=== PATIENT | female | born 1990 | race Caucasian/White ===

== ENCOUNTER 2019-03-13 18:07 | Emergency (ER) | payer OTHER, BC, SELFPAY ==
[2019-03-13 18:08] VITALS: BP 147/75; PULSE 85; RESP 15; TEMP 36.9; O2SAT 98; BMI 43.4
--- NOTE | 2019-03-13 18:49 | ED.DCSUM_ITS ---
History of Present Illness Chief Complaint: Abd Pain Detail of Chief Complaint: Right upper quadrant pain Informant: Patient Onset: Yesterday Current Severity: Moderate Maximum Severity: Moderate Narrative: She presents with waxing and waning right upper quadrant pain that started last evening. She has had nausea but no vomiting. She has not eaten in the last 13 hours due to poor appetite. She states pain initially started on the right scapula and is now more just under the right ribs. She had some chills last evening but no fever. She denies prior surgery. Past Medical History - Allergies and Home Meds Allergies/Adverse Reactions: Allergies Sulfa (Sulfonamide Antibiotics) Allergy (Verified 03/13/19 18:07) Hives Primary Care Physician: Asa Ceja MD [Primary Care Provider] - Prior records reviewed: Yes Past Medical History: - - Reviewed Surgical History: no surgical history Smoking Status: Never smoker Review of Systems General: Reports: Chills. Denies: Fever Eyes: Denies: Visual changes - bilaterally ENT: Denies: Bilateral ear pain Cardiovascular: Denies: Chest pain Respiratory: Denies: Dyspnea, Cough Gastrointestinal: Reports: Abdominal pain, Nausea. Denies: Vomiting, Diarrhea, Constipation Genitourinary: Denies: Dysuria, Hematuria Musculoskeletal: Reports: Back pain Skin: Denies: Rash Neurological: Denies: Headache Allergy: Denies: Uticaria Physical Exam Vital Signs/Narrative: Vital Signs Temp Pulse Resp BP Pulse Ox 03/13/19 18:08 98.4 F 85 15 147/75 H 98 Inital Vital Signs reviewed: Yes General: Well nourished, No Acute Distress Head: Normocephalic ENT: Moist mucous membranes Neck: Supple Cardiovascular: Regular rate, Regular rhythm Respiratory: No distress, CTA bilaterally Abdomen: Soft, Tender - Right upper quadrant tenderness to palpation., Hypoactive bowel sounds, Rankin's sign - Mildly positive Rankin sign. Negative for: Guarding, Rebound tenderness Extremities: Nontender Skin: Normal color, No rash Neurological: Alert, Oriented x3 Psychological: Normal affect Diagnostic/Tx/Re-eval Laboratory Results 03/13/19 03/13/19 03/13/19 19:00 19:00 19:00 WBC 6.3 RBC 4.64 Hgb 13.3 Hct 40.5 MCV 87.3 MCH 28.7 MCHC 32.8 RDW Std Deviation 36.3 RDW Coeff of Silas 11.4 L Plt Count 262 MPV 11.2 Immature Gran % (Auto) 0.500 Neut % (Auto) 62.8 Lymph % (Auto) 29.0 [place] % (Auto) 5.6 Eos % (Auto) 1.8 Baso % (Auto) 0.3 Absolute Neuts (auto) 4.0 Absolute Lymphs (auto) 1.82 Nucleated RBC % 0 Sodium 140 Potassium 4.1 Chloride 106 Carbon Dioxide 27.0 Anion Gap 7 BUN 9 Creatinine 0.81 Estim Creat Clear Calc 102.45 Est GFR (MDRD) Af Amer 106 Est GFR (MDRD) Non-Af 88 BUN/Creatinine Ratio 11.1 Glucose 104 Calcium 8.8 Total Bilirubin 0.50 Direct Bilirubin 0.10 AST 16 ALT 16 Alkaline Phosphatase 65 Total Protein 7.7 Albumin 3.7 Globulin 4.0 Lipase 282 Serum , Qual NEGATIVE - Medical Decision Making She was given morphine and Zofran on arrival. On repeat evaluation she does feel improved. Labs are unremarkable at this time. I did perform a bedside ultrasound. She may have a small amount of sludge in the gallbladder. I do not see any wall thickening or pericholecystic fluid. Patient will call her primary care physician on Friday for follow-up and probable ultrasound of the gallbladder. She is to return for worsening symptoms or concerns. She is comfortable with this plan. ED Disposition - Plan for ED Patient: Disposition: Home or Assisted Living Diagnosis: Right upper quadrant abdominal pain Instructions: ABDOMINAL PAIN, Unknown Cause, (Female) Prescriptions: Omeprazole [Prilosec] 20 mg PO DAILY #30 capsule Ondansetron [Zofran Odt] 4 mg PO Q8H PRN PRN #10 tablet PRN Reason: Nausea Referrals: Asa Ceja MD [Primary Care Provider] - As soon as possible
[2019-03-13] MEDS: 0.9% Normal Saline 1,000 ML 150 ML IV (19:09)
[2019-03-13] MEDS: Ondansetron 4 MG/2 ML Vial IV (19:10)
[2019-03-13 19:20] LABS: Absolute Lymphocyte Count 1.82 X10^3/uL (0.83-4.51); Basophil# 0.02 X10^3/uL; Basophil% 0.3 % (0-1); Eosinophil# 0.11 X10^3/uL; Eosinophils% 1.8 % (0-5); Hematocrit 40.5 % (37-47); Hemoglobin 13.3 g/dL (12.0-15.0); Lymphocyte # 1.82 X10^3/ul (4.0); Mean Corp Hgb Conc 32.8 g/dL (32-36); Mean Corpuscular Hgb 28.7 pg (27.0-32.0); Mean Corpuscular Volume 87.3 fL (81-99); Mean Platelet Vol. 11.2 fl (6.2-12.0); Monocyte# 0.35 X10^3/uL; Monocyte% 5.6 % (0-10); NRBC Flagged by Analyzer 0 % (0-5); Neutrophil # 3.95 X10^3/uL (2.7-7.7); Neutrophil % 62.8 % (47-70); Platelet Count 262 K/mm3 (150-450); RBC Distribution Width CV 11.4 % (11.6-14.6); RBC Distribution Width SD 36.3 fl (35.1-43.9); Red Blood Count 4.64 M/mm3 (4.2-5.4); White Blood Count 6.3 K/mm3 (4.4-11.0)
[2019-03-13 19:28] LABS: Internal QC Validated? YES +Cl - CLEAR BKGD; Pregnancy, Serum, hCG Quali. NEGATIVE Negative
[2019-03-13 19:36] LABS: AST(SGOT) 16 U/L (15-37); Alanine Aminotransfer ALT/SGPT 16 U/L (13-56); Albumin, Serum 3.7 g/dL (3.2-5.0); Alkaline Phosphatase 65 U/L (45-117); Anion Gap 7 (5-15); BUN 9 mg/dL (7-18); BUN/Creat Ratio 11.1 RATIO (10-20); Calcium,Total 8.8 mg/dL (8.5-10.1); Chloride 106 mmol/L (98-107); Creatinine, Serum 0.81 mg/dL (0.55-1.02); EST Glomerular Filtration Rate 88 mL/min (>60); Est Glom Filt Rate - Afr Amer 106 mL/min (>60); Estimated Creatinine Clearance 102.45 ml/min; Glucose 104 mg/dL (74-106); Lipase 282 U/L (73-393); Potassium 4.1 mmol/L (3.5-5.1); Protein, Total 7.7 g/dL (6.4-8.2); Sodium Level 140 mmol/L (136-145)
[2019-03-13 20:07] VITALS: PULSE 78; RESP 18; O2SAT 98
[2019-03-13 20:35] VITALS: BP 138/74; PULSE 82; RESP 18; O2SAT 97
== END 2019-03-13 20:36 | disposition home or self-care (01) ==
PROVIDERS: Emergency Provider Emergency Medicine; Family Provider Family Medicine; PCP Family Medicine
DX: R10.11 Right upper quadrant pain (principal); R11.0 Nausea; Z88.2 Allergy status to sulfonamides
CPT/HCPCS: 80048; 80076; 83690; 84703; 85025; 96361; 96374; 99283; J7030; A4216; J2405

== ENCOUNTER → 2020-02-01 11:02 | Outpatient (CLI) | payer OTHER, BC, SELFPAY ==
[2020-02-01 09:45] VITALS: BMI 43.4
[2020-02-01 12:00] LABS: Follicle Stimulating Hormone 7.3 mIU/mL; Luteinizing Hormone 3.4 mIU/mL; Thyroid Stim Hormone (TSH) 1.85 uIU/mL (0.358-3.74)
[2020-02-01 12:28] LABS: HIV - WCH Non-Reactive (Nonreactive); Hepatitis B Surface Antigen Non-Reactive (Nonreactive); Hepatitis C Antibody Non-Reactive (Nonreactive)
[2020-02-03 05:23] LABS: Rapid Plasmin Reagin (RPR) NONREACTIVE (NONREACTIVE)
[2020-02-04 22:03] LABS: Testosterone Free 1.1 pg/mL (0.0-4.2); V-Zoster IgG (Immunity) 3556 index (Immune >165)
== END ==
PROVIDERS: PCP Family Medicine; Referring Provider Obstetrics & Gynecology; Visit Provider Obstetrics & Gynecology
DX: Z31.9 Encounter for procreative management, unspecified (principal)
CPT/HCPCS: 36415; 82627; 83001; 83002; 84146; 84402; 84443; 86592; 86703; 86762; 86787; 86803; 87340; 82626

== ENCOUNTER → 2020-02-04 10:59 | Outpatient (CLI) | payer OTHER, BC, SELFPAY ==
[2020-02-01 09:45] VITALS: BMI 43.4
--- NOTE | 2020-02-04 11:00 | US_ITS ---
STUDY: ULTRASOUND OF THE FEMALE PELVIS - COMPLETE REASON FOR EXAM: Female, 29 years old. INFERTILITY LMP: 01/28/2020. TECHNIQUE: Transabdominal and Transvaginal TECHNICAL QUALITY: Adequate. COMPARISON: None. FINDINGS: The uterus is anteverted and is in a midline position. The uterus measures 7.8 cm x 4.8 cm x 4.2 cm. There is a Nabothian cyst of the cervix. The endometrium measures 6.5 mm in thickness, and is heterogeneous (striated). There is no demonstrated endometrial mass. There is no demonstrated myometrial mass. I.U.D. - The patient does not have an I.U.D. The right ovary is visualized. The right ovary measures 2.4 cm x 1.5 cm x 1.6 cm. There is no right ovarian cyst or ovarian mass. There is no visualized right adnexal mass or complex lesion. There is normal arterial and normal venous vascularity. The left ovary is visualized. The left ovary measures 3.1 cm x 2 cm x 1.9 cm. There is no left ovarian cyst or ovarian mass. There is no visualized left adnexal mass or complex lesion. There is normal arterial and normal venous vascularity. There is no fluid in the cul-de-sac. The pre void volume of the bladder was 578 ml. The post void volume of the bladder was ml. Polycystic ovary disease: No. US/Pelvic (Non ) IMPRESSION: Normal female pelvis. Electronically Signed: Chris Cunningham, at 13:06 EDT , Service support ,
--- NOTE | 2020-02-04 11:00 | US_ITS ---
STUDY: ULTRASOUND OF THE FEMALE PELVIS - COMPLETE REASON FOR EXAM: Female, 29 years old. INFERTILITY LMP: 01/28/2020. TECHNIQUE: Transabdominal and Transvaginal TECHNICAL QUALITY: Adequate. COMPARISON: None. FINDINGS: The uterus is anteverted and is in a midline position. The uterus measures 7.8 cm x 4.8 cm x 4.2 cm. There is a Nabothian cyst of the cervix. The endometrium measures 6.5 mm in thickness, and is heterogeneous (striated). There is no demonstrated endometrial mass. There is no demonstrated myometrial mass. I.U.D. - The patient does not have an I.U.D. The right ovary is visualized. The right ovary measures 2.4 cm x 1.5 cm x 1.6 cm. There is no right ovarian cyst or ovarian mass. There is no visualized right adnexal mass or complex lesion. There is normal arterial and normal venous vascularity. The left ovary is visualized. The left ovary measures 3.1 cm x 2 cm x 1.9 cm. There is no left ovarian cyst or ovarian mass. There is no visualized left adnexal mass or complex lesion. There is normal arterial and normal venous vascularity. There is no fluid in the cul-de-sac. The pre void volume of the bladder was 578 ml. The post void volume of the bladder was ml. Polycystic ovary disease: No. US/Transvaginal Non- IMPRESSION: Normal female pelvis. Electronically Signed: Chris Cunningham, at 13:06 EDT , Service support ,
== END ==
PROVIDERS: PCP Family Medicine; Referring Provider Obstetrics & Gynecology; Visit Provider Obstetrics & Gynecology
DX: Z31.9 Encounter for procreative management, unspecified (principal)
CPT/HCPCS: 76830; 76856

== ENCOUNTER → 2020-11-27 15:11 | Outpatient (CLI) | payer OTHER, BC, SELFPAY ==
[2020-11-27 10:23] VITALS: BMI 43.4
[2020-11-27 12:07] LABS: Amphetamine Urine VISTA NEGATIVE (<1000 ng/mL); Barbiturate Urine VISTA NEGATIVE (< 200 ng/mL); Benzodiazepine Urine VISTA NEGATIVE (< 200 ng/mL); Cocaine Urine VISTA NEGATIVE (< 300 ng/mL); Ecstacy Urine VISTA NEGATIVE (< 500 ng/mL); Methadone Urine VISTA NEGATIVE (< 300 ng/mL); PCP Urine VISTA NEGATIVE (< 25 ng/mL); THC Urine VISTA NEGATIVE (< 50 ng/mL); Vista UDS pH Range 5
--- NOTE | 2020-11-27 15:12 | US_ITS ---
INDICATION: check dating EXAMINATION: US OB Transvaginal TECHNIQUE: Transabdominal pelvic ultrasound was performed. Grayscale, spectral waveform, and color flow Doppler evaluation of the adnexa. COMPARISON: None. FINDINGS: UTERUS: Measures 9.4 x 6.1 x 5.2 cm. RIGHT OVARY: Not visualized LEFT OVARY: Measures 2.2 x 2.7 x 1.9 cm. Normal. FREE FLUID: None. INTRAUTERINE GESTATIONAL SAC(s) (size/shape): Two. Sac A measures 2.1 cm. Sac B measures 0.8 cm. YOLK SAC: Identified in Sac A, not in Sac B POLE: Not identified in either. ESTIMATED GESTATION AGE: Sac A - 7 weeks 0 days. Sac B - 5 weeks 3 days. US/Transvaginal w/Preg US IMPRESSION: Possible twin intrauterine of uncertain viability. Two intrauterine gestational sacs, one with a yolk sac and no embryo, while the other contains neither. Recommend follow-up OB ultrasound in 10-14 days. Electronically Signed: Dino Londono MD at 17:04 EDT Tel , Service support ,
== END ==
PROVIDERS: PCP Family Medicine; Referring Provider Obstetrics & Gynecology; Visit Provider Obstetrics & Gynecology
DX: Z34.90 Encounter for supervision of normal pregnancy, unspecified, unspecified trimester (principal)
CPT/HCPCS: 76817; 80307; 87086; 87088

== ENCOUNTER → 2020-12-04 14:55 | Outpatient (CLI) | payer OTHER, BC, SELFPAY ==
[2020-11-27 10:23] VITALS: BMI 43.4
--- NOTE | 2020-12-04 14:58 | US_ITS ---
STUDY: FIRST TRIMESTER OBSTETRICAL ULTRASOUND REASON FOR EXAM: Female, 30 years old well being . Vaginal bleeding for 2 days. LMP: 09/26/2020. TECHNIQUE: Transvaginal TECHNICAL QUALITY: Adequate. PRIOR ULTRASOUND: Comparison is made with prior study dated 11/27/2020. FINDINGS: There is visualization of a single gestational sac in a normal intrauterine position. The mean sac diameter (MSD) measures 1.94 cm, indicating an estimated gestational age (EGA) of 6 weeks, 6 days. The gestational sac shape is within normal limits. There is a visualized yolk sac. The yolk sac measures 7 mm. The placenta is non-visualized. There is no demonstrated embryo ( pole). The estimated gestation age (EGA) by LMP is 9 weeks, 6 days. The estimated date of delivery (AMANDA) by LMP is 07/03/2021. The estimated gestation age (EGA) by US is 60 weeks, 6 days. The estimated date of delivery (AMANDA) by US is 07/24/2020. The previously seen NECK SKEWER the gestational sac is not seen at this time. US/Transvaginal w/Preg US IMPRESSION: Single intrauterine gestational sac with a mean gestational age of 6 weeks and 6 days. Yolk sac is seen. No pole is seen. The second gestational sac is not seen at this time. Electronically Signed: Chris Cunningham MD at 15:43 EDT , Service support ,
[2020-12-04 17:59] LABS: Absolute Lymphocyte Count 2.05 X10^3/uL (0.83-4.51); Absolute Neutrophil Count 4.9 X10^3/uL (2.0-7.7); Basophil# 0.03 X10^3/uL; Basophil% 0.4 % (0-1); Eosinophil# 0.17 X10^3/uL; Eosinophils% 2.2 % (0-5); Hematocrit 40.4 % (37-47); Hemoglobin 13.1 g/dL (12.0-15.0); Lymphocyte # 2.05 X10^3/ul (0.83-4.51); Lymphocyte % 27.1 % (19-41); Mean Corp Hgb Conc 32.4 g/dL (32-36); Mean Corpuscular Hgb 28.9 pg (27.0-32.0); Mean Corpuscular Volume 89.2 fL (81-99); Mean Platelet Vol. 11.8 fl (6.2-12.0); Monocyte# 0.37 X10^3/uL; Monocyte% 4.9 % (0-10); NRBC Flagged by Analyzer 0 % (0-5); Neutrophil # 4.92 X10^3/uL (2.7-7.7); Neutrophil % 65.1 % (47-70); Platelet Count 292 K/mm3 (150-450); RBC Distribution Width SD 38.9 fl (35.1-43.9); Red Blood Count 4.53 M/mm3 (4.2-5.4); White Blood Count 7.6 K/mm3 (4.4-11.0)
[2020-12-05 09:32] LABS: HIV - WCH Non-Reactive (Nonreactive); Hepatitis B Surface Antigen Non-Reactive (Nonreactive); Hepatitis C Antibody Non-Reactive (Nonreactive); Rubella IgG Reactive (Nonreactive); Syphilis Antibodies Non-reactive
== END ==
PROVIDERS: Referring Provider Obstetrics & Gynecology; Visit Provider Obstetrics & Gynecology
DX: O36.80X0 Pregnancy with inconclusive fetal viability, not applicable or unspecified (principal); Z3A.01 Less than 8 weeks gestation of pregnancy
CPT/HCPCS: 36415; 76817; 85025; 86703; 86762; 86780; 86803; 86850; 86900; 86901; 87340

== ENCOUNTER 2020-12-05 17:39 | Emergency (ER) | payer OTHER, BC, SELFPAY ==
[2020-12-04 15:57] VITALS: BMI 42.9
[2020-12-05 17:40] VITALS: BP 130/99; PULSE 110; RESP 16; TEMP 36.5; O2SAT 99; BMI 42.5
[2020-12-05 18:06] VITALS: BP 150/92
[2020-12-05 18:53] LABS: Hematocrit 41.8 % (37-47); Hemoglobin 13.5 g/dL (12.0-15.0)
[2020-12-05] MEDS: Morphine 4 MG/ML Syringe IV ×2 (18:56→19:42)
[2020-12-05] MEDS: Ondansetron 4 MG/2 ML Vial IV (18:56)
--- NOTE | 2020-12-05 19:30 | US_ITS ---
STUDY: FIRST TRIMESTER OBSTETRICAL ULTRASOUND REASON FOR EXAM: Female, 30 years old vaginal bleeding, + LMP: 09/26/2020. TECHNIQUE: Transvaginal TECHNICAL QUALITY: Adequate. PRIOR ULTRASOUND: Comparison is made with prior examination of 12/04/2020. FINDINGS: There is no demonstrated intrauterine gestational sac. There is no demonstrated yolk sac. The placenta is non-visualized. There is no demonstrated embryo ( pole). The estimated gestation age (EGA) by LMP is 10 weeks, 0 days. The estimated date of delivery (AMANDA) by LMP is 07/03/2021. The uterus measures 8.5 cm x 5.3 cm by 4.5 cm. The endometrium measures 1.3 cm. It is echogenic. There is no demonstrated uterine fibroid. The cervix is closed. The right ovary measures 2.4 cm x 1.7 cm x 1.5 cm. There is no right ovarian cyst. There is no visualized right adnexal mass or complex lesion. The left ovary measures 3.3 cm x 2.9 cm x 1.8 cm. There is a dominant follicle measuring 1.8 cm x 1.9 cm x 1.5 cm. There is no visualized left adnexal mass or complex lesion. There is minimal fluid in the cul de sac. US/Transvaginal w/Preg US IMPRESSION: No intrauterine gestation is seen at this time. The endometrium measures 1.3 cm and is hyperechoic. Small follicle in the left ovary. Electronically Signed: Chris Cunningham MD at 20:17 EDT , Service support ,
--- NOTE | 2020-12-05 19:37 | EDS_ITS ---
HPI HPI - Female History of Present Illness Chief Complaint: Vag Bleeding Informant: patient Pain Pain: Positive for Pelvic Pain Narrative Narrative: Patient is a G1, P0 presenting vaginal bleeding and cramping. Patient is approximately 10 weeks from her last menstrual period however she has had ultrasound putting her at 6-7 weeks gestation. She initially had a twin gestational sacs however she had ultrasound yesterday by her [employer] which showed demise of 1 twin and gestational sac but no pole of the other. Since going home patient had increased pelvic cramping and vaginal bleeding. She states she had gushing of blood and passage of clots. No press of conceptions visualized. Patient denies any lightheadedness or dizziness. Her [employer]ATE [employer] is Dr. Triana. Patient has any abnormal vaginal discharge. She denies any urinary symptoms. [facility] Medical History (Updated 12/05/20 @ 20:[address] Rena Wright DO) BALJIT (generalized anxiety disorder) Migraine with aura Mixed dyslipidemia Obesity Rosacea Seasonal allergies Home Medications hydroxyzine pamoate 25 mg capsule 25 mg PO QHS PRN 02/01/20 [History Last Taken Unknown] cetirizine 10 mg capsule 10 mg PO DAILY PRN 11/08/20 [History Last Taken Unknown] hydrocodone-acetaminophen 1 tab PO Q6H PRN 3 Days #12 tab 12/05/20 [Rx Last Taken Unknown] ibuprofen 600 mg PO Q6H PRN PRN #20 tab 12/05/20 [Rx Last Taken Unknown] Allergy/AdvReac Type Severity Reaction Status Date / Time Sulfa (Sulfonamide Allergy Hives Verified 12/05/20 17:40 Antibiotics) Family History Mother Thyroid cancer Hypertension Father Hypertension Hyperlipidemia Grandfather Leukemia Lung cancer Grandmother Diabetes Social History adopted: No household members: spouse current occupational status: employed 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 pets and animals: Yes (avoid litter box) pets and animals: cat(s) and dog(s) sexually active: Yes Smoking Status: Never smoker alcohol intake: current details: not while substance use type: does not use caffeine: Yes what type of physical activity do you participate in: none seatbelt use: always do you feel safe at home: Yes additional social history: - Ric 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 ED Constitutional Constitutional ED: Denies chills or fever(s) Eyes Eyes: Denies blurry vision ENT ENT ED: Denies rhinorrhea or sore throat Cardiovascular Cardiovascular: Denies chest pain or palpitations Respiratory/Chest Respiratory/Chest: Denies cough or dyspnea Gastrointestinal Gastrointestinal: Reports abdominal pain; Denies nausea or vomiting Genitourinary Genitourinary ED: Reports vaginal bleeding and other Details: Vaginal bleeding Musculoskeletal Musculoskeletal: Denies arthralgias or myalgias Integumentary Denies abscess or rash Neurologic Neurologic: Denies headache(s) or weakness Psychiatric Psychiatric: Denies anxiety or depression EXAM Physical Exam Const Vital Signs: 12/05/20 17:40 12/05/20 18:06 12/05/20 21:00 Temperature 97.7 F L Temperature Source Temporal Pulse Rate 110 H 72 Respiratory Rate 16 16 Blood Pressure 130/99 H 150/92 H 144/85 H Blood Pressure Mean 109 111 Pulse Ox 99 99 Oxygen Delivery Method Room Air Positive well nourished and well developed General Appearance ED: well developed HEENT Reports moist mucous membranes Eyes PERRL and EOMs intact bilaterally Neck supple and no JVD Chest Wall inspection of chest normal Resp normal respiratory effort and clear to auscultation bilaterally Cardio regular rate, regular rhythm and no murmurs GI soft to palpation and non-distended GI Narrative: Suprapubic tenderness to palpation Auscultation: normoactive bowel sounds no CVA tenderness Narrative: Normal external genitalia. Speculum Exam - Vagina: vaginal bleeding medium/moderate; Negative for tissue present in vagina Speculum Exam - Cervix: nulliparous and cervical os closed; Negative for cervical tenderness Bimanual Exam - Vag & Uterus: normal bimanual exam, normal vaginal palpation and other Cervix os is soft ; Negative for cervical motion tenderness Bimanual Exam - Adnexa, Other: normal adnexae Back/Spine no CVA tenderness Extremity normal to inspection Neuro oriented x3 and no sensory deficits noted Sensorium / Orientation: alert Psych mental status grossly normal Mood & Affect: tearful Skin no rashes or lesions noted MDM MDM MDM Narrative Medical decision making narrative: Patient is evaluated for increased vaginal bleeding and cramping. She was diagnosed with a threatened AB yesterday. On pelvic exam patient's os is soft but appears closed. She does not have any significant bleeding. She is hemodynamically stable in the emergency room however she is tachycardic when she first came in. Her hemoglobin is stable and is 13.5. Her quant is 9774. Did discuss the case with OB on-call who recommends repeating ultrasound. Ultrasound shows no intrauterine gestational sac and likely patient has had a completed . Patient is informed of these findings. She is given morphine as well as Toradol in the ER for her symptoms. She is discharged home with a prescription for [place] and Motrin for pain control. She is given a work note per her request. She is given follow-up instructions with her [employer]. Lab Data Labs: Laboratory Results - last 24 hr 12/05/20 12/05/20 18:35 18:35 Hgb 13.5 Hct 41.8 HCG, Quant 9774 H Radiography Diagnostic Testing: Radiology Impression Obstetrics Ultrasound 12/05/20 19:30 IMPRESSION: No intrauterine gestation is seen at this time. The endometrium measures 1.3 cm and is hyperechoic. Small follicle in the left ovary. Electronically Signed: Chris Cunningham MD at 20:17 EDT , Service support , Discharge Plan Triage Chief Complaint: Vag Bleeding ED Provider: Rena Wright Dx/Rx/DC Orders Clinical Impression: Complete Instructions: ED MISCARRIAGE Completed Prescriptions: New hydrocodone-acetaminophen 5-325 mg tablet 1 tab PO Q6H PRN (Reason: pain) 3 Days Qty: 12 RF: 0 ibuprofen 600 mg tablet 600 mg PO Q6H PRN PRN (Reason: fever or pain) Qty: 20 RF: 0 No Action hydroxyzine pamoate [Vistaril] 25 mg capsule 25 mg PO QHS PRN (Reason: Anxiety) RF: 0 Zyrtec 10 mg capsule 10 mg PO DAILY PRN (Reason: allergies) RF: 0 Stand Alone Forms: ED Work / School Excuse Referrals: Ivy Montes [Other] Mikayla Higgins MD [STAFF PHYSICIAN] - Disposition Disposition: Home, Self Care Discharge Date/Time: 12/05/20 21:05
[2020-12-05 19:38] LABS: hCG Titer Quant., Serum 9774 mIU/mL (1-3)
--- NOTE | 2020-12-05 20:24 | OB.TRI.HP_ITS ---
HPI - General HPI Narrative STEVE BARKSDALE, is a 30 F who presents at 10 weeks with threatened . us yesterday showed GS with hematoma measuring 6w6d small CRL and yolk sac enlarged. Patient came having very heavy bleeding today passing large clot and tissue, ultrasound today shows MD uterine cavity with 1.3 cm clot seen. Confirm ed complete . Maternal Data Information AMANDA Calculator Estimated Delivery Date Method Current WG Current Estimate 07/03/21 LMP (Certain) 10w 0d PFSH [facility] Medical History (Updated 12/05/20 @ 20:[address] Toyin Kimbrough MD) BALJIT (generalized anxiety disorder) Migraine with aura Mixed dyslipidemia Obesity Rosacea Seasonal allergies Home Medications hydroxyzine pamoate 25 mg capsule 25 mg PO QHS PRN 02/01/20 [History Last Taken Unknown] cetirizine 10 mg capsule 10 mg PO DAILY PRN 11/08/20 [History Last Taken Unknown] Allergy/AdvReac Type Severity Reaction Status Date / Time Sulfa (Sulfonamide Allergy Hives Verified 12/05/20 17:40 Antibiotics) Family History Mother Thyroid cancer Hypertension Father Hypertension Hyperlipidemia Grandfather Leukemia Lung cancer Grandmother Diabetes Social History adopted: No household members: spouse current occupational status: employed 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 pets and animals: Yes (avoid litter box) pets and animals: cat(s) and dog(s) sexually active: Yes Smoking Status: Never smoker alcohol intake: current details: not while substance use type: does not use caffeine: Yes what type of physical activity do you participate in: none seatbelt use: always do you feel safe at home: Yes additional social history: - Ric 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 1 Elective abortions Hx Para Spontaneous abortions Hx # Term Pregnancies Ectopic pregnancies Hx # Pregnancies Multiple births # of living children Visit Details Expected Delivery Route/Plan Labor Preferences- CB/BF classes: [] labor support person: [] labor intervention preferences: [] pain management options preferred: [] cut cord/dad catch: [] : [] PP control planned: [] discussed possible routes of delivery and associated risks: [] special requests: [] Plans flu vaccine: [] tdap vaccine: [] rhogam: [] LARC form signed: [] Problem list reviewed and updated with the most current plan of care details and appropriate orders placed. Relevant counseling for the gestational age provided. Continue routine care and follow up unless otherwise noted in visit notes/problem list details OB Flowsheet Initial Weight: Not Recorded Date -?-?-?-?-?-?-?-?-?-?-?-?- EGA Weight BP Urine Prot -?-?-?-?-?-?-?-?-?-?-?-?- Glucose FHR FuHt Pres Dilation -?-?-?-?-?-?-?-?-?-?-?-?- Effaced St Visit Note 11/27/20 -?-?-?-?-?-?-?-?-?-?-?-?- 8w 6d 284 lb 6 oz 124/80 -?-?-?-?-?-?-?-?-?-?-?-?- 60 -?-?-?-?-?-?-?-?-?-?-?-?- GP - us with fet al pole measuring ~6mm with weak cardiac activity. Scheduled for formal US today. 12/05/20 -?-?-?-?-?-?-?-?-?-?-?-?- 10w 0d 280 lb 130/99 150/92 -?-?-?-?-?-?-?-?-?-?-?-?- -?-?-?-?-?-?-?-?-?-?-?-?- ROS Constitutional Constitutional: Reports as per HPI Gastrointestinal Gastrointestinal: Reports as per HPI, abdominal pain, cramping and nausea Genitourinary Genitourinary: Reports as per HPI Physical Exam Const alert, oriented x3 and no apparent distress HEENT Head and Scalp: normocephalic and atraumatic Lymph Lymphatic: no lymphadenopathy noted Resp normal respiratory effort Assessment & Plan (1) Complete : COMMENT: 1.3 cm lining, exp management, fu 1 week in office for US and repeat HCG PLAN: see PL comments Charges/Coding Visit Charges Office Visits / Consults: [id number] OV L3 Est
[2020-12-05] MEDS: HYDROcodone Bitartrate/Apap 5/325 Tablet PO (20:57)
[2020-12-05] MEDS: Ketorolac 15 MG/ML Vial IV (20:57)
[2020-12-05 21:00] VITALS: BP 144/85; PULSE 72; RESP 16; O2SAT 99
== END 2020-12-05 21:05 | disposition home or self-care (01) ==
PROVIDERS: Emergency Provider Emergency Medicine
DX: O03.9 Complete or unspecified spontaneous abortion without complication (principal); O99.211 Obesity complicating pregnancy, first trimester; E66.9 Obesity, unspecified; O99.341 Other mental disorders complicating pregnancy, first trimester; F41.1 Generalized anxiety disorder; E78.2 Mixed hyperlipidemia; Z3A.01 Less than 8 weeks gestation of pregnancy
CPT/HCPCS: 76817; 84702; 85014; 85018; 96374; 96375; 96376; 99285; J7030; A4216; J2405

== ENCOUNTER → 2020-12-11 14:21 | Outpatient (CLI) | payer OTHER, BC, SELFPAY ==
[2020-12-05 17:40] VITALS: BMI 42.5
[2020-12-11 16:01] LABS: hCG Titer Quant., Serum 303 mIU/mL (1-3)
== END ==
PROVIDERS: Referring Provider Obstetrics & Gynecology; Visit Provider Obstetrics & Gynecology
DX: O03.9 Complete or unspecified spontaneous abortion without complication (principal)
CPT/HCPCS: 36415; 84702

== ENCOUNTER → 2021-01-29 06:43 | Outpatient (CLI) | payer OTHER, BC, SELFPAY ==
[2021-01-29 10:01] LABS: Vitamin B12 292 pg/mL (211-911); Vitamin D,25 Hydroxy 22.8 ng/mL
[2021-01-29 10:28] LABS: ALB/GLOB Ratio 0.7 RATIO (0.9-2.4); AST(SGOT) 15 U/L (15-37); Alanine Aminotransfer ALT/SGPT 19 U/L (13-56); Albumin, Serum 3.5 g/dL (3.2-5.0); Alkaline Phosphatase 61 U/L (45-117); Anion Gap 7 (5-15); BUN 13 mg/dL (7-18); BUN/Creat Ratio 19.9 RATIO (10-20); Calcium,Total 9.1 mg/dL (8.5-10.1); Chloride 105 mmol/L (98-107); Cholesterol 225 mg/dL (200); Creatinine, Serum 0.65 mg/dL (0.55-1.02); EST Glomerular Filtration Rate 112 mL/min (>60); Est Glom Filt Rate - Afr Amer 135 mL/min (>60); Free T3 2.8 pg/mL (2.18-3.98); Globulin 4.7 g/dL (2.2-4.2); Glucose 88 mg/dL (74-106); High Density Lipoprotein 36 mg/dL; Potassium 3.9 mmol/L (3.5-5.1); Protein, Total 8.2 g/dL (6.4-8.2); Sodium Level 137 mmol/L (136-145); T4 Free Direct 0.88 ng/dL (0.76-1.46); Thyroid Stim Hormone (TSH) 3.36 uIU/mL (0.358-3.74); Triglycerides 298 mg/dL; Very Low Density Lipoprotein 60 mg/dL (5-40)
== END ==
DX: Z00.00 Encounter for general adult medical examination without abnormal findings (principal); Z83.49 Family history of other endocrine, nutritional and metabolic diseases
CPT/HCPCS: 36415; 80053; 80061; 82306; 82607; 82746; 84439; 84443; 84481

== ENCOUNTER → 2021-03-08 11:04 | Outpatient (CLI) | payer OTHER, BC, SELFPAY ==
[2021-03-08 12:07] LABS: hCG Titer Quant., Serum < 1 mIU/mL (1-3)
== END ==
PROVIDERS: Visit Provider Obstetrics & Gynecology
DX: O20.0 Threatened abortion (principal); Z3A.00 Weeks of gestation of pregnancy not specified
CPT/HCPCS: 36415; 84702

== ENCOUNTER 2021-04-18 08:15 | Outpatient (RCR) | payer OTHER, SELFPAY ==
[2020-03-01 08:30] VITALS: BMI 44.1
--- NOTE | 2020-07-12 15:14 | MASS.EVAL ---
Massage Therapy Evaluation: Initial Evaluation Date: 07/05/2020 SUBJECTIVE: Willow is a 29 year old female who was referred to the [facility] for a massotherapy evaluation by Dr. Montes with the diagnosis of shoulder pain. She presents today with the symptoms of pain, stiffness and tension in the neck, head, mid back, low back, hips, and pelvis. Willow reports having a past medical history of chronic headaches. She reports having minimal improvement with exercise and stretching over the last few months. OBJECTIVE: Upon observation Willow has some posture issues with her head and shoulders forward from the neutral position in sitting and standing. After examination and palpation, I found Willow to have high muscle tension with tenderness and myofascial restrictions in her sub occipitals, levator scapulae, trapezius, rhomboids, scalenes, and thoracic paraspinals. Her QL?s, lumbar paraspinals, piriformis, ITB?s, glute medius and minimus all were very tight with fascial restrictions, tender points and trigger points. The first treatment consisted of a one hour massage to her upper body with myofascial release, muscle stripping, trigger point compression techniques, and cervical manual traction. ASSESSMENT: I feel that Willow is a good candidate for massotherapy at this time. She had a favorable response to the first treatment with reduction in her muscle aches, pain and tension. She also had improvement in her cervical flexibility and low back flexibility. PLAN: The plan of care was reviewed with the patient. The patient is to be seen on an as needed basis for a total of ten sessions with the recommendation of once every month for a one hour treatment.
--- NOTE | 2021-04-30 13:05 | DS.PCM_ITS ---
Massage Therapy Discharge Summary: discharge date 04/30/21 Willow was seen on July 05, 2020, with the diagnosis of shoulder pain. She was treated with eight sessions of massage. The patient reported that massages helped her pain. At this time I am discharging her from our care at [facility].
== END 2021-04-18 19:00 | disposition home or self-care (01) ==
LOC: MASS 08:15
PROVIDERS: PCP Family Medicine
DX: M25.519 Pain in unspecified shoulder (principal)
CPT/HCPCS: 97124

== ENCOUNTER 2021-06-21 16:02 | Emergency (ER) | payer OTHER, BC, SELFPAY ==
[2021-06-21 16:03] VITALS: BP 155/107; PULSE 95; RESP 18; TEMP 36; O2SAT 100; BMI 43.1
[2021-06-21 16:39] VITALS: O2SAT 98
--- NOTE | 2021-06-21 16:39 | EKG12_ITS ---
Test Reason : Blood Pressure : / mmHG Vent. Rate : 093 BPM Atrial Rate : 093 BPM P-R Int : 154 ms QRS Dur : 084 ms QT Int : 350 ms P-R-T Axes : 045 -03 043 degrees QTc Int : 435 ms Normal sinus rhythm Normal ECG Confirmed by RYLEY HAMILTON, ELISABETH ([id number]), online editor PURA KENDALL ([id number]) on 06/22/2021 11:06:59 AM Referred By: SAMMIE Confirmed By:ELISABETH HEDRICK MD
--- NOTE | 2021-06-21 16:47 | RAD_ITS ---
STUDY: X-RAY CHEST REASON FOR EXAM: Female, 30 years old. Chest pain TECHNIQUE: Single frontal view of the chest. COMPARISON: None. FINDINGS: The lungs are clear and expanded. There is no demonstrated pleural abnormality. Normal size heart. Normal mediastinum and george. Normal visualized pulmonary arteries. Normal visualized aortic arch and descending thoracic aorta. Normal visualized thoracic spine. Normal visualized ribs, clavicles, and shoulders. There is no demonstrated abnormality of the visualized soft tissue structures of the upper abdomen. RAD/Chest 1 View (Portable) IMPRESSION: Normal x-ray examination of the chest. Electronically Signed: Anuel Carreno MD at 17:15 EST ,
--- NOTE | 2021-06-21 16:51 | EDS_ITS ---
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 States today she was dizzy with palpitations. Her blood pressures been elevated 153/103. They put her on the monitor upstairs that her heart rate was between 100 123 with intermittent PVCs. She denies any chest pain. No hemoptysis. No history of DVT or PE. No recent travel or surgery. No mobilization. No leg pain or swelling. She is never had episodes like this before. Said she was recently worked up for thyroid and it was unremarkable. Denies any drastic weight change or hair loss. Prior Similar Symptoms: No Recent Illness/Hospitalization: No CVD Risk Factors: Positive for Hypercholesterolemia; Negative for Hypertension and Diabetes PE Risk Factors: Negative for Recent Travel/Surgery, Recent Immobilization, Prior DVT or PE, Cancer and OCP + Smoking + >/=35 TAD Risk Factors: Negative for Marfan's Syndrome and Hypertension [facility] Medical History BALJIT (generalized anxiety disorder) Migraine with aura Mixed dyslipidemia Obesity Rosacea Seasonal allergies Home Medications hydroxyzine pamoate 25 mg capsule 25 mg PO QHS PRN 02/01/20 [History Last Taken Unknown] cetirizine 10 mg capsule 10 mg PO DAILY PRN 11/08/20 [History Last Taken Unknown] Allergy/AdvReac Type Severity Reaction Status Date / Time Sulfa (Sulfonamide Allergy Hives Verified 12/05/20 17:40 Antibiotics) Family History Mother Thyroid cancer Hypertension Father Hypertension Hyperlipidemia Grandfather Leukemia Lung cancer Grandmother Diabetes Social History adopted: No household members: spouse current occupational status: employed 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 ROS ROS ED ROS Narrative Denies recent illness. Review of Systems ROS Unobtainable: Denies due to encephalopathy Constitutional Constitutional ED: Denies chills, fever(s) or subjective Eyes Eyes: Denies none or change in vision ENT ENT ED: Denies ear pain Cardiovascular Cardiovascular: Reports as per HPI, palpitations and racing heartbeat; Denies chest pain Respiratory/Chest Respiratory/Chest: Denies cough or dyspnea Gastrointestinal Gastrointestinal: Denies abdominal pain, constipation, diarrhea, melena, nausea or vomiting Genitourinary Genitourinary ED: Denies dysuria Musculoskeletal Musculoskeletal: Denies myalgias Integumentary Denies rash Neurologic Neurologic: Denies headache(s) Psychiatric Psychiatric: Denies depression Endocrine Endocrinology: Denies polyuria Hematologic/Lymphatic Hematologic/Lymphatic: Denies easy bruising Allergic/Immunologic Allergic/Immunologic ED: Denies urticaria EXAM Physical Exam Narrative Exam Narrative: 30-year-old female no acute distress. Vital signs stable afebrile. Heart rate around 100. H EENT exam unremarkable. Moist weeks membranes. Neck nontender. No thyromegaly. No JVD. Lungs clear to auscultation bilaterally. Heart regular rhythm rate about 102 no murmur. Abdomen soft nontender normal bowel sounds no peritoneal signs. Patient moving all 4 extremities. Equal symmetrical radial pulses. Calves are nontender without edema or cords. Neurologically she is awake alert with no focal motor deficits. Const Vital Signs: 06/21/21 16:03 06/21/21 16:09 06/21/21 16:39 Temperature 96.8 F L Temperature Source Temporal Pulse Rate 95 Respiratory Rate 18 Respiratory Effort Normal Respiratory Pattern Normal Blood Pressure 155/107 H Blood Pressure Mean 123 Pulse Ox 100 98 Oxygen Delivery Method Room Air Room Air 06/21/21 17:09 06/21/21 18:27 Temperature Temperature Source Pulse Rate 104 H 86 Respiratory Rate 15 10 L Respiratory Effort Respiratory Pattern Blood Pressure 140/103 H 138/81 H Blood Pressure Mean 115 100 Pulse Ox 98 99 Oxygen Delivery Method Room Air Room Air Positive well nourished, well developed and obese; Negative for cachectic, contractures or unkempt General Appearance ED: well developed and NAD; Negative for unkempt, cachectic, contractures or pallor Nutritional Appearance: obese; Negative for cachectic HEENT Reports moist mucous membranes normocephalic and atraumatic; Negative for trauma or tenderness Eyes PERRL and EOMs intact bilaterally General Eye ED: Negative for pale conjunctiva or scleral icterus Neck no lymphadenopathy, supple and no JVD General: Negative for tenderness Chest Wall inspection of chest normal and palpation of chest normal Chest: Negative for tenderness Resp normal respiratory effort and clear to auscultation bilaterally Effort and Inspection: respiratory distress Auscultation: Negative for rales, rhonchi or wheezes Cardio regular rhythm, S1 normal heart sound and S2 normal heart sound Rate: tachycardic Peripheral Pulses: radial pulses present GI normal to inspection, nondistended, normoactive bowel sounds, soft to palpation, non-tender, non-distended and no masses; Negative for hepatosplenomegaly Auscultation: Negative for hyperactive bowel sounds Palpation: Negative for splenomegaly or mass Back/Spine no CVA tenderness and no thoracic nor lumbar tenderness General Back: Negative for CVA tenderness Cervical Spine: Negative for cervical spine tenderness Extremity normal to inspection General Extremety ED: Negative for edema, pulses abnormal or tenderness General Extremity: Negative for edema or pulses abnormal Neuro oriented x3 and CN's II-XII intact bilaterally Sensorium / Orientation: awake, alert, oriented to person, oriented to place and oriented to time; Negative for confused, lethargic or stuporous Motor Exam: strength 5/5 throughout; Negative for general weakness or strength abnormal Psych mental status grossly normal Appearance: Negative for unkempt Attitude: No agitated Mood & Affect: Negative for depressed or tearful Skin no rashes or lesions noted and no wounds General Skin Exam: Negative for jaundice or pallor Rashes: No rashes noted Trauma: Negative for abrasion MDM MDM MDM Narrative Medical decision making narrative: 30-year-old female with palpitations. Exam benign. She undergo a cardiac work-up with TSH. Repeat exam patient is doing well at 7:08 PM to be discharged home. Lab Data Attestation: I reviewed the patient's lab results. Lab results narrative: CBC normal white count of 10. H&H of 13 and 40. Platelets 314. Electrolytes unremarkable gap of 4 normal BUN and creatinine. Glucose 107. Troponin III and TSH normal at 2.13. Chest x-ray normal. Labs: Laboratory Results - last 24 hr 06/21/21 06/21/21 16:18 16:18 WBC 10.1 RBC 4.52 Hgb 13.4 Hct 40.1 MCV 88.7 MCH 29.6 MCHC 33.4 RDW Std Deviation 38.1 RDW Coeff of Silas 11.9 Plt Count 314 MPV 11.5 Immature Gran % (Auto) 0.500 Neut % (Auto) 72.7 H Lymph % (Auto) 20.9 [place] % (Auto) 4.6 Eos % (Auto) 1.0 Baso % (Auto) 0.3 Absolute Neuts (auto) 7.4 Absolute Lymphs (auto) 2.12 Nucleated RBC % 0 Sodium 138 Potassium 3.5 Chloride 106 Carbon Dioxide 28.0 Anion Gap 4 L BUN 10 Creatinine 0.93 Estim Creat Clear Calc 87.60 Est GFR (MDRD) Af Amer 89 Est GFR (MDRD) Non-Af 74 BUN/Creatinine Ratio 10.7 Glucose 107 H Calcium 9.2 Troponin I High Sens 3 TSH 2.13 Radiography Chest X-Ray - ED: 1 View, Read by ED Physician, Read by Radiologist, Heart, Lungs, Mediastinum, Bony Structures, No Acute Disease and Chronic Changes Diagnostic Testing: Clinical Impression(s) from Imaging Studies Chest X-Ray 06/21/21 16:47 IMPRESSION: Normal x-ray examination of the chest. Electronically Signed: Anuel Carreno MD at 17:15 EST Reading Location ID and State: [facility] / [place] Tel , Service support , Chest x-ray, portable, single view shows no acute abnormality. Interpreted both by myself and the radiologist. Rhythm Strip Rhythm Strip: Sinus Rhythm Rate: 93 Ectopy: None EKG Initial EKG: Interpretation: Sinus Rhythm and No Acute Injury Pattern Comments: Normal sinus rhythm. Rate of 93. No acute signs of NH nor ischemia. No arrhythmia. Prior EKG tracings: not available for review Discharge Plan Triage Chief Complaint: Palpitations ED Provider: Tommy Gibson Dx/Rx/DC Orders Clinical Impression: Heart palpitations Instructions: ED Palpitations Prescriptions: No Action hydroxyzine pamoate [Vistaril] 25 mg capsule 25 mg PO QHS PRN (Reason: Anxiety) RF: 0 Zyrtec 10 mg capsule 10 mg PO DAILY PRN (Reason: allergies) RF: 0 Referrals: KANDY CANNON [Other] Activity Restrictions/Additional Instructions: All your lab tests, EKG, chest x-ray and thyroid test were all normal. Follow-up with your primary care provider. No specific cause for your accelerated heart rate today. Disposition Disposition: Home, Self Care
[2021-06-21 16:57] LABS: Absolute Lymphocyte Count 2.12 X10^3/uL (0.83-4.51); Absolute Neutrophil Count 7.4 X10^3/uL (2.0-7.7); Basophil# 0.03 X10^3/uL; Basophil% 0.3 % (0-1); Hematocrit 40.1 % (37-47); Hemoglobin 13.4 g/dL (12.0-15.0); Lymphocyte # 2.12 X10^3/ul (0.83-4.51); Lymphocyte % 20.9 % (19-41); Mean Corp Hgb Conc 33.4 g/dL (32-36); Mean Corpuscular Hgb 29.6 pg (27.0-32.0); Mean Corpuscular Volume 88.7 fL (81-99); Mean Platelet Vol. 11.5 fl (6.2-12.0); Monocyte# 0.47 X10^3/uL; Monocyte% 4.6 % (0-10); NRBC Flagged by Analyzer 0 % (0-5); Neutrophil # 7.37 X10^3/uL (2.7-7.7); Neutrophil % 72.7 % (47-70); Platelet Count 314 K/mm3 (150-450); RBC Distribution Width CV 11.9 % (11.6-14.6); RBC Distribution Width SD 38.1 fl (35.1-43.9); Red Blood Count 4.52 M/mm3 (4.2-5.4); White Blood Count 10.1 K/mm3 (4.4-11.0)
[2021-06-21 17:09] VITALS: BP 140/103; PULSE 104; RESP 15; O2SAT 98
[2021-06-21 17:39] LABS: Anion Gap 4 (5-15); BUN 10 mg/dL (7-18); BUN/Creat Ratio 10.7 RATIO (10-20); Calcium,Total 9.2 mg/dL (8.5-10.1); Chloride 106 mmol/L (98-107); Creatinine, Serum 0.93 mg/dL (0.55-1.02); EST Glomerular Filtration Rate 74 mL/min (>60); Est Glom Filt Rate - Afr Amer 89 mL/min (>60); Glucose 107 mg/dL (74-106); Potassium 3.5 mmol/L (3.5-5.1); Sodium Level 138 mmol/L (136-145); Thyroid Stim Hormone (TSH) 2.13 uIU/mL (0.358-3.74); Troponin-I HS 3 pg/mL (3.0-54.0)
[2021-06-21 18:27] VITALS: BP 138/81; PULSE 86; RESP 10; O2SAT 99
[2021-06-21 19:00] VITALS: BP 124/79; PULSE 107; RESP 28
[2021-06-21 19:12] VITALS: BP 124/79; PULSE 95; RESP 18
== END 2021-06-21 19:15 | disposition home or self-care (01) ==
PROVIDERS: Emergency Provider Emergency Medicine; Visit Provider Emergency Medicine
DX: R00.2 Palpitations (principal); E78.5 Hyperlipidemia, unspecified; E78.00 Pure hypercholesterolemia, unspecified; E66.9 Obesity, unspecified; Z79.899 Other long term (current) drug therapy
CPT/HCPCS: 71045; 80048; 84443; 84484; 85025; 93005; 99284; A4216

== ENCOUNTER 2021-08-14 09:00 | Outpatient (CLI) | payer OTHER, BC, SELFPAY ==
[2021-08-14 10:12] LABS: hCG Titer Quant., Serum 257 mIU/mL (1-3)
== END 2021-08-14 23:59 | disposition home or self-care (01) ==
LOC: LAB 09:02
PROVIDERS: Referring Provider Obstetrics & Gynecology; Visit Provider Obstetrics & Gynecology
DX: O03.9 Complete or unspecified spontaneous abortion without complication (principal)
CPT/HCPCS: 36415; 84702

== ENCOUNTER 2021-08-16 09:15 | Outpatient (CLI) | payer OTHER, BC, SELFPAY ==
[2021-08-16 10:12] LABS: hCG Titer Quant., Serum 624 mIU/mL (1-3)
== END 2021-08-16 23:59 | disposition home or self-care (01) ==
LOC: LAB 09:18
PROVIDERS: Referring Provider Obstetrics & Gynecology; Visit Provider Obstetrics & Gynecology
DX: N91.2 Amenorrhea, unspecified (principal)
CPT/HCPCS: 36415; 84702

== ENCOUNTER → 2021-09-13 | Outpatient (CLI) | payer OTHER, BC, SELFPAY ==
[2021-09-13 20:54] LABS: Amphetamine Urine VISTA NEGATIVE (<1000 ng/mL); Barbiturate Urine VISTA NEGATIVE (< 200 ng/mL); Benzodiazepine Urine VISTA NEGATIVE (< 200 ng/mL); Cocaine Urine VISTA NEGATIVE (< 300 ng/mL); Ecstacy Urine VISTA NEGATIVE (< 500 ng/mL); Methadone Urine VISTA NEGATIVE (< 300 ng/mL); PCP Urine VISTA NEGATIVE (< 25 ng/mL); THC Urine VISTA NEGATIVE (< 50 ng/mL); Vista UDS pH Range 6
[2021-09-17 01:07] LABS: Chlamydia By Nucleic Acid AMP Negative (Negative)
[2021-09-17 13:28] LABS: Gonococcus By Nucleic Acid AMP Negative (Negative)
[2021-09-19 20:23] LABS: HPV APTIMA, High Risk Negative (Negative)
== END | disposition home or self-care (01) ==
PROVIDERS: Visit Provider Obstetrics & Gynecology
DX: O09.90 Supervision of high risk pregnancy, unspecified, unspecified trimester (principal)
CPT/HCPCS: 80307; 87086; 87088; 87491; 87591; 87624; 88175; G0145

== ENCOUNTER → 2021-09-21 | Outpatient (CLI) | payer OTHER, BC, SELFPAY ==
[2021-09-21 11:18] LABS: Glucose Challenge Gest 1H 50g 137 mg/dL (70-140)
[2021-09-21 11:21] LABS: Absolute Lymphocyte Count 1.48 X10^3/uL (0.83-4.51); Absolute Neutrophil Count 5.1 X10^3/uL (2.0-7.7); Basophil# 0.01 X10^3/uL; Basophil% 0.1 % (0-1); Eosinophil# 0.05 X10^3/uL; Eosinophils% 0.7 % (0-5); Hematocrit 39.8 % (37-47); Hemoglobin 12.9 g/dL (12.0-15.0); Lymphocyte # 1.48 X10^3/ul (0.83-4.51); Lymphocyte % 21.4 % (19-41); Mean Corp Hgb Conc 32.4 g/dL (32-36); Mean Corpuscular Hgb 28.9 pg (27.0-32.0); Mean Corpuscular Volume 89.2 fL (81-99); Mean Platelet Vol. 11.6 fl (6.2-12.0); Monocyte# 0.22 X10^3/uL; Monocyte% 3.2 % (0-10); NRBC Flagged by Analyzer 0 % (0-5); Neutrophil # 5.12 X10^3/uL (2.7-7.7); Neutrophil % 74.3 % (47-70); Platelet Count 238 K/mm3 (150-450); RBC Distribution Width CV 11.7 % (11.6-14.6); RBC Distribution Width SD 37.7 fl (35.1-43.9); Red Blood Count 4.46 M/mm3 (4.2-5.4); White Blood Count 6.9 K/mm3 (4.4-11.0)
[2021-09-21 12:04] LABS: HIV - WCH Non-Reactive (Nonreactive); Hepatitis B Surface Antigen Non-Reactive (Nonreactive); Hepatitis C Antibody Non-Reactive (Nonreactive); Rubella IgG Reactive (Nonreactive); Syphilis Antibodies Non-reactive
== END | disposition home or self-care (01) ==
LOC: PAVLAB 10:27
PROVIDERS: Referring Provider Obstetrics & Gynecology; Visit Provider Obstetrics & Gynecology
DX: O99.210 Obesity complicating pregnancy, unspecified trimester (principal)
CPT/HCPCS: 36415; 82950; 85025; 86703; 86762; 86780; 86803; 86850; 86900; 86901; 87340

== ENCOUNTER → 2021-09-24 | Outpatient (CLI) | payer OTHER, BC, SELFPAY ==
[2021-09-24 07:49] LABS: Glucose GTT-Gestation. Fasting 103 mg/dL (<105)
[2021-09-24 08:59] LABS: Glucose GTT-Gestational 1 Hr 159 mg/dL (<190)
[2021-09-24 09:54] LABS: Glucose GTT-Gestational 2 Hr 114 mg/dL (<165)
[2021-09-24 11:14] LABS: Glucose GTT-Gestational 3 Hr 92 L (<145)
== END | disposition home or self-care (01) ==
LOC: LAB 07:03
PROVIDERS: Visit Provider Obstetrics & Gynecology
DX: Z13.1 Encounter for screening for diabetes mellitus (principal)
CPT/HCPCS: 36415; 82951; 82952

== ENCOUNTER → 2022-01-16 | Outpatient (CLI) | payer OTHER, BC, SELFPAY ==
[2022-01-16 07:56] LABS: Glucose GTT-Gestation. Fasting 104 mg/dL (<105)
[2022-01-16 08:53] LABS: Glucose GTT-Gestational 1 Hr 198 mg/dL (<190)
[2022-01-16 10:08] LABS: Glucose GTT-Gestational 2 Hr 150 mg/dL (<165)
[2022-01-16 11:17] LABS: Glucose GTT-Gestational 3 Hr 95 L (<145)
== END | disposition home or self-care (01) ==
PROVIDERS: Referring Provider Obstetrics & Gynecology; Visit Provider Obstetrics & Gynecology
DX: O99.210 Obesity complicating pregnancy, unspecified trimester (principal)
CPT/HCPCS: 82951; 82952

== ENCOUNTER → 2022-01-30 | Outpatient (CLI) | payer OTHER, BC, SELFPAY ==
[2022-01-30 18:05] LABS: Absolute Lymphocyte Count 1.69 X10^3/uL (0.83-4.51); Absolute Neutrophil Count 6.7 X10^3/uL (2.0-7.7); Basophil# 0.01 X10^3/uL; Basophil% 0.1 % (0-1); Eosinophil# 0.06 X10^3/uL; Eosinophils% 0.7 % (0-5); Hematocrit 34.3 % (37-47); Hemoglobin 11.3 g/dL (12.0-15.0); Lymphocyte # 1.69 X10^3/ul (0.83-4.51); Lymphocyte % 19.1 % (19-41); Mean Corp Hgb Conc 32.9 g/dL (32-36); Mean Platelet Vol. 11.9 fl (6.2-12.0); Monocyte# 0.34 X10^3/uL; Monocyte% 3.8 % (0-10); NRBC Flagged by Analyzer 0 % (0-5); Neutrophil # 6.71 X10^3/uL (2.7-7.7); Neutrophil % 75.7 % (47-70); Platelet Count 219 K/mm3 (150-450); RBC Distribution Width CV 12.4 % (11.6-14.6); RBC Distribution Width SD 41.1 fl (35.1-43.9); Red Blood Count 3.77 M/mm3 (4.2-5.4); White Blood Count 8.9 K/mm3 (4.4-11.0)
== END | disposition home or self-care (01) ==
LOC: LAB 17:52
PROVIDERS: Referring Provider Nurse Practitioner Women's Health; Visit Provider Nurse Practitioner Women's Health
DX: O09.90 Supervision of high risk pregnancy, unspecified, unspecified trimester (principal)
CPT/HCPCS: 36415; 85025

== ENCOUNTER 2022-01-31 10:00 | Outpatient (RCR) | payer OTHER, BC, SELFPAY | END 2022-02-08 23:59 | LOC: DC 10:00 | PROVIDERS: Referring Provider Nurse Practitioner Women's Health; Visit Provider Nurse Practitioner Women's Health | DX: O24.419 Gestational diabetes mellitus in pregnancy, unspecified control (principal) | CPT/HCPCS: 97802; 97803 ==

== ENCOUNTER 2022-02-13 09:14 | Outpatient (RCR) | payer OTHER, BC, SELFPAY | END 2022-03-11 23:59 | LOC: DC 09:14 | PROVIDERS: Referring Provider Nurse Practitioner Women's Health; Visit Provider Nurse Practitioner Women's Health | DX: O24.419 Gestational diabetes mellitus in pregnancy, unspecified control (principal) | CPT/HCPCS: 97803 ==

== ENCOUNTER 2022-02-19 03:55 | Outpatient (CLI) | payer OTHER, BC, SELFPAY ==
[2022-02-19 04:10] VITALS: BP 130/65; PULSE 82
[2022-02-19 04:12] VITALS: BP 130/65; PULSE 82; TEMP 36.3
[2022-02-19 04:25] VITALS: BMI 41.2
[2022-02-19 04:46] LABS: Color, Urine Yellow (Yellow); Glucose, Dipstick Normal (Normal); Ketone-Dipstick Negative (Negative); Leukocyte Esterase-Dipstick Negative /ul (Negative); Nitrite-Dipstick Negative (Negative); Occult Blood-Urine Negative /ul (Negative); Protein-Dipstick Negative (Negative); Specific Gravity, Urine 1.005 (1.002-1.030); Urine Bilirubin Dipstick Negative (Negative); Urine Clarity Clear (Clear); Urine Urobilinogen Normal (Normal); Urine pH 6.5 (5.0 - 8.0)
[2022-02-19 05:40] LABS: Absolute Lymphocyte Count 1.41 X10^3/uL (0.83-4.51); Absolute Neutrophil Count 6.4 X10^3/uL (2.0-7.7); Basophil# 0.01 X10^3/uL; Basophil% 0.1 % (0-1); Eosinophil# 0.05 X10^3/uL; Eosinophils% 0.6 % (0-5); Hematocrit 34.6 % (37-47); Hemoglobin 11.7 g/dL (12.0-15.0); Lymphocyte # 1.41 X10^3/ul (0.83-4.51); Mean Corp Hgb Conc 33.8 g/dL (32-36); Mean Corpuscular Volume 91.5 fL (81-99); Mean Platelet Vol. 11.8 fl (6.2-12.0); Monocyte# 0.37 X10^3/uL; Monocyte% 4.5 % (0-10); NRBC Flagged by Analyzer 0 % (0-5); Neutrophil # 6.41 X10^3/uL (2.7-7.7); Neutrophil % 77.1 % (47-70); Platelet Count 168 K/mm3 (150-450); RBC Distribution Width CV 12.6 % (11.6-14.6); RBC Distribution Width SD 41.8 fl (35.1-43.9); Red Blood Count 3.78 M/mm3 (4.2-5.4); White Blood Count 8.3 K/mm3 (4.4-11.0)
[2022-02-19 06:03] LABS: ALB/GLOB Ratio 0.6 RATIO (0.9-2.4); AST(SGOT) 12 U/L (15-37); Alanine Aminotransfer ALT/SGPT 13 U/L (13-56); Albumin, Serum 2.6 g/dL (3.2-5.0); Alkaline Phosphatase 71 U/L (45-117); Anion Gap 7 (5-15); BUN 11 mg/dL (7-18); Calcium,Total 8.9 mg/dL (8.5-10.1); Chloride 112 mmol/L (98-107); EST Glomerular Filtration Rate 150 mL/min (>60); Est Glom Filt Rate - Afr Amer 182 mL/min (>60); Estimated Creatinine Clearance 161.44 ml/min; Globulin 4.2 g/dL (2.2-4.2); Glucose 94 mg/dL (74-106); Lipase 1808 U/L (73-393); Protein, Total 6.8 g/dL (6.4-8.2); Sodium Level 141 mmol/L (136-145)
[2022-02-19] MEDS: oxyCODONE 5 MG Tablet PO (06:23)
[2022-02-19 06:53] VITALS: PULSE 76; O2SAT 98
--- NOTE | 2022-02-19 07:37 | OB.TRI.HP_ITS ---
HPI - General HPI Narrative STEVE BARKSDALE, is a 31 y/o @31 weeks who presents to L&D with severe back and right upper quadrant pain. Labs were ordered and LFT's were found to be normal, however her lipase was noted to be 1800 range. She denies nausea or vomiting, no diarrhea. She denies dec fm, loss of fluid, or vaginal bleeding. Maternal Data Information AMANDA Calculator Estimated Delivery Date Method Current WG Current Estimate 04/22/22 LMP (Certain) 31w 1d Other Estimates 04/18/22 Ultrasound #1 31w 5d PFSH PFSH Medical History Complete BALJIT (generalized anxiety disorder) Migraine with aura Mixed dyslipidemia Obesity Rosacea Seasonal allergies Home Medications cetirizine 10 mg capsule (Zyrtec) 10 mg PO DAILY PRN allergies 11/08/20 [History Last Taken 02/15/22 21:00] prenat.vits,rosalva,xty-ngex-xmdmx 1 tab PO DAILY 08/29/21 [History Last Taken 02/17/22 09:00] citalopram 20 mg tablet (Celexa) 20 mg PO DAILY 90 days #90 tabs 11/07/21 [Rx Last Taken 02/18/22 20:00] ferrous sulfate 325 mg (65 mg iron) tablet 325 mg PO DAILY 12/31/21 [History Last Taken 02/18/22 12:00] blood sugar diagnostic (True Metrix Glucose Test Strip) #100 ea 01/16/22 [Rx Last Taken Unknown] blood-glucose meter (True Metrix Air Glucose Meter) #1 ea 01/16/22 [Rx Last Taken Unknown] pen needle, diabetic 32 gauge x 5/32 (BD Ultra-Fine Katelyn Pen Needle) #100 ea 02/08/22 [Rx Last Taken Unknown] insulin degludec 200 unit/mL (3 mL) subcutaneous pen (Tresiba FlexTouch U-200 insulin) 16 unit subcut DAILY 02/13/22 [History Last Taken 02/18/22 18:00] doxylamine succinate 25 mg tablet (Unisom (doxylamine)) 12.5 mg PO QHS PRN Sleep 02/19/22 [History Last Taken 02/18/22 20:00] Allergy/AdvReac Type Severity Reaction Status Date / Time Sulfa (Sulfonamide Allergy Hives Verified 02/13/22 10:58 Antibiotics) Family History Mother Thyroid cancer Hypertension Father Hypertension Hyperlipidemia Grandfather Leukemia Lung cancer Grandmother Diabetes Surgical History [place] teeth extracted Social History adopted: No household members: spouse current occupational status: employed 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 Date Name GA/Weeks Outcome Route Bth Weight Gen Labor Lgth Anesthesia Del [facility] Provider FOB 12/05/20 6 spontaneous Visit Details Expected Delivery Route/Plan Labor Preferences- CB/BF classes: currently enrolled labor support person: Ric labor intervention preferences: minimal intervention, but agrees for medical necessity pain management options preferred: desires nitrous cut cord/dad catch: discussed, undecided : does PP control planned: condoms discussed possible routes of delivery and associated risks: [] special requests: [] Plans Covid status: unvaccinated Flu vaccine: will obtain with [facility] Tdap vaccine:discussedm will obtain at 30 week appt Rhogam: n/a LARC form signed:completed. Problem list reviewed and updated with the most current plan of care details and appropriate orders placed. Relevant counseling for the gestational age provided. Continue routine care and follow up unless otherwise noted in visit notes/problem list details OB Flowsheet Initial Weight: Not Recorded Date -?-?-?-?-?-?-?-?-?-?-?-?- EGA Weight BP Urine Prot -?-?-?-?-?-?-?-?-?-?-?-?- Glucose FHR FuHt Pres Dilation -?-?-?-?-?-?-?-?-?-?-?-?- Effaced St Visit Note 09/13/21 -?-?-?-?-?-?-?-?-?-?-?-?- 8w 3d 280 lb 148/88 -?-?-?-?-?-?-?-?-?-?-?-?- 160 -?-?-?-?-?-?-?-?-?-?-?-?- JV- CRL consiste nt with LMP 10/12/21 -?-?-?-?-?-?-?-?-?-?-?-?- 12w 4d 273 lb 120/68 Negative -?-?-?-?-?-?-?-?-?-?-?-?- Negative 160 -?-?-?-?-?-?-?-?-?-?-?-?- SM- no vb crmapi ng 11/07/21 -?-?-?-?-?-?-?-?-?-?-?-?- 16w 2d 273 lb 4 oz 120/86 Nega tive -?-?-?-?-?-?-?-?-?-?-?-?- Negative 151 -?-?-?-?-?-?-?-?-?-?-?-?- JV- pt starting to have return of migraines. She states that tylenol and cold compresses/biofreeze to back of neck are helping a little. has anatomy scan next week with MFM scheduled. 12/05/21 -?-?-?-?-?-?-?-?-?-?-?-?- 20w 2d 273 lb 122/66 Negative -?-?-?-?-?-?-?-?-?-?-?-?- Negative 150 -?-?-?-?-?-?-?-?-?-?-?-?- JV- no lof, vagi nal bleeding, or cramping. anatomy ultrasoun reviewed on patient's mychart and was normal. pt to try magnesium and iron for restless legs and headaches (not worsening) 12/31/21 -?-?-?-?-?-?-?-?-?-?-?-?- 24w 0d 276 lb 134/88 -?-?-?-?-?-?-?-?-?-?-?-?- 160 -?-?-?-?-?-?-?-?-?-?-?-?- SM- no vb lof go od fm nor egular ctx 01/30/22 -?-?-?-?-?-?-?-?-?-?-?-?- 28w 2d 271 lb 6 oz 128/75 1+ -?-?-?-?-?-?-?-?-?-?-?-?- Negative 145 29 Cephalic -?-?-?-?-?-?-?-?-?-?-?-?- LC- no vb, lof, or ctx. active FM. pt with poor po hydration today. denies h/a, blurred vision, RUQ pain. larc signed today. CBC ordered today. discussed tdap- will get next visit. LC- no vb, lof, or ctx. acti ve FM. pt with poor po hydration today. denies h/a, blurred vision, RUQ pain. larc signed today. CBC ordered today. discussed tdap- will get next visit. 02/13/22 -?-?-?-?-?-?-?-?-?-?-?-?- 30w 2d 271 lb 2 oz 119/75 Nega tive -?-?-?-?-?-?-?-?-?-?-?-?- Negative 150 32 -?-?-?-?-?-?-?-?-?-?-?-?- JV- no lof, vagi nal bleeding, or dec fm. on insulin now. needs twice weekly testing . tdap today ROS Constitutional Constitutional: Reports systems reviewed and no addt'l complaints, except as documented Gastrointestinal Gastrointestinal: Denies bloating, constipation, cramping, diarrhea, nausea or vomiting Genitourinary Genitourinary: Reports other Details: Denies vaginal odor, vaginal bleeding, or vaginal discharge ; Denies difficulty urinating or flank pain Physical Exam HEENT normocephalic Resp normal respiratory effort and normal air movement no CVA tenderness Extremity normal to inspection General Extremity: edema bilateral (trace ) NST FHR Rate Baby A Baseline: 140 Variability:: Moderate Accelerations:: 15 x 15 Decelerations:: None NST Reactive:: Yes FHR Category:: Category I Assessment & Plan (1) Idiopathic acute pancreatitis: COMMENT: unsure of cause at this time. pt will be transferred to [facility] for further management. Discussed with DR. Rodney. (2) Gestational diabetes: QUALIFIERS: Gestational diabetes mellitus control: diet-controlled Trimester: third trimester Qualified Code(s): O24.410 - Gestational diabetes mellitus in , diet controlled COMMENT: on insulin. start twice weekly testing at 32 weeks. (3) Obesity affecting : QUALIFIERS: Trimester: third trimester Qualified Code(s): O99.213 - Obesity complicating , third trimester COMMENT: nl 3 hr GTT (4) Supervision of high risk , antepartum: COMMENT: PRR AMANDA:04/[birth year] girl Spouse:Ric (5) : QUALIFIERS: Weeks of gestation: 30 weeks Qualified Code(s): Z3A.30 - 30 weeks gestation of COMMENT: anatomy nl, declines carrier, ntd, and genetic screen (6) BALJIT (generalized anxiety disorder): COMMENT: celexa. patient is seeing a counselor Charges/Coding Multi Select Codes Visit Charges Office Visit/Consults: 27379 OV L3 Est Urinary/Genital Urinary/Genital CPT Codes: 75783-09 non-stress test Interp
== END 2022-02-19 07:05 | disposition short-term general hospital (02) ==
LOC: WPOUT 03:59 → WP 04:00
PROVIDERS: Visit Provider Obstetrics & Gynecology
DX: O26.613 Liver and biliary tract disorders in pregnancy, third trimester (principal); Z79.4 Long term (current) use of insulin; O24.410 Gestational diabetes mellitus in pregnancy, diet controlled; O99.213 Obesity complicating pregnancy, third trimester; K85.00 Idiopathic acute pancreatitis without necrosis or infection; F41.1 Generalized anxiety disorder; O99.343 Other mental disorders complicating pregnancy, third trimester; Z3A.30 30 weeks gestation of pregnancy; Z79.2 Long term (current) use of antibiotics
CPT/HCPCS: 36415; 59025; 59050; 80053; 81002; 83690; 85025; 99218; G0378

== ENCOUNTER → 2022-03-28 | Outpatient (CLI) | payer OTHER, BC, SELFPAY ==
--- NOTE | 2022-03-28 08:51 | US_ITS ---
STUDY: SECOND AND THIRD TRIMESTER OBSTETRICAL ULTRASOUND - LIMITED REASON FOR EXAM: Female, 31 years old Growth -- 36 Weeks LMP: 07/16/2021. PRIOR ULTRASOUND: None. TECHNIQUE: Transabdominal TECHNICAL QUALITY: Adequate. FINDINGS: There is a single intrauterine fetus. The fetus is in a cephalic presentation. There is demonstrated cardiac activity with a heart rate of 144 bpm. There is a normal amniotic fluid volume. The largest amniotic fluid pocket measures 5.14 cm. The amniotic fluid index (CELESTE) is 12.9 cm. The placenta is fundal and posterior in location. There are Grade 3 placental changes. The cervix measures 4.3 cm in length. BIOMETRY: BPD: 9.16 cm: 37 weeks, 1 days HC: 33.4 cm: 38 weeks, 1 days AC: 32.08 cm: 36 weeks, 0 days FL: 7.04 cm: 37 weeks, 1 days Age by LMP: 36 weeks, 3 days. AMANDA by LMP: 04/22/2022. age by current US: 37 weeks, 0 days. AMANDA by current US: 04/18/2022. Estimated weight: 2917 grams, +/- 438 grams, 51 percentile. There appears to be a nuchal cord. US/OB Limited With Biometrics IMPRESSION: Single live uterine gestation with a mean gestational age of 37 weeks. Findings suggestive of a nuchal cord. Electronically Signed: Chris Cunningham MD at 12:10 EST ,
== END | disposition home or self-care (01) ==
LOC: OPUS 08:50
PROVIDERS: Visit Provider Nurse Practitioner Women's Health
DX: O09.90 Supervision of high risk pregnancy, unspecified, unspecified trimester (principal); O99.210 Obesity complicating pregnancy, unspecified trimester; Z3A.37 37 weeks gestation of pregnancy
CPT/HCPCS: 76816; 87081

== ENCOUNTER 2022-04-15 18:45 | Inpatient (IN) | payer OTHER, BC, SELFPAY ==
[2022-04-15 19:21] VITALS: BMI 42.2
[2022-04-15 19:24] VITALS: BP 137/79; PULSE 78; TEMP 36.3
[2022-04-15 19:43] LABS: Absolute Lymphocyte Count 1.57 X10^3/uL (0.83-4.51); Absolute Neutrophil Count 7.5 X10^3/uL (2.0-7.7); Basophil# 0.01 X10^3/uL; Basophil% 0.1 % (0-1); Eosinophil# 0.04 X10^3/uL; Eosinophils% 0.4 % (0-5); Hematocrit 36.4 % (37-47); Hemoglobin 12.3 g/dL (12.0-15.0); Lymphocyte # 1.57 X10^3/ul (0.83-4.51); Lymphocyte % 16.5 % (19-41); Mean Corp Hgb Conc 33.8 g/dL (32-36); Mean Corpuscular Hgb 30.4 pg (27.0-32.0); Mean Corpuscular Volume 90.1 fL (81-99); Mean Platelet Vol. 12.9 fl (6.2-12.0); Monocyte# 0.35 X10^3/uL; Monocyte% 3.7 % (0-10); NRBC Flagged by Analyzer 0 % (0-5); Neutrophil # 7.49 X10^3/uL (2.7-7.7); Neutrophil % 78.7 % (47-70); Platelet Count 162 K/mm3 (150-450); RBC Distribution Width CV 12.5 % (11.6-14.6); RBC Distribution Width SD 41.5 fl (35.1-43.9); Red Blood Count 4.04 M/mm3 (4.2-5.4); White Blood Count 9.5 K/mm3 (4.4-11.0)
[2022-04-15 19:51] LABS: Bedside Glucose 121 mg/dL (74-106)
[2022-04-15] MEDS: miSOPROStol 25 MCG TABLET VAGINAL (20:20)
[2022-04-15 20:29] VITALS: BP 125/73; PULSE 76; TEMP 36.1
[2022-04-15 20:51] LABS: Bedside Glucose 109 mg/dL (74-106)
[2022-04-16] VITALS (38 sets, daily range): BP systolic 104–200; BP diastolic 60–92; PULSE 60–134; TEMP 35.9–36.7; O2SAT 95–100
[2022-04-16] MEDS: Acetaminophen 500 MG Tablet PO (00:26)
[2022-04-16] MEDS: 0.9% Saline Lock 10 ML Syringe IV ×3 (00:51→05:10)
[2022-04-16] MEDS: miSOPROStol 50 MCG TABLET VAGINAL (00:51)
[2022-04-16 01:21] LABS: Bedside Glucose 81 mg/dL (74-106)
[2022-04-16] MEDS: Ondansetron 4 MG/2 ML Vial IV ×3 (02:50→23:06)
[2022-04-16] MEDS: fentaNYL 100 MCG/2 ML Ampul IV ×2 (02:51→05:09)
[2022-04-16] MEDS: LACTATED RINGERS 500 ML 999 ML IV ×2 (03:21→12:48)
[2022-04-16] MEDS: Lactated Ringers 1,000 ML 50 ML IV ×2 (03:21→12:56)
[2022-04-16 04:51] LABS: Bedside Glucose 70 mg/dL (74-106)
[2022-04-16] MEDS: oxyCODONE 5 MG Tablet 10 MG PO (08:17)
[2022-04-16 08:50] LABS: Bedside Glucose 74 mg/dL (74-106)
[2022-04-16] MEDS: miSOPROStol 25 MCG TABLET PO (09:53)
[2022-04-16 12:40] LABS: Bedside Glucose 92 mg/dL (74-106)
[2022-04-16] MEDS: 0.9% Normal Saline Single 100 ML IV.SOLN. INTRA-UTER (12:56)
[2022-04-16] MEDS: Oxytocin 15 Units/NS 250ml 15 UNITS/250 ML IV.SOLN 2 UNITS IV (14:20)
[2022-04-16] MEDS: fentaNYL-bupivacaine (epidural) 100 ML BAG EPIDURAL ×3 (14:21→23:06)
[2022-04-16 14:55] LABS: Bedside Glucose 84 mg/dL (74-106)
[2022-04-16 15:51] LABS: Bedside Glucose 82 mg/dL (74-106)
[2022-04-16 17:01] LABS: Bedside Glucose 73 mg/dL (74-106)
[2022-04-16 17:51] LABS: Bedside Glucose 96 mg/dL (74-106)
[2022-04-16 18:50] LABS: Bedside Glucose 78 mg/dL (74-106)
[2022-04-16] MEDS: Lactated Ringers 1,000 ML 200 ML IV (19:21)
--- NOTE | 2022-04-16 19:39 | NURSING ---
Per report from dayshift RN, Pitocin running at 8 mu/hr. This RN verified that pump was running at 8 mu/hr during bedside shift report, but upon review of MAR, Pitocin not increased to 8 on IV flowsheet. At 1926, this RN increased Pitocn rate to 10 mu/hr and adjusted MAR accordingly.
[2022-04-16 19:55] LABS: Bedside Glucose 70 mg/dL (74-106)
[2022-04-16 20:56] LABS: Bedside Glucose 80 mg/dL (74-106)
[2022-04-16 22:06] LABS: Bedside Glucose 71 mg/dL (74-106)
[2022-04-17] VITALS (26 sets, daily range): BP systolic 102–168; BP diastolic 57–99; PULSE 65–110; RESP 16–18; TEMP 36.1–36.8; O2SAT 87–100
[2022-04-17] MEDS: Lactated Ringers 1,000 ML 200 ML IV (00:19)
[2022-04-17 00:21] LABS: Bedside Glucose 69 mg/dL (74-106)
[2022-04-17 00:21] LABS: Bedside Glucose 75 mg/dL (74-106)
[2022-04-17 00:21] LABS: Bedside Glucose 60 mg/dL (74-106)
[2022-04-17] MEDS: proCHLORPERazine 10 MG/2 ML Vial IV (00:40)
[2022-04-17 01:11] LABS: Bedside Glucose 86 mg/dL (74-106)
--- NOTE | 2022-04-17 01:38 | HP.PCM.OB_ITS ---
HPI - General General Date of Admission: 04/15/22 HPI Narrative STEVE BARKSDALE, is a 31 F who presents for IOL secondary to diabetes Maternal Data Information AMANDA Calculator Estimated Delivery Date Method Current WG Current Estimate 04/22/22 LMP (Certain) 39w 2d Other Estimates 04/18/22 Ultrasound #1 39w 6d PFSH PFS Medical History Complete BALJIT (generalized anxiety disorder) Migraine with aura Mixed dyslipidemia Obesity Rosacea Seasonal allergies Home Medications prenat.vits,rosalva,irz-ozfr-iveuv 1 tab PO DAILY 08/29/21 [History Last Taken 02/17/22 09:00] ferrous sulfate 325 mg (65 mg iron) tablet 325 mg PO DAILY ANEMIA 12/31/21 [History Last Taken 02/18/22 12:00] blood sugar diagnostic (True Metrix Glucose Test Strip) #100 ea 01/16/22 [Rx Last Taken Unknown] blood-glucose meter (True Metrix Air Glucose Meter) #1 ea 01/16/22 [Rx Last Taken Unknown] pen needle, diabetic 32 gauge x 5/32 (BD Ultra-Fine Katelyn Pen Needle) #100 ea 02/08/22 [Rx Last Taken Unknown] insulin degludec 200 unit/mL (3 mL) subcutaneous pen (Tresiba FlexTouch U-200 insulin) 28 unit subcut DAILY gestational diabetes 03/18/22 [History Last Taken 04/15/22 17:00] Vitamin D3 1 tab PO.IVFORM DAILY SEE PHYSICIAN 04/15/22 [History Last Taken Unknown] citalopram 20 mg tablet (Celexa) 20 mg PO DAILY ANXIETY 04/15/22 [History Last Taken Unknown] vitamin A79-tjrex acid 1 tab PO.IVFORM DAILY SEE PHYSICIAN 04/15/22 [History Last Taken Unknown] Allergy/AdvReac Type Severity Reaction Status Date / Time Sulfa (Sulfonamide Allergy Hives Verified 04/15/22 19:42 Antibiotics) Family History Mother Thyroid cancer Hypertension Father Hypertension Hyperlipidemia Grandfather Leukemia Lung cancer Grandmother Diabetes Surgical History [place] teeth extracted Social History adopted: No household members: spouse current occupational status: employed 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 Date Name GA/Weeks Outcome Route Bth Weight Infant Gen Labor Lgth Anesthesia Del Locatn Provider FOB 12/05/20 6 spontaneous Visit Details Expected Delivery Route/Plan Labor Preferences- CB/BF classes: currently enrolled labor support person: Ric labor intervention preferences: minimal intervention, but agrees for medical necessity pain management options preferred: desires nitrous cut cord/dad catch: discussed, undecided : does PP control planned: condoms discussed possible routes of delivery and associated risks: [] special requests: [] Plans Covid status: unvaccinated Flu vaccine: will obtain with employee health Tdap vaccine:discussedm will obtain at 30 week appt Rhogam: n/a LARC form signed:completed. Problem list reviewed and updated with the most current plan of care details and appropriate orders placed. Relevant counseling for the gestational age provided. Continue routine care and follow up unless otherwise noted in visit notes/problem list details OB Flowsheet Initial Weight: Not Recorded Date -?-?-?-?-?-?-?-?-?-?-?-?- EGA Weight BP Urine Prot -?-?-?-?-?-?-?-?-?-?-?-?- Glucose FHR FuHt Pres Dilation -?-?-?-?-?-?-?-?-?-?-?-?- Effaced St Visit Note 09/13/21 -?-?-?-?-?-?-?-?-?-?-?-?- 8w 3d 280 lb 148/88 -?-?-?-?-?-?-?-?-?-?-?-?- 160 -?-?-?-?-?-?-?-?-?-?-?-?- JV- CRL consiste nt with LMP 10/12/21 -?-?-?-?-?-?-?-?-?-?-?-?- 12w 4d 273 lb 120/68 Negative -?-?-?-?-?-?-?-?-?-?-?-?- Negative 160 -?-?-?-?-?-?-?-?-?-?-?-?- SM- no vb crmapi ng 11/07/21 -?-?-?-?-?-?-?-?-?-?-?-?- 16w 2d 273 lb 4 oz 120/86 Nega tive -?-?-?-?-?-?-?-?-?-?-?-?- Negative 151 -?-?-?-?-?-?-?-?-?-?-?-?- JV- pt starting to have return of migraines. She states that tylenol and cold compresses/biofreeze to back of neck are helping a little. has anatomy scan next week with MFM scheduled. 12/05/21 -?-?-?-?-?-?-?-?-?-?-?-?- 20w 2d 273 lb 122/66 Negative -?-?-?-?-?-?-?-?-?-?-?-?- Negative 150 -?-?-?-?-?-?-?-?-?-?-?-?- JV- no lof, vagi nal bleeding, or cramping. anatomy ultrasoun reviewed on patient's mychart and was normal. pt to try magnesium and iron for restless legs and headaches (not worsening) 12/31/21 -?-?-?-?-?-?-?-?-?-?-?-?- 24w 0d 276 lb 134/88 -?-?-?-?-?-?-?-?-?-?-?-?- 160 -?-?-?-?-?-?-?-?-?-?-?-?- SM- no vb lof go od fm nor egular ctx 01/30/22 -?-?-?-?-?-?-?-?-?-?-?-?- 28w 2d 271 lb 6 oz 128/75 1+ -?-?-?-?-?-?-?-?-?-?-?-?- Negative 145 29 Cephalic -?-?-?-?-?-?-?-?-?-?-?-?- LC- no vb, lof, or ctx. active FM. pt with poor po hydration today. denies h/a, blurred vision, RUQ pain. larc signed today. CBC ordered today. discussed tdap- will get next visit. LC- no vb, lof, or ctx. acti ve FM. pt with poor po hydration today. denies h/a, blurred vision, RUQ pain. larc signed today. CBC ordered today. discussed tdap- will get next visit. 02/13/22 -?-?-?-?-?-?-?-?-?-?-?-?- 30w 2d 271 lb 2 oz 119/75 Nega tive -?-?-?-?-?-?-?-?-?-?-?-?- Negative 150 32 -?-?-?-?-?-?-?-?-?-?-?-?- JV- no lof, vagi nal bleeding, or dec fm. on insulin now. needs twice weekly testing . tdap today 02/28/22 -?-?-?-?-?-?-?-?-?-?-?-?- 32w 3d 272 lb 2 oz 127/86 -?-?--?-?-?-?-?-?-?-?-?-?- 140 -?-?-?-?-?-?-?-?-?-?-?-?- SM- pancreatitis resolved, BS doing better, no vb lof good fm no regular ctx 03/04/22 -?-?-?-?-?-?-?--?-?-?-?-?- 33w 0d 274 lb 130/82 Negative -?-?-?-?-?-?-?-?-?-?-?-?- Negative 146 -?-?-?-?-?-?-?-?-?-?-?-?- MH-No VB, LOF. G ood FM. Reactive NST. BS stable 03/07/22 -?-?-?-?-?-?-?-?-?-?-?-?- 33w 3d 272 lb 8 oz 120/83 Nega tive -?-?-?-?-?-?-?-?-?-?-?-?- Negative 140 -?-?-?-?-?--?-?-?-?-?-?-?- NST only reac tive. 36 wk growth US ordered 03/11/22 -?-?-?-?-?-?-?-?-?-?-?-?- 34w 0d 273 lb 2 oz 126/82 Nega tive -?-?-?-?-?-?-?-?-?-?-?-?- Negative 140 -?-?-?-?-?-?-?-?-?-?-?-?- -NST only reat doc 03/14/22 -?-?-?-?-?-?-?-?-?-?-?-?- 34w 3d 275 lb 110/82 Negative -?-?-?-?-?-?-?-?-?-?-?-?- Negative 135 -?-?-?-?-?-?-?-?-?-?-?-?- JV- nst reative. pt is now on 26 trisiba daily due to increasing blood sugars. no complaints other than some tightening sensation. no signs of labor. 03/18/22 -?-?-?-?-?-?-?-?-?-?-?-?- 35w 0d 278 lb 112/70 Negative -?-?-?-?-?-?-?-?-?-?-?-?- Negative 130 -?-?-?-?-?-?-?-?-?-?-?-?- MH-NST only reac tive 03/21/22 -?-?-?-?-?-?-?-?-?-?-?-?- 35w 3d 276 lb 2 oz 128/77 Nega tive -?-?-?--?-?-?-?-?-?-?-?-?- Negative 120 -?-?-?-?-?-?-?-?-?-?-?-?- JV- nst reactive . glucose levels well controlled. no complaints. 03/25/22 -?-?-?-?-?-?-?-?-?-?--?-?- 36w 0d 272 lb 8 oz 138/70 Trac e -?-?-?-?-?-?-?-?-?-?-?-?- Negative 140 -?-?-?-?-?-?-?-?-?-?-?-?- MH-NST only reac tive 03/28/22 -?-?-?-?-?-?-?-?-?-?-?-?- 36w 3d 275 lb 6 oz 137/70 Nega tive -?-?-?-?-?-?-?-?-?-?-?-?- Negative 135 37 Cephalic 0 -?-?-?-?-?-?-?-?-?-?-?-?- JV- nst reactive and growth toda 50th%. gbs collected. glucose well controlled. aiming for 39 week delivery 04/01/22 -?-?-?-?-?-?-?-?-?-?-?-?- 37w 0d 275 lb 8 oz 133/79 Nega tive -?-?-?-?-?-?-?-?-?-?-?-?- Negative 130 37 -?-?-?-?-?-?-?-?-?-?-?-?- LC- glucose well controlled. reviewed methods of IOL. reactive NST today. declines exam today. 04/08/22 -?-?-?-?-?-?-?-?-?-?-?-?- 38w 0d 279 lb 2 oz 121/80 Nega tive -?-?-?-?-?-?-?-?-?-?-?-?- Negative 135 Cephalic -?-?-?-?-?-?-?-?-?-?-?-?- SM_ isolated 10 sec mild variable seen overall reactive, jeanna ordered for today. fu nst end of week, IOL set up for 39 weeks SM_ isolated 10 sec mild concepcion iable seen overall reactive, jeanna done at bedside 12 cm. fu nst end of week, IOL set up for 39 weeks. 04/15/22 -?-?-?-?-?-?-?-?-?-?-?-?- 39w 0d 277 lb 12.519 oz 137 /79 125/73 132/90 122/65 136/67 147/92 120/64 144/88 200/86 164/73 151/89 164/88 130/79 146/79 150/81 139/77 125/63 136/75 129/74 104/60 108/60 121/71 126/74 121/68 127/75 136/73 151/85 145/89 168/99 108/68 -?-?-?-?-?-?-?-?-?-?-?-?- -?-?-?-?-?-?-?-?-?-?-?-?- NST FHR Rate Baby A Baseline: 130 Variability:: Moderate Accelerations:: 15 x 15 Decelerations:: None NST Reactive:: Yes FHR Category:: Category I Uterine Activity:: irregular ROS Constitutional Constitutional: Reports systems reviewed and no addt'l complaints, except as documented Eyes Eyes: Denies change in vision ENT HEENT: Reports systems reviewed and no addt'l complaints, except as documented; Denies headache(s) Cardiovascular Cardiovascular: Reports systems reviewed and no addt'l complaints, except as documented; Denies chest pain or dyspnea Respiratory/Chest Respiratory/Chest: Reports systems reviewed and no addt'l complaints, except as documented Gastrointestinal Gastrointestinal: Reports systems reviewed and no addt'l complaints, except as documented; Denies abdominal pain Genitourinary Genitourinary: Reports systems reviewed and no addt'l complaints, except as documented, contractions Details: present (irregular) and movement Details: present; Denies dysuria or genital lesions Musculoskeletal Musculoskeletal: Reports systems reviewed and no addt'l complaints, except as documented Neurologic Neurologic: Reports systems reviewed and no addt'l complaints, except as documented Endocrine Endocrinology: Reports systems reviewed and no addt'l complaints, except as documented Vital Signs Vital Signs Vital Signs: 04/16/22 03:39 04/16/22 03:39 04/16/22 04:19 Temperature Temperature Source Pulse Rate 60 Blood Pressure 122/65 H BP Systolic 122 BP Diastolic 65 Pulse Ox 95 04/16/22 04:19 04/16/22 04:19 04/16/22 04:19 Temperature 97.1 F L Temperature Source Temporal Pulse Rate 62 Blood Pressure BP Systolic BP Diastolic Pulse Ox 04/16/22 07:09 04/16/22 07:09 04/16/22 08:25 Temperature Temperature Source Pulse Rate 68 Blood Pressure 136/67 H 147/92 H BP Systolic 136 147 BP Diastolic 67 92 Pulse Ox 04/16/22 08:25 04/16/22 08:25 04/16/22 08:25 Temperature 96.8 F L Temperature Source Temporal Pulse Rate 74 Blood Pressure BP Systolic BP Diastolic Pulse Ox 04/16/22 09:52 04/16/22 09:52 04/16/22 12:19 Temperature Temperature Source Pulse Rate 75 Blood Pressure 120/64 144/88 H BP Systolic 120 144 BP Diastolic 64 88 Pulse Ox 04/16/22 12:19 04/16/22 12:20 04/16/22 12:22 Temperature Temperature Source Temporal Pulse Rate 64 72 Blood Pressure BP Systolic BP Diastolic Pulse Ox 04/16/22 12:22 04/16/22 12:20 04/16/22 12:57 Temperature 97.0 F L Temperature Source Pulse Rate Blood Pressure 200/86 H BP Systolic 200 BP Diastolic 86 Pulse Ox 99 04/16/22 12:57 04/16/22 12:59 04/16/22 12:59 Temperature Temperature Source Pulse Rate 62 62 Blood Pressure 164/73 H BP Systolic 164 BP Diastolic 73 Pulse Ox 04/16/22 13:56 04/16/22 13:56 04/16/22 14:00 Temperature Temperature Source Pulse Rate 61 Blood Pressure 151/89 H 164/88 H BP Systolic 151 164 BP Diastolic 89 88 Pulse Ox 04/16/22 14:00 04/16/22 14:04 04/16/22 14:04 Temperature Temperature Source Pulse Rate 78 74 Blood Pressure 130/79 H BP Systolic 130 BP Diastolic 79 Pulse Ox 04/16/22 14:09 04/16/22 14:09 04/16/22 14:14 Temperature Temperature Source Pulse Rate 134 H Blood Pressure 146/79 H 150/81 H BP Systolic 146 150 BP Diastolic 79 81 Pulse Ox 04/16/22 14:14 04/16/22 14:19 04/16/22 14:19 Temperature Temperature Source Pulse Rate 110 H 66 Blood Pressure 139/77 H BP Systolic 139 BP Diastolic 77 Pulse Ox 04/16/22 14:24 04/16/22 14:24 04/16/22 14:29 Temperature Temperature Source Pulse Rate 71 Blood Pressure 125/63 H 136/75 H BP Systolic 125 136 BP Diastolic 63 75 Pulse Ox 04/16/22 14:29 04/16/22 14:34 04/16/22 14:34 Temperature Temperature Source Pulse Rate 69 76 Blood Pressure 129/74 H BP Systolic 129 BP Diastolic 74 Pulse Ox 04/16/22 13:55 04/16/22 13:55 04/16/22 15:27 Temperature 98.0 F Temperature Source Temporal Pulse Rate Blood Pressure 104/60 BP Systolic 104 BP Diastolic 60 Pulse Ox 04/16/22 15:27 04/16/22 16:24 04/16/22 16:24 Temperature Temperature Source Pulse Rate 64 64 Blood Pressure 108/60 BP Systolic 108 BP Diastolic 60 Pulse Ox 04/16/22 16:25 04/16/22 16:25 04/16/22 17:26 Temperature 98.0 F Temperature Source Temporal Pulse Rate Blood Pressure 121/71 H BP Systolic 121 BP Diastolic 71 Pulse Ox 04/16/22 17:26 04/16/22 17:26 04/16/22 17:30 Temperature 97.0 F L Temperature Source Pulse Rate 67 88 Blood Pressure BP Systolic BP Diastolic Pulse Ox 04/16/22 17:30 04/16/22 18:25 04/16/22 18:25 Temperature Temperature Source Pulse Rate 65 Blood Pressure 126/74 H BP Systolic 126 BP Diastolic 74 Pulse Ox 98 04/16/22 18:27 04/16/22 18:27 04/16/22 18:27 Temperature Temperature Source Temporal Pulse Rate 66 Blood Pressure BP Systolic BP Diastolic Pulse Ox 100 04/16/22 18:27 04/16/22 19:16 04/16/22 19:16 Temperature 98.0 F Temperature Source Pulse Rate 67 Blood Pressure 121/68 H BP Systolic 121 BP Diastolic 68 Pulse Ox 04/16/22 19:16 04/16/22 19:16 04/16/22 20:19 Temperature 96.6 F L Temperature Source Temporal Pulse Rate Blood Pressure 127/75 H BP Systolic 127 BP Diastolic 75 Pulse Ox 04/16/22 20:19 04/16/22 20:18 04/16/22 20:18 Temperature Temperature Source Temporal Pulse Rate 75 69 Blood Pressure BP Systolic BP Diastolic Pulse Ox 04/16/22 20:18 04/16/22 20:18 04/16/22 21:41 Temperature 96.7 F L Temperature Source Pulse Rate Blood Pressure 136/73 H BP Systolic 136 BP Diastolic 73 Pulse Ox 99 04/16/22 21:41 04/16/22 21:38 04/16/22 21:38 Temperature Temperature Source Temporal Pulse Rate 60 61 Blood Pressure BP Systolic BP Diastolic Pulse Ox 04/16/22 21:38 04/16/22 21:38 04/16/22 22:37 Temperature 97.8 F Temperature Source Temporal Pulse Rate Blood Pressure BP Systolic BP Diastolic Pulse Ox 99 04/16/22 22:38 04/16/22 22:38 04/16/22 22:37 Temperature 96.7 F L Temperature Source Pulse Rate 65 Blood Pressure BP Systolic BP Diastolic Pulse Ox 97 04/16/22 22:40 04/16/22 22:40 04/16/22 23:40 Temperature Temperature Source Pulse Rate 60 Blood Pressure 151/85 H 145/89 H BP Systolic 151 145 BP Diastolic 85 89 Pulse Ox 04/16/22 23:40 04/16/22 23:39 04/16/22 23:40 Temperature Temperature Source Temporal Pulse Rate 60 69 Blood Pressure BP Systolic BP Diastolic Pulse Ox 04/16/22 23:40 04/16/22 23:39 04/17/22 00:42 Temperature 97.3 F L Temperature Source Pulse Rate 65 Blood Pressure BP Systolic BP Diastolic Pulse Ox 100 04/17/22 00:42 04/17/22 00:43 04/17/22 00:43 Temperature Temperature Source Pulse Rate 66 Blood Pressure 168/99 H BP Systolic 168 BP Diastolic 99 Pulse Ox 100 04/17/22 00:43 04/17/22 00:43 04/17/22 01:34 Temperature 98.3 F Temperature Source Temporal Pulse Rate Blood Pressure 108/68 BP Systolic 108 BP Diastolic 68 Pulse Ox 04/17/22 01:34 04/17/22 01:35 04/17/22 01:35 Temperature Temperature Source Pulse Rate 69 65 Blood Pressure BP Systolic BP Diastolic Pulse Ox 96 Weight Weight: 277 lb 12.519 oz Body Mass Index (BMI) 42.2 Physical Exam Const alert, oriented x3, no apparent distress and healthy appearing HEENT normocephalic and moist oral mucous membranes Head and Scalp: atraumatic Neck full ROM, no lymphadenopathy, supple and thyroid normal General: trachea midline Lymph Lymphatic: no lymphadenopathy noted Chest inspection of chest normal Resp normal respiratory effort Cardio regular rate GI normal to inspection, nondistended, normoactive bowel sounds, soft to palpation and non-tender Inspection: gravid external exam normal Manual OB Exam: estimated gestational size appropriate, presentation cephalic, dilated, effaced and station Extremity normal to inspection General Extremity: Negative for edema Skin no rashes or lesions noted Neuro no focal motor deficits and deep tendon reflexes 2+ bilaterally Motor Exam: strength 5/5 throughout and clonus absent Psych mental status grossly normal Labs Labs Labs: Blood Type A POSITIVE Antibody Screen NEGATIVE Hct 36.4 % (37-47) L Hgb 12.3 g/dL (12.0-15.0) Pap Smear Negative Obstetrics US Syphilis Total Ab Non-reactive VZV IgG Antibody 3556 index (Immune >165) Rubella IgG Antibody Reactive (Nonreactive) Hep Bs Antigen Non-Reactive (Nonreactive) Chlamydia DNA (ALBA) Negative (Negative) Neisseria gonorrhoeae DNA (ALBA) Negative (Negative) HIV 1&2 Antibody Non-Reactive (Nonreactive) Glucose 1 Hr 50 gm 137 mg/dL (70-140) Assessment & Plan (1) BALJIT (generalized anxiety disorder): COMMENT: celexa. patient is seeing a counselor (2) : QUALIFIERS: Weeks of gestation: 38 weeks Qualified Code(s): Z3A.38 - 38 weeks gestation of COMMENT: GBS Negative, anatomy nl, declines carrier, ntd, and genetic screen, 02/19 growth 56% 1834gm, (3) Supervision of high risk , antepartum: COMMENT: PRR AMANDA:[birth year] girl Spouse:Ric (4) Obesity affecting : QUALIFIERS: Trimester: third trimester Qualified Code(s): O99.213 - Obesity complicating , third trimester COMMENT: nl 3 hr GTT (5) Gestational diabetes: QUALIFIERS: Gestational diabetes mellitus control: diet-controlled Trimester: third trimester Qualified Code(s): O24.410 - Gestational diabetes mellitus in , diet controlled COMMENT: on insulin. follows with . twice weekly testing at 32 weeks. deliver at 39 (6) Encounter for induction of labor: PLAN: Plan Patient presents IAL, plan expectant management for , pitocin/AROM PRN if needed. Pain management: plans epidural. GBS neg. Management of any complications: BS protocol I have reviewed the [facility] and made any clinically relevant updates.
--- NOTE | 2022-04-17 01:40 | EX.PCM.OBRPT ---
Assessment & Plan (1) BALJIT (generalized anxiety disorder): COMMENT: celexa. patient is seeing a counselor (2) : QUALIFIERS: Weeks of gestation: 38 weeks Qualified Code(s): Z3A.38 - 38 weeks gestation of COMMENT: GBS Negative, anatomy nl, declines carrier, ntd, and genetic screen, 02/19 growth 56% 1834gm, (3) Supervision of high risk , antepartum: COMMENT: PRR AMANDA:04/22/22 girl Spouse:Ric (4) Obesity affecting : QUALIFIERS: Trimester: third trimester Qualified Code(s): O99.213 - Obesity complicating , third trimester COMMENT: nl 3 hr GTT (5) Gestational diabetes: QUALIFIERS: Gestational diabetes mellitus control: diet-controlled Trimester: third trimester Qualified Code(s): O24.410 - Gestational diabetes mellitus in , diet controlled COMMENT: on insulin. follows with . twice weekly testing at 32 weeks. deliver at 39 (6) Encounter for induction of labor: (7) Vaginal delivery: Maternal Data Information AMANDA Calculator Estimated Delivery Date Method Current WG Current Estimate 04/22/22 LMP (Certain) 39w 2d Other Estimates 04/18/22 Ultrasound #1 39w 6d Vaginal Delivery Operative Information Date of Procedure: 04/17/22 Pre-Operative Diagnosis: iol gdm Post-Operative Diagnosis: same Surgery / Procedure Performed: Spontaneous Vaginal Delivery Type of Anesthesia: Epidural Special Medications: none Estimated Blood Loss: 200 Fluids Replaced: crystalloid Findings Description of Procedure: Patient began pushing and delivered the head in the ELIZA presentation. The head was delivered atraumatically and a loose nuchal cord ?1 was identified and the delivered through without complication. The anterior and posterior shoulders delivered without complication followed by the rest of the and the was placed on the maternal abdomen. Delayed cord clamping was employed for approximately 60 seconds. Cord was clamped and cut and gentle traction was applied to the cord and the placenta delivered spontaneously immediately following it was noted to be intact with three-vessel cord. The perineum and vagina were inspected and noted to have a second degree laceration repaierd i nthe usual fashion with 3-0 rapide. EBL was 200. Patient and tolerated delivery well. Presentation: ELIZA Amniotic Membrane Rupture Type: Artificial Amniotic Fluid Description: Clear Placental Delivery Description: Spontaneous Placenta Disposition: [facility] Cord Vessel Description: 3 Vessels Cord Entanglement: Around neck x 1, loose A Gender: Female Delayed Cord Clamping: Yes Post Vaginal Delivery Medications Given After Delivery: IV Pitocin Episiotomy Description: None Laceration: Perineal Extension/lac and 2nd degree Complication Complications: None Procedures Urinary/Genital [id number]: [id number] Vaginal Delivery [facility]
--- NOTE | 2022-04-17 01:44 | DCINST_ITS ---
Discharge Instructions Diet Discharge Diet: No restrictions Activity Discharge Activity: Return to Normal Activity, May Drive, May Shower and May Take a Tub Bath (in 4 weeks) May resume sexual activity in: 6-8 weeks (after seen by OB provider) Weight Bearing Status: Full weight bearing Lifting Restrictions: none Dressing / Incision Call your doctor if you observe: Fever of 101 or Higher, Inability to urinate, Using more than 1 pad per hour (for more than 2 hours in a row or more), Shortness of breath, Dizziness, Chest pain and - (headache not controlled with tylenol, change in vision) Follow Up Care When: in 6 weeks for visit, call the office to make the appointment. If you had elevated blood pressures call the office to be seen within 1 week. Test Results: Test results from this visit will be discussed in further detail at your follow- up appointment, if applicable. Discharge Plan Admission Admit Date/Time: 04/15/22 18:45 Attending Provider: Toyin Kimbrough Primary Care Provider: MALISSA REDMAN Discharge Orders/Prescriptions Prescriptions: No Action prenat.vits,rosalva,[id number] Tablet 1 tab PO DAILY ferrous sulfate 325 mg (65 mg iron) tablet 325 mg PO DAILY insulin degludec [Tresiba FlexTouch U-200] 200 unit/mL (3 mL) insulin pen 28 unit subcut DAILY Vitamin D3 1 tab PO.IVFORM DAILY vitamin W17-sqmju acid 1 tab PO.IVFORM DAILY citalopram [Celexa] 20 mg tablet 20 mg PO DAILY (DME) blood-glucose meter [True Metrix Air Glucose Meter] Misc See Rx Instructions .ROUTE .MEDSUPPLY Qty: 1 0RF Rx Instructions: As directed (DME) True Metrix Glucose Test Strip Strip See Rx Instructions .ROUTE .MEDSUPPLY Qty: 100 4RF Rx Instructions: As directed (DME) pen needle, diabetic [BD Ultra-Fine Katelyn Pen Needle] 32 gauge x 5/32 needle See Rx Instructions .ROUTE .MEDSUPPLY Qty: 100 0RF Rx Instructions: daily Referrals / Follow Up: MALISSA REDMAN [Other] Disposition Disposition (needs filled in before D/C Order can be placed): Home, Self Care
[2022-04-17] MEDS: Oxytocin 15 Units/NS 250ml 15 UNITS/250 ML IV.SOLN 83 UNITS IV (01:50)
[2022-04-17 07:35] LABS: Bedside Glucose 127 mg/dL (74-106)
[2022-04-17 07:35] LABS: Bedside Glucose 125 mg/dL (74-106)
--- NOTE | 2022-04-17 08:16 | NURSING ---
Pt states that she feels jittery and shakey. She is wondering if her sugar is low and eating snacks. Checked Blood sugar to rule out hypoglycemia. BS result-134. Encouraged Pt to report any new symptoms to nurse such as dizziness, lightheadedness or change in vision.
[2022-04-17 08:35] LABS: Bedside Glucose 134 mg/dL (74-106)
[2022-04-17] MEDS: Naproxen 500 MG Tablet PO ×2 (09:55→17:50)
[2022-04-17] MEDS: Citalopram 20 MG Tablet PO (09:55)
[2022-04-17] MEDS: Senna/Docusate Sodium 1 Tablet PO (09:55)
[2022-04-17] MEDS: Acetaminophen 500 MG Tablet 1000 MG PO ×2 (11:16→17:49)
[2022-04-18 01:50] VITALS: BP 122/68; PULSE 71; RESP 16; TEMP 36
[2022-04-18] MEDS: Acetaminophen 500 MG Tablet 1000 MG PO (01:52)
[2022-04-18] MEDS: Naproxen 500 MG Tablet PO (05:53)
[2022-04-18 05:55] VITALS: BP 127/65; PULSE 72; RESP 16; TEMP 36.1; O2SAT 100
[2022-04-18 06:21] LABS: Bedside Glucose 90 mg/dL (74-106)
[2022-04-18 07:50] VITALS: BP 135/57; PULSE 77; RESP 18; TEMP 36.3; O2SAT 99
--- NOTE | 2022-04-18 08:06 | PCM.PN.OB ---
Subjective Subjective Patient doing well without complaints. Tolerating PO. Ambulating and voiding without difficulty. Feeding well. Denies chest pain, shortness of breath, calf pain/swelling, fevers, chills, lightheadedness. Objective Data Objective Data Vital Signs: Vital Signs Temp Pulse Resp BP Pulse Ox O2 Del Method 97.4 F L 77 18 135/57 H 99 Room Air 04/18/22 07:50 04/18/22 07:50 04/18/22 07:50 04/18/22 07:50 04/18/22 07:50 04/18/22 07:50 Oxygen Delivery Method Room Air Weight: 277 lb 12.519 oz Body Mass Index (BMI) 42.2 Intake & Output: Intake and Output for Last 24 Hours 04/16/22 04/17/22 04/18/22 23:59 23:59 23:59 Intake Total 3040.75 / 3040.75 1643.83 / 1643.83 Output Total 900 / 900 1850 / 1850 Balance 2140.75 / 2140.75 -206.17 / -206.17 Lab / Micro Data Result Diagrams: 04/15/22 19:25 Labs: Laboratory Results - last 24 hr 04/17/22 08:05: POC Glucose 134 H 04/18/22 05:59: POC Glucose 90 Physical Exam Const alert and oriented x3 HEENT normocephalic Eyes PERRL Neck full ROM Resp normal respiratory effort GI soft to palpation GI Narrative: FF below U Assessment & Plan (1) Vaginal delivery: (2) Gestational diabetes: QUALIFIERS: Gestational diabetes mellitus control: diet-controlled Trimester: third trimester Qualified Code(s): O24.410 - Gestational diabetes mellitus in , diet controlled PLAN: Plan s/p PPD # 1 1. routine post delivery care 2. breast feeding- support given 3. rh positive 4. rubella immune 5. glucose stable 6. home today
--- NOTE | 2022-04-18 12:03 | NURSING ---
Celexa taken out of accudose to administer to pt, pt refused and wanted to take Celexa when she gets home today. Pharmacy called because RN unable to return to accudose under pt, pharmacy instructed to discard d/t package being ripped on edge. RN discarded at this time.
== END 2022-04-18 11:40 | disposition home or self-care (01) | DRG 807 ==
PROVIDERS: Admitting Provider Registered Nurse; Visit Provider Obstetrics & Gynecology
DX: O24.420 Gestational diabetes mellitus in childbirth, diet controlled (principal); Z37.0 Single live birth; E66.8 Other obesity; E78.5 Hyperlipidemia, unspecified; O26.23 Pregnancy care for patient with recurrent pregnancy loss, third trimester; O99.344 Other mental disorders complicating childbirth; O70.1 Second degree perineal laceration during delivery; F41.1 Generalized anxiety disorder; Z3A.38 38 weeks gestation of pregnancy; O69.81X0 Labor and delivery complicated by cord around neck, without compression, not applicable or unspecified; O99.285 Endocrine, nutritional and metabolic diseases complicating the puerperium; O99.214 Obesity complicating childbirth
CPT/HCPCS: 59025; 59050; 82962; 85025; 86850; 86900; 86901; 99218; 99406; J7120; A4216; G0378; J2405

== ENCOUNTER 2022-05-08 17:51 | Emergency (ER) | payer OTHER, BC, SELFPAY ==
[2022-05-08 17:53] VITALS: BP 128/89; PULSE 82; RESP 16; TEMP 36.6; O2SAT 100; BMI 38.0
--- NOTE | 2022-05-08 19:58 | RAD_ITS ---
INDICATION: Stroke EXAMINATION/TECHNIQUE: X-RAY - XR Chest 1 View COMPARISON: 06/21/2021 FINDINGS: LINES/DEVICES: None. LUNGS: No consolidation, edema or effusion. No pneumothorax. MEDIASTINUM AND CARDIOVASCULAR STRUCTURES: Cardiac silhouette not enlarged. Central airways and mediastinal contour are unremarkable. RAD/Chest 1 View (Portable) IMPRESSION: No radiographic evidence of acute cardiopulmonary disease. Electronically Signed: Bigg Hernandez MD at 20:31 EST ,
--- NOTE | 2022-05-08 20:42 | EX.ED.DYSGE1 ---
HPI History of Present Illness Chief Complaint: Dizziness Informant: patient Onset/Context/Timing Onset: Today and Hours (6) Context: Sudden Onset Timing: Continuous Quality: Tingling, flushed, shaky Location: Generalized Worsened by: Nothing Relieved by: Ice to the back of her neck, cold floor Narrative Narrative: Patient presents with episode of lightheadedness that began approximately 6 hours prior to arrival. Patient states she was breast-feeding her child when she started feeling tingling and flushed. Patient states she was feeling shaky as well. Patient states it started in her chest and spread to her extremities. Patient states that it was somewhat better with an ice pack to the back of her neck and laying on a cold floor. Patient states nothing made her symptoms worse. Patient states she was nauseated. Patient also states she had some itching in her palms and soles. Patient denies any rashes. Patient denies any abdominal pain. Patient denies any fevers or chills. [facility] Medical History Complete Encounter for induction of labor BALJIT (generalized anxiety disorder) Migraine with aura Mixed dyslipidemia Obesity Rosacea Seasonal allergies Vaginal delivery Home Medications prenat.vits,rosalva,[id number] 1 tab PO DAILY 08/29/21 [History Last Taken 02/17/22 09:00] ferrous sulfate 325 mg (65 mg iron) tablet 325 mg PO DAILY ANEMIA 12/31/21 [History Last Taken 02/18/22 12:00] blood sugar diagnostic (True Metrix Glucose Test Strip) #100 ea 01/16/22 [Rx Last Taken Unknown] blood-glucose meter (True Metrix Air Glucose Meter) #1 ea 01/16/22 [Rx Last Taken Unknown] pen needle, diabetic 32 gauge x 5/32 (BD Ultra-Fine Katelyn Pen Needle) #100 ea 02/08/22 [Rx Last Taken Unknown] insulin degludec 200 unit/mL (3 mL) subcutaneous pen (Tresiba FlexTouch U-200 insulin) 28 unit subcut DAILY gestational diabetes 03/18/22 [History Last Taken 04/15/22 17:00] Vitamin D3 1 tab PO.IVFORM DAILY SEE PHYSICIAN 04/15/22 [History Last Taken Unknown] citalopram 20 mg tablet (Celexa) 20 mg PO DAILY ANXIETY 04/15/22 [History Last Taken Unknown] vitamin O04-nptpz acid 1 tab PO.IVFORM DAILY SEE PHYSICIAN 04/15/22 [History Last Taken Unknown] Allergy/AdvReac Type Severity Reaction Status Date / Time Sulfa (Sulfonamide Allergy Hives Verified 05/08/22 17:58 Antibiotics) Family History Mother Thyroid cancer Hypertension Father Hypertension Hyperlipidemia Grandfather Leukemia Lung cancer Grandmother Diabetes Surgical History [place] teeth extracted Social History adopted: No household members: spouse current occupational status: employed 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 pets and animals: Yes (avoid litter box) pets and animals: cat(s) and dog(s) sexually active: Yes Smoking Status: Never smoker alcohol intake: current details: not while substance use type: does not use caffeine: Yes what type of physical activity do you participate in: none seatbelt use: always do you feel safe at home: Yes additional social history: - Ric 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 ROS ED Constitutional Constitutional ED: Denies chills or fever(s) Eyes Eyes: Denies blurry vision or change in vision ENT ENT ED: Denies rhinorrhea or sore throat Cardiovascular Cardiovascular: Denies chest pain or palpitations Respiratory/Chest Respiratory/Chest: Denies cough or dyspnea Gastrointestinal Gastrointestinal: Reports nausea; Denies vomiting Genitourinary Genitourinary ED: Denies dysuria or hematuria Musculoskeletal Musculoskeletal: Denies back pain or neck pain Integumentary Denies abscess or rash Neurologic Neurologic: Denies headache(s) or weakness Allergic/Immunologic Allergic/Immunologic ED: Denies mouth swelling or urticaria EXAM Physical Exam Const Vital Signs: 05/08/22 17:53 05/08/22 19:36 05/08/22 21:26 Temperature 98 F Temperature Source Temporal Pulse Rate 82 Pulse Rate [Lying] 72 Pulse Rate [Sitting (for 1 minute prior to obtaining)] 75 Pulse Rate [Standing (for 1 minute prior to obtaining)] 116 H Respiratory Rate 16 Respiratory Effort Normal Non-Labored Respiratory Pattern Normal Blood Pressure 128/89 H Blood Pressure [Lying] 156/88 H Blood Pressure [Sitting (for 1 minute prior to obtaining)] 131/78 H Blood Pressure [Standing (for 1 minute prior to obtaining)] 112/68 Blood Pressure Mean 102 Blood Pressure Mean [Lying] 110 Blood Pressure Mean [Sitting (for 1 minute prior to obtaining)] 95 Blood Pressure Mean [Standing (for 1 minute prior to obtaining)] 82 Pulse Ox 100 Oxygen Delivery Method Room Air Positive well nourished and well developed General Appearance ED: well developed and NAD HEENT Reports moist mucous membranes Neck supple and no JVD Resp normal respiratory effort and clear to auscultation bilaterally Cardio regular rate, regular rhythm and no murmurs GI normal to inspection, nondistended, normoactive bowel sounds and non-tender Palpation: soft Extremity normal to inspection General Extremety ED: Negative for edema or tenderness General Extremity: Negative for edema Neuro oriented x3, CN's II-XII intact bilaterally and no sensory deficits noted Sensorium / Orientation: alert Motor Exam: strength 5/5 throughout Psych mental status grossly normal Skin no rashes or lesions noted MDM MDM MDM Narrative Medical decision making narrative: EKG was obtained. On my interpretation, it showed a normal sinus rhythm with a rate of 72. MI interval, QRS interval, and QTc intervals were all normal. [place] was normal. There are no acute ST or T wave changes. Portable 1 view chest x-ray was obtained. On my interpretation, lung brandon are clear. There is normal cardiac silhouette. Bony thorax is normal. There is no acute process noted. Radiologist also interpreted the x-ray and agrees. CBC was within normal limits. PT with INR and PTT were within normal limits. Basic metabolic profile was within normal limits. High-sensitivity troponin was normal. Orthostatic vital signs were obtained and were positive. Patient was given 2 L of normal saline. Patient is feeling better on reevaluation. Patient was instructed to drink plenty of fluids. Patient was instructed to follow-up with her primary care physician and [facility] in 5 to 7 days. Patient understood and was agreeable with the plan. All questions were answered. Lab Data Attestation: I reviewed the patient's lab results. Labs: Laboratory Results - last 24 hr 05/08/22 05/08/22 05/08/22 20:35 20:35 20:35 WBC 7.2 RBC 4.64 Hgb 14.0 Hct 42.2 MCV 90.9 MCH 30.2 MCHC 33.2 RDW Std Deviation 37.9 RDW Coeff of Silas 11.4 L Plt Count 274 MPV 11.1 Immature Gran % (Auto) 0.300 Neut % (Auto) 79.0 H Lymph % (Auto) 17.6 L [place] % (Auto) 2.4 Eos % (Auto) 0.3 Baso % (Auto) 0.4 Absolute Neuts (auto) 5.7 Absolute Lymphs (auto) 1.26 Nucleated RBC % 0 PT 12.9 INR 1.0 APTT 27.4 Sodium 141 Potassium 3.8 Chloride 108 H Carbon Dioxide 27.0 Anion Gap 6 BUN 13 Creatinine 0.82 Estim Creat Clear Calc 98.44 Est GFR (MDRD) Af Amer 104 Est GFR (MDRD) Non-Af 86 BUN/Creatinine Ratio 16.0 Glucose 106 Calcium 9.0 Troponin I High Sens 05/08/22 20:35 WBC RBC Hgb Hct MCV MCH MCHC RDW Std Deviation RDW Coeff of [place] Plt Count MPV Immature Gran % (Auto) Neut % (Auto) Lymph % (Auto) [place] % (Auto) Eos % (Auto) Baso % (Auto) Absolute Neuts (auto) Absolute Lymphs (auto) Nucleated RBC % PT INR APTT Sodium Potassium Chloride Carbon Dioxide Anion Gap BUN Creatinine Estim Creat Clear Calc Est GFR (MDRD) Af Amer Est GFR (MDRD) Non-Af BUN/Creatinine Ratio Glucose Calcium Troponin I High Sens 9 Radiography Chest X-Ray - ED: 1 View, Read by ED Physician, Read by Radiologist and No Acute Disease Diagnostic Testing: Clinical Impression(s) from Imaging Studies Chest X-Ray 05/08/22 19:58 IMPRESSION: No radiographic evidence of acute cardiopulmonary disease. Electronically Signed: Bigg Hernandez MD at 20:31 EST , EKG Initial EKG: Attestation: I personally reviewed and interpreted this EKG as follows: Interpretation: Sinus Rhythm (72) and No Acute Injury Pattern Prior EKG tracings: available for review Prior: Unchanged (06/21/2021) Discharge Plan Triage Chief Complaint: Dizziness ED Provider: Martin Orozco Dx/Rx/DC Orders Clinical Impression: Orthostatic hypotension Instructions: ED Dehydration (Adult) Prescriptions: No Action prenat.vits,rosalva,[id number] Tablet 1 tab PO DAILY ferrous sulfate 325 mg (65 mg iron) tablet 325 mg PO DAILY insulin degludec [Tresiba FlexTouch U-200] 200 unit/mL (3 mL) insulin pen 28 unit subcut DAILY Vitamin D3 1 tab PO.IVFORM DAILY vitamin W93-fpdxz acid 1 tab PO.IVFORM DAILY citalopram [Celexa] 20 mg tablet 20 mg PO DAILY (DME) blood-glucose meter [True Metrix Air Glucose Meter] Misc See Rx Instructions .ROUTE .MEDSUPPLY Qty: 1 0RF Rx Instructions: As directed (DME) True Metrix Glucose Test Strip Strip See Rx Instructions .ROUTE .MEDSUPPLY Qty: 100 4RF Rx Instructions: As directed (DME) pen needle, diabetic [BD Ultra-Fine Katelyn Pen Needle] 32 gauge x 5/32 needle See Rx Instructions .ROUTE .MEDSUPPLY Qty: 100 0RF Rx Instructions: daily Primary Care Provider: Care Physician,No Primary Referrals: Toyin Kimbrough MD [Med Staff - Active Staff] - 5-7 Days Care Physician,No Primary [Primary Care Provider] - Disposition Disposition: Home, Self Care
[2022-05-08 20:46] LABS: Absolute Lymphocyte Count 1.26 X10^3/uL (0.83-4.51); Absolute Neutrophil Count 5.7 X10^3/uL (2.0-7.7); Basophil# 0.03 X10^3/uL; Basophil% 0.4 % (0-1); Eosinophil# 0.02 X10^3/uL; Eosinophils% 0.3 % (0-5); Hematocrit 42.2 % (37-47); Lymphocyte # 1.26 X10^3/ul (0.83-4.51); Lymphocyte % 17.6 % (19-41); Mean Corp Hgb Conc 33.2 g/dL (32-36); Mean Corpuscular Hgb 30.2 pg (27.0-32.0); Mean Corpuscular Volume 90.9 fL (81-99); Mean Platelet Vol. 11.1 fl (6.2-12.0); Monocyte# 0.17 X10^3/uL; Monocyte% 2.4 % (0-10); NRBC Flagged by Analyzer 0 % (0-5); Neutrophil # 5.66 X10^3/uL (2.7-7.7); Platelet Count 274 K/mm3 (150-450); RBC Distribution Width CV 11.4 % (11.6-14.6); RBC Distribution Width SD 37.9 fl (35.1-43.9); Red Blood Count 4.64 M/mm3 (4.2-5.4); White Blood Count 7.2 K/mm3 (4.4-11.0)
[2022-05-08 20:54] LABS: Prothrombin Time (Protime)PT. 12.9 SECONDS (11.7-14.9)
[2022-05-08 20:55] LABS: Partial Thromboplast Time 27.4 Seconds (24.1-36.2)
[2022-05-08 21:00] LABS: Anion Gap 6 (5-15); BUN 13 mg/dL (7-18); Chloride 108 mmol/L (98-107); Creatinine, Serum 0.82 mg/dL (0.55-1.02); EST Glomerular Filtration Rate 86 mL/min (>60); Est Glom Filt Rate - Afr Amer 104 mL/min (>60); Estimated Creatinine Clearance 98.44 ml/min; Glucose 106 mg/dL (74-106); Potassium 3.8 mmol/L (3.5-5.1); Sodium Level 141 mmol/L (136-145)
[2022-05-08 21:20] LABS: Troponin-I HS 9 pg/mL (3.0-54.0)
[2022-05-08 21:26] VITALS: BP 112/68; BP 131/78; BP 156/88; PULSE 116; PULSE 72; PULSE 75
[2022-05-08] MEDS: 0.9% Normal Saline 1,000 ML 999 ML IV (21:26)
[2022-05-08] MEDS: 0.9% Normal Saline 1,000 ML 1000 ML IV (22:21)
[2022-05-08 22:50] VITALS: BP 134/81; PULSE 68; RESP 16; O2SAT 100
== END 2022-05-08 23:00 | disposition home or self-care (01) ==
PROVIDERS: Emergency Provider Emergency Medicine; Visit Provider Emergency Medicine
DX: I95.1 Orthostatic hypotension (principal); I63.9 Cerebral infarction, unspecified; E78.2 Mixed hyperlipidemia
CPT/HCPCS: 71045; 80048; 84484; 85025; 85610; 85730; 93005; 96360; 99285; J7030; A4216

== ENCOUNTER → 2022-06-04 | Outpatient (CLI) | payer OTHER, SELFPAY ==
[2022-06-04 10:49] LABS: Glucose 2 Hour Postprandial 80 mg/dL (<140)
== END | disposition home or self-care (01) ==
PROVIDERS: Referring Provider Nurse Practitioner Women's Health; Visit Provider Nurse Practitioner Women's Health
DX: O24.419 Gestational diabetes mellitus in pregnancy, unspecified control (principal)
CPT/HCPCS: 36415; 82950

== ENCOUNTER → 2022-07-19 | Outpatient (CLI) | payer OTHER, SELFPAY ==
[2022-07-19 10:49] LABS: Vitamin D,25 Hydroxy 26.2 ng/mL
[2022-07-19 11:00] LABS: Thyroid Stim Hormone (TSH) 1.51 uIU/mL (0.358-3.74)
== END | disposition home or self-care (01) ==
DX: F41.9 Anxiety disorder, unspecified (principal); E55.9 Vitamin D deficiency, unspecified; Z86.32 Personal history of gestational diabetes
CPT/HCPCS: 36415; 82306; 83036; 84443

== ENCOUNTER → 2023-02-28 | Outpatient (CLI) | payer OTHER, SELFPAY ==
[2023-02-28 08:41] LABS: Hematocrit 39.5 % (37-47); Hemoglobin 12.3 g/dL (12.0-15.0); Mean Corp Hgb Conc 31.1 g/dL (32-36); Mean Corpuscular Hgb 28.4 pg (27.0-32.0); Mean Corpuscular Volume 91.2 fL (81-99); Mean Platelet Vol. 10.9 fl (6.2-12.0); Platelet Count 230 K/mm3 (150-450); RBC Distribution Width CV 12.1 % (11.6-14.6); RBC Distribution Width SD 40.2 fl (35.1-43.9); Red Blood Count 4.33 M/mm3 (4.2-5.4); White Blood Count 6.5 K/mm3 (4.4-11.0)
[2023-02-28 09:24] LABS: ALB/GLOB Ratio 0.8 RATIO (0.9-2.4); AST(SGOT) 11 U/L (15-37); Alanine Aminotransfer ALT/SGPT 20 U/L (13-56); Albumin, Serum 3.3 g/dL (3.2-5.0); Alkaline Phosphatase 66 U/L (45-117); Anion Gap 5 (5-15); BUN 15 mg/dL (7-18); BUN/Creat Ratio 20.8 RATIO (10-20); Calcium,Total 8.5 mg/dL (8.5-10.1); Chloride 106 mmol/L (98-107); Creatinine, Serum 0.72 mg/dL (0.55-1.02); EST Glomerular Filtration Rate 98 mL/min (>60); Est Glom Filt Rate - Afr Amer 119 mL/min (>60); Glucose 98 mg/dL (74-106); Potassium 3.8 mmol/L (3.5-5.1); Protein, Total 7.3 g/dL (6.4-8.2); Sodium Level 139 mmol/L (136-145); Thyroid Stim Hormone (TSH) 2.06 uIU/mL (0.358-3.74)
== END | disposition home or self-care (01) ==
LOC: LAB 08:05
DX: R00.2 Palpitations (principal); R42 Dizziness and giddiness
CPT/HCPCS: 36415; 80053; 84443; 85027

== ENCOUNTER → 2023-03-17 | Outpatient (CLI) | payer OTHER, SELFPAY | END | disposition home or self-care (01) | LOC: PSN 07:01 | DX: R00.2 Palpitations (principal); R42 Dizziness and giddiness | CPT/HCPCS: 93225; 93226 ==

== ENCOUNTER 2023-06-28 19:39 | Emergency (ER) | payer OTHER, SELFPAY ==
[2023-06-28 19:40] VITALS: BP 148/96; PULSE 91; RESP 16; TEMP 36.3; O2SAT 100; BMI 42.5
--- NOTE | 2023-06-28 19:55 | EX.ED.VIS.HA ---
HPI <HUMBLE Gracia - Last Filed: 06/28/23 21:15> History of Present Illness Chief Complaint: Headache Narrative Narrative: Patient presenting today due to headache and transient blurred vision in the right eye. She reports that she has a remote history of migraines, however, she does not currently take any prescription medications for migraines. She does normally feel an aura precipitating her migraines and did experience that today. She has also had intermittent nausea and photophobia. She has had pain to the right forehead and behind the right eye, she took Tylenol for this with minimal relief. She tried to take a nap but shortly after waking up her headache was worse and she noticed blurred vision on the right side. She reports that this lasted for 45 minutes and then went away. She denies any history of ocular migraines. She reports a PMH of gestational diabetes and hyperlipidemia. PFSH <HUMBLE Gracia - Last Filed: 06/28/23 21:15> PFSH Medical History Complete Encounter for induction of labor BALJIT (generalized anxiety disorder) Migraine with aura Mixed dyslipidemia Obesity Rosacea Seasonal allergies Vaginal delivery Home Medications blood sugar diagnostic (True Metrix Glucose Test Strip) #100 ea 01/16/22 [Rx Last Taken Unknown] blood-glucose meter (True Metrix Air Glucose Meter) #1 ea 01/16/22 [Rx Last Taken Unknown] pen needle, diabetic 32 gauge x 5/32 (BD Ultra-Fine Katelyn Pen Needle) #100 ea 02/08/22 [Rx Last Taken Unknown] citalopram 40 mg tablet (Celexa) 40 mg PO DAILY #90 tabs 05/27/22 [Rx Last Taken Unknown] cholecalciferol (vitamin D3) 50 mcg (2,000 unit) capsule (Vitamin D3) 2,000 unit PO DAILY 06/28/23 [History Last Taken Unknown] Allergy/AdvReac Type Severity Reaction Status Date / Time Sulfa (Sulfonamide Allergy Hives Verified 06/28/23 19:53 Antibiotics) Family History Mother Thyroid cancer Hypertension Father Hypertension Hyperlipidemia Grandfather Leukemia Lung cancer Grandmother Diabetes Surgical History Eighty Four teeth extracted Social History adopted: No household members: spouse current occupational status: employed 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 pets and animals: Yes (avoid litter box) pets and animals: cat(s) and dog(s) sexually active: Yes Smoking Status: Never smoker alcohol intake: current details: not while substance use type: does not use caffeine: Yes what type of physical activity do you participate in: none seatbelt use: always do you feel safe at home: Yes additional social history: - Ric 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 <HUMBLE Gracia - Last Filed: 06/28/23 21:15> ROS ED Constitutional Constitutional ED: Denies chills or fever(s) Eyes Eyes: Reports blurry vision Cardiovascular Cardiovascular: Denies chest pain Respiratory/Chest Respiratory/Chest: Denies cough or dyspnea Gastrointestinal Gastrointestinal: Denies abdominal pain, nausea or vomiting Musculoskeletal Musculoskeletal: Denies arthralgias or myalgias Integumentary Denies rash Neurologic Neurologic: Reports headache(s) EXAM <HUMBLE Gracia - Last Filed: 06/28/23 21:15> Physical Exam Const Vital Signs: 06/28/23 19:40 Temperature 97.4 F L Temperature Source Temporal Pulse Rate 91 Respiratory Rate 16 Blood Pressure 148/96 H Blood Pressure Mean 113 Pulse Ox 100 Oxygen Delivery Method Room Air Positive well nourished, well developed and no apparent distress General Appearance ED: well developed HEENT Reports normocephalic and head/scalp atraumatic Mouth ED: Yes moist mucous membranes normal Eyes PERRL and EOMs intact bilaterally Neck full ROM and supple Chest Wall inspection of chest normal Resp normal respiratory effort and clear to auscultation bilaterally Cardio regular rate and regular rhythm GI soft to palpation, non-tender, non-distended and no masses Back/Spine normal ROM and normal to inspection Extremity normal to inspection and full ROM Neuro oriented x3, CN's II-XII intact bilaterally, moves all extremities, no focal motor deficits and no sensory deficits noted Neuro Narrative: Normal visual brandon by confrontation EOMs intact Sensorium / Orientation: awake and alert Speech: speech normal Gait (Neuro): normal gait Motor Exam: strength 5/5 throughout and no pronator drift Coordination: [id number] test normal Psych mental status grossly normal and thought process normal Skin no rashes or lesions noted and no wounds <Dr. Dom Correa DO - Last Filed: 06/28/23 21:23> Physical Exam Const Vital Signs: 06/28/23 19:40 Temperature 97.4 F L Temperature Source Temporal Pulse Rate 91 Respiratory Rate 16 Blood Pressure 148/96 H Blood Pressure Mean 113 Pulse Ox 100 Oxygen Delivery Method Room Air MDM <HUMBLE Gracia - Last Filed: 06/28/23 21:15> [facility] Narrative Medical decision making narrative: Patient presenting due to a migraine that started today. She has a history of migraines. She had blurred vision in the right eye that lasted approximately 45 minutes. No painless vision loss. Neurological exam is unremarkable, she has an NIH of 0. Visual acuity is 20/20 bilaterally corrected. Symptoms do not sound consistent with SAH. Exam does seem consistent with ocular migraine. She was given IV fluids, Benadryl, Toradol, and Reglan. On reexamination she reports improvement of her symptoms. Repeat neuro exam is normal. I have given her strict return instructions and she is to follow-up with her PCP. She will be discharged home in stable condition and is comfortable with plan. <Dr. Dom Correa DO - Last Filed: 06/28/23 21:23> [facility] Treatment and Re-Evaluation Narrative: ED attending note: I evaluated the patient in conjunction with the KRISTY. I agree with his/her statements and above findings. I have personally performed a face to face assessment of the patient and have reviewed the KRISTY Note. I performed a substantive portion of the visit including all aspects of the following. I personally saw the patient performed chart review, physical exam, reviewed labs, imaging (if obtained), and formulated a treatment and management plan. Brief history: 32-year-old female presents with 1 day of headache. She notes for approximate 45 minutes she had blurry vision in the right eye. This is since resolved. Denies chest pain, palpitations, focal deficits, slurred speech, facial drooping. No history of CVA. No family or personal history of brain aneurysms. Exam: Nursing triage notes reviewed, Vital signs reviewed Constitutional: please see [facility] HENT: MMM Eyes: Pupils equal round and reactive to light, Extraocular muscles intact, visual brandon intact, visual acuity 20/20 bilaterally, within the limits of ED for endoscopy no obvious evidence of witt red macular or central retinal artery occlusion Neck: No stridor, no obvious JVD, intact neck ROM Extremities: No edema Neuro: Alert and oriented x3, neuro exam at baseline, cranial nerves II through XII are intact. No pain with extraocular muscle movement. There is negative test of skew. 5 of 5 strength in upper and lower extremities in flexion extension. Intact sensation to light touch in upper and lower extremity dermatomes. No truncal or extremity ataxia. Stable, non-ataxic gait. 2+ reflexes in upper and lower extremities. No meningeal signs. NIH of 0. Skin: No rash or lesions noted MDM/plan: Chief Complaint: Headache, blurry vision External records reviewed: No advanced imaging of the brain noted in the chart Factors affecting care: Migraines Social determinants of health: Denies drug use History obtained from others: The patient's Consults: None MDM narrative: Patient was hemodynamically stable, afebrile, nontoxic-appearing. There are no focal neurologic deficits noted. I considered the following differential diagnosis: Subarachnoid hemorrhage, epidural hematoma, ICH, meningitis, carotid artery dissection, primary headache (cluster, tension, migraine) Patient's history, physical exam, are not consistent with acute intracranial process specifically low suspicion for subarachnoid hemorrhage, epidural hematoma, meningitis or carotid artery dissection based on the patient's history and physical exam. History and physical most consistent with likely ocular migraine. On re-evaluation the following was noted: The patient looks great and is in no significant objective discomfort currently. The patient's headache is non-specific. Exam is unremarkable. The patient is in no distress and the patient?s neurological exam is non-focal, neck is supple and without meningismus. The headache is not consistent with meningitis or infection, nor is it consistent with intracranial bleed (SAH etc.), carotid dissection, nor mass by history and examination. Medication and outpatient follow-up was instructed. The patient was instructed to return as needed or if symptoms changed or worsened, fever developed or inability to tolerate fluids. The patient agreed with plan. Shared decision making: I will have a discussion with the patient and or visitors regarding risk/benefits of further testing or admission. They will be made aware of of the risk/benefits inherent in this decision they will be given the opportunity to voice understanding. This note was generated with [employer] dictation software. It may contain incorrect words, spelling, and punctuation that were not noted in review of the chart prior to signing. Discharge Plan Triage Chief Complaint: Headache ED Midlevel Provider: [facility] ED Provider: Dom Correa Dx/Rx/DC Orders Clinical Impression: Ocular migraine Instructions: Migraines and Cluster Headaches Prescriptions: No Action citalopram [Celexa] 40 mg tablet 40 mg PO DAILY Qty: 90 3RF cholecalciferol (vitamin D3) [Vitamin D3] 50 mcg (2,000 unit) capsule 2,000 unit PO DAILY (DME) blood-glucose meter [True Metrix Air Glucose Meter] Misc See Rx Instructions .ROUTE .MEDSUPPLY Qty: 1 0RF Rx Instructions: As directed (DME) True Metrix Glucose Test Strip Strip See Rx Instructions .ROUTE .MEDSUPPLY Qty: 100 4RF Rx Instructions: As directed (DME) pen needle, diabetic [BD Ultra-Fine Katelyn Pen Needle] 32 gauge x 5/32 needle See Rx Instructions .ROUTE .MEDSUPPLY Qty: 100 0RF Rx Instructions: daily Primary Care Provider: Art Torres Referrals: Art Torres MD [Primary Care Provider] - 3-5 Days Activity Restrictions/Additional Instructions: Follow-up with PCP and return for any worsening of symptoms. Disposition Disposition: Home, Self Care
[2023-06-28] MEDS: Metoclopramide 10 MG/2 ML Vial 2.5 MG IV (20:23)
[2023-06-28] MEDS: DiphenhydrAMINE 50 MG/ML Syringe 25 MG IV (20:24)
[2023-06-28] MEDS: Ketorolac 15 MG/ML Vial IV (20:25)
[2023-06-28] MEDS: 0.9% Normal Saline (1000mL) 1,000 ML 999 ML IV (20:26)
--- OUTSIDE RECORDS SUMMARY | 2023-06-28 20:27 | XMS RPT_ITS | CCD ---
Author Name Unknown Address [id number] [place] [address] Organization [facility] Care Team Providers Care Shield Operator Name Role Phone Tourmicki Clark Unavailable Unavailabl e Marcial Clark Unavailable Unavailabl e Carmen Mullins Unavailable Unavailable Tourmicki Clark Unavailable Unavailable Unavailable Sharif Cejastantinos Unavailable Ivy Montes Unavailable Unavailable Raghavendra Ibanez Unavailable Unavailable Ivy Montes Unavailable Unavailable Unavailable NANDINI GUTIERREZ Attending Unavailable PROVIDER, UNKNOWN Referring Unavailable No, PCP Primary Care Unavailable Hamilton Redman Unavailable Deepak, Mrs. Phanissa Mark Primary Care Unavailabl e Deepak, Hamilton Mark Attending Unavailabl e Deepak, Doug Mark Referring Unavailabl e Deepak, Mrs. Phanissa Mark Attending Unavailabl e Deepak, Mrs. Hamilton Cruzn Referring Unavailabl e Simon, MsDoug Brenner Primary Care Unav ailable Simon, MsDoug Brenner Primary Care Unav ailable Simon, MsDoug Brenner Attending Unav ailable Simon, MsDoug Brenner Referring Unav ailable Tifton, Mrs. Phanissa Mark Attending Unavailabl e Tifton, Mrs. Phanissa Mark Referring Unavailabl e Deepak, Mrs. Villasenor Deedee Primary Care Unavailabl e Tifton FRAMEWORK DEVELOPER-Hamilton JONES Primary Care Provider HAMILTON REDMAN Attending Unavailable HAMILTON REDMAN Primary Care Unavailable Allergies Allergy Classification Reported Allergen(s) Allergy Type Date of Onset Reaction(s) Facility (8 sources) Sulfonamides (Antibiotic); Translations: [Sulfa Drugs] drug allergy Hives/Urticaria [facility] Work Phone: (2 sources) Sulfonamides (Antibiotic); Translations: [SULFA (SULFONAMIDE ANTIBIOTICS)] Drug Allergy 3 Unknown [facility] Medications Current Medications Medication Drug Class(es) Dates Sig (Normalized) Sig (Original) alpha-tocopherol acetate 30 unt / ascorbic acid 100 mg / beta carotene 1000 unt / calcium carbonate 200 mg / calcium pantothenate 7 mg / cholecalciferol 400 unt / docusate sodium 25 mg / ferrous fumarate 29 mg / folic acid 1 mg / niacinamide 15 mg / pyridoxine hydrochloride 20 mg / riboflavin 3 mg / thiamine 3 mg / vitamin b12 0.012 mg / zinc oxide 20 mg oral tablet (1 source) Vitamin B12, Vitamin D, Vitamin C take 1 tablet by mouth once daily Prenatabs Rx oral tablet ; 1 tab(s) orally once a day Quantity: 0 Refills: 0 Ordered: 27-Mar-2021 Cari Scott Generic Substitution Allowed azithromycin 250 mg oral tablet (1 source) Macrolide Antimicrobial Start: 03-27-2021 take 2 tablets by mouth once, then take 1 tablet by mouth once daily azithromycin 250 mg oral tablet ; 2 tab(s) orally once today then 1 tab oral daily x 4 days Quantity: 6 Refills: 0 Ordered: 27-Mar-2021 Brynn Wade Start: 27-Mar-2021 Generic Substitution Allowed Comments: Do not take dairy products, antacids, or iron preparations within one hour of this medication.Finish all this medication unless otherwise directed by prescriber. Completed/Discontinued Medications Medication Drug Class(es) Dates Sig (Normalized) Sig (Original) Cetirizine (4 sources) Histamine-1 Receptor Antagonist Zyrtec TABS Quantity: 0 Refills: 0 Ordered: 12-Jun-2020 DO Active levocetirizine dihydrochloride 5 mg oral tablet (1 source) Histamine-1 Receptor Antagonist take 1 tablet by mouth at bedtime Levocetirizine Dihydrochloride 5 MG Oral Tablet TAKE 1 TABLET Bedtime Quantity: 90 Refills: 3 Tourlas , Clark Active Mag-Oxide TABS (5 sources) Mag-Oxide TABS Quantity: 0 Refills: 0 Ordered: 22-Jun-2021 DO Active metroNIDAZOLE 0.01 mg/mg topical gel (1 source) Nitroimidazole Antimicrobial Metrogel 1 % External Gel APPLY GM PRN rosacea Refills: 0 Active 55 GM Pump Btl niacin 500 mg extended release oral tablet (4 sources) Nicotinic Acid Start: 06-22-2021 End: 05-31-2022 take 1 tablet by mouth once daily Niacin ER 500 MG Oral Tablet Extended Release Take 1 tablet daily Quantity: 30 Refills: 0 Ordered: 22-Jun-2021 Hernandez ENNIS, Ivy Start : 22-Jun-2021 End : 31-May-2022 Complete omeprazole 20 mg delayed release oral capsule (1 source) Proton Pump Inhibitor take 1 capsule by mouth once daily Omeprazole 20 MG Oral Capsule Delayed Release TAKE 1 CAPSULE Daily Refills: 0 Active phentermine hydrochloride 37.5 mg oral tablet (1 source) Sympathomimetic Amine Anorectic Start: 03-24-2019 take 1 tablet by mouth once daily Phentermine HCl - 37.5 MG Oral Tablet TAKE 1 TABLET DAILY. Quantity: 30 Refills: 0 Shelton Cejas Start : 24-Mar-2019 Active TABS (5 sources) End: 05-31-2022 TABS Quantity: 0 Refills: 0 Ordered: 31-May-2022 DO End : 31-May-2022 Complete Problems Active Problems Problem Classification Problem Date Documented Da te Episodic/Chronic Abdominal pain (8 sources) Acute abdominal pain; Translations: [Abdominal pain, right upper quadrant] Onset: 01-15-2023 01-15-2023 Episodic Anxiety disorders (12 sources) Generalized anxiety disorder; Translations: [Generalized anxiety disorder] Onset: 02-19-2022 Chronic Cardiac dysrhythmias (6 sources) Palpitations; Translations: [Palpitations] Onset: 01-15-2023 01-15-2023 Episodic Diabetes or abnormal glucose tolerance complicating ; childbirth; or the puerperium (3 sources) Gestational diabetes mellitus in , unspecified control; Translations: [History of gestational diabetes mellitus] Onset: 02-19-2022 Episodic Disorders of lipid metabolism (10 sources) Hypertriglyceridemi a; Translations: [Pure hyperglyceridemia] Onset: 01-15-2023 01-15-2023 Chronic Mood disorders (2 sources) Mood disorders; Translations: [Depression, unspecified] Onset: 02-19-2022 Nutritional deficiencies (6 sources) Vitamin D deficiency; Translations: [Unspecified vitamin D deficiency] Onset: 01-15-2023 01-15-2023 Chronic Other complications of (2 sources) Obesity complicating , third trimester; Translations: [Obesity complicating , third trimester] Onset: 02-19-2022 Chronic Other complications of (2 sources) Other specified related conditions, third trimester; Translations: [Oth related conditions, third trimester] Onset: 02-19-2022 Episodic Other complications of (2 sources) Other mental disorders complicating , third trimester; Translations: [Oth mental disorders complicating , third trimester] Onset: 02-19-2022 Episodic Other complications of (2 sources) Diseases of the respiratory system complicating , third trimester; Translations: [Diseases of the resp sys comp , third trimester] Onset: 02-19-2022 Episodic Other liver diseases (8 sources) Steatosis of liver; Translations: [Other chronic nonalcoholic liver disease] Onset: 01-15-2023 01-15-2023 Chronic Other non-traumatic joint disorders (7 sources) Shoulder pain; Translations: [Pain in joint, shoulder region] Onset: 01-15-2023 01-15-2023 Episodic Other nutritional; endocrine; and metabolic disorders (7 sources) Body mass index 40+ - severely obese; Translations: [Body Mass Index 40.0-44.9, adult] Chronic Other nutritional; endocrine; and metabolic disorders (8 sources) Morbid obesity; Translations: [Morbid obesity] Onset: 01-15-2023 01-15-2023 Chronic Other nutritional; endocrine; and metabolic disorders (2 sources) Obesity, unspecified; Translations: [Obesity, unspecified] Onset: 02-19-2022 Chronic Other upper respiratory disease (8 sources) Allergic rhinitis; Translations: [Allergic rhinitis, cause unspecified] Onset: 01-15-2023 01-15-2023 Chronic Other upper respiratory infections (2 sources) Upper respiratory infection 03-27-2021 Episodic Past or Other Problems Problem Classification Problem Date Documented Da te Episodic/Chronic Residual codes; unclassified (2 sources) H/O: ; Translations: [Personal history of other genital system and obstetric disorders] Resolved: 05-31-2022 Episodic NEGATED: Highlighted row has not occurred!Residual codes; unclassified (3 sources) Disease Episodic Results Test Name Value Interpretation Reference Range Facil ity Vital Signs Date Time Vital Sign Value Performing Clinician Faci lity 01-15-2023 10:33-0400 Body height 172.7 cm Hamilton Sarahd FRAMEWORK DEVELOPER-TRANSLITERATOR Work Phone: [facility] 01-15-2023 10:33-0400 Body mass index (BMI) [Ratio] 42.51 kg/m2 Hamilton Redman FRAMEWORK DEVELOPER-TRANSLITERATOR Work Phone: [facility] 01-15-2023 10:33-0400 Body weight 126.83 kg Hamilton Redman FRAMEWORK DEVELOPER-TRANSLITERATOR Work Phone: [facility] 01-15-2023 10:33-0400 Diastolic blood pressure 78 mm[Hg] Hamilton Redman FRAMEWORK DEVELOPER-TRANSLITERATOR Work Phone: [facility] 01-15-2023 10:33-0400 Heart rate 80 /min Hamilton Redman FRAMEWORK DEVELOPER-TRANSLITERATOR Work Phone: [facility] 01-15-2023 10:33-0400 Systolic blood pressure 122 mm[Hg] Hamilton Redman FRAMEWORK DEVELOPER-TRANSLITERATOR Work Phone: [facility] 07-12-2022 10:14-0500 Body height 172.72 cm Hamilton Sarahd Work Phone: [facility] Work Phone: 07-12-2022 10:14-0500 Body mass index (BMI) [Ratio] 39.45 kg/m2 Hamiltonissa Redman Work Phone: [facility] Work Phone: 07-12-2022 10:14-0500 Body surface area Derived from formula 2.28 m2 Hamilton Noe Sarahd Work Phone: [facility] Work Phone: 07-12-2022 10:14-0500 Body weight 117.68 kg Hamilton Sarahd Work Phone: [facility] Work Phone: 07-12-2022 10:14-0500 Diastolic blood pressure 74 mm[Hg] Hamilton Liu Tifton Work Phone: [facility] Work Phone: 07-12-2022 10:14-0500 Heart rate 76 /min Hamilton Liu Tifton Work Phone: [facility] Work Phone: 07-12-2022 10:14-0500 Systolic blood pressure 126 mm[Hg] Hamilton Liu Deepak Work Phone: [facility] Work Phone: 05-31-2022 10:22-0500 Body height 172.72 cm Hamilton Liu Tifton Work Phone: [facility] Work Phone: 05-31-2022 10:22-0500 Body mass index (BMI) [Ratio] 38.96 kg/m2 aHmilton Sarahd Work Phone: [facility] Work Phone: 05-31-2022 10:22-0500 Body surface area Derived from formula 2.27 m2 Hamilton Sarahd Work Phone: [facility] Work Phone: 05-31-2022 10:22-0500 Body weight 116.23 kg Hamilton Liu Deepak Work Phone: [facility] Work Phone: 05-31-2022 10:22-0500 Diastolic blood pressure 74 mm[Hg] Hamilton Liu Tifton Work Phone: [facility] Work Phone: 05-31-2022 10:22-0500 Heart rate 73 /min Hamilton Redman Work Phone: [facility] Work Phone: 05-31-2022 10:22-0500 Systolic blood pressure 118 mm[Hg] Hamilton Redman Work Phone: [facility] Work Phone: 07-20-2021 08:28-0500 Body height 172.72 cm Ivy Montes Work Phone: [facility] Work Phone: 07-20-2021 08:28-0500 Body mass index (BMI) [Ratio] 42.66 kg/m2 Ivy Montes Work Phone: [facility] Work Phone: 07-20-2021 08:28-0500 Body surface area Derived from formula 2.36 m2 Ivy Montes Work Phone: [facility] Work Phone: 07-20-2021 08:28-0500 Body weight 127.26 kg Ivy Montes Work Phone: [facility] Work Phone: 07-20-2021 08:28-0500 Diastolic blood pressure 82 mm[Hg] Ivy Montes Work Phone: [facility] Work Phone: 07-20-2021 08:28-0500 Heart rate 72 /min Ivy Montes Work Phone: [facility] Work Phone: 07-20-2021 08:28-0500 Systolic blood pressure 124 mm[Hg] Ivy Montes Work Phone: [facility] Work Phone: 06-22-2021 12:36-0500 Body height 172.72 cm Ivy M Simon Work Phone[facility] Work Phone: 06-22-2021 12:36-0500 Body mass index (BMI) [Ratio] 42.42 kg/m2 Ivy Montes Work Phone: [facility] Work Phone: 06-22-2021 12:36-0500 Body surface area Derived from formula 2.35 m2 Ivy Montes Work Phone: [facility] Work Phone: 06-22-2021 12:36-0500 Body weight 126.55 kg Ivy Montes Work Phone: [facility] Work Phone: 06-22-2021 12:36-0500 Diastolic blood pressure 80 mm[Hg] Ivy Montes [facility] Work Phone: 06-22-2021 12:36-0500 Heart rate 88 /min Ivy Montes Work Phone: [facility] Work Phone: 06-22-2021 12:36-0500 Systolic blood pressure 122 mm[Hg] Ivy Montes Work Phone: [facility] Work Phone: 03-27-2021 12:11-0500 Body height 171 cm Clark Tourlas Other Phone: [facility] 03-27-2021 12:11-0500 Body temperature 98.06 [degF] Clark Tourlas Other Phone: [facility] 03-27-2021 12:11-0500 Diastolic blood pressure 77 mm[Hg] Clark Tourlas Other Phone: [facility] 03-27-2021 12:11-0500 Heart rate 93 /min Clark Tourlas Other Phone: [facility] 03-27-2021 12:11-0500 SaO2% (BldA) [Mass fraction] 98 % Clark Tourlas Other Phone: [facility] 03-27-2021 12:11-0500 Systolic blood pressure 113 mm[Hg] Clark Tourlas Other Phone: [facility] 01-23-2021 09:58-0400 Body height 172.72 cm Clark Tourlas Work Phone: -[facility] Work Phone: 01-23-2021 09:58-0400 Body mass index (BMI) [Ratio] 43.03 kg/m2 Clark Tourlas Work Phone: -[facility] Work Phone: 01-23-2021 09:58-0400 Body surface area Derived from formula 2.37 m2 Clark Tourlas Work Phone: -[facility] Work Phone: 01-23-2021 09:58-0400 Body weight 128.36 kg Clark Tourlas Work Phone: -[facility] Work Phone: 01-23-2021 09:58-0400 Diastolic blood pressure 78 mm[Hg] Clark Tourlas Work Phone: -[facility] Work Phone: 01-23-2021 09:58-0400 Heart rate 72 /min Clark Tourlas Work Phone: -[facility] Work Phone: 01-23-2021 09:58-0400 Systolic blood pressure 118 mm[Hg] Clark Tourlas Work Phone: -[facility] Work Phone: 05-17-2019 10:24-0500 BMI (Body Mass Index) 42.41 kg/m2 Clark Ceja [facility] Work Phone: 05-17-2019 10:24-0500 Body weight 126.51 kg Clark Ceja [facility] Work Phone: 05-17-2019 10:24-0500 BP Diastolic 80 mm[Hg] Clark Ceja [facility] Work Phone: 05-17-2019 10:24-0500 BP Systolic 122 mm[Hg] Clark Ceja [facility] Work Phone: 05-17-2019 10:24-0500 BSA (Body Surface Area) 2.35 m2 Clarkmatthew Ceja [facility] Work Phone: 05-17-2019 10:24-0500 Height 172.72 cm Clark Ceja [facility] Work Phone: 05-17-2019 10:24-0500 Pulse (Heart Rate) 62 /min Clark Ceja [facility] Work Phone: Encounters Encounter Date Encounter Type Care Provider Facility Start: 01-15-2023 End: 01-15-[address] [facility] Start: 01-15-2023 End: 01-15-2023 Office outpatient visit 15 minutes Hamilton Redman FRAMEWORK DEVELOPER-TRANSLITERATOR Work Phone: [facility] Procedures Date Procedure Procedure Detail Performing Clinician Start: 03-24-2019 OPIATE/OPIOID/BENZO[ LIMI CLARA] Clark Ceja History of No histor y of surgery Clark Ceja No history of surgery Sarika Ceja Work Phone: Plan of Treatment Date Care Activity Detail Author Start: 2038 Zoster Vaccines (1 of 2) Zoster Vaccines (1 of 2) [facility] Start: 02-14-2032 DTaP/Tdap/Td Vaccines (3 - Td or Tdap) DTaP/Tdap/Td Vaccines (3 - Td or Tdap) [facility] Start: 07-16-2023 End: 07-16-2023 Patient encounter procedure 07/16/2023 9:30 AM EST Office Visit [facility] [address] [place] [id number] Hamilton Redman FRAMEWORK DEVELOPER-TRANSLITERATOR [address] [facility] [place] [address] [facility] Start: 01-15-2023 End: 01-16-2024 Lipid 1996 panel - Serum or Plasma Lipid Panel Lab Routine Hypertriglyceridemia Expected: 01/15/2023 (Approximate), Expires: 01/16/2024 [facility] Service Area Work Phone: Immunizations Immunization Date Immunization Notes Care Provider Fa cili 04-01-2022 influenza, seasonal, injectable Hamilton Redman Work Phone: [facility] Work Phone: 04-01-2022 influenza virus vaccine, unspecified formulation Hamilton Redman FRAMEWORK DEVELOPER-TRANSLITERATOR Work Phone: [facility] Work Phone: 02-13-2022 tetanus toxoid, reduced diphtheria toxoid, and acellular pertussis vaccine, adsorbed Hamilton Redman Work Phone: [facility] Work Phone: 02-22-2021 influenza, seasonal, injectable, preservative free Ivy Montse Work Phone: [facility] Work Phone: 04-03-2020 influenza, seasonal, injectable, preservative free Clark Tourlas Work Phone: [facility] Work Phone: 10-29-2018 tetanus toxoid, reduced diphtheria toxoid, and acellular pertussis vaccine, adsorbed Clark Tourlas Work Phone: [facility] Work Phone: 03-14-2017 influenza virus vaccine, unspecified formulation Clark Ceja Work Phone: [facility] Work Phone: Payers Date Payer Category Payer Private Health Insurance [id number] 2022 Unknown 2021 Unknown [id number] 2021 Unknown [id number] 1988 Unknown [id number] 2.16. [id number] 1988 Unknown [id number] 2.16. [id number] 1988 Unknown [id number] 2.16. [id number] 1988 Unknown [id number] 2.16. [id number] 1988 Unknown [id number] 2.16. [id number] 1988 Unknown [id number] Unknown [id number] Social History Date Type Detail Facility Start: 01-15-2023 Never a smoker Never a smoker [facility] Work Phone: Tobacco smoking consumption unknown [facility] Start: 01-15-2023 Tobacco smoking status NHIS Never smoked tobacco [facility] Work Phone: Start: 01-15-2023 Tobacco use and exposure Smokeless tobacco non-user [facility] Work Phone: Start: 01-15-2023 Alcohol intake Lifetime non-d alondra (finding) [facility] Work Phone: Start: 01-15-2023 [facility] Work Phone: Start: 1990 Sex Assigned At Not on file [facility] Work Phone: NEGATED: Highlighted row - - [facility] Work Phone: Functional Status Date Assessment Result Facility NEGATED: Highlighted row Functional performance Functional status health issues are not documented Disease [facility] Work Phone: Mental Status Date Assessment Result Facility NEGATED: Highlighted row Cognitive function [Interpretation] Cognitive status health issues are not documented Disease [facility] Work Phone: History of Present illness Narrative 01-15-2023 Hamilton Redman, SILVANA-TRANSLITERATOR - 01/15/2023 10:30 AM EDT Note Date & Type Note Facility 01-15-2023 History of Present illness Narrative Subjective Patient ID: Steve Barksdale is a 32 y.o. female who presents for Anxiety (6 month) and Hyperlipidemia. Anxiety Patient is here for evaluation of anxiety. She has the following anxiety symptoms: none. Symptoms have been controlled since that time. She denies current suicidal and homicidal ideation. Possible organic causes contributing are: endocrine/metabolic. Risk factors: none Previous treatment includes medication Celexa. She complains of the following medication side effects: none. Have not had to use hydroxyzine, symptoms well controlled Denies any acute health concerns, continues to breastfeed Is planning to have another child soon. Is not currently taking any cholesterol supplements Review of Systems Constitutional: Negative for activity change, appetite change, fatigue and fever. Respiratory: Negative for shortness of breath. Cardiovascular: Negative for chest pain and leg swelling. Gastrointestinal: Negative for diarrhea, nausea and vomiting. Genitourinary: Negative for decreased urine volume and difficulty urinating. Musculoskeletal: Negative for arthralgias and myalgias. Skin: Negative. Neurological: Negative for dizziness, light-headedness and headaches. Objective BP 122/78 (Patient Position: Sitting) Pulse 80 Ht 1.727 m (5' 8 ) Wt 127 kg (279 lb 9.6 oz) BMI 42.51 kg/m Physical Exam Vitals reviewed. Constitutional: General: She is not in acute distress. Appearance: Normal appearance. She is obese. Cardiovascular: Rate and Rhythm: Normal rate and regular rhythm. Pulses: Normal pulses. Pulmonary: Effort: Pulmonary effort is normal. Breath sounds: Normal breath sounds. Skin: General: Skin is warm and dry. Neurological: Mental Status: She is alert and oriented to person, place, and time. Assessment/Plan Diagnoses and all orders for this visit: Hypertriglyceridemia - Lipid Panel; Future - Advised to repeat lipid panel once she stops , will review options at that time Anxiety -Chronic, well controlled on current treatment Other orders - Follow Up In Primary Care - Health Maintenance; Future documented in this encounter [facility] Work Phone: History of Present illness Narrative 05-31-2022 Note Date & Type Note Facility 05-31-2022 History of Present illness Narrative Steve is a 31 yo female, here today for follow up on anxiety. Celexa dose was increased about 6 weeks ago.She has returned to work this week, baby sleeping through the night.She continue to breastfeed/pumpAnxiety has improved with increase in Celexahas used the hydroxyzine 2 times this week with the return to work otherwise has not needed the med.reviewed labs done in 05/2022 collected at [facility], cholesterol, LDL, and triglycerides are elevated.she would like TSH, vitamin D and A1C ordered.she was gestational diabetic and has history of vitamin d deficiency. -[facility] Work Phone: History of Present illness Narrative 04-17-2022 Note Date & Type Note Facility 04-17-2022 History of Present illness Narrative Steve is a 31 yo female, here today to follow up on anxiety. She is about 6 weeks .had child on 04/17/2022full termduring she had pancreatitis and gestational diabetesshe was hospitalized for pancreat[facility] for 3 dayscurrently breastfeedingGYN increased Celexa on Friday due to increased anxiety, she is also taking hydroxyzine for breakthrough anxietydenies SI/HIhas bonded well with daughter.follows up with [facility] in 4 weeksshe is having anxiety more in last few weeks, sleeping pattern is disrupted, she reports palpitations, she states they happen with increased anxiety.hydroxyzine has been helpful last three days. -[facility] Work Phone: Discharge summary note 02-19-2022 Note Date & Type Note Facility 02-19-2022 Note Attestation signed by Nandini Gutierrez MD at 02/21/2022 1:31 PM [facility] Zaki note from today Disposition is good Follow up arranged with Dr. Schmid in [place] Return if increased pain, LOF, vaginal bleeding or any concerns related to her Meds, see MAR Ongoing care and testing with Dr. Schmid planned with next appointment on 02/25/22 Nandini Gutierrez MD Department of Obstetrics and Gynecology [facility] Discharge Summary Admission on 02/19/2022 8:16 AM Steve Barksdale is a 31 y.o. at 31w1d who was transported from [place] L& due to acute pancreatitis. Lipase was 1333 on admission, she was made NPO and IVF started. Her BGTs were wnl on admission, endocrinology was consulted for further management. BGTs have been wnl throughout admission. She was transitioned to a regular diet after consult GI who agreed with current management. Pain was well controlled throughout admission. She was deemed stable and discharged with close follow-up with Dr. Schmid. Meds: Medication List START taking these medications docusate 100 MG Caps Commonly known as: COLACE, DULCOLAX Take 100 mg by mouth 2 times daily as needed for Constipation oxyCODONE 5 MG immediate release tablet Commonly known as: ROXICODONE Take 1 tablet by mouth every 4 hours as needed for Pain for up to 5 doses. CONTINUE taking these medications acetaminophen 500 MG tablet Commonly known as: TYLENOL citalopram 20 MG tablet Commonly known as: CELEXA ferrous sulfate 325 (65 Fe) MG tablet Commonly known as: IRON 325 magnesium 30 MG tablet Tresiba FlexTouch 200 UNIT/ML Sopn Generic drug: Insulin Degludec UNISOM PO Where to Get Your Medications These medications were sent to [facility] - [place], [place] - [address] - P [phone] - F [phone] [address] [id number] docusate 100 MG Caps oxyCODONE 5 MG immediate release tablet Discharge to: Home Discharge date: 02/21/22 Discharge Dx: Acute pancreatitis, GDMA2 Follow up appointment with your doctor/staffing operations manager - Keep next scheduled appointment Activity - Normal Activity Call your doctor/staffing operations manager if you have: - leaking fluid - vaginal bleeding - regular contractions: More than 6 contractions in one hour - decreased movement - worsening abdominal (belly) pain - headache, blurry vision, increased swelling, upper abdominal pain NELLY RAMIREZ, DO on 02/21/2022 at 11:38 AM [facility] History of Present illness Narrative 06-21-2021 Note Date & Type Note Facility 06-21-2021 History of Present illness Narrative here for follow up from ER. she was working at [employer] [employer] yesterday when she started experiencing elevated heart rate and dizziness. She was taken to the ER where is was found that her bp was 157/107 and her HR was 104. Denies chest pain, shortness of breath or syncope. labs and work up were unremarkable. EKG wnl. chest xray wnl. 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 She also had a miscarriage this past fall. Her due date would have been in eleven days.She also reports that she is stressed and obsessed with getting reports I feel this is anxiety related history of anxiety disorder- takes hydroxyzine daily.significant history of heart disease in the family.Reports that grandhiren had a hole in her heart and needed multiple ablations Was on celexa, but stopped 1 year ago, due to trying to conceive. Reports that celexa worked well for her. [facility] Work Phone: Evaluation note Note Date & Type Note Facility documented in this encounter [facility] Work Phone: History of Present illness Narrative Note Date & Type Note Facility History of Present illness Narrative The last health maintenance visit was 2 year(s) ago. there are no concerns today. The patient's health since the last visit is described as good. She has regular dental visits. She denies vision problems. She denies hearing loss. Immunizations status: not up to date.Lifestyle: She does not have a healthy diet. She has weight concerns. She does not exercise regularly. She does not use tobacco. She denies alcohol use.Reproductive health: she reports normal menses. she uses no contraception. she is sexually active. History: 1 miscarriage(s).Cervical cancer screening: cancer screening reviewed and current.Metabolic screening: lipid profile performed 01/23/2021. [facility] Work [facility]: History of Present illness Narrative Note Date & Type Note Facility History of Present illness Narrative The patient is being seen for follow-up of anxiety. The patient reports doing well. She has no comorbid illnesses.She was evaluated in this clinic. The evaluation was 1 month(s) ago. She presented with anxiety, difficulty concentrating, panic attacks and sleep disturbance. The evaluation included thyroid function testing. Treatment included selective serotonin reuptake inhibitors and relaxation exercises.Interval symptoms: improved difficulty concentrating, improved restlessness, improved panic attacks, improved sleep disruption and improved depressionimproved anxiety.Associated symptoms: no grandiosity, no racing thoughts, no periods of euphoria, no hallucinations and no suicidal ideation.Medication(s): selective serotonin reuptake inhibitors.Medications: the patient is adherent to her medication regimen and the patient complains of medication side effects Medication side effects: vivid dreams. She describes the side effects as mild.Here for a 1 month follow up for anxiety. She was seen in June for anxiety attacks, and had even visited the ER once for elevated heart rate and blood pressure. Reports that she has not experienced any more elevated heart rate and elevated blood pressure. Overall, experiencing less anxious days. Sleeping well at night. Continues to use Vistaril occasionally throughout the week when she experiences anxiety triggers. [facility] Work Phone: Reason for referral (narrative) Consultation (Routine) - Authorized Note Date & Type Note Facility Referral ID Status Reason Start Date Expiration Date V isits Requested Visits Authorized [id number] Authorized 01/15/2023 07/14/2023 1 1 [facility] Work Phone: Summary Purpose Family History No Family History Records FoundUnknown Family Member Name Dates Details Family history of asthma(V17 .5, Z82.5) Comments:Other Status:Active Family history of diabetes m ellitus(V18.0, Z83.3) Comments:Other Status:Active Family history of cardiac di sorder(V17.49, Z82.49) Comments:Other Status:Active Grandparent Name Dates Details Family history of Alzheimer' s disease(V17.2, Z82.0) Status:Active Family history of congenital heart disease(V19.5, Z82.79) Status:Active Family history of heart murm ur(V17.49, Z82.49) Status:Active Family history of leukemia(V 16.6, Z80.6) Status:Active Mother Name Dates Details Family history of thyroid di sease(V18.19, Z83.49) Status:Active Family history of malignant neoplasm(V16.9, Z80.9) Status:Active Father Name Dates Details Family history of hypertensi on(V17.49, Z82.49) Status:Active Unknown Family Member Name Dates Details Family history of Alzheimer' s disease: Grandparent(V17.2, Z82.0) Status:Active Family history of congenital heart disease: Grandparent(V19.5, Z82.79) Status:Active Family history of heart murm ur: Grandparent(V17.49, Z82.49) Status:Active Family history of leukemia: Grandparent(V16.6, Z80.6) Status:Active Family history of asthma: Ot her(V17.5, Z82.5) Status:Active Family history of diabetes m ellitus: Other(V18.0, Z83.3) Status:Active Family history of cardiac di sorder: Other(V17.49, Z82.49) Status:Active Family history of malignant neoplasm: Mother(V16.9, Z80.9) Status:Active Family history of hypertensi on: Mother, Father(V17.49, Z82.49) Status:Active Family history of thyroid di sease: Mother(V18.19, Z83.49) Status:Active Unknown Family Member Name Dates Details Family history of Alzheimer' s disease: Grandparent(V17.2, Z82.0) Status:Active Family history of congenital heart disease: Grandparent(V19.5, Z82.79) Status:Active Family history of heart murm ur: Grandparent(V17.49, Z82.49) Status:Active Family history of leukemia: Grandparent(V16.6, Z80.6) Status:Active Family history of asthma: Ot her(V17.5, Z82.5) Status:Active Family history of diabetes m ellitus: Other(V18.0, Z83.3) Status:Active Family history of cardiac di sorder: Other(V17.49, Z82.49) Status:Active Family history of malignant neoplasm: Mother(V16.9, Z80.9) Status:Active Family history of hypertensi on: Mother, Father(V17.49, Z82.49) Status:Active Family history of thyroid di sease: Mother(V18.19, Z83.49) Status:Active Unknown Family Member Name Dates Details Family history of Alzheimer' s disease: Grandparent(V17.2, Z82.0) Status:Active Family history of congenital heart disease: Grandparent(V19.5, Z82.79) Status:Active Family history of heart murm ur: Grandparent(V17.49, Z82.49) Status:Active Family history of leukemia: Grandparent(V16.6, Z80.6) Status:Active Family history of asthma: Ot her(V17.5, Z82.5) Status:Active Family history of diabetes m ellitus: Other(V18.0, Z83.3) Status:Active Family history of cardiac di sorder: Other(V17.49, Z82.49) Status:Active Family history of malignant neoplasm: Mother(V16.9, Z80.9) Status:Active Family history of hypertensi on: Mother, Father(V17.49, Z82.49) Status:Active Family history of thyroid di sease: Mother(V18.19, Z83.49) Status:Active Unknown Family Member Name Dates Details Family history of Alzheimer' s disease: Grandparent(V17.2, Z82.0) Status:Active Family history of congenital heart disease: Grandparent(V19.5, Z82.79) Status:Active Family history of heart murm ur: Grandparent(V17.49, Z82.49) Status:Active Family history of leukemia: Grandparent(V16.6, Z80.6) Status:Active Family history of asthma: Ot her(V17.5, Z82.5) Status:Active Family history of diabetes m ellitus: Other(V18.0, Z83.3) Status:Active Family history of cardiac di sorder: Other(V17.49, Z82.49) Status:Active Family history of malignant neoplasm: Mother(V16.9, Z80.9) Status:Active Family history of hypertensi on: Mother, Father(V17.49, Z82.49) Status:Active Family history of thyroid di sease: Mother(V18.19, Z83.49) Status:Active Unknown Family Member Name Dates Details Family history of Alzheimer' s disease: Grandparent(V17.2, Z82.0) Status:Active Family history of congenital heart disease: Grandparent(V19.5, Z82.79) Status:Active Family history of heart murm ur: Grandparent(V17.49, Z82.49) Status:Active Family history of leukemia: Grandparent(V16.6, Z80.6) Status:Active Family history of asthma: Ot her(V17.5, Z82.5) Status:Active Family history of diabetes m ellitus: Other(V18.0, Z83.3) Status:Active Family history of cardiac di sorder: Other(V17.49, Z82.49) Status:Active Family history of malignant neoplasm: Mother(V16.9, Z80.9) Status:Active Family history of hypertensi on: Mother, Father(V17.49, Z82.49) Status:Active Family history of thyroid di sease: Mother(V18.19, Z83.49) Status:Active Unknown Family Member Name Dates Details Family history of Alzheimer' s disease: Grandparent(V17.2, Z82.0) Status:Active Family history of congenital heart disease: Grandparent(V19.5, Z82.79) Status:Active Family history of heart murm ur: Grandparent(V17.49, Z82.49) Status:Active Family history of leukemia: Grandparent(V16.6, Z80.6) Status:Active Family history of asthma: Ot her(V17.5, Z82.5) Status:Active Family history of diabetes m ellitus: Other(V18.0, Z83.3) Status:Active Family history of cardiac di sorder: Other(V17.49, Z82.49) Status:Active Family history of malignant neoplasm: Mother(V16.9, Z80.9) Status:Active Family history of hypertensi on: Mother, Father(V17.49, Z82.49) Status:Active Family history of thyroid di sease: Mother(V18.19, Z83.49) Status:Active Advance Directives No Advanced Directives Records FoundNo Advanced Directives Records FoundNo Advanced Directives Records FoundNo Advanced Directives Records FoundNo Advanced Directives Records FoundNo Advanced Directives Records FoundNo Advanced Directives Records Found Chief Complaint CPX with formER f/u, pt c/o heart palpations and dizziness.4 week follow-up.9 month.6 week. Additional Source Comments INFORMATION SOURCE (unrecogn ized section and content) DATE CREATED AUTHOR AUTHOR'S ORGANIZ ATION 01/15/2019 [facility] DATE CREATED AUTHOR AUTHOR'S ORGANIZ ATION 04/01/2021 [facility] DATE CREATED AUTHOR AUTHOR'S ORGANIZ ATION 03/05/2022 [facility] DATE CREATED AUTHOR AUTHOR'S ORGANIZ ATION 07/13/2022 [facility] DATE CREATED AUTHOR AUTHOR'S ORGANIZ ATION 07/13/2022 [employer] DATE CREATED AUTHOR AUTHOR'S ORGANIZ ATION 01/16/2023 [facility] <item> Privacy Markings (unrecogniz ed section and content) Section Author: Otilia Hodge PROHIBITION ON REDISCLOSURE OF CONFIDENTIAL INFORMATION This notice accompanies a disclosure of information concerning a client made to you with the consent of such client. Reason for Visit (unrecogniz ed section and content) Care Teams (unrecognized sec tion and content) FOR RECORDS PERTAINING TO PATIENTS WHO ARE OR HAVE BEEN ENROLLED IN A CHEMICAL DEPENDENCY/SUBSTANCEABUSE PROGRAM, SOME INFORMATION MAY BE OMITTED. This clinical summary was aggregated from multiple sources. Caution should be exercised in using it in the provision of clinical care. This summary normalizes information from multiple sources, and as a consequence, information in this document may materially change the coding, format and clinical context of patient data. In addition, data may be omitted in some cases. CLINICAL DECISIONS SHOULD BE BASED ON THE PRIMARY CLINICAL RECORDS. [employer] provides no warranty or guarantee of the accuracy or completeness of information in this document.
[2023-06-28 21:41] VITALS: BP 136/74; PULSE 74; RESP 16; TEMP 36.8; O2SAT 97
== END 2023-06-28 21:44 | disposition home or self-care (01) ==
PROVIDERS: Emergency Provider Emergency Medicine; PCP Family Medicine; Visit Provider Emergency Medicine
DX: G43.809 Other migraine, not intractable, without status migrainosus (principal); H53.8 Other visual disturbances; Z79.899 Other long term (current) drug therapy
CPT/HCPCS: 96361; 96374; 96375; 99283; J7030; A4216

== ENCOUNTER → 2023-07-07 | Outpatient (CLI) | payer OTHER, SELFPAY ==
[2023-07-07 14:57] LABS: hCG Titer Quant., Serum 38 mIU/mL (1-3)
--- OUTSIDE RECORDS SUMMARY | 2023-07-07 22:10 | XMS RPT_ITS | CCD ---
Author Name Unknown Address [address] [place] [address] Organization [facility] Care Team Providers Care Humid System Operator Name Role Phone Tourmicki Clark Unavailable Unavailabl e Marcial Clark Unavailable Unavailabl e Carmen Mullins Unavailable Unavailable Tourmicki Clark Unavailable Unavailable Unavailable Sharif Cejastantinos Unavailable [phone] Ivy Montes Unavailable Unavailable Raghavendra Ibanez Unavailable [...] ailable Simon, MsDoug Brenner Referring Unav ailable Aurora, Mrs. Phanissa Mark Attending Unavailabl e Aurora, Mrs. Phanissa Mark Referring Unavailabl e Deepak, Mrs. Villasenor Deedee Primary Care Unavailabl e Aurora WIRE ANNEALER-Hamilton JONES Primary Care Provider HAMILTON REDMAN Attending Unavailable HAMILTON REDMAN Primary Care Unavailable Allergies Allergy Classification Reported Allergen(s) Allergy Type Date of Onset Reaction(s) Facility (8 sources) Sulfonamides (Antibiotic); Translations: [Sulfa Drugs] drug allergy Hives/Urticaria [facility] Work Phone: (2 sources) Sulfonamides (Antibiotic); Translations: [SULFA (SULFONAMIDE ANTIBIOTICS)] Drug Allergy 3 Unknown [facility] Medications Current Medications Medication Drug Class(es) Dates [...] 10:33-0400 Body height 172.7 cm Hamilton Sarahd WIRE ANNEALER-REDEVELOPMENT MANAGER Work Phone: [facility] 01-15-2023 10:33-0400 Body mass index (BMI) [Ratio] 42.51 kg/m2 Hamilton Redman WIRE ANNEALER-REDEVELOPMENT MANAGER Work Phone: [facility] 01-15-2023 10:33-0400 Body weight 126.83 kg Hamilton Redman WIRE ANNEALER-REDEVELOPMENT MANAGER Work Phone: [facility] 01-15-2023 10:33-0400 Diastolic blood pressure 78 mm[Hg] Hamilton Redman WIRE ANNEALER-REDEVELOPMENT MANAGER Work Phone: [facility] 01-15-2023 10:33-0400 Heart rate 80 /min Hamilton Redman WIRE ANNEALER-REDEVELOPMENT MANAGER Work Phone: [facility] 01-15-2023 10:33-0400 Systolic blood pressure 122 mm[Hg] Hamilton Redman WIRE ANNEALER-REDEVELOPMENT MANAGER Work Phone: [facility] 07-12-2022 10:14-0500 Body height 172.72 cm Hamilton Sarahd Work Phone: [facility] Work Phone: 07-12-2022 10:14-0500 Body mass index (BMI) [Ratio] 39.45 kg/m2 Hamiltonissa Redman Work Phone: [facility] Work Phone: 07-12-2022 10:14-0500 Body surface area Derived from formula 2.28 m2 Hamilton Noe Sarahd Work Phone: [facility] Work Phone: 07-12-2022 10:14-0500 Body weight 117.68 kg Hamilton Sarahd Work Phone: [facility] Work Phone: 07-12-2022 10:14-0500 Diastolic blood pressure 74 mm[Hg] Hamilton Liu Aurora Work Phone: [facility] Work Phone: 07-12-2022 10:14-0500 Heart rate 76 /min Hamilton Liu Aurora Work Phone: [facility] Work Phone: 07-12-2022 10:14-0500 Systolic blood pressure 126 mm[Hg] Hamilton Liu Deepak Work Phone: [facility] Work Phone: 05-31-2022 10:22-0500 Body height 172.72 cm Hamilton Liu Aurora Work Phone: [facility] Work Phone: 05-31-2022 10:22-0500 Body mass index (BMI) [Ratio] 38.96 kg/m2 Hamilton Sarahd Work Phone: [facility] Work Phone: 05-31-2022 10:22-0500 Body surface area Derived from formula 2.27 m2 Hamilton Sarahd Work Phone: [facility] Work Phone: 05-31-2022 10:22-0500 Body weight 116.23 kg Hamilton Liu Deepak Work Phone: [facility] Work Phone: 05-31-2022 10:22-0500 Diastolic blood pressure 74 mm[Hg] Hamilton Liu Aurora Work Phone: [facility] Work Phone: 05-31-2022 10:22-0500 Heart rate 73 /min Hamilton Redman Work Phone: [facility] Work Phone: 05-31-2022 10:22-0500 Systolic blood pressure 118 mm[Hg] Hamilton Redman Work Phone: [facility] Work Phone: 07-20-2021 08:28-0500 Body height 172.72 cm Ivy Montes Work Phone: [facility] Work Phone: 07-20-2021 08:28-0500 Body mass index (BMI) [Ratio] 42.66 kg/m2 Ivy Montes Work Phone: [facility] Work Phone: 07-20-2021 08:28-0500 Body surface area Derived from formula 2.36 m2 Ivy Montes Work Phone: [facility] Work Phone: 07-20-2021 08:28-0500 Body weight 127.26 kg Ivy Montes Work Phone: [facility] Work Phone: 07-20-2021 08:28-0500 Diastolic blood pressure 82 mm[Hg] Ivy Montes Work Phone: [facility] Work Phone: 07-20-2021 08:28-0500 Heart rate 72 /min Ivy Montes Work Phone: [facility] Work Phone: 07-20-2021 08:28-0500 Systolic blood pressure 124 mm[Hg] Ivy Montes Work Phone: [facility] Work Phone: 06-22-2021 12:36-0500 Body height 172.72 cm Ivy M Simon Work Phone: [facility] Work Phone: 06-22-2021 12:36-0500 Body mass index (BMI) [Ratio] 42.42 kg/m2 Ivy Mnotes Work Phone: [facility] Work Phone: 06-22-2021 12:36-0500 Body surface area Derived from formula 2.35 m2 Ivy Montes Work Phone: [facility] [facility] Work Phone: 06-22-2021 12:36-0500 Body weight 126.55 kg Ivy Montes Work Phone: [facility] Work Phone: 06-22-2021 12:36-0500 Diastolic blood pressure 80 mm[Hg] Ivy Montes Work Phone: [facility] Work Phone: 06-22-2021 12:36-0500 Heart rate 88 /min Ivy Montes Work Phone: [facility] Work Phone: 06-22-2021 12:36-0500 Systolic blood pressure 122 mm[Hg] Ivy Montes Work Phone: [facility] Work Phone: 03-27-2021 12:11-0500 Body height 171 cm Clark Tourlas Other Phone: [facility] 03-27-2021 12:11-0500 Body temperature 98.06 [degF] Clark Tourlas Other Phone: [facility] 03-27-2021 12:11-0500 Diastolic blood pressure 77 mm[Hg] Clark Tourlas Other Phone: [facility] 03-27-2021 12:11-0500 Heart rate 93 /min Clark Tourlas Other Phone: [facility] 03-27-2021 12:11-0500 SaO2% (BldA) [Mass fraction] 98 % Clark Tourlas Other Phone: [facility] 03-27-2021 12:11-0500 Systolic blood pressure 113 mm[Hg] Clark Tourlas Other Phone: [facility] 01-23-2021 09:58-0400 Body height 172.72 cm Clark Tourlas Work Phone: -[facility] Work Phone: 01-23-2021 09:58-0400 Body mass index (BMI) [Ratio] 43.03 kg/m2 Clark Tourlas Work Phone: -[facility] Work Phone: 01-23-2021 09:58-0400 Body surface area Derived from formula 2.37 m2 Clark Tourlas Work Phone: -[facility] Work Phone: 01-23-2021 09:58-0400 Body weight 128.36 kg Clark Tourlas Work Phone: -[facility] Work Phone: 01-23-2021 09:58-0400 Diastolic blood pressure 78 mm[Hg] Clark Tourlas Work Phone: -[facility] Work Phone: 01-23-2021 09:58-0400 Heart rate 72 /min Clark Tourlas Work Phone: -[facility] Work Phone: 01-23-2021 09:58-0400 Systolic blood pressure 118 mm[Hg] Clark Tourlas Work Phone: -[facility] Work Phone: 05-17-2019 10:24-0500 BMI (Body Mass Index) 42.41 kg/m2 Clark Ceja [facility] Work Phone: 05-17-2019 10:24-0500 Body weight 126.51 kg Clark Ceja [facility] Work Phone: 05-17-2019 10:24-0500 BP Diastolic 80 mm[Hg] Clark Ceja [facility] Work Phone: 05-17-2019 10:24-0500 BP Systolic 122 mm[Hg] Clark Ceja [facility] Work Phone: 05-17-2019 10:24-0500 BSA (Body Surface Area) 2.35 m2 Clarkmatthew Ceja [facility] Work Phone: 05-17-2019 10:24-0500 Height 172.72 cm Clark Ceja [facility] Work Phone: 05-17-2019 10:24-0500 Pulse (Heart Rate) 62 /min Clark Ceja [facility] Work Phone: Encounters Encounter Date Encounter Type Care Provider Facility Start: 01-15-2023 End: 01-15-2023 ambulatory HAMILTON REDMAN [facility] Start: 01-15-2023 End: 01-15-2023 Office outpatient visit 15 minutes Hamilton Redman WIRE ANNEALER-REDEVELOPMENT MANAGER Work Phone: [facility] Procedures Date Procedure Procedure Detail Performing Clinician Start: 03-24-2019 OPIATE/OPIOID/BENZO[ LIMI CLARA] Clark Ceja History of No histor y of surgery Clark Ceja No history of surgery Sarika Ceja Work Phone: Plan of Treatment Date Care Activity Detail Author Start: 2038 Zoster Vaccines (1 of 2) Zoster Vaccines (1 of 2) [facility] Start: 02-14-2032 DTaP/Tdap/Td Vaccines (3 - Td or Tdap) DTaP/Tdap/Td Vaccines (3 - Td or Tdap) [facility] Start: 07-16-2023 End: 07-16-2023 Patient encounter procedure 07/16/2023 9:30 AM EST Office Visit [facility] [address] [place] [id number] Hamilton Redman WIRE ANNEALER-REDEVELOPMENT MANAGER [address] [facility] [place] [address] [facility] Start: 01-15-2023 End: 01-16-2024 Lipid 1996 panel - Serum or Plasma Lipid Panel Lab Routine Hypertriglyceridemia Expected: 01/15/2023 (Approximate), Expires: 01/16/2024 [facility] Service Area Work Phone: Immunizations Immunization Date Immunization Notes Care Provider Fa cili 04-01-2022 influenza, seasonal, injectable Hamilton Redman Work Phone: [facility] Work Phone: 04-01-2022 influenza virus vaccine, unspecified formulation Hamilton Redman WIRE ANNEALER-REDEVELOPMENT MANAGER Work Phone: [facility] Work Phone: 02-13-2022 tetanus toxoid, reduced diphtheria toxoid, and acellular pertussis vaccine, adsorbed Hamilton Redman Work Phone: [facility] Work Phone: 02-22-2021 influenza, seasonal, injectable, preservative free Ivy Montes Work Phone: [facility] Work Phone: 04-03-2020 influenza, seasonal, injectable, preservative free Clark Tourlas Work Phone: [facility] Work Phone: 10-29-2018 tetanus toxoid, reduced diphtheria toxoid, and acellular pertussis vaccine, adsorbed Clark Tourlas Work Phone: [facility] Work Phone: 03-14-2017 influenza virus vaccine, unspecified formulation Clark Ceja Work Phone: [facility] Work Phone: Payers Date Payer Category Payer Private Health Insurance [id number] 2022 Unknown 2021 Unknown [id number] 2021 Unknown [id number] 1988 Unknown [id number] [id number]. [id number] 1988 Unknown [id number] 2.16. [id number] 1988 Unknown [id number] 2.16. [id number] 1988 Unknown [id number] 2.16. [id number] 1988 Unknown [id number] 2.16. [id number] 1988 Unknown [id number] [id number] Unknown [id number] Social History Date Type Detail Facility Start: 01-15-2023 Never a smoker Never a smoker [facility] Work Phone: Tobacco smoking consumption unknown [facility] Start: 01-15-2023 Tobacco smoking status NHIS Never smoked tobacco [facility] Work Phone: Start: 01-15-2023 Tobacco use and exposure Smokeless tobacco non-user [facility] Work Phone: Start: 01-15-2023 Alcohol intake Lifetime non-d alondra (finding) [facility] Work Phone: Start: 01-15-2023 Tobacco use panel [facility] Work Phone: Start: 1990 Sex Assigned At Not on file [facility] Work Phone: NEGATED: Highlighted row - - [facility] Work Phone: Functional Status Date Assessment Result Facility NEGATED: Highlighted row Functional performance Functional status health issues are not documented Disease [facility] Work Phone: Mental Status Date Assessment Result Facility NEGATED: Highlighted row Cognitive function [Interpretation] Cognitive status health issues are not documented Disease [facility] Work Phone: History of Present illness Narrative 01-15-2023 Hamilton Redman, SILVANA-REDEVELOPMENT MANAGER - 01/15/2023 10:30 AM EDT Note Date [...] Health Maintenance; Future documented in this encounter [facility] Work Phone: History of Present illness Narrative [...] med.reviewed labs done in 05/2022 collected at [facility], cholesterol, LDL, and triglycerides are elevated.she would like TSH, vitamin D and A1C ordered.she was gestational diabetic and has history of vitamin d deficiency. [facility] Work Phone: History of Present illness Narrative 04-17-2022 Note Date & Type Note Facility 04-17-2022 History of Present illness Narrative Steve is a 31 yo female, here today to follow up on anxiety. She is about 6 weeks .had child on 04/17/2022full termduring she had pancreatitis and gestational diabetesshe was hospitalized for pancreatitis at [facility] for 3 dayscurrently breastfeedingGYN increased Celexa on Friday due to increased anxiety, she is also taking hydroxyzine for breakthrough anxietydenies SI/HIhas bonded well with daughter.follows up with SUBSTATION OPERATOR CHIEF in 4 weeksshe is having anxiety more in last few weeks, sleeping pattern is disrupted, she reports palpitations, she states they happen with increased anxiety.hydroxyzine has been helpful last three days. -[facility] Work Phone: Discharge summary note 02-19-2022 Note Date & Type Note Facility 02-19-2022 Note Attestation signed by Nandini Gutierrez MD at 02/21/2022 1:31 PM [facility] note from today Disposition is good Follow up arranged with Dr. Schmid in [place] Return if increased pain, LOF, vaginal bleeding or any concerns related to her Meds, see MAR Ongoing care and testing with Dr. Schmid planned with next appointment on 02/25/22 Nandini Gutierrez MD Department of Obstetrics and Gynecology [facility] Discharge Summary Admission on 02/19/2022 8:16 AM Steve Barksdale is a 31 y.o. at 31w1d who was transported from [place] [facility]& due to acute pancreatitis. Lipase was [...] Your Medications These medications were sent to [facility] - [place], [place] - [address] - P [phone] - F [phone] [address] [id number] docusate 100 MG Caps oxyCODONE 5 MG immediate release tablet Discharge to: Home Discharge date: 02/21/22 Discharge Dx: Acute pancreatitis, GDMA2 Follow up appointment with your doctor/computer systems design analyst - Keep next scheduled appointment Activity - Normal Activity Call your doctor/computer systems design analyst if you have: - leaking fluid - vaginal bleeding - regular contractions: More than 6 contractions in one hour - decreased movement - worsening abdominal (belly) pain - headache, blurry vision, increased swelling, upper abdominal pain NELLY RAMIREZ, DO on 02/21/2022 at 11:38 AM [facility] History of Present illness Narrative 06-21-2021 Note Date & Type Note Facility 06-21-2021 History of Present illness Narrative here for follow up from ER. she was working at [employer] [facility] [employer] [facility] [employer] yesterday when she started experiencing elevated [...] Reports that celexa worked well for her. [facility] Work Phone: Evaluation note Note Date & Type Note Facility documented in this encounter [facility] Work Phone: History of Present illness Narrative [...] and current.Metabolic screening: lipid profile performed 01/23/2021. [facility] Work Phone: History of Present illness Narrative [...] the week when she experiences anxiety triggers. [facility] Work Phone: Reason for referral (narrative) Consultation (Routine) - Authorized Note Date & Type Note Facility Referral ID Status Reason Start Date Expiration Date V isits Requested Visits Authorized [id number] Authorized 01/15/2023 07/14/2023 1 1 [facility] Work Phone: Summary Purpose Family History No [...] DATE CREATED AUTHOR AUTHOR'S ORGANIZ ATION 01/15/2019 [facility] DATE CREATED AUTHOR AUTHOR'S ORGANIZ ATION 04/01/2021 [facility] DATE CREATED AUTHOR AUTHOR'S ORGANIZ ATION 03/05/2022 [facility] DATE CREATED AUTHOR AUTHOR'S ORGANIZ ATION 07/13/2022 [facility] DATE CREATED AUTHOR AUTHOR'S ORGANIZ ATION 07/13/2022 [facility] DATE CREATED AUTHOR AUTHOR'S ORGANIZ ATION 01/16/2023 [facility] <item> Privacy Markings (unrecogniz ed section [...] BE BASED ON THE PRIMARY CLINICAL RECORDS. [employer] provides no warranty or guarantee of the accuracy or completeness of information in this document.
== END | disposition home or self-care (01) ==
LOC: LAB 13:41
PROVIDERS: PCP Family Medicine; Visit Provider Nurse Practitioner Women's Health
DX: O09.299 Supervision of pregnancy with other poor reproductive or obstetric history, unspecified trimester (principal); Z3A.00 Weeks of gestation of pregnancy not specified
CPT/HCPCS: 36415; 84702

== ENCOUNTER → 2023-07-09 | Outpatient (CLI) | payer OTHER, SELFPAY ==
[2023-07-09 15:05] LABS: hCG Titer Quant., Serum 117 mIU/mL (1-3)
== END | disposition home or self-care (01) ==
LOC: LAB 13:55
PROVIDERS: PCP Family Medicine; Referring Provider Nurse Practitioner Women's Health; Visit Provider Nurse Practitioner Women's Health
DX: Z87.59 Personal history of other complications of pregnancy, childbirth and the puerperium (principal)
CPT/HCPCS: 36415; 84702

== ENCOUNTER → 2023-07-31 | Outpatient (CLI) | payer OTHER, SELFPAY ==
[2023-07-31 11:11] LABS: Hemoglobin A1c 5.4 % (3.8-5.6)
== END | disposition home or self-care (01) ==
PROVIDERS: PCP Family Medicine; Visit Provider Obstetrics & Gynecology
DX: O99.891 Other specified diseases and conditions complicating pregnancy (principal); R30.0 Dysuria; Z3A.00 Weeks of gestation of pregnancy not specified
CPT/HCPCS: 36415; 83036; 87086

== ENCOUNTER → 2023-08-04 | Outpatient (CLI) | payer OTHER, SELFPAY ==
[2023-08-06 09:09] LABS: Chlamydia By Nucleic Acid AMP Negative (Negative); Gonococcus By Nucleic Acid AMP Negative (Negative)
== END | disposition home or self-care (01) ==
LOC: LABSPEC 11:40
PROVIDERS: Referring Provider Obstetrics & Gynecology; Visit Provider Obstetrics & Gynecology
DX: O09.90 Supervision of high risk pregnancy, unspecified, unspecified trimester (principal); Z3A.00 Weeks of gestation of pregnancy not specified
CPT/HCPCS: 87086; 87088; 87491; 87591

== ENCOUNTER → 2023-08-27 | Outpatient (CLI) | payer OTHER, SELFPAY ==
--- NOTE | 2023-08-27 10:05 | ECHOD_ITS ---
Reason For Study: Palpitations Procedure This was a 2D Doppler, Color Flow transthoracic echocardiogram. Exam performed in department. Left Ventricle Normal LV size. Left ventricular systolic function is normal. The estimated ejection fraction is 60 %. No regional wall motion abnormalities noted. Right Ventricle Normal RV size. Normal systolic function. Atria Normal left atrium. Normal right atrium. Mitral Valve Normal mitral valve. Tricuspid Valve Normal tricuspid valve. Mild tricuspid valve insufficiency. Pulmonary artery systolic pressure is 26 mmHg. Aortic Valve Trisinus/trileaflet aortic valve. Pulmonic Valve Normal pulmonic valve. Great Vessels Normal aortic root. The pulmonary artery is normal size. Normal inferior vena cava. Pericardium/Pleural No pericardial effusion. MMode/2D Measurements & Calculations LVIDd: 4.5 cm IVSd: 0.97 cm Ao root diam: 2.6 cm LVIDs: 3.2 cm LVPWd: 1.1 cm FS: 28.5 % LAV(MOD-bp): 49.0 ml LVAd ap4: 31.1 cm2 SV(MOD-sp4): 62.0 ml LAV(MOD-bp) Indexed: 20.8 ml/m2 LVLd ap4: 7.4 cm LAV(MOD-sp2): 50.0 ml EDV(MOD-sp4): 105.1 ml LAV(MOD-sp4): 47.7 ml EDV(sp4-el): 110.9 ml LVAs ap4: 17.6 cm2 LVLs ap4: 6.0 cm ESV(MOD-sp4): 43.2 ml ESV(sp4-el): 43.6 ml EF(MOD-sp4): 58.9 % EF(sp4-el): 60.7 % SV(sp4-el): 67.4 ml LA A4 area: 17.7 cm2 LA dimension(2D): 4.0 cm RA A4 area: 17.2 cm2 Time Measurements MV dec time: 0.22 sec Doppler Measurements & Calculations MV E max vincent: 86.5 cm/sec Lat Peak E' Vincent: 13.6 cm/sec Med Peak E' Vincent: 9.9 cm/sec MV A max vincent: 65.7 cm/sec E/E' lat: 6.3 E/E' med: 8.8 MV E/A: 1.3 Ao V2 max: 175.1 cm/sec LV V1 max: 136.3 cm/sec MV dec slope: 388.4 cm/sec2 Ao max P.3 mmHg LV V1 max P.4 mmHg Ao V2 mean: 133.4 cm/sec Ao mean P.5 mmHg Ao V2 VTI: 35.6 cm PA V2 max: 144.5 cm/sec PI end-d vincent: 83.1 cm/sec TR max vincent: 239.8 cm/sec PA V2 mean: 107.8 cm/sec TR max P.0 mmHg ECHO/Echo Complete Interpretation Summary Normal LV size. Left ventricular systolic function is normal. The estimated ejection fraction is 60 %. Pulmonary artery systolic pressure is 26 mmHg. Ordering Physician: Yrn Padilla Referring Physician: Art Torres Performed By: Ivy Negron, MARCELLE, RVT
[2023-08-27 11:36] LABS: Absolute Lymphocyte Count 1.47 X10^3/uL (0.83-4.51); Absolute Neutrophil Count 5.4 X10^3/uL (2.0-7.7); Basophil# 0.01 X10^3/uL; Basophil% 0.1 % (0-1); Eosinophil# 0.08 X10^3/uL; Eosinophils% 1.1 % (0-5); Hematocrit 37.9 % (37-47); Hemoglobin 12.4 g/dL (12.0-15.0); Lymphocyte # 1.47 X10^3/ul (0.83-4.51); Lymphocyte % 20.2 % (19-41); Mean Corp Hgb Conc 32.7 g/dL (32-36); Mean Corpuscular Hgb 28.6 pg (27.0-32.0); Mean Corpuscular Volume 87.5 fL (81-99); Mean Platelet Vol. 11.7 fl (6.2-12.0); Monocyte# 0.28 X10^3/uL; Monocyte% 3.9 % (0-10); NRBC Flagged by Analyzer 0 % (0-5); Neutrophil # 5.39 X10^3/uL (2.7-7.7); Neutrophil % 74.3 % (47-70); Platelet Count 228 K/mm3 (150-450); RBC Distribution Width CV 12.3 % (11.6-14.6); RBC Distribution Width SD 39.7 fl (35.1-43.9); Red Blood Count 4.33 M/mm3 (4.2-5.4); White Blood Count 7.3 K/mm3 (4.4-11.0)
[2023-08-27 12:22] LABS: Lipase 39 U/L (13-75); Thyroid Stim Hormone (TSH) 0.79 uIU/mL (0.358-3.74)
[2023-08-27 12:48] LABS: Hemoglobin A1c 5.5 % (3.8-5.6)
[2023-08-27 12:51] LABS: HIV - WCH Non-Reactive (Nonreactive); Hepatitis B Surface Antigen Non-Reactive (Nonreactive); Hepatitis C Antibody Non-Reactive (Nonreactive); Rubella IgG Reactive (Nonreactive); Syphilis Antibodies Non-reactive
== END | disposition home or self-care (01) ==
PROVIDERS: Obstetrics & Gynecology; PCP Family Medicine; Referring Provider Internal Medicine Cardiovascular Disease; Visit Provider Internal Medicine Cardiovascular Disease
DX: O09.521 Supervision of elderly multigravida, first trimester (principal); Z31.430 Encounter of female for testing for genetic disease carrier status for procreative management; R00.2 Palpitations; R42 Dizziness and giddiness; O09.291 Supervision of pregnancy with other poor reproductive or obstetric history, first trimester; Z86.32 Personal history of gestational diabetes; Z87.19 Personal history of other diseases of the digestive system; Z3A.00 Weeks of gestation of pregnancy not specified
CPT/HCPCS: 36415; 83036; 83690; 84443; 85025; 86703; 86762; 86780; 86803; 86850; 86900; 86901; 87340; 93306

== ENCOUNTER → 2023-11-27 | Outpatient (CLI) | payer OTHER, SELFPAY ==
--- NOTE | 2023-11-27 09:59 | US_ITS ---
STUDY: SECOND AND THIRD TRIMESTER OBSTETRICAL ULTRASOUND - LIMITED REASON FOR EXAM: Female, 33 years old growth -- growth scans every4 weeks PRIOR ULTRASOUND: None. TECHNIQUE: Transabdominal TECHNICAL QUALITY: Adequate. FINDINGS: There is a single intrauterine fetus. The fetus is in a breech presentation. There is demonstrated cardiac activity with a heart rate of 144 bpm. There is a normal amniotic fluid volume. The largest amniotic fluid pocket measures 4.4 cm. The amniotic fluid index (CELESTE) is 14.7 cm. The placenta is anterior in location and is not low lying. There are Grade 1 placental changes. The cervix measures 3.2 cm in length. BIOMETRY: BPD: 5.9 cm: 24 weeks, 1 days HC: 22.2 cm: 24 weeks, 1 days AC: 21.9 cm: 26 weeks, 2 days FL: 4.6 cm: 25 weeks, 2 days Age by LMP: 24 weeks, 0 days. AMANDA by LMP: March 18, 2024 age by current US: 24 weeks, 5 days. AMANDA by current US: March 13, 2024. Estimated weight: 846 grams, +/- 127 grams, 97.6 percentile. US/OB Limited With Biometrics IMPRESSION: Single live intrauterine gestation with mean gestational age of 24 weeks and 5 days. Electronically Signed: Chris Cunningham MD at 15:31 EDT ,
== END | disposition home or self-care (01) ==
LOC: OPUS 09:58
PROVIDERS: PCP Family Medicine; Referring Provider Advanced Practice Midwife; Visit Provider Advanced Practice Midwife
DX: O09.522 Supervision of elderly multigravida, second trimester (principal); O99.213 Obesity complicating pregnancy, third trimester; Z3A.00 Weeks of gestation of pregnancy not specified
CPT/HCPCS: 76816

== ENCOUNTER → 2023-12-16 | Outpatient (CLI) | payer OTHER, SELFPAY ==
[2023-12-16 07:14] LABS: Absolute Lymphocyte Count 1.56 X10^3/uL (0.83-4.51); Absolute Neutrophil Count 6.6 X10^3/uL (2.0-7.7); Basophil# 0.02 X10^3/uL; Basophil% 0.2 % (0-1); Eosinophil# 0.14 X10^3/uL; Eosinophils% 1.6 % (0-5); Hematocrit 34.4 % (37-47); Hemoglobin 11.3 g/dL (12.0-15.0); Lymphocyte # 1.56 X10^3/ul (0.83-4.51); Lymphocyte % 17.8 % (19-41); Mean Corp Hgb Conc 32.8 g/dL (32-36); Mean Corpuscular Hgb 29.9 pg (27.0-32.0); Mean Platelet Vol. 11.6 fl (6.2-12.0); Monocyte# 0.35 X10^3/uL; NRBC Flagged by Analyzer 0 % (0-5); Neutrophil % 75.4 % (47-70); Platelet Count 177 K/mm3 (150-450); RBC Distribution Width CV 12.9 % (11.6-14.6); RBC Distribution Width SD 42.2 fl (35.1-43.9); Red Blood Count 3.78 M/mm3 (4.2-5.4); White Blood Count 8.8 K/mm3 (4.4-11.0)
[2023-12-16 07:36] LABS: Glucose GTT-Gestation. Fasting 98 mg/dL (<105)
[2023-12-16 09:11] LABS: HIV - WCH Non-Reactive (Nonreactive); Syphilis Antibodies Non-reactive
[2023-12-16 09:46] LABS: Glucose GTT-Gestational 1 Hr 175 mg/dL (<190)
[2023-12-16 09:49] LABS: Glucose GTT-Gestational 2 Hr 133 mg/dL (<165)
[2023-12-16 11:23] LABS: Glucose GTT-Gestational 3 Hr 107 L (<145)
== END | disposition home or self-care (01) ==
LOC: LAB 06:43
PROVIDERS: PCP Family Medicine; Referring Provider Obstetrics & Gynecology; Visit Provider Obstetrics & Gynecology
DX: O09.92 Supervision of high risk pregnancy, unspecified, second trimester (principal); O09.299 Supervision of pregnancy with other poor reproductive or obstetric history, unspecified trimester; Z86.32 Personal history of gestational diabetes; O99.213 Obesity complicating pregnancy, third trimester; Z13.1 Encounter for screening for diabetes mellitus
CPT/HCPCS: 36415; 82951; 82952; 85025; 86703; 86780

== ENCOUNTER → 2023-12-25 | Outpatient (CLI) | payer OTHER, SELFPAY ==
--- NOTE | 2023-12-25 11:42 | US_ITS ---
EXAM: US , LIMITED CLINICAL INDICATION: growth TECHNIQUE: Real-time limited ultrasound of the maternal uterus with image documentation. COMPARISON: 11/27/2023 FINDINGS: GESTATIONAL AGE: Gestational age is 20 weeks 0 days. AMANDA: AMANDA is 03/18/2024. EFW: Estimated weight is 1410 g, 89th percentile. BPD: Biparietal diameter 7.6 cm age of 3 days, 96 percentile. HC: Head circumference 27.8 cm age 30 weeks 3 days, 87th percentile. AC: Abdominal circumference 25.5 cm age 29 weeks 5 days, 87th percentile. FL: Femur length 5.4 cm age 28 weeks 5 days, 55th percentile. POSITION: There is an intrauterine gestation. Fetus is in breech position. HEART RATE: heart rate is 150 bpm. PLACENTA: The placenta is anterior. AMNIOTIC FLUID: CELESTE is 15.6 cm. US/OB Limited With Biometrics IMPRESSION: Intrauterine gestation with an average ultrasound age of 29 weeks 6 days and ultrasound estimated due date of 03/05/2024. heart rate is 150 bpm. Electronically Signed: Galen Le MD at 0:11 EDT ,
[2023-12-25 13:43] LABS: Protein, Urine (Random) 83.5 mg/dL (<11.9); Protein:Creat Ratio 369 mg/g CRE (0-200)
== END | disposition home or self-care (01) ==
PROVIDERS: Advanced Practice Midwife; PCP Family Medicine; Referring Provider Obstetrics & Gynecology; Visit Provider Obstetrics & Gynecology
DX: O09.299 Supervision of pregnancy with other poor reproductive or obstetric history, unspecified trimester (principal); Z86.32 Personal history of gestational diabetes; O99.213 Obesity complicating pregnancy, third trimester; O09.92 Supervision of high risk pregnancy, unspecified, second trimester
CPT/HCPCS: 76816; 82570; 84156

== ENCOUNTER → 2023-12-29 | Outpatient (CLI) | payer OTHER, SELFPAY ==
[2023-12-29 09:30] LABS: Absolute Lymphocyte Count 1.19 X10^3/uL (0.83-4.51); Absolute Neutrophil Count 7.1 X10^3/uL (2.0-7.7); Basophil# 0.02 X10^3/uL; Basophil% 0.2 % (0-1); Eosinophil# 0.09 X10^3/uL; Hematocrit 35.5 % (37-47); Hemoglobin 11.6 g/dL (12.0-15.0); Lymphocyte # 1.19 X10^3/ul (0.83-4.51); Lymphocyte % 13.3 % (19-41); Mean Corp Hgb Conc 32.7 g/dL (32-36); Mean Corpuscular Volume 91.7 fL (81-99); Mean Platelet Vol. 11.7 fl (6.2-12.0); Monocyte# 0.42 X10^3/uL; Monocyte% 4.7 % (0-10); NRBC Flagged by Analyzer 0 % (0-5); Neutrophil # 7.13 X10^3/uL (2.7-7.7); Neutrophil % 79.8 % (47-70); Platelet Count 196 K/mm3 (150-450); RBC Distribution Width CV 12.7 % (11.6-14.6); Red Blood Count 3.87 M/mm3 (4.2-5.4); White Blood Count 8.9 K/mm3 (4.4-11.0)
[2023-12-29 09:53] LABS: ALB/GLOB Ratio 0.6 RATIO (0.9-2.4); AST(SGOT) 10 U/L (15-37); Alanine Aminotransfer ALT/SGPT 11 U/L (13-56); Albumin, Serum 2.7 g/dL (3.2-5.0); Alkaline Phosphatase 76 U/L (45-117); Anion Gap 5 (5-15); BUN 8 mg/dL (7-18); BUN/Creat Ratio 14.4 RATIO (10-20); Chloride 106 mmol/L (98-107); Creatinine, Serum 0.56 mg/dL (0.55-1.02); EST Glomerular Filtration Rate 132 mL/min (>60); Est Glom Filt Rate - Afr Amer 159 mL/min (>60); Globulin 4.3 g/dL (2.2-4.2); Glucose 77 mg/dL (74-106); Potassium 3.8 mmol/L (3.5-5.1); Sodium Level 137 mmol/L (136-145)
== END | disposition home or self-care (01) ==
LOC: LAB 08:28
PROVIDERS: PCP Family Medicine; Referring Provider Advanced Practice Midwife; Visit Provider Advanced Practice Midwife
DX: O12.10 Gestational proteinuria, unspecified trimester (principal)
CPT/HCPCS: 36415; 80053; 85025

== ENCOUNTER → 2024-01-21 | Outpatient (CLI) | payer OTHER, SELFPAY ==
--- NOTE | 2024-01-21 12:28 | US_ITS ---
STUDY: SECOND AND THIRD TRIMESTER OBSTETRICAL ULTRASOUND - LIMITED REASON FOR EXAM: Female, 33 years old growth -- AMA -- OBESITY LMP: 06/12/2023 PRIOR ULTRASOUND: Prior study dated: 12/25/2023 TECHNIQUE: Transabdominal TECHNICAL QUALITY: Adequate. FINDINGS: There is a single intrauterine fetus. The fetus is in a cephalic presentation. There is demonstrated cardiac activity with a heart rate of 166 bpm. There is a normal amniotic fluid volume. The largest amniotic fluid pocket measures 6.9 cm. The amniotic fluid index (CELESTE) is 15.6 cm. The placenta is anterior in location and is not low lying. The cervix measures 5.2 cm cm in length. BIOMETRY: BPD: 8.4 cm: 34 weeks, 0 days HC: 31.8 cm: 35 weeks, 5 days AC: 30 cm: 34 weeks, 0 days FL: 6.3 cm: 32 weeks, 5 days Age by LMP: 31 weeks, 6 days. AMANDA by LMP: 03/18/2024. age by current US: 34 weeks, 1 days. AMANDA by current US: 03/02/2024. Estimated weight: 2285 grams, +/- 339 grams, 90 percentile. US/OB Limited With Biometrics IMPRESSION: Single live intrauterine fetus in cephalic presentation with an estimated gestational age of 34 weeks and 1 day. The AMANDA is 03/02/2024. Electronically Signed: Adam Zuniga MD at 16:04 EDT ,
== END | disposition home or self-care (01) ==
LOC: US 12:27
PROVIDERS: PCP Family Medicine; Referring Provider Obstetrics & Gynecology; Visit Provider Obstetrics & Gynecology
DX: O99.213 Obesity complicating pregnancy, third trimester (principal); O09.522 Supervision of elderly multigravida, second trimester; O09.92 Supervision of high risk pregnancy, unspecified, second trimester
CPT/HCPCS: 76816

== ENCOUNTER → 2024-01-31 | Outpatient (CLI) | payer OTHER, SELFPAY ==
[2024-01-31 09:47] LABS: Glucose Challenge Gest 1H 50g 142 mg/dL (70-140)
== END | disposition home or self-care (01) ==
LOC: LAB 08:39
PROVIDERS: PCP Family Medicine; Referring Provider Obstetrics & Gynecology; Visit Provider Obstetrics & Gynecology
DX: O99.213 Obesity complicating pregnancy, third trimester (principal); O09.92 Supervision of high risk pregnancy, unspecified, second trimester; Z3A.00 Weeks of gestation of pregnancy not specified
CPT/HCPCS: 36415; 82950

== ENCOUNTER → 2024-02-04 | Outpatient (CLI) | payer OTHER, SELFPAY ==
[2024-02-04 15:42] LABS: Protein, Urine (Random) 10.9 mg/dL (<11.9); Protein:Creat Ratio 373 mg/g CRE (0-200)
[2024-02-04 15:55] LABS: Absolute Lymphocyte Count 1.19 X10^3/uL (0.83-4.51); Basophil# 0.01 X10^3/uL; Basophil% 0.1 % (0-1); Eosinophil# 0.06 X10^3/uL; Eosinophils% 0.8 % (0-5); Hemoglobin 11.5 g/dL (12.0-15.0); Lymphocyte # 1.19 X10^3/ul (0.83-4.51); Lymphocyte % 15.5 % (19-41); Mean Corp Hgb Conc 32.9 g/dL (32-36); Mean Corpuscular Hgb 29.3 pg (27.0-32.0); Mean Corpuscular Volume 89.3 fL (81-99); Monocyte# 0.41 X10^3/uL; Monocyte% 5.3 % (0-10); NRBC Flagged by Analyzer 0 % (0-5); Neutrophil # 5.98 X10^3/uL (2.7-7.7); Neutrophil % 77.7 % (47-70); Platelet Count 165 K/mm3 (150-450); RBC Distribution Width CV 12.7 % (11.6-14.6); RBC Distribution Width SD 41.5 fl (35.1-43.9); Red Blood Count 3.92 M/mm3 (4.2-5.4); White Blood Count 7.7 K/mm3 (4.4-11.0)
[2024-02-04 16:13] LABS: ALB/GLOB Ratio 0.6 RATIO (0.9-2.4); AST(SGOT) 11 U/L (15-37); Alanine Aminotransfer ALT/SGPT 9 U/L (13-56); Albumin, Serum 2.6 g/dL (3.2-5.0); Alkaline Phosphatase 100 U/L (45-117); Anion Gap 7 (5-15); BUN 6 mg/dL (7-18); BUN/Creat Ratio 11.9 RATIO (10-20); Calcium,Total 8.9 mg/dL (8.5-10.1); Chloride 109 mmol/L (98-107); EST Glomerular Filtration Rate 147 mL/min (>60); Est Glom Filt Rate - Afr Amer 178 mL/min (>60); Globulin 4.2 g/dL (2.2-4.2); Glucose 92 mg/dL (74-106); Protein, Total 6.8 g/dL (6.4-8.2); Sodium Level 136 mmol/L (136-145)
== END | disposition home or self-care (01) ==
LOC: LAB 15:09
PROVIDERS: PCP Family Medicine; Referring Provider Nurse Practitioner Women's Health; Visit Provider Nurse Practitioner Women's Health
DX: O12.13 Gestational proteinuria, third trimester (principal); Z3A.00 Weeks of gestation of pregnancy not specified
CPT/HCPCS: 36415; 80053; 82570; 84156; 85025

== ENCOUNTER → 2024-02-11 | Outpatient (CLI) | payer OTHER, SELFPAY ==
[2024-02-11 11:31] LABS: Protein, Urine (Random) 55.3 mg/dL (<11.9); Protein:Creat Ratio 366 mg/g CRE (0-200)
== END | disposition home or self-care (01) ==
LOC: LABSPEC 10:32
PROVIDERS: PCP Family Medicine; Referring Provider Obstetrics & Gynecology; Visit Provider Obstetrics & Gynecology
DX: O12.10 Gestational proteinuria, unspecified trimester (principal); Z3A.00 Weeks of gestation of pregnancy not specified
CPT/HCPCS: 82570; 84156

== ENCOUNTER → 2024-02-13 | Outpatient (CLI) | payer OTHER, SELFPAY ==
[2024-02-13 08:59] LABS: Absolute Lymphocyte Count 1.17 X10^3/uL (0.83-4.51); Basophil# 0.02 X10^3/uL; Basophil% 0.3 % (0-1); Eosinophil# 0.05 X10^3/uL; Eosinophils% 0.6 % (0-5); Hematocrit 35.1 % (37-47); Hemoglobin 11.7 g/dL (12.0-15.0); Lymphocyte # 1.17 X10^3/ul (0.83-4.51); Lymphocyte % 15.1 % (19-41); Mean Corp Hgb Conc 33.3 g/dL (32-36); Mean Corpuscular Hgb 29.8 pg (27.0-32.0); Mean Corpuscular Volume 89.3 fL (81-99); Mean Platelet Vol. 11.9 fl (6.2-12.0); Monocyte# 0.38 X10^3/uL; Monocyte% 4.9 % (0-10); NRBC Flagged by Analyzer 0 % (0-5); Neutrophil # 6.04 X10^3/uL (2.7-7.7); Neutrophil % 78.1 % (47-70); Platelet Count 158 K/mm3 (150-450); RBC Distribution Width CV 12.9 % (11.6-14.6); Red Blood Count 3.93 M/mm3 (4.2-5.4); White Blood Count 7.7 K/mm3 (4.4-11.0)
[2024-02-13 09:26] LABS: ALB/GLOB Ratio 0.6 RATIO (0.9-2.4); AST(SGOT) 14 U/L (15-37); Alanine Aminotransfer ALT/SGPT 10 U/L (13-56); Albumin, Serum 2.5 g/dL (3.2-5.0); Alkaline Phosphatase 102 U/L (45-117); Anion Gap 5 (5-15); BUN 7 mg/dL (7-18); BUN/Creat Ratio 12.3 RATIO (10-20); Calcium,Total 8.8 mg/dL (8.5-10.1); Chloride 108 mmol/L (98-107); Creatinine, Serum 0.57 mg/dL (0.55-1.02); EST Glomerular Filtration Rate 128 mL/min (>60); Est Glom Filt Rate - Afr Amer 155 mL/min (>60); Globulin 4.1 g/dL (2.2-4.2); Glucose 122 mg/dL (74-106); Potassium 3.7 mmol/L (3.5-5.1); Protein, Total 6.6 g/dL (6.4-8.2); Sodium Level 136 mmol/L (136-145)
== END | disposition home or self-care (01) ==
LOC: LAB 08:21
PROVIDERS: PCP Family Medicine; Referring Provider Obstetrics & Gynecology; Visit Provider Obstetrics & Gynecology
DX: O12.10 Gestational proteinuria, unspecified trimester (principal); Z3A.00 Weeks of gestation of pregnancy not specified
CPT/HCPCS: 36415; 80053; 85025

== ENCOUNTER → 2024-02-18 | Outpatient (CLI) | payer OTHER, SELFPAY ==
[2024-02-18 12:43] LABS: Absolute Lymphocyte Count 1.01 X10^3/uL (0.83-4.51); Absolute Neutrophil Count 6.4 X10^3/uL (2.0-7.7); Basophil# 0.01 X10^3/uL; Basophil% 0.1 % (0-1); Eosinophil# 0.04 X10^3/uL; Eosinophils% 0.5 % (0-5); Hematocrit 36.8 % (37-47); Hemoglobin 11.9 g/dL (12.0-15.0); Lymphocyte # 1.01 X10^3/ul (0.83-4.51); Lymphocyte % 12.9 % (19-41); Mean Corp Hgb Conc 32.3 g/dL (32-36); Mean Corpuscular Hgb 29.6 pg (27.0-32.0); Mean Corpuscular Volume 91.5 fL (81-99); Monocyte% 3.8 % (0-10); NRBC Flagged by Analyzer 0 % (0-5); Neutrophil # 6.38 X10^3/uL (2.7-7.7); Neutrophil % 81.9 % (47-70); Platelet Count 147 K/mm3 (150-450); RBC Distribution Width SD 42.8 fl (35.1-43.9); Red Blood Count 4.02 M/mm3 (4.2-5.4); White Blood Count 7.8 K/mm3 (4.4-11.0)
[2024-02-18 13:22] LABS: ALB/GLOB Ratio 0.6 RATIO (0.9-2.4); AST(SGOT) 14 U/L (15-37); Alanine Aminotransfer ALT/SGPT 9 U/L (13-56); Albumin, Serum 2.6 g/dL (3.2-5.0); Alkaline Phosphatase 105 U/L (45-117); Anion Gap 9 (5-15); BUN 8 mg/dL (7-18); BUN/Creat Ratio 14.7 RATIO (10-20); Calcium,Total 9.2 mg/dL (8.5-10.1); Chloride 106 mmol/L (98-107); Creatinine, Serum 0.55 mg/dL (0.55-1.02); EST Glomerular Filtration Rate 135 mL/min (>60); Est Glom Filt Rate - Afr Amer 163 mL/min (>60); Glucose 121 mg/dL (74-106); Potassium 3.9 mmol/L (3.5-5.1); Protein, Total 6.6 g/dL (6.4-8.2); Sodium Level 137 mmol/L (136-145)
[2024-02-18 13:55] LABS: Protein, Urine (Random) 62.2 mg/dL (<11.9); Protein:Creat Ratio 326 mg/g CRE (0-200)
== END | disposition home or self-care (01) ==
LOC: WOBLAB 12:13
PROVIDERS: PCP Family Medicine; Referring Provider Obstetrics & Gynecology; Visit Provider Obstetrics & Gynecology
DX: O09.92 Supervision of high risk pregnancy, unspecified, second trimester (principal); O12.13 Gestational proteinuria, third trimester
CPT/HCPCS: 36415; 80053; 82570; 84156; 85025; 87081

== ENCOUNTER → 2024-02-20 | Outpatient (CLI) | payer OTHER, SELFPAY ==
--- NOTE | 2024-02-20 12:11 | US_ITS ---
STUDY: SECOND AND THIRD TRIMESTER OBSTETRICAL ULTRASOUND - LIMITED REASON FOR EXAM: Female, 33 years old Obesity affecting -- 36wk growth scan -- GDM LMP: June 12, 2023. PRIOR ULTRASOUND: Comparison is made with prior study dated January 21, 2024. TECHNIQUE: Transabdominal TECHNICAL QUALITY: Adequate. FINDINGS: There is a single intrauterine fetus. The fetus is in a cephalic presentation. There is demonstrated cardiac activity with a heart rate of 130 bpm. There is a normal amniotic fluid volume. The largest amniotic fluid pocket measures 6.9 cm x 3.8 cm. The amniotic fluid index (CELESTE) is 17.2 cm. The placenta is anterior in location and is not low lying. There are Grade 3 placental changes. BIOMETRY: BPD: 9.57 cm: 39 weeks, 1 days: 100% HC: 33.95 cm: 39 weeks, 0 days: 86% AC: 35.2 cm: 39 weeks, 0 days: 100% FL: 7.24 cm: 37 weeks, 0 days: 70% Age by LMP: 36 weeks, 1 days. AMANDA by LMP: March 18, 2024. age by prior US: 38 weeks, 3 days. AMANDA by prior US: March 02, 2024. age by current US: 38 weeks, 3 days. AMANDA by current US: March 02, 2024. Estimated weight: 3579 grams, +/- 537 grams, 97.4 percentile. US/OB Limited With Biometrics IMPRESSION: Single live intrauterine gestation with a mean gestational age of 38 weeks and 3 days. Electronically Signed: Chris Cunningham MD at 15:58 EDT ,
== END | disposition home or self-care (01) ==
LOC: US 12:11
PROVIDERS: PCP Family Medicine; Referring Provider Obstetrics & Gynecology; Visit Provider Obstetrics & Gynecology
DX: O99.213 Obesity complicating pregnancy, third trimester (principal); E66.9 Obesity, unspecified; Z3A.36 36 weeks gestation of pregnancy
CPT/HCPCS: 76816

== ENCOUNTER 2024-02-23 06:41 | Inpatient (IN) | payer OTHER, SELFPAY ==
[2024-02-23] VITALS (78 sets, daily range): BP systolic 104–169; BP diastolic 50–100; PULSE 77–171; RESP 16–18; TEMP 36.1–36.7; O2SAT 81–100; BMI 44.9
[2024-02-23 05:53] LABS: Hematocrit 34.7 % (37-47); Hemoglobin 11.5 g/dL (12.0-15.0); Mean Corp Hgb Conc 33.1 g/dL (32-36); Mean Corpuscular Hgb 29.9 pg (27.0-32.0); Mean Corpuscular Volume 90.4 fL (81-99); Mean Platelet Vol. 12.3 fl (6.2-12.0); Platelet Count 157 K/mm3 (150-450); RBC Distribution Width CV 13.1 % (11.6-14.6); RBC Distribution Width SD 42.5 fl (35.1-43.9); Red Blood Count 3.84 M/mm3 (4.2-5.4); White Blood Count 8.3 K/mm3 (4.4-11.0)
[2024-02-23 06:15] LABS: Protein, Urine (Random) 24.8 mg/dL (<11.9); Protein:Creat Ratio 469 mg/g CRE (0-200)
[2024-02-23 06:23] LABS: AST(SGOT) 14 U/L (15-37); Alanine Aminotransfer ALT/SGPT 10 U/L (13-56); Creatinine, Serum 0.47 mg/dL (0.55-1.02); EST Glomerular Filtration Rate 160 mL/min (>60); Est Glom Filt Rate - Afr Amer 193 mL/min (>60); LDH 163 U/L (84-246); Uric Acid 4.8 mg/dL (2.6-6.0)
[2024-02-23] MEDS: Magnesium Sulfate 4gm/100mL 4 GM/100 ML IV.SOLN. IV (07:01)
[2024-02-23] MEDS: Magnesium Sulfate 20 GM/500 ML BAG IV ×2 (07:30→18:15)
[2024-02-23] MEDS: Oxytocin 15 Units/NS 250ml 15 UNITS/250 ML IV.SOLN 2 UNITS IV (08:20)
--- NOTE | 2024-02-23 08:25 | HP.PCM.OB_ITS ---
HPI - General General Date of Admission: 02/23/24 Date of Service: 02/23/24 HPI Narrative STEVE BARKSDALE, is a 33 F 36.4 weeks who presents to unit with persistent headache and proteinuria per Dr. Kimbrough this am. Decision made by Dr Kimbrough for induction due to worsening labs and headache. Plan to start magnesium and plan cocare of patient. Maternal Data Information AMANDA Calculator Estimated Delivery Date Method Current WG Current Estimate 03/18/24 LMP (Certain) 36w 4d Final AMANDA: 03/18/24 Final AMANDA Source: US >20 weeks Gestational age: 36.4 weeks [facility] Medical History (Updated 02/23/24 @ 08:30 by Shante Davidson CNM) Encounter for induction of labor Asthma PVC (premature ventricular contraction) Hyperlipidemia Pancreatitis Vaginal delivery Heart palpitations Complete Infertility Seasonal allergies Rosacea Obesity Mixed dyslipidemia Migraine with aura BALJIT (generalized anxiety disorder) Home Medications ?Medication ?Instructions ?Recorded ?Last Taken ?Type citalopram 40 mg tablet (Celexa) 40 mg PO DAILY #90 tabs 05/27/22 Unknown Rx cholecalciferol (vitamin D3) 50 2,000 unit PO DAILY 06/28/23 Unknown History mcg (2,000 unit) capsule (Vitamin D3) doxylamine succinate 25 mg tablet 12.5 mg PO QHS PRN 07/29/23 Unknown History (Unisom (doxylamine)) ferrous sulfate 325 mg (65 mg 325 mg PO DAILY 07/29/23 Unknown History iron) tablet pyridoxine (vitamin B6) 25 mg 12.5 mg PO DAILY 07/29/23 Unknown History tablet PNV 178-FA 180 mcg-om3 35 mg-dha 1 tab PO DAILY 08/20/23 Unknown History 25 mg-epa 5 mg-fish oil chew tablet ondansetron 4 mg disintegrating 4 mg PO Q6H PRN nausea and 08/20/23 Unknown Rx tablet vomiting #20 tabs metformin 500 mg tablet 500 mg PO HS 90 days #90 tabs 02/18/24 Unknown Rx Allergy/AdvReac Type Severity Reaction Status Date / Time Sulfa (Sulfonamide Allergy Hives Verified 02/18/24 11:29 Antibiotics) Family History Mother Thyroid cancer Hypertension Father Hypertension Hyperlipidemia Grandfather Leukemia Lung cancer Grandmother Diabetes PFO (patent foramen ovale) Paternal- Repaired Atrial fibrillation History of transcatheter aortic valve replacement (TAVR) Brother Diabetes Type 1 Surgical History [place] teeth extracted Social History adopted: No household members: spouse and children number of children: 1 current occupational status: employed 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 pets and animals: Yes (avoid litter box) pets and animals: cat(s) and dog(s) history of recent travel: No sexually active: Yes Smoking Status: Never smoker alcohol intake: current details: not while substance use type: does not use well-balanced diet: daily or most days caffeine: Yes Type: coffee Number of servings: 1 eating out: 1-3 times/week during the past year weight has: remained stable what type of physical activity do you participate in: none liban/denominational: None seatbelt use: always do you feel safe at home: Yes additional social history: - Ric 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 Date Name GA/Weeks Outcome Route Bth Weight Infant Gen Labor Lgth Anesthesia Del Locatn Provider FOB 12/05/20 6 spontaneous 04/17/22 Patricia 39 live - full term 6#13.5oz Female ep idural [employer] Toyin Kimbrough Ric Delivery Date: 04/17/22 Last Updated by: Gracy Rodriges see problem list for complications, and IOL gdm 39 sm. Visit Details Expected Delivery Route/Plan Labor Preferences- CB/BF classes: no labor support person: Ric labor intervention preferences: [] pain management options preferred: [] cut cord/dad catch: cord : yes PP control planned: discussed possible routes of delivery and associated risks: [] special requests: [] Plans Covid status: [] Flu vaccine: employer Tdap vaccine: given Rhogam: na LARC form signed: declined movement and labor precautions reviewed. Problem list reviewed and updated with the most current plan of care details and appropriate orders placed. Relevant counseling for the gestational age provided. Continue routine care and follow up unless otherwise noted in visit notes/problem list details OB Flowsheet Initial Weight: Not Recorded Date -?-?-?-?-?-?-?-?-?-?-?-?- EGA Weight BP Urine Prot -?-?-?-?-?-?-?-?-?-?-?-?- Glucose FHR FuHt Pres Dilation -?-?-?-?-?-?-?-?-?-?-?-?- Effaced St Visit Note 08/04/23 -?-?-?-?-?-?-?-?-?-?-?-?- 7w 4d 290 lb 121/72 -?-?-?-?-?-?-?-?-?-?-?-?- 160 -?-?-?-?-?-?-?-?-?-?-?-?- Sm- Crl cons wit h LMP 08/20/23 -?-?-?-?-?-?-?-?-?-?-?-?- 9w 6d 289 lb 8 oz 134/61 Nega tive -?-?-?-?-?-?-?-?-?-?-?-?- Negative 171 -?-?-?-?-?-?-?-?-?-?-?-?- LC- AR 3.1mm, r eassured. no vb. 09/09/23 -?-?-?-?-?-?-?-?-?-?-?-?- 12w 5d 285 lb 126/86 1+ -?-?-?-?-?-?-?-?-?-?-?-?- Negative 170 -?-?-?-?-?-?-?-?-?-?-?-?- KW- no vb/crampi ng. MFM US ordered. NIPT LR-Boy. saw Cardiology for Hx PVCs. EKG and Echo normal. declines AFP. 10/08/23 -?-?-?-?-?-?-?-?-?-?-?-?- 16w 6d 288 lb 6 oz 136/79 Nega tive -?-?-?-?-?-?-?-?-?-?-?-?- Negative 160 -?-?-?-?-?-?-?-?-?-?-?-?- MH-No VB. Feelin g flutters. Nausea improving. 11/07/23 -?-?-?-?-?-?-?-?-?-?-?-?- 21w 1d 287 lb 119/70 Negative -?-?-?-?-?-?-?-?-?-?-?-?- Negative 150 -?-?-?-?-?-?-?-?-?-?-?-?- Sm- no vb crmapi ng 12/05/23 -?-?-?-?-?-?-?-?-?-?-?-?- 25w 1d 289 lb 6 oz 116/80 Nega tive -?-?-?-?-?-?-?-?-?-?-?-?- Negative 145 -?-?-?-?-?-?-?-?-?-?-?-?- JV-pt started ch ecking fasting levels and they are all over 110. wants to do 3 hr instead of the 1 hr. this was ordered. c/o restless legs and numbness in fingers. recommend mag supplement, ice, tylenol, hydration. 12/25/23 -?-?-?-?-?-?-?-?-?-?-?-?- 28w 0d 288 lb 6 oz 128/83 1+ -?-?-?-?-?-?-?-?-?-?-?-?- Negative 140 30 -?-?-?-?-?-?-?-?-?-?-?-?- KW- no vb/crampi ng. good fm. had 3 hour gct and passed but had elevated fasting. has growth US today. LARC and Tdap declined today. 01/08/24 -?-?-?-?-?-?-?-?-?-?-?-?- 30w 0d 291 lb 122/79 Negative -?-?-?-?-?-?-?-?-?-?-?-?- Negative 140 31 -?-?-?-?-?-?-?-?-?-?-?-?- SM- no vb lof go od fm no regular ctx 01/21/24 -?-?-?-?-?-?-?-?-?-?-?-?- 31w 6d 287 lb 128/70 Trace -?-?-?-?-?-?-?-?-?-?-?-?- Negative 155 33 -?-?-?-?-?-?-?-?-?-?-?-?- SM- no vb lof go od fm no regular ctx 02/04/24 -?-?-?-?-?-?-?-?-?-?-?-?- 33w 6d 289 lb 8 oz 124/80 1+ -?-?-?-?-?-?-?-?--?-?-?-?- Negative 140 -?-?-?-?-?-?-?-?-?-?-?-?- MH-No VB, LOF. R eactive NST. Glucose reading X 3 days:1 fasting elevated and 2 readings 1hr pp. She will continue to check qid and watch diet and discuss with SM next week MH-No VB, LOF. Reactive NST. Glucose reading X 3 days:1 fasting elevated and 2 readings 1hr pp. She will continue to check qid and watch diet and discuss with SM next week. Pre E labs. 02/11/24 -?-?-?-?-?-?-?-?-?-?-?-?- 34w 6d 294 lb 137/89 1+ -?-?-?-?-?-?-?-?-?-?-?-?- Negative 130 -?-?-?-?-?-?-?-?-?-?-?-?- SM- reactive NST 02/18/24 -?-?-?-?-?-?-?-?-?-?-?-?- 35w 6d 296 lb 132/86 1+ -?-?-?-?-?-?-?-?-?-?-?-?- Negative 130 37 -?-?-?-?-?-?-?-?-?-?-?-?- JV- nst is react doc. blood sugars are starting to creep up to 100 fasting levels. starting metformin. gbs collected but patient declines pelvic exam. plan 39 week IOL. weekly pih labs. NST FHR Rate Baby A Baseline: 145 Variability:: Moderate Accelerations:: 15 x 15 Decelerations:: None NST Reactive:: Yes FHR Category:: Category I Uterine Activity:: irregular ROS Constitutional Constitutional: Reports headache(s); Denies change in weight, fatigue, fever(s), poor appetite or weakness Eyes Eyes: Denies blurry vision, change in vision, floaters, seeing flashes or spots in vision ENT HEENT: Denies dizziness, headache(s), loss taste/smell or sore throat Cardiovascular Cardiovascular: Denies chest pain, dizziness, dyspnea, irregular heart rhythm, lightheadedness, palpitations or rapid heart rate Respiratory/Chest Respiratory/Chest: Denies change in mental status, chest tightness, cough, dyspnea or breast pain Gastrointestinal Gastrointestinal: Denies anorexia, chewing difficulty, constipation, diarrhea or weight changes Genitourinary Genitourinary: Denies difficulty urinating, dysuria, flank pain, genital pain, urinary frequency or urinary urgency Musculoskeletal Musculoskeletal: Denies back pain, difficulty walking, extremity pain, joint pain, muscle cramps or muscle weakness Integumentary Integumentary: Denies lesions or unusual bruising Neurologic Neurologic: Denies abnormal movements, abnormal speech, dizziness, numbness, seizure-like activity, syncope or weakness Psychiatric Psychiatric: Denies behavioral changes, change in appetite, confusion, depression, homicidal ideation, suicidal ideation or suicidal thoughts Endocrine Endocrinology: Denies excessive sweating, polydipsia or polyuria Hematologic/Lymphatic Hematologic/Lymphatic: Denies anemia Allergic/Immunologic Allergic/Immunologic: Denies itchy eyes, lip swelling, throat swelling, tongue swelling or wheezing Vital Signs Vital Signs Vital Signs: 02/23/24 05:11 02/23/24 05:11 02/23/24 05:35 Temperature Temperature Source Temporal Pulse Rate 85 Respiratory Rate Respiratory Effort Respiratory Depth Respiratory Pattern Blood Pressure 133/68 H Blood Pressure Mean BP Systolic 133 BP Diastolic 68 Blood Pressure Source Blood Pressure Position Blood Pressure Location Pulse Ox Oxygen Delivery Method 02/23/24 05:35 02/23/24 05:35 02/23/24 05:40 Temperature 97.9 F Temperature Source Pulse Rate Respiratory Rate 16 Respiratory Effort Respiratory Depth Respiratory Pattern Blood Pressure 127/64 H Blood Pressure Mean BP Systolic 127 BP Diastolic 64 Blood Pressure Source Blood Pressure Position Blood Pressure Location Pulse Ox Oxygen Delivery Method 02/23/24 05:40 02/23/24 05:49 02/23/24 05:49 Temperature Temperature Source Pulse Rate 84 93 Respiratory Rate Respiratory Effort Respiratory Depth Respiratory Pattern Blood Pressure 124/67 H Blood Pressure Mean BP Systolic 124 BP Diastolic 67 Blood Pressure Source Blood Pressure Position Blood Pressure Location Pulse Ox Oxygen Delivery Method 02/23/24 05:59 02/23/24 05:59 02/23/24 06:17 Temperature Temperature Source Pulse Rate 81 Respiratory Rate Respiratory Effort Respiratory Depth Respiratory Pattern Blood Pressure 142/80 H 135/69 H Blood Pressure Mean BP Systolic 142 135 BP Diastolic 80 69 Blood Pressure Source Blood Pressure Position Blood Pressure Location Pulse Ox Oxygen Delivery Method 02/23/24 06:17 02/23/24 06:39 02/23/24 06:39 Temperature Temperature Source Pulse Rate 84 83 Respiratory Rate Respiratory Effort Respiratory Depth Respiratory Pattern Blood Pressure 127/62 H Blood Pressure Mean BP Systolic 127 BP Diastolic 62 Blood Pressure Source Blood Pressure Position Blood Pressure Location Pulse Ox Oxygen Delivery Method 02/23/24 07:07 02/23/24 07:07 02/23/24 07:08 Temperature 97.9 F Temperature Source Temporal Temporal Pulse Rate 93 96 Respiratory Rate 16 Respiratory Effort Normal Respiratory Depth Normal Respiratory Pattern Normal Blood Pressure 131/67 H Blood Pressure Mean 88 BP Systolic BP Diastolic Blood Pressure Source Monitor Blood Pressure Position Semi-Fowlers Blood Pressure Location Left Arm Pulse Ox 98 Oxygen Delivery Method Room Air 02/23/24 07:08 02/23/24 07:09 02/23/24 07:09 Temperature Temperature Source Pulse Rate 98 Respiratory Rate Respiratory Effort Respiratory Depth Respiratory Pattern Blood Pressure 131/67 H Blood Pressure Mean BP Systolic 131 BP Diastolic 67 Blood Pressure Source Blood Pressure Position Blood Pressure Location Pulse Ox 99 Oxygen Delivery Method 02/23/24 07:13 02/23/24 07:13 02/23/24 07:16 Temperature Temperature Source Pulse Rate 97 90 Respiratory Rate 16 Respiratory Effort Normal Non-Labored Respiratory Depth Normal Respiratory Pattern Normal Blood Pressure Blood Pressure Mean BP Systolic BP Diastolic Blood Pressure Source Blood Pressure Position Blood Pressure Location Pulse Ox 97 98 Oxygen Delivery Method Room Air 02/23/24 07:22 02/23/24 07:22 02/23/24 07:27 Temperature Temperature Source Pulse Rate 101 H 93 Respiratory Rate Respiratory Effort Respiratory Depth Respiratory Pattern Blood Pressure Blood Pressure Mean BP Systolic BP Diastolic Blood Pressure Source Blood Pressure Position Blood Pressure Location Pulse Ox 97 Oxygen Delivery Method 02/23/24 07:27 02/23/24 07:31 02/23/24 07:32 Temperature Temperature Source Pulse Rate 85 90 Respiratory Rate 16 Respiratory Effort Respiratory Depth Respiratory Pattern Blood Pressure Blood Pressure Mean BP Systolic BP Diastolic Blood Pressure Source Blood Pressure Position Blood Pressure Location Pulse Ox 100 98 Oxygen Delivery Method Room Air 02/23/24 07:32 02/23/24 07:37 02/23/24 07:37 Temperature Temperature Source Pulse Rate 105 H Respiratory Rate Respiratory Effort Respiratory Depth Respiratory Pattern Blood Pressure Blood Pressure Mean BP Systolic BP Diastolic Blood Pressure Source Blood Pressure Position Blood Pressure Location Pulse Ox 99 99 Oxygen Delivery Method 02/23/24 07:39 02/23/24 07:39 02/23/24 07:42 Temperature Temperature Source Pulse Rate 100 88 Respiratory Rate Respiratory Effort Respiratory Depth Respiratory Pattern Blood Pressure 156/76 H Blood Pressure Mean BP Systolic 156 BP Diastolic 76 Blood Pressure Source Blood Pressure Position Blood Pressure Location Pulse Ox Oxygen Delivery Method 02/23/24 07:42 02/23/24 07:47 02/23/24 07:47 Temperature Temperature Source Pulse Rate 90 Respiratory Rate Respiratory Effort Respiratory Depth Respiratory Pattern Blood Pressure Blood Pressure Mean BP Systolic BP Diastolic Blood Pressure Source Blood Pressure Position Blood Pressure Location Pulse Ox 99 97 Oxygen Delivery Method 02/23/24 07:52 02/23/24 07:52 02/23/24 07:57 Temperature Temperature Source Pulse Rate 89 92 Respiratory Rate Respiratory Effort Respiratory Depth Respiratory Pattern Blood Pressure Blood Pressure Mean BP Systolic BP Diastolic Blood Pressure Source Blood Pressure Position Blood Pressure Location Pulse Ox 99 Oxygen Delivery Method 02/23/24 07:57 02/23/24 08:02 02/23/24 08:02 Temperature Temperature Source Pulse Rate 91 Respiratory Rate Respiratory Effort Respiratory Depth Respiratory Pattern Blood Pressure Blood Pressure Mean BP Systolic BP Diastolic Blood Pressure Source Blood Pressure Position Blood Pressure Location Pulse Ox 97 99 Oxygen Delivery Method 02/23/24 08:07 02/23/24 08:07 02/23/24 08:09 Temperature Temperature Source Pulse Rate 92 Respiratory Rate Respiratory Effort Respiratory Depth Respiratory Pattern Blood Pressure 130/79 H Blood Pressure Mean BP Systolic 130 BP Diastolic 79 Blood Pressure Source Blood Pressure Position Blood Pressure Location Pulse Ox 98 Oxygen Delivery Method 02/23/24 08:09 02/23/24 08:12 02/23/24 08:12 Temperature Temperature Source Pulse Rate 92 95 Respiratory Rate Respiratory Effort Respiratory Depth Respiratory Pattern Blood Pressure Blood Pressure Mean BP Systolic BP Diastolic Blood Pressure Source Blood Pressure Position Blood Pressure Location Pulse Ox 97 Oxygen Delivery Method 02/23/24 08:17 02/23/24 08:17 02/23/24 08:17 Temperature Temperature Source Pulse Rate 93 97 Respiratory Rate 16 Respiratory Effort Normal Non-Labored Respiratory Depth Normal Respiratory Pattern Normal Blood Pressure Blood Pressure Mean BP Systolic BP Diastolic Blood Pressure Source Blood Pressure Position Blood Pressure Location Pulse Ox 98 97 Oxygen Delivery Method Room Air Weight Weight: 295 lb 4 oz Body Mass Index (BMI) 44.9 Physical Exam Const alert, oriented x3 and no apparent distress General Appearance: cooperative Orientation / Consciousness: awake HEENT normocephalic Neck full ROM Lymph Lymphatic: no lymphadenopathy noted Chest inspection of chest normal Resp normal respiratory effort and normal air movement Effort and Inspection: able to speak in complete sentences and symmetric chest movement GI soft to palpation and non-tender Inspection: gravid Palpation: soft; Negative for tender external exam normal Back/Spine normal to inspection Extremity normal to inspection and full ROM Skin no rashes or lesions noted Psych mental status grossly normal Appearance: grossly normal Speech: normal speech Labs Labs Labs: Blood Type A POSITIVE Antibody Screen NEGATIVE Hct 34.7 % (37-47) L Hgb 11.5 g/dL (12.0-15.0) L Pap Smear Negative Obstetrics Ultrasound Syphilis Total Ab Non-reactive VZV IgG Antibody 3556 index (Immune >165) Rubella IgG Antibody Reactive (Nonreactive) Hep Bs Antigen Non-Reactive (Nonreactive) Hepatitis C Antibody Non-Reactive (Nonreactive) Chlamydia DNA (ALBA) Negative (Negative) N.gonorrhoeae DNA (ALBA) Negative (Negative) HIV 1&2 Antibody Non-Reactive (Nonreactive) Glucose 1 Hr 50 gm 142 mg/dL (70-140) H Gest Glucose Tolerance MG/DL Assessment & Plan (1) Severe pre-eclampsia: COMMENT: IOL 36.4 weeks (2) Large for gestational age fetus: COMMENT: EFW 4250g at 39 weeks, recommend checking BS at home (3) Abnormal glucose affecting : COMMENT: failed 1 hr GCT, declines 3 HR GTT and will test BS fasting & 2 hr PP for 1 wk (4) Proteinuria affecting : QUALIFIERS: Trimester: third trimester Qualified Code(s): O12.13 - Gestational proteinuria, third trimester COMMENT: weekly NST, home bps daily, weekly labs (5) AMA (advanced maternal age) multigravida 35+: QUALIFIERS: Trimester: second trimester Qualified Code(s): O09.522 - Supervision of elderly multigravida, second trimester COMMENT: carrier neg. ,genetic counseling discussed and plan NIPT (6) Obesity affecting : QUALIFIERS: Trimester: third trimester Qualified Code(s): O99.213 - Obesity complicating , third trimester COMMENT: HgA1c in 1 TM, plan weekly nsts after 34, growth q4 weeks, BMI 44 initial (7) Hx of gestational diabetes in prior , currently : COMMENT: passed 3 hour gct, but fasting elevated-consider repeat later in (8) Supervision of high-risk : QUALIFIERS: Trimester: second trimester Qualified Code(s): O09.92 - Supervision of high risk , unspecified, second trimester COMMENT: [id number], AMANDA 03/18/24, Boy, MARIANO Gomez Ric (9) : QUALIFIERS: Weeks of gestation: 35 weeks Qualified Code(s): Z3A.35 - 35 weeks gestation of COMMENT: normal anatomy, The patient is currently 10 weeks . Given the fact her symptoms are declining I would recommend we avoid any medical therapy at this point in time. Should her symptoms increase and become quality of life limiting in addition of beta-cuong such as metoprolol 25 to 50 mg twice daily could be trialed. (10) PVC (premature ventricular contraction): COMMENT: sees cardio (11) Hyperlipidemia: QUALIFIERS: Hyperlipidemia type: unspecified Qualified Code(s): E78.5 - Hyperlipidemia, unspecified (12) Heart palpitations: COMMENT: The patient's palpitations have been present over the last couple of years. She denies any near-syncope or syncope from these palpitations but they are quality of life impactful. She is currently 10 weeks with her second child. Over the last month palpitations have markedly decreased. She reports they still occur maybe once every 2 to 3 weeks. They are much less than when she first found out she was . ECG in the today showed normal sinus rhythm at 74 bpm and was otherwise unremarkable. (13) Anxiety: COMMENT: increase celexa to 40mg/improved (14) Encounter for induction of labor: PLAN: Patient presents IOL, plan management for with blank bulb/pitocin/AROM. Pain management: plans epidural. GBS negative. Management of any complications: see above I have reviewed the [facility] and made any clinically relevant updates. Dr Kimbrough aware of assessment, admission and plan. Agrees with above. Cocare planned due to pre eclampsia and magnesium useage. Charges/Coding Multi Select Codes Urinary/Genital Urinary/Genital CPT Codes: No Charge
[2024-02-23] MEDS: 0.9% Saline Lock 10 ML Syringe IV ×2 (08:37→19:37)
[2024-02-23 09:02] LABS: Bedside Glucose 93 mg/dL (74-106)
[2024-02-23] MEDS: Acetaminophen 500 MG Tablet PO ×2 (09:26→15:33)
[2024-02-23 09:37] LABS: Bedside Glucose 97 mg/dL (74-106)
--- NOTE | 2024-02-23 12:48 | PN_ITS ---
Progress Note Coping well with contractions current tracing: FHT: 130 Moderate variability reactive no decelerations category I tracing [place]: 2-3 minutes Contractions Pitocin at 6mu Membranes: AROM for clear fluid. Internal monitors placed SVE:4/60/-2 A/P: Continue with position changes Titrate pitocin per protocol Epidural per anesthesia when desired GBS neg Anticipate Dr Kimbrough aware of above assessment and agrees with plan of care Assessment & Plan Assessment/Plan (1) Encounter for induction of labor: (2) Severe pre-eclampsia: (3) Large for gestational age fetus: (4) Abnormal glucose affecting : (5) Proteinuria affecting : QUALIFIERS: Trimester: third trimester Qualified Code(s): O12.13 - Gestational proteinuria, third trimester (6) AMA (advanced maternal age) multigravida 35+: QUALIFIERS: Trimester: second trimester Qualified Code(s): O09.522 - Supervision of elderly multigravida, second trimester (7) Obesity affecting : QUALIFIERS: Trimester: third trimester Qualified Code(s): O99.213 - Obesity complicating , third trimester (8) Hx of gestational diabetes in prior , currently : (9) Supervision of high-risk : QUALIFIERS: Trimester: second trimester Qualified Code(s): O09.92 - Supervision of high risk , unspecified, second trimester (10) : QUALIFIERS: Weeks of gestation: 35 weeks Qualified Code(s): Z3A.35 - 35 weeks gestation of (11) PVC (premature ventricular contraction): (12) Hyperlipidemia: QUALIFIERS: Hyperlipidemia type: unspecified Qualified Code(s): E78.5 - Hyperlipidemia, unspecified (13) Heart palpitations: (14) Anxiety: Multi Select Codes Urinary/Genital Urinary/Genital CPT Codes: No Charge
[2024-02-23 13:23] LABS: Bedside Glucose 84 mg/dL (74-106)
[2024-02-23 14:15] LABS: Absolute Lymphocyte Count 1.33 X10^3/uL (0.83-4.51); Basophil# 0.04 X10^3/uL; Basophil% 0.5 % (0-1); Eosinophils% 1.3 % (0-5); Lymphocyte # 1.33 X10^3/ul (0.83-4.51); Lymphocyte % 16.7 % (19-41); NRBC Flagged by Analyzer 0 % (0-5); Neutrophil # 6.03 X10^3/uL (2.7-7.7); Neutrophil % 75.7 % (47-70)
--- NOTE | 2024-02-23 16:13 | PN_ITS ---
Progress Note Coping well with contractions current tracing: FHT: 135 Moderate variability reactive no decelerations category I tracing [place]: 3-4 minute Contractions Membranes:remains clear SVE:5/70/-2 A/P: Continue with position changes Titrate pitocin per protocol Epidural per anesthesia GBS neg Anticipate Dr Kimbrough aware of above assessment and agrees with plan of care Assessment & Plan Assessment/Plan (1) Severe pre-eclampsia: (2) Large for gestational age fetus: (3) Abnormal glucose affecting : (4) Proteinuria affecting : QUALIFIERS: Trimester: third trimester Qualified Code(s): O12.13 - Gestational proteinuria, third trimester (5) AMA (advanced maternal age) multigravida 35+: QUALIFIERS: Trimester: second trimester Qualified Code(s): O09.522 - Supervision of elderly multigravida, second trimester (6) Hx of gestational diabetes in prior , currently : (7) Supervision of high-risk : QUALIFIERS: Trimester: second trimester Qualified Code(s): O09.92 - Supervision of high risk , unspecified, second trimester (8) : QUALIFIERS: Weeks of gestation: 35 weeks Qualified Code(s): Z3A.35 - 35 weeks gestation of (9) Anxiety: (10) Obesity affecting : QUALIFIERS: Trimester: third trimester Qualified Code(s): O99.213 - Obesity complicating , third trimester (11) Encounter for induction of labor: (12) PVC (premature ventricular contraction): (13) Hyperlipidemia: QUALIFIERS: Hyperlipidemia type: unspecified Qualified Code(s): E78.5 - Hyperlipidemia, unspecified (14) Heart palpitations: Multi Select Codes Urinary/Genital Urinary/Genital CPT Codes: No Charge
[2024-02-23 17:25] LABS: Bedside Glucose 89 mg/dL (74-106)
[2024-02-23] MEDS: Lactated Ringers 1,000 ML 999 ML IV (18:44)
[2024-02-23] MEDS: Ondansetron 4 MG/2 ML Vial IV ×2 (19:34→23:54)
[2024-02-23] MEDS: fentaNYL-bupivacaine (epidural) 100 ML BAG EPIDURAL (19:44)
[2024-02-23 21:26] LABS: Bedside Glucose 94 mg/dL (74-106)
[2024-02-23 22:40] LABS: Bedside Glucose 93 mg/dL (74-106)
[2024-02-23 23:38] LABS: Bedside Glucose 86 mg/dL (74-106)
--- NOTE | 2024-02-23 23:50 | PN_ITS ---
Progress Note comfortable with epidural-doing well on Mag Sulfate current tracing: FHT: 130 Moderate variability reactive no decelerations category I tracing [place]: 3-4 Contractions Membranes: ruptured. remains clear Pitocin: 22mu SVE:/-2 A/P: Continue with position changes Titrate pitocin per protocol-order given to increase to 24 mu if needed Epidural per anesthesia GBS neg continue magnesium sulfate Anticipate Dr Kimbrough aware of above assessment and agrees with plan of care Assessment & Plan Assessment/Plan (1) Severe pre-eclampsia: (2) Large for gestational age fetus: (3) Abnormal glucose affecting : (4) Proteinuria affecting : QUALIFIERS: Trimester: third trimester Qualified Code(s): O12.13 - Gestational proteinuria, third trimester (5) AMA (advanced maternal age) multigravida 35+: QUALIFIERS: Trimester: second trimester Qualified Code(s): O09.522 - Supervision of elderly multigravida, second trimester (6) Hx of gestational diabetes in prior , currently : (7) Supervision of high-risk : QUALIFIERS: Trimester: second trimester Qualified Code(s): O09.92 - Supervision of high risk , unspecified, second trimester (8) : QUALIFIERS: Weeks of gestation: 35 weeks Qualified Code(s): Z3A.35 - 35 weeks gestation of (9) Anxiety: (10) Obesity affecting : QUALIFIERS: Trimester: third trimester Qualified Code(s): O99.213 - Obesity complicating , third trimester (11) Encounter for induction of labor: (12) PVC (premature ventricular contraction): (13) Hyperlipidemia: QUALIFIERS: Hyperlipidemia type: unspecified Qualified Code(s): E78.5 - Hyperlipidemia, unspecified (14) Heart palpitations: Multi Select Codes Urinary/Genital Urinary/Genital CPT Codes: No Charge
[2024-02-24] VITALS (30 sets, daily range): BP systolic 85–138; BP diastolic 52–85; PULSE 16–123; RESP 16–81; TEMP 36.1–37.2; O2SAT 79–100
[2024-02-24] MEDS: fentaNYL-bupivacaine (epidural) 100 ML BAG EPIDURAL ×2 (00:44→06:47)
--- NOTE | 2024-02-24 00:52 | PCM.PN.BLA ---
Progress Note comfortable with epidural current tracing: FHT: 130 Moderate variability reactive no decelerations category I tracing [place]: 2-4 Contractions Membranes: intact, remains clear SVE: unchanged by Dr Kimbrough reviewed tracing abnormalities since last note: in person collaboration with Dr Kimbrough at this time for unchanged cervical exam. Plan to turn mag off and recheck SVE in 2 hours. Restart magnesium if neuro symptoms return. If still unchanged plan for Pitocin wash. A/P: Continue with position changes Titrate pitocin per protocol Epidural per anesthesia GBS neg Anticipate Dr Kimbrough aware of above assessment and agrees with plan of care Assessment & Plan Assessment/Plan (1) Severe pre-eclampsia: (2) Large for gestational age fetus: (3) Abnormal glucose affecting : (4) Proteinuria affecting : QUALIFIERS: Trimester: third trimester Qualified Code(s): O12.13 - Gestational proteinuria, third trimester (5) AMA (advanced maternal age) multigravida 35+: QUALIFIERS: Trimester: second trimester Qualified Code(s): O09.522 - Supervision of elderly multigravida, second trimester (6) Hx of gestational diabetes in prior , currently : (7) Supervision of high-risk : QUALIFIERS: Trimester: second trimester Qualified Code(s): O09.92 - Supervision of high risk , unspecified, second trimester (8) : QUALIFIERS: Weeks of gestation: 35 weeks Qualified Code(s): Z3A.35 - 35 weeks gestation of (9) Anxiety: (10) Obesity affecting : QUALIFIERS: Trimester: third trimester Qualified Code(s): O99.213 - Obesity complicating , third trimester (11) Encounter for induction of labor: (12) PVC (premature ventricular contraction): (13) Hyperlipidemia: QUALIFIERS: Hyperlipidemia type: unspecified Qualified Code(s): E78.5 - Hyperlipidemia, unspecified (14) Heart palpitations: Multi Select Codes Urinary/Genital Urinary/Genital CPT Codes: No Charge
[2024-02-24 01:08] LABS: Bedside Glucose 86 mg/dL (74-106)
[2024-02-24 03:09] LABS: Bedside Glucose 95 mg/dL (74-106)
[2024-02-24 03:41] LABS: Bedside Glucose 105 mg/dL (74-106)
[2024-02-24] MEDS: Oxytocin 15 Units/NS 250ml 15 UNITS/250 ML IV.SOLN 14 UNITS IV (04:14)
[2024-02-24 04:36] LABS: Bedside Glucose 96 mg/dL (74-106)
[2024-02-24] MEDS: Lactated Ringers 1,000 ML 50 ML IV (05:13)
[2024-02-24 05:48] LABS: Bedside Glucose 101 mg/dL (74-106)
[2024-02-24 06:41] LABS: Bedside Glucose 98 mg/dL (74-106)
--- NOTE | 2024-02-24 08:13 | PCM.PN.BLA ---
Progress Note made cervical change to 7 cm, thinner and -1, head position different. reassring cat I tracing. not quite at 24 hour sof pitocin yet, s/p pit washout and haven't increased back to 24/26 mU of pit yet. discussed increasing to that and to make adequate mVU contractions before diagnosing AOD. patient asking for ocntinued expectant management. discussed risks of SD at delivery, EFW 3750g, reasonable to continue at this time. preiovus delivery 6 lb 13 ounces without difficulty, continue pit per protocol up to 26 mU. reevaluate in 2 hours.
[2024-02-24 08:19] LABS: Bedside Glucose 90 mg/dL (74-106)
[2024-02-24 08:55] LABS: Bedside Glucose 93 mg/dL (74-106)
[2024-02-24] MEDS: Ondansetron 4 MG/2 ML Vial IV (09:32)
[2024-02-24 09:48] LABS: Bedside Glucose 89 mg/dL (74-106)
[2024-02-24] MEDS: Acetaminophen 500 MG Tablet PO (10:31)
[2024-02-24] MEDS: Sodium Citrate/Citric Acid 30 ML UDC PO (10:36)
[2024-02-24] MEDS: Cefazolin 3 GM in 0.9% Normal Saline (100mL Bag) 100 ML IV (10:45)
[2024-02-24] MEDS: Azithromycin 500 MG in Dextrose 5%-Water (250mL Bag) 250 ML 250 MG IV (11:10)
[2024-02-24] MEDS: Oxytocin 15 Units/NS 250ml 15 UNITS/250 ML IV.SOLN 83 UNITS IV (12:25)
[2024-02-24 13:03] LABS: Bedside Glucose 108 mg/dL (74-106)
--- NOTE | 2024-02-24 13:25 | EX.PCM.OBRPT ---
Assessment & Plan (1) Severe pre-eclampsia: COMMENT: IOL 36.4 weeks (2) Large for gestational age fetus: COMMENT: EFW 4250g at 39 weeks, recommend checking BS at home (3) Abnormal glucose affecting : COMMENT: failed 1 hr GCT, declines 3 HR GTT and will test BS fasting & 2 hr PP for 1 wk (4) Proteinuria affecting : QUALIFIERS: Trimester: third trimester Qualified Code(s): O12.13 - Gestational proteinuria, third trimester COMMENT: weekly NST, home bps daily, weekly labs (5) AMA (advanced maternal age) multigravida 35+: QUALIFIERS: Trimester: second trimester Qualified Code(s): O09.522 - Supervision of elderly multigravida, second trimester COMMENT: carrier neg. ,genetic counseling discussed and plan NIPT (6) Hx of gestational diabetes in prior , currently : COMMENT: passed 3 hour gct, but fasting elevated-consider repeat later in (7) Supervision of high-risk : QUALIFIERS: Trimester: second trimester Qualified Code(s): O09.92 - Supervision of high risk , unspecified, second trimester COMMENT: [id number], AMANDA 03/18/24, Boy, MARIANO Gomez Ric (8) : QUALIFIERS: Weeks of gestation: 35 weeks Qualified Code(s): Z3A.35 - 35 weeks gestation of COMMENT: normal anatomy, The patient is currently 10 weeks . Given the fact her symptoms are declining I would recommend we avoid any medical therapy at this point in time. Should her symptoms increase and become quality of life limiting in addition of beta-cuong such as metoprolol 25 to 50 mg twice daily could be trialed. (9) Anxiety: COMMENT: increase celexa to 40mg/improved (10) Obesity affecting : QUALIFIERS: Trimester: third trimester Qualified Code(s): O99.213 - Obesity complicating , third trimester COMMENT: HgA1c in 1 TM, plan weekly nsts after 34, growth q4 weeks, BMI 44 initial Maternal Data Information AMANDA Calculator Estimated Delivery Date Method Current WG Current Estimate 03/18/24 LMP (Certain) 36w 5d Details Operative Information Date of Procedure: 02/24/24 Pre-Operative Diagnosis: see a/p diagnoses Post-Operative Diagnosis: same Indications for : Sec. 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 Patient was prepped and draped in the normal sterile fashion. Pfannenstiel skin incision was made with the scalpel and carried through to the underlying layer of fascia with the scalpel. Fascia was nicked in the midline and the incision extended laterally. The rectus bellies were dissected off superiorly and inferiorly with out complication both sharply and bluntly. The peritoneum was entered digitally. The incision was stretched and a low transverse uterine incision was made with the scalpel. The 's head was delivered atraumatically followed by the anterior and posterior shoulders without complication the rest of the infant delivered. The cord was clamped and cut and the was handed off to awaiting nurse. The placenta was delivered spontaneously immediately following and was noted to be intact and have a three-vessel cord. The uterus was exteriorized cleared of all clots and debris, and the incision was closed in a single layer closure using #1 Monocryl, figure of eight suture placed in the right side of the incision for hemostasis. The ovaries and fallopian tubes were noted to be within normal limits. The uterus was returned to the maternal abdomen and gutters were cleared of all clots and debris. The peritoneum was closed with 3-0 Monocryl in a running fashion. hemoblast and additional sutures used for hemostasis over the muscle. Gloves were changed prior to fascial closure. Fascia was closed with 0 PDS in a running fashion. Subcutaneous tissue was copiously irrigated and the skin was closed with 3-0 Monocryl in a subcuticular fashion. Mepilex dressing was applied without complication. Patient was taken to recovery in stable condition. It was discussed with the patient that based on the clinical information obtained during this encounter, combined with her history, at this time I would recommend for future deliveries if further pregnancies are desired. Placental Delivery Description: Spontaneous Placenta Disposition: [facility] Cord Vessel Description: 3 Vessels Delayed Cord Clamping: Yes Complications Risks of Surgery Discussed w/Patient: Bleeding, Infection, Need for Future C-Sections and Injury to surrounding structure(s) including bowel and bladder Complications: none Vaginal Delivery Operative Information Date of Procedure: 02/24/24 Admit VTE Documentation VTE Present on Admission: No VTE Mechan Device Prophylaxis: SCD's Procedures Urinary/Genital [id number]: [id number] Delivery [facility]
--- NOTE | 2024-02-24 13:30 | PCM.DC ---
Discharge Instructions Diet Discharge Diet: No restrictions Activity Discharge Activity: May Not Drive (for 2 weeks or while taking narcotic pain medications.), May Shower and May Take a Tub Bath (in 7 days) May shower in (days): 0 May resume sexual activity in: 4-6 weeks Weight Bearing Status: Full weight bearing Lifting Restrictions: 20 pounds Dressing / Incision Call your doctor if your incision/area has: Continuous Slow Oozing, Sudden Increased Bleeding, Increased Pain/ Swelling, Increased Redness and Foul Smelling Discharge Call your doctor if you observe: Fever of 101 or Higher and Using more than 1 pad per hour (for 2 hours) Suture Line Care: Avoid Pulling/Pushing and Avoid Pinching/Bending Cleanse incision/area with: Soap & Water and Keep Dressing Clean & Dry Follow Up Care Please Follow Up With: Toyin Kimbrough MD When: Call [phone] to make an appointment for an incision check in 1-2 weeks. Test Results: Test results from this visit will be discussed in further detail at your follow-up appointment, if applicable. Discharge Plan Admission Admit Date/Time: 02/23/24 06:41 Attending Provider: Toyin Kimbrough Primary Care Provider: Art Torres Discharge Orders/Prescriptions Prescriptions: New oxycodone-acetaminophen [Percocet] 5-325 mg tablet 1 tab PO Q6H PRN (Reason: pain) 7 Days Qty: 20 0RF naproxen 500 mg tablet 500 mg PO BID PRN PRN (Reason: Pain) Qty: 30 1RF No Action citalopram [Celexa] 40 mg tablet 40 mg PO DAILY Qty: 90 3RF ferrous sulfate 325 mg (65 mg iron) tablet 325 mg PO DAILY pyridoxine (vitamin B6) 25 mg tablet 12.5 mg PO DAILY Unisom (doxylamine) 25 mg tablet 12.5 mg PO QHS PRN PNV [id number] 180 mcg-35 mg- 25 mg-5 mg tablet,chewable 1 tab PO DAILY ondansetron 4 mg tablet,disintegrating 4 mg PO Q6H PRN (Reason: nausea and vomiting) Qty: 20 0RF metformin 500 mg tablet 500 mg PO HS 90 Days Qty: 90 0RF cholecalciferol (vitamin D3) [Vitamin D3] 50 mcg (2,000 unit) capsule 2,000 unit PO DAILY Referrals / Follow Up: Art Torres MD [Primary Care Provider] - Disposition Disposition (needs filled in before D/C Order can be placed): Home, Self Care
[2024-02-24] MEDS: 0.9% Saline Lock 10 ML Syringe IV ×3 (14:18→19:58)
[2024-02-24] MEDS: Ketorolac 30 MG/ML Syringe IV ×2 (14:18→19:58)
[2024-02-24] MEDS: Acetaminophen 500 MG Tablet 1000 MG PO ×2 (16:17→22:29)
[2024-02-24] MEDS: Enoxaparin 40 MG/0.4 ML Syringe SC (22:29)
[2024-02-24] MEDS: oxyCODONE 5 MG Tablet PO (22:29)
[2024-02-24] MEDS: SimETHICONE 80 MG Chewable Tablet PO (22:30)
[2024-02-25] MEDS: SimETHICONE 80 MG Chewable Tablet PO (00:01)
[2024-02-25] MEDS: Ketorolac 30 MG/ML Syringe IV ×2 (02:36→07:59)
[2024-02-25] MEDS: 0.9% Saline Lock 10 ML Syringe IV (02:37)
[2024-02-25] MEDS: oxyCODONE 5 MG Tablet PO ×4 (03:06→20:07)
[2024-02-25 04:41] VITALS: BP 132/75; PULSE 91; RESP 16; TEMP 36.2; O2SAT 97
[2024-02-25] MEDS: Acetaminophen 500 MG Tablet 1000 MG PO ×4 (04:43→22:30)
[2024-02-25 05:12] LABS: Hematocrit 28.5 % (37-47); Hemoglobin 9.5 g/dL (12.0-15.0); Mean Corp Hgb Conc 33.3 g/dL (32-36); Mean Corpuscular Hgb 30.7 pg (27.0-32.0); Mean Corpuscular Volume 92.2 fL (81-99); Mean Platelet Vol. 12.3 fl (6.2-12.0); Platelet Count 137 K/mm3 (150-450); RBC Distribution Width CV 13.5 % (11.6-14.6); RBC Distribution Width SD 45.1 fl (35.1-43.9); Red Blood Count 3.09 M/mm3 (4.2-5.4); White Blood Count 13.5 K/mm3 (4.4-11.0)
[2024-02-25 05:33] LABS: ALB/GLOB Ratio 0.6 RATIO (0.9-2.4); AST(SGOT) 11 U/L (15-37); Alanine Aminotransfer ALT/SGPT < 6 U/L (13-56); Albumin, Serum 2.1 g/dL (3.2-5.0); Alkaline Phosphatase 92 U/L (45-117); Anion Gap 3 (5-15); BUN 10 mg/dL (7-18); BUN/Creat Ratio 16.7 RATIO (10-20); Calcium,Total 8.5 mg/dL (8.5-10.1); Chloride 104 mmol/L (98-107); EST Glomerular Filtration Rate 121 mL/min (>60); Est Glom Filt Rate - Afr Amer 146 mL/min (>60); Estimated Creatinine Clearance 189.88 ml/min; Globulin 3.3 g/dL (2.2-4.2); Glucose 121 mg/dL (74-106); Potassium 3.8 mmol/L (3.5-5.1); Protein, Total 5.4 g/dL (6.4-8.2); Sodium Level 132 mmol/L (136-145)
[2024-02-25 06:20] LABS: Bedside Glucose 124 mg/dL (74-106)
--- NOTE | 2024-02-25 08:01 | PN.OBGYN_ITS ---
Subjective Subjective Patient doing well without complaints. Tolerating PO. Ambulating and voiding without difficulty. Feeding well. Denies chest pain, shortness of breath, calf pain/swelling, fevers, chills, lightheadedness. Objective Data Objective Data Vital Signs: Vital Signs Temp Pulse Resp BP Pulse Ox O2 Del Method 97.2 F L 91 16 132/75 H 97 Room Air 02/25/24 04:41 02/25/24 04:41 02/25/24 04:41 02/25/24 04:41 02/25/24 04:41 02/25/24 04:41 Oxygen Delivery Method Room Air Weight: 295 lb 4 oz Body Mass Index (BMI) 44.9 Intake & Output: Intake and Output for Last 24 Hours 02/23/24 02/24/24 02/25/24 23:59 23:59 23:59 Intake Total 2296.77 / 2296.77 2598.73 / 2598.73 Output Total 1750 / 1750 1900 / 1900 500 / 500 Balance 546.77 / 546.77 698.73 / 698.73 -500 / -500 Lab / Micro Data 02/25/24 04:50 02/25/24 04:50 Labs: Laboratory Results - last 24 hr 02/24/24 07:42: POC Glucose 90 02/24/24 08:20: POC Glucose 93 02/24/24 09:22: POC Glucose 89 02/24/24 12:16: POC Glucose 108 H 02/25/24 04:49: POC Glucose 124 H 02/25/24 04:50: WBC 13.5 H, RBC 3.09 L, Hgb 9.5 L, Hct 28.5 L, MCV 92.2, MCH 30.7, MCHC 33.3, RDW Std Deviation 45.1 H, RDW Coeff of Silas 13.5, Plt Count 137 L, MPV 12.3 H, Sodium 132 L, Potassium 3.8, Chloride 104, Carbon Dioxide 25.0, A nion Gap 3 L, BUN 10, Creatinine 0.60, Estim Creat Clear Calc 189.88, Est GFR (MDRD) Af Amer 146, Est GFR (MDRD) Non-Af 121, BUN/Creatinine Ratio 16.7, G lucose 121 H, Calcium 8.5, Total Bilirubin 0.40, AST 11 L, ALT < 6 L, Alkaline Phosphatase 92, Total Protein 5.4 L, Albumin 2.1 L, Globulin 3.3, A lbumin/Globulin Ratio 0.6 L Physical Exam Const alert and oriented x3 HEENT normocephalic Eyes PERRL Neck full ROM Resp normal respiratory effort GI soft to palpation GI Narrative: FF below U. Dressing dry and intact Palpation: tender other (appropriately) Assessment & Plan (1) delivery delivered: COMMENT: LT aod 6-7 cm preeclampsia 36 boy [place] (2) Severe pre-eclampsia: QUALIFIERS: Trimester: unspecified trimester Qualified Code(s): O 14.10 - Severe pre-eclampsia, unspecified trimester COMMENT: IOL 36.4 weeks (3) Anemia: QUALIFIERS: Anemia type: iron deficiency Iron deficiency anemia type: unspecified iron deficiency Qualified Code(s): D50.9 - Iron deficiency anemia, unspecified (4) Thrombocytopenia: PLAN: Plan s/p LTCS PPD # 1 1. routine post care 2. breast feeding- support given 3. rh positive 4. rubella immune 5. rpt CBC noon today
[2024-02-25 09:30] VITALS: BP 109/63; PULSE 84; RESP 16; TEMP 36.1
[2024-02-25] MEDS: Senna/Docusate Sodium 1 Tablet PO (10:19)
[2024-02-25] MEDS: Enoxaparin 40 MG/0.4 ML Syringe SC ×2 (10:19→22:30)
[2024-02-25] MEDS: Citalopram 40 MG TABLET PO (10:19)
[2024-02-25 12:23] LABS: Absolute Lymphocyte Count 1.09 X10^3/uL (0.83-4.51); Absolute Neutrophil Count 9.2 X10^3/uL (2.0-7.7); Basophil# 0.02 X10^3/uL; Basophil% 0.2 % (0-1); Eosinophil# 0.05 X10^3/uL; Eosinophils% 0.5 % (0-5); Hematocrit 28.3 % (37-47); Hemoglobin 9.3 g/dL (12.0-15.0); Lymphocyte # 1.09 X10^3/ul (0.83-4.51); Lymphocyte % 9.9 % (19-41); Mean Corp Hgb Conc 32.9 g/dL (32-36); Mean Corpuscular Hgb 30.4 pg (27.0-32.0); Mean Corpuscular Volume 92.5 fL (81-99); Monocyte# 0.59 X10^3/uL; Monocyte% 5.4 % (0-10); NRBC Flagged by Analyzer 0 % (0-5); Neutrophil # 9.16 X10^3/uL (2.7-7.7); Neutrophil % 83.4 % (47-70); Platelet Count 131 K/mm3 (150-450); RBC Distribution Width CV 13.6 % (11.6-14.6); RBC Distribution Width SD 45.7 fl (35.1-43.9); Red Blood Count 3.06 M/mm3 (4.2-5.4)
[2024-02-25] MEDS: Naproxen 500 MG Tablet PO ×2 (14:49→22:30)
--- NOTE | 2024-02-25 14:49 | CASEMGMT ---
Social Work Assessment Labor and Delivery Unit Patient Address: [address] [place] [address] [place] [address] Phone number: [phone] Date of Referral:02/23/24 Time of Referral:? 1451 Referred By: Shante Davidson Date of Intervention:02/25/24 ?? Time of Intervention:? 1400 Reason for Referral:?history of anxiety, post anxiety, on celexa, working well. 22mos old child at home Sw completed chart review and acknowledges social work consult due to maternal mental health history. Sw presented to bedside and introduced self to mother of baby (VINCENT Daugherty). Sw explained reason for sw involvement and completed psychosocial assessment. History obtained from: medical records and mother of baby (MARIEL)??? Household composition: Currently residing in the family home is MOB, father of baby (NIKA- Ric), their almost two year old daughter- Patricia and baby to also be included in residence when ready for discharge. MARIEL denies any concerns with housing, states that it is safe and secure. Patient's parent/guardian status:? ?MARIEL states that she and NIKA have known each other since they were little kids, and have been together for 16 years. baby is second baby for both parents. No concerns regarding domestic violence or intimate partner violence. Medical History: ?MARIEL is 33 year old female who is 3, para 1- now 2 following labor and delivery of . MARIEL presented to hospital for scheduled induction of labor due to worsening symptoms of pre-eclampsia. MARIEL labored for two days and then consented to due to failure to progress when recommended by provider. MARIEL delivered baby via on 02/24/24 at 36 weeks gestation. Baby boy, named Mikel Smith, was born weighing 6lb 15oz. MARIEL states that she is breast feeding and it is going well. Baby will be followed by Dr. Cabral for pediatrics. Educational Status:? MARIEL reports to obtaining her Bachelor's degree in nursing and NIKA is a qualified craft worker electrician. No concerns with reading, learning or comprehension for either parent. Financial Status: Both parents are gainfully employed outside of the home. 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 Infant Supplies: Parents have obtained all necessary baby supplies, including: car seat, safe sleep space, clothes, diapers and wipes. Childcare/Caregiver(s):? MARIEL states that she works only 2 days out of the week, and on the days that she works her mom will provide childcare. Transportation:?? Both parents have their drivers license and reliable means of transportation. No barriers. Programs/Agencies Involved: ???Parents are not connected to any community resources that assist them financially. MARIEL was previously connected to mental health services and supports through [facility]. Children Services/Legal Issues:??No history of children services involvement, no issues or concerns warranting referral to be made at this time. ? Behavioral Health Issues: ??Mental Health History: MARIEL states that NIKA does not have any mental health diagnoses. MARIEL states that she has always had anxiety at baseline, and her counselor told her that she tends to catastrophize everything. ?MARIEL reports that she did experience anxiety, that started soon after delivery. MOB states that she was sleep deprived, she couldn't sleep and was anxious all the time. MOB states that she talked to her OBGYN about her symptoms and they prescribed celexa. MOB states that she can tell a big difference with the medication. ?? Substance Use History:? MARIEL denies substance use prior to and during . ? Family History:?MOB denies family history of substance use or significant mental health diagnoses. ? Drug Screens: No drug screens observed in chart review. Family/Social Stressors:? MARIEL denies any issues concerns or stressors at this time. MARIEL acknowledges her mental health history, and states that she is going into this period mindful of her experiences following her last delivery and feels more prepared than the last time. Support Systems: MOB identifies that NIKA and her parents are her biggest supports. Depression/Shaken Baby/Safe Sleeping: Sw educated MOB on signs and symptoms of baby blues and depression and anxiety. MOB states that she is aware of what symptoms to be on the lookout for, and also knows what her triggers are and how her mind will go from 0-100 really quick and think worst case scenario. MOB states that NIKA will be able to recognize when she is struggling and will know how to help and support her. Sw educated MOB on shaken baby prevention and ABCs of safe sleep. MOB expressed understanding. ASSESSMENT:? MOB currently admitted following labor and delivery of . MOB talkative and receptive to sw involvement and support. MOB appropriately tearful during conversation and completion of psychosocial assessment. MOB states that she was scared to have a and ultimately that is the labor that she required. MOB states that she struggled with anxiety, but feels really good at this time and is mindful of warning signs to lookout for. MOB has obtained all necessary baby supplies for baby and has natural supports in place. PLAN:?? No other services requested or indicated. MOB and baby to be discharged when medically ready. Parents were provided literature regarding: signs and symptoms of baby blues and mood and anxiety disorders, Help Me Grow, shaken baby prevention, ABCs of safe sleep and a [facility] that are available for them should any needs present themselves. Rubio Khan, COLLECTIVE BARGAINING SPECIALIST, AGRICULTURE EXTENSION SPECIALIST
[2024-02-25 14:50] VITALS: BP 137/81; PULSE 93; RESP 16; TEMP 36.2
[2024-02-25 20:08] VITALS: BP 137/110; PULSE 90; RESP 16; TEMP 36.2; O2SAT 100
[2024-02-26 02:26] VITALS: BP 112/56; PULSE 83; RESP 16; TEMP 36.1; O2SAT 97
[2024-02-26] MEDS: Acetaminophen 500 MG Tablet 1000 MG PO ×2 (04:31→09:55)
[2024-02-26] MEDS: oxyCODONE 5 MG Tablet PO (04:38)
[2024-02-26] MEDS: Naproxen 500 MG Tablet PO (05:30)
--- NOTE | 2024-02-26 06:44 | PCM.DC.SUM ---
Providers Date of Admission: 02/23/24 Primary Care Physician: Dr. Art Torres MD Reason For Visit: PRIMARY C SECTION Diagnosis Discharge Diagnosis (1) delivery delivered: Status: Acute Code(s): O82 - Encounter for delivery without indication (2) Severe pre-eclampsia: Status: Acute Code(s): O14.10 - Severe pre-eclampsia, unspecified trimester Qualifiers: Trimester: unspecified trimester Qualified Code(s): O14.10 - Severe pre-eclampsia, unspecified trimester (3) Anemia: Status: Acute Code(s): D64.9 - Anemia, unspecified Qualifiers: Anemia type: iron deficiency Iron deficiency anemia type: unspecified iron deficiency Qualified Code(s): D50.9 - Iron deficiency anemia, unspecified (4) Thrombocytopenia: Status: Acute Code(s): D69.6 - Thrombocytopenia, unspecified Medications at Discharge Home Medications citalopram 40 mg tablet (Celexa) 40 mg PO DAILY #90 tabs 05/27/22 cholecalciferol (vitamin D3) 50 mcg (2,000 unit) capsule (Vitamin D3) 2,000 unit PO DAILY 06/28/23 doxylamine succinate 25 mg tablet (Unisom (doxylamine)) 12.5 mg PO QHS PRN 07/29/23 ferrous sulfate 325 mg (65 mg iron) tablet 325 mg PO DAILY 07/29/23 pyridoxine (vitamin B6) 25 mg tablet 12.5 mg PO DAILY 07/29/23 PNV [id number] 180 mcg-om3 35 mg-dha 25 mg-epa 5 mg-fish oil chew tablet 1 tab PO DAILY 08/20/23 ondansetron 4 mg disintegrating tablet 4 mg PO Q6H PRN nausea and vomiting #20 tabs 08/20/23 metformin 500 mg tablet 500 mg PO HS 90 days #90 tabs 02/18/24 naproxen 500 mg tablet 500 mg PO BID PRN PRN Pain #30 tabs 02/24/24 oxycodone-acetaminophen 5 mg-325 mg tablet (Percocet) 1 tab PO Q6H PRN pain 7 days #20 tabs 02/24/24 Hospital Course Operations section Summary of Care Provided Minutes Spent on Discharge: 30 Hospital Course: The patient was admitted for IOL on 02/23/24. She failed to make cervical change and on 02/24/24 a section was performed by Dr. kimbrough. There were no complications. On day #1 she was tolerating pain well and ambulating, on day #2 she was ready for discharge. Physical Exam HEENT normocephalic Resp normal respiratory effort and normal air movement GI soft to palpation, non-tender and non-distended Rectal Exam: other Other Details: Incision is clean, dry, and intact no CVA tenderness Extremity normal to inspection General Extremity: edema bilateral (trace ) Weight / BMI Weight Weight: 295 lb 4 oz Body Mass Index (BMI) 44.9 ABG / Lab / Microbiology Data 02/25/24 12:08 02/25/24 04:50 Laboratory: Laboratory Results - last 24 hr 02/25/24 12:08: WBC 11.0, RBC 3.06 L, Hgb 9.3 L, Hct 28.3 L, MCV 92.5, MCH 30.4, MCHC 32.9, RDW Std Deviation 45.7 H, RDW Coeff of Silas 13.6, Plt Count 131 L, MPV 12.0, Immature Gran % (Auto) 0.600, Neut % (Auto) 83.4 H, Lymph % (Auto) 9.9 L, [place] % (Auto) 5.4, Eos % (Auto) 0.5, Baso % (Auto) 0.2, Absolute Neuts (auto) 9.2 H, Absolute Lymphs (auto) 1.09, Nucleated RBC % 0 D/C Instructions Discharge Diet: No restrictions May shower in (days): 0 May resume sexual activity in: 4-6 weeks Weight Bearing Status: Full weight bearing Call your doctor if your incision/area has: Continuous Slow Oozing, Sudden Increased Bleeding, Increased Pain/ Swelling, Increased Redness and Foul Smelling Discharge Call your doctor if you observe: Fever of 101 or Higher and Using more than 1 pad per hour (for 2 hours) Suture Line Care: Avoid Pulling/Pushing and Avoid Pinching/Bending Cleanse incision/area with: Soap & Water and Keep Dressing Clean & Dry Please Follow Up With: Toyin Kimbrough MD When: Call [phone] to make an appointment for an incision check in 1-2 weeks. Meaningful Use Info Meaningful Use Meaningful Use Diagnoses (Choose all that apply): None applicable Ischemic Stroke Statin Dosing Therapy Reference: STATIN DOSE THERAPY REFERENCE: * Patients > 75 years receive moderate or high dose statin therapy. * Patients 75 years or YOUNGER should receive HIGH intensity statin dose unless contraindicated. You will be required to document reason for non-treatment if statin daily dose does not meet guidelines. HIGH DOSE STATIN THERAPY DAILY Atorvastatin > than or = to 40 mg Rosuvastatin > than or = to 20 mg Amlodipine + Atorvastatin > than or = to 2.5/40 mg Ezetimibe + Simvastatin 10/80 mg Simvastatin 80mg Discharge Plan Admission Admit Date/Time: 02/23/24 06:41 Attending Provider: Toyin Kimbrough Primary Care Provider: Art Torres Discharge Orders/Prescriptions Prescriptions: New oxycodone-acetaminophen [Percocet] 5-325 mg tablet 1 tab PO Q6H PRN (Reason: pain) 7 Days Qty: 20 0RF naproxen 500 mg tablet 500 mg PO BID PRN PRN (Reason: Pain) Qty: 30 1RF No Action citalopram [Celexa] 40 mg tablet 40 mg PO DAILY Qty: 90 3RF ferrous sulfate 325 mg (65 mg iron) tablet 325 mg PO DAILY pyridoxine (vitamin B6) 25 mg tablet 12.5 mg PO DAILY Unisom (doxylamine) 25 mg tablet 12.5 mg PO QHS PRN PNV [id number] 180 mcg-35 mg- 25 mg-5 mg tablet,chewable 1 tab PO DAILY ondansetron 4 mg tablet,disintegrating 4 mg PO Q6H PRN (Reason: nausea and vomiting) Qty: 20 0RF metformin 500 mg tablet 500 mg PO HS 90 Days Qty: 90 0RF cholecalciferol (vitamin D3) [Vitamin D3] 50 mcg (2,000 unit) capsule 2,000 unit PO DAILY Referrals / Follow Up: Art Torres MD [Primary Care Provider] - Disposition Disposition (needs filled in before D/C Order can be placed): Home, Self Care
[2024-02-26 09:04] VITALS: BP 134/87; PULSE 85; RESP 16; TEMP 36.6
[2024-02-26] MEDS: Senna/Docusate Sodium 1 Tablet PO (09:54)
[2024-02-26] MEDS: Enoxaparin 40 MG/0.4 ML Syringe SC (09:55)
[2024-02-26] MEDS: Citalopram 40 MG TABLET PO (09:55)
== END 2024-02-26 13:20 | disposition home or self-care (01) | DRG 788 ==
LOC: WPOUT 06:58 → WP 07:11
PROVIDERS: Nurse Practitioner Women's Health; Admitting Provider Obstetrics & Gynecology; PCP Family Medicine; Referring Provider Obstetrics & Gynecology; Visit Provider Obstetrics & Gynecology
DX: O14.14 Severe pre-eclampsia complicating childbirth (principal); D69.6 Thrombocytopenia, unspecified; D50.9 Iron deficiency anemia, unspecified; O99.214 Obesity complicating childbirth; E78.2 Mixed hyperlipidemia; O72.3 Postpartum coagulation defects; O36.63X0 Maternal care for excessive fetal growth, third trimester, not applicable or unspecified; O99.284 Endocrine, nutritional and metabolic diseases complicating childbirth; F41.1 Generalized anxiety disorder; O99.344 Other mental disorders complicating childbirth; O90.81 Anemia of the puerperium; Z37.0 Single live birth; Z3A.36 36 weeks gestation of pregnancy; Z79.82 Long term (current) use of aspirin; Z79.84 Long term (current) use of oral hypoglycemic drugs; Z79.899 Other long term (current) drug therapy; Z86.32 Personal history of gestational diabetes
CPT/HCPCS: 59025; 59050; 76815; 80053; 82565; 82570; 82962; 83615; 84156; 84450; 84460; 84550; 85025; 85027; 86780; 86850; 86900; 86901; 99221; J7120; A4216; G0378; J2405

== ENCOUNTER 2024-03-08 14:55 | Emergency (ER) | payer OTHER, SELFPAY ==
[2024-03-08 14:57] VITALS: BP 146/94; PULSE 90; RESP 16; TEMP 36.6; O2SAT 99; BMI 41.8
--- NOTE | 2024-03-08 16:39 | CT_ITS ---
STUDY: CT ABDOMEN AND PELVIS WITH CONTRAST REASON FOR EXAM: Female, 33 years old. lower abd painful mass, recent RADIATION DOSAGE (If Supplied By Facility): CTDIvol = ( 15.23 ) mGy, DLP = ( 1258.77 ) mGycm TECHNIQUE: Transaxial images were obtained from the dome of the diaphragm to the symphysis pubis without oral contrast. IV 100mL Isovue-370 was administered. Sagittal and coronal images were reconstructed. Individualized dose optimization techniques were used for this CT. The protocol utilizes one or more of the following dose reduction techniques: automated exposure control, adjustment of mA and/or kV according to patient size,and/or use of iterative reconstruction technique. COMPARISON: Ultrasound February 20, 2024. FINDINGS: The visualized lung bases are unremarkable. The visualized portions of the heart are within normal limits. Normal liver. Gallbladder is contracted. Normal spleen. Normal pancreas. Normal bilateral adrenal glands. Normal right kidney. Normal left kidney. Normal visualized stomach. Normal small intestine. Normal colon. The appendix is visualized and appears normal. Normal abdominal aorta. Normal inferior vena cava. Normal retroperitoneum. Normal urinary bladder. Fat-containing umbilical hernia. Uterus is prominent with. Anterior myometrial ill-defined defect.. Subcutaneous stranding. Normal osseous structures. Large bilateral collections bilateral lower anterior abdominal wall measuring 5 x 7.5 cm on the left and 3.5 cm in AP and transverse dimensions on the right. CT/Abdomen/Pelvis W IV Cont ONLY IMPRESSION: Subcutaneous fluid collections bilateral lower intra-abdominal wall. Differential considerations include seroma, hematomas, and abscess. Electronically Signed: Demarcus Lauren MD at 20:19 EDT ,
--- NOTE | 2024-03-08 16:46 | EX.ED.DYSGE1 ---
HPI History of Present Illness Chief Complaint: Rash Informant: patient Narrative Narrative: 33-year-old female status post 2 weeks ago, she had preeclampsia, sent down from the office today because she has a painful lump above her incision in her pelvis that has been getting worse, and because she has had pruritic urticaria/rash for the last 3 to 4 days. It started in her lower abdomen and spread up her abdomen and chest and into her arms. No systemic symptoms with it otherwise. She is been taking Zyrtec and putting hydrocortisone cream on it but nothing is helping. She denies any new medications. She is on the same medication she was on prior to the and no changes of them. No syncope or peripheral edema or fever/chills. No problems with bowel movements or urination. No nausea or vomiting. [facility] Medical History Obesity affecting Hx of gestational diabetes in prior , currently Large for gestational age fetus Abnormal glucose affecting AMA (advanced maternal age) multigravida 35+ Proteinuria affecting Superficial varicosities Asthma PVC (premature ventricular contraction) Hyperlipidemia Pancreatitis Vaginal delivery Heart palpitations Complete Infertility Seasonal allergies Rosacea Obesity Mixed dyslipidemia Migraine with aura BALJIT (generalized anxiety disorder) Home Medications ?Medication ?Instructions ?Recorded ?Last Taken ?Type citalopram 40 mg tablet (Celexa) 40 mg PO DAILY #90 tabs 05/27/22 Unknown Rx cholecalciferol (vitamin D3) 50 2,000 unit PO DAILY 06/28/23 Unknown History mcg (2,000 unit) capsule (Vitamin D3) doxylamine succinate 25 mg tablet 12.5 mg PO QHS PRN allergy symptoms 07/29/23 Unknown History (Unisom (doxylamine)) ferrous sulfate 325 mg (65 mg 325 mg PO DAILY 07/29/23 Unknown History iron) tablet pyridoxine (vitamin B6) 25 mg 12.5 mg PO DAILY 07/29/23 Unknown History tablet PNV [id number] 180 mcg-om3 35 mg-dha 1 tab PO DAILY 08/20/23 Unknown History 25 mg-epa 5 mg-fish oil chew tablet ondansetron 4 mg disintegrating 4 mg PO Q6H PRN nausea and 08/20/23 Unknown Rx tablet vomiting #20 tabs metformin 500 mg tablet 500 mg PO HS 90 days #90 tabs 02/18/24 Unknown Rx naproxen 500 mg tablet 500 mg PO BID PRN PRN Pain #30 tabs 02/24/24 Unknown Rx oxycodone-acetaminophen 5 mg-325 1 tab PO Q6H PRN pain 7 days #20 02/24/24 Unknown Rx mg tablet (Percocet) tabs prednisone 20 mg tablet 20 mg PO DAILY #4 tabs 03/09/24 Unknown Rx Allergy/AdvReac Type Severity Reaction Status Date / Time Sulfa (Sulfonamide Allergy Hives Verified 03/08/24 13:57 Antibiotics) Family History Mother Thyroid cancer Hypertension Father Hypertension Hyperlipidemia Grandfather Leukemia Lung cancer Grandmother Diabetes PFO (patent foramen ovale) Paternal- Repaired Atrial fibrillation History of transcatheter aortic valve replacement (TAVR) Brother Diabetes Type 1 Surgical History [place] teeth extracted Social History adopted: No household members: spouse and children number of children: 1 current occupational status: employed 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 pets and animals: Yes (avoid litter box) pets and animals: cat(s) and dog(s) history of recent travel: No sexually active: Yes Smoking Status: Never smoker alcohol intake: current details: not while substance use type: does not use well-balanced diet: daily or most days caffeine: Yes Type: coffee Number of servings: 1 eating out: 1-3 times/week during the past year weight has: remained stable what type of physical activity do you participate in: none liban/caodaism: None seatbelt use: always do you feel safe at home: Yes additional social history: - Ric 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 [employer] ROS ROS ED Constitutional Constitutional ED: Denies chills or fever(s) Eyes Eyes: Denies change in vision or diplopia ENT ENT ED: Denies rhinorrhea or sore throat Cardiovascular Cardiovascular: Denies chest pain or palpitations Respiratory/Chest Respiratory/Chest: Denies cough or dyspnea Gastrointestinal Gastrointestinal: Reports abdominal pain; Denies diarrhea, nausea or vomiting Genitourinary Genitourinary ED: Denies dysuria or hematuria Musculoskeletal Musculoskeletal: Denies back pain or neck pain Integumentary Reports pruritus and rash; Denies abscess Neurologic Neurologic: Denies headache(s), paresthesias or weakness Psychiatric Psychiatric: Denies anxiety or suicidal thoughts EXAM Physical Exam Const Vital Signs: 03/08/24 14:57 03/08/24 19:00 03/08/24 23:00 Temperature 97.8 F Temperature Source Temporal Pulse Rate 90 70 70 Respiratory Rate 16 18 18 Blood Pressure 146/94 H 125/63 H 122/72 H Blood Pressure Mean 111 83 88 Pulse Ox 99 99 98 Oxygen Delivery Method Room Air Room Air Room Air Positive well nourished and well developed Constitutional Narrative: Well-appearing in no distress General Appearance ED: well developed and NAD HEENT Reports moist mucous membranes normocephalic and atraumatic Eyes PERRL and EOMs intact bilaterally Neck full ROM and supple Resp normal respiratory effort and clear to auscultation bilaterally Cardio regular rate, regular rhythm and no murmurs GI non-distended GI Narrative: Tender subcutaneous mass/lump approximately 5 or 6 cm in diameter, it is in the lower abdomen infraumbilical but to the left and well above the incision which appears to be healing nicely without signs of dehiscence, discharge, or cellulitis/infection and it itself is nontender. There is no other areas of abdominal tenderness. There are urticaria throughout the abdominal wall above the incision. Auscultation: normoactive bowel sounds Palpation: soft Back/Spine no CVA tenderness General Back: other FROM Extremity normal to inspection General Extremety ED: Negative for edema, pulses abnormal or tenderness General Extremity: Negative for edema or pulses abnormal Neuro oriented x3, CN's II-XII intact bilaterally and no sensory deficits noted Sensorium / Orientation: awake and alert Motor Exam: strength 5/5 throughout Skin Skin Narrative: incision see above. No signs of infection or dehiscence. Urticarial rash throughout the trunk and the upper arms, the urticaria fine. There is no petechia or purpura or bullae. Nothing that is tender. MDM MDM MDM Narrative Medical decision making narrative: Patient's OB called down and requested a CT for this area to evaluate it as well as some labs because of her blood pressures. We obtained labs, liver enzymes and the rest of her labs are normal, her blood pressure was monitored, the most recent 125/63 without treating it and she is doing well. I reviewed the CT images as well as the report which I agree with, it shows bilateral pelvic abdominal wall seromas, superior to the incision but communicating from it. My suspicion is that these fluid collections are seromas rather than abscesses given her normal white blood count, lack of overlying signs of cellulitis and lack of fever. They are uncomfortable but she is not in severe pain. I discussed with Dr. Xie, who states she would advise having the patient undergo CT-guided aspiration. However it is known to me that IR radiologist is not available this entire week for that procedure. Therefore she and the patient and her comfortable with me attempting ultrasound-guided aspiration. This was done see the procedure note. I am at a very low suspicion that these were infected, both preprocedurally and visualizing the specimens after pulling them. Therefore we will send him for culture but I do not think that she needs empiric antibiotics. Additionally, after discussing with CALENDER FEEDER, the patient is safe to breast-feed while taking an occasional diphenhydramine and low-dose prednisone without the need to pump and dump, so we will going to treat the patient with 20 mg a day for total of 5 days with the first dose being given here for the hives of unknown etiology. I do not think these indicate an acute infection. She is in agreement comfortable with following up with her doctor. Lab Data Attestation: I reviewed the patient's lab results. Labs: Laboratory Results - last 24 hr 03/08/24 16:50 WBC 7.9 RBC 4.39 Hgb 12.9 Hct 39.9 MCV 90.9 MCH 29.4 MCHC 32.3 RDW Std Deviation 40.3 RDW Coeff of Silas 12.1 Plt Count 351 MPV 10.4 Immature Gran % (Auto) 0.600 Neut % (Auto) 67.8 Lymph % (Auto) 20.5 [place] % (Auto) 4.3 Eos % (Auto) 6.2 H Baso % (Auto) 0.6 Absolute Neuts (auto) 5.4 Absolute Lymphs (auto) 1.63 Nucleated RBC % 0 Sodium 138 Potassium 4.0 Chloride 108 H Carbon Dioxide 27.0 Anion Gap 4 L BUN 14 Creatinine 0.72 Estim Creat Clear Calc 151.91 Est GFR (MDRD) Af Amer 119 Est GFR (MDRD) Non-Af 99 BUN/Creatinine Ratio 19.6 Glucose 85 Calcium 9.1 Total Bilirubin 0.30 AST 26 ALT 24 Alkaline Phosphatase 84 Total Protein 7.7 Albumin 3.1 L Globulin 4.6 H Albumin/Globulin Ratio 0.7 L Radiography Diagnostic Testing: Clinical Impression(s) from Imaging Studies Abdomen/Pelvis CT 03/08/24 16:39 IMPRESSION: Subcutaneous fluid collections bilateral lower intra-abdominal wall. Differential considerations include seroma, hematomas, and abscess. Electronically Signed: Demarcus Lauren MD at 20:19 EDT Reading Location ID and State: [facility] / [place] Tel , Service support , Management Discussion w/another healthcare provider: Chest Painting Leader Procedures Other Procedures Procedure(s): Needle aspiration abdominal wall seroma x 2: After informed consent from the patient, using ultrasound guidance, I visualized the seromas in real-time, 1 on the left larger, 1 on the right smaller and deeper, then provided local anesthesia with a total of 4 cc of plain 1% lidocaine, and in separate procedures, a total of 3, aspirated 40 cc of transparent yellow serous fluid from the left abdominal fluid collection, followed by 30 cc using ultrasound guidance of bloody transparent serous fluid from the right abdominal fluid collection, and then again visualizing what was left of the left abdominal collection and pulling and a third procedure 30 more cc for a total of 70 from the left abdominal fluid collection. Bandage with bacitracin on both sides, tolerated well with no complications. No symptoms to suggest peritoneal penetration. Both specimens sent for separate cultures. Discharge Plan Triage Chief Complaint: Rash ED Provider: Artie Nagel Dx/Rx/DC Orders Clinical Impression: Postoperative seroma of subcutaneous tissue after non-dermatologic procedure, Urticaria Instructions: ED Hives (Adult), ED Seroma, Postsurgical Prescriptions: New prednisone 20 mg tablet 20 mg PO DAILY Qty: 4 0RF No Action citalopram [Celexa] 40 mg tablet 40 mg PO DAILY Qty: 90 3RF ferrous sulfate 325 mg (65 mg iron) tablet 325 mg PO DAILY pyridoxine (vitamin B6) 25 mg tablet 12.5 mg PO DAILY Unisom (doxylamine) 25 mg tablet 12.5 mg PO QHS PRN (Reason: allergy symptoms) PNV [id number] 180 mcg-35 mg- 25 mg-5 mg tablet,chewable 1 tab PO DAILY ondansetron 4 mg tablet,disintegrating 4 mg PO Q6H PRN (Reason: nausea and vomiting) Qty: 20 0RF metformin 500 mg tablet 500 mg PO HS 90 Days Qty: 90 0RF cholecalciferol (vitamin D3) [Vitamin D3] 50 mcg (2,000 unit) capsule 2,000 unit PO DAILY oxycodone-acetaminophen [Percocet] 5-325 mg tablet 1 tab PO Q6H PRN (Reason: pain) 7 Days Qty: 20 0RF naproxen 500 mg tablet 500 mg PO BID PRN PRN (Reason: Pain) Qty: 30 1RF Primary Care Provider: Timothy Sevilla Referrals: Toyin Kimbrough MD [Med Staff - Active Staff] - 3-5 Days Print Language: Chinese Disposition Disposition: Home, Self Care
[2024-03-08 16:58] LABS: Absolute Lymphocyte Count 1.63 X10^3/uL (0.83-4.51); Absolute Neutrophil Count 5.4 X10^3/uL (2.0-7.7); Basophil# 0.05 X10^3/uL; Basophil% 0.6 % (0-1); Eosinophil# 0.49 X10^3/uL; Eosinophils% 6.2 % (0-5); Hematocrit 39.9 % (37-47); Hemoglobin 12.9 g/dL (12.0-15.0); Lymphocyte # 1.63 X10^3/ul (0.83-4.51); Lymphocyte % 20.5 % (19-41); Mean Corp Hgb Conc 32.3 g/dL (32-36); Mean Corpuscular Hgb 29.4 pg (27.0-32.0); Mean Corpuscular Volume 90.9 fL (81-99); Mean Platelet Vol. 10.4 fl (6.2-12.0); Monocyte# 0.34 X10^3/uL; Monocyte% 4.3 % (0-10); NRBC Flagged by Analyzer 0 % (0-5); Neutrophil # 5.38 X10^3/uL (2.7-7.7); Neutrophil % 67.8 % (47-70); Platelet Count 351 K/mm3 (150-450); RBC Distribution Width CV 12.1 % (11.6-14.6); RBC Distribution Width SD 40.3 fl (35.1-43.9); Red Blood Count 4.39 M/mm3 (4.2-5.4); White Blood Count 7.9 K/mm3 (4.4-11.0)
[2024-03-08 17:18] LABS: ALB/GLOB Ratio 0.7 RATIO (0.9-2.4); AST(SGOT) 26 U/L (15-37); Alanine Aminotransfer ALT/SGPT 24 U/L (13-56); Albumin, Serum 3.1 g/dL (3.2-5.0); Alkaline Phosphatase 84 U/L (45-117); Anion Gap 4 (5-15); BUN 14 mg/dL (7-18); BUN/Creat Ratio 19.6 RATIO (10-20); Calcium,Total 9.1 mg/dL (8.5-10.1); Chloride 108 mmol/L (98-107); Creatinine, Serum 0.72 mg/dL (0.55-1.02); EST Glomerular Filtration Rate 99 mL/min (>60); Est Glom Filt Rate - Afr Amer 119 mL/min (>60); Estimated Creatinine Clearance 151.91 ml/min; Globulin 4.6 g/dL (2.2-4.2); Glucose 85 mg/dL (74-106); Protein, Total 7.7 g/dL (6.4-8.2); Sodium Level 138 mmol/L (136-145)
[2024-03-08 19:00] VITALS: BP 125/63; PULSE 70; RESP 18; O2SAT 99
[2024-03-08 23:00] VITALS: BP 122/72; PULSE 70; RESP 18; O2SAT 98
[2024-03-08] MEDS: Lidocaine 1% (20 ml mdv) 20 ML Vial 10 ML INFILT (23:13)
[2024-03-08 23:58] VITALS: BP 122/72; PULSE 70; RESP 16; TEMP 36.9; O2SAT 99
[2024-03-09] MEDS: predniSONE 20 MG Tablet PO
== END 2024-03-09 00:20 | disposition home or self-care (01) ==
PROVIDERS: Emergency Provider Emergency Medicine; PCP Family Medicine; Visit Provider Emergency Medicine
DX: O90.89 Other complications of the puerperium, not elsewhere classified (principal); L76.34 Postprocedural seroma of skin and subcutaneous tissue following other procedure; Y83.8 Other surgical procedures as the cause of abnormal reaction of the patient, or of later complication, without mention of misadventure at the time of the procedure; E78.2 Mixed hyperlipidemia; O99.73 Diseases of the skin and subcutaneous tissue complicating the puerperium; L50.9 Urticaria, unspecified; Z79.84 Long term (current) use of oral hypoglycemic drugs; Z79.52 Long term (current) use of systemic steroids
CPT/HCPCS: 10160; 74177; 80053; 85025; 87070; 87075; 87077; 87186; 87205; 99283; Q9967; A4216

== ENCOUNTER → 2024-03-11 | Outpatient (CLI) | payer OTHER, SELFPAY ==
[2024-03-11 17:00] LABS: Absolute Lymphocyte Count 1.35 X10^3/uL (0.83-4.51); Absolute Neutrophil Count 4.6 X10^3/uL (2.0-7.7); Basophil# 0.03 X10^3/uL; Basophil% 0.5 % (0-1); Eosinophil# 0.07 X10^3/uL; Eosinophils% 1.1 % (0-5); Hematocrit 40.9 % (37-47); Hemoglobin 12.7 g/dL (12.0-15.0); Lymphocyte # 1.35 X10^3/ul (0.83-4.51); Lymphocyte % 21.5 % (19-41); Mean Corp Hgb Conc 31.1 g/dL (32-36); Mean Corpuscular Hgb 28.6 pg (27.0-32.0); Mean Corpuscular Volume 92.1 fL (81-99); Mean Platelet Vol. 11.1 fl (6.2-12.0); Monocyte# 0.25 X10^3/uL; NRBC Flagged by Analyzer 0 % (0-5); Neutrophil # 4.55 X10^3/uL (2.7-7.7); Neutrophil % 72.4 % (47-70); Platelet Count 352 K/mm3 (150-450); RBC Distribution Width CV 11.9 % (11.6-14.6); RBC Distribution Width SD 40.1 fl (35.1-43.9); Red Blood Count 4.44 M/mm3 (4.2-5.4); White Blood Count 6.3 K/mm3 (4.4-11.0)
[2024-03-11 17:13] LABS: ALB/GLOB Ratio 0.9 RATIO (0.9-2.4); AST(SGOT) 12 U/L (15-37); Alanine Aminotransfer ALT/SGPT 20 U/L (13-56); Albumin, Serum 3.5 g/dL (3.2-5.0); Alkaline Phosphatase 79 U/L (45-117); Anion Gap 6 (5-15); BUN 15 mg/dL (7-18); BUN/Creat Ratio 21.6 RATIO (10-20); Chloride 108 mmol/L (98-107); Creatinine, Serum 0.69 mg/dL (0.55-1.02); EST Glomerular Filtration Rate 102 mL/min (>60); Est Glom Filt Rate - Afr Amer 123 mL/min (>60); Glucose 98 mg/dL (74-106); Potassium 4.2 mmol/L (3.5-5.1); Protein, Total 7.5 g/dL (6.4-8.2); Sodium Level 138 mmol/L (136-145)
== END | disposition home or self-care (01) ==
LOC: WOBLAB 16:12
PROVIDERS: PCP Family Medicine; Referring Provider Obstetrics & Gynecology; Visit Provider Obstetrics & Gynecology
DX: L76.34 Postprocedural seroma of skin and subcutaneous tissue following other procedure (principal)
CPT/HCPCS: 36415; 80053; 85025

== ENCOUNTER 2024-10-23 18:52 | Emergency (ER) | payer OTHER, SELFPAY ==
[2024-10-23 18:53] VITALS: BP 152/91; PULSE 66; RESP 19; TEMP 36.5; O2SAT 100; BMI 42.1
--- NOTE | 2024-10-23 20:08 | CT_ITS ---
PROCEDURE: CTA HEAD AND NECK W/ CONTRAST 10/23/2024 REASON FOR EXAM: ?DISSECTION TECHNIQUE: CTA HEAD AND NECK W/ CONTRAST Multiplanar and multisequence images were obtained. CONTRAST: Isovue 370 VOLUME: 100 mL One or more dose reduction techniques were used (e.g., Automated exposure control, adjustment of the mA and/or kV according to patient size, use of iterative reconstruction technique). RADIATION DOSE SUMMARY: CTDlvol: 100 mGy DLP: 1600 mGycm COMPARISON: None. FINDINGS: Noncontrast CT head: No acute intracranial hemorrhage or herniation. The frances-white matter interfaces are maintained. The ventricles and subarachnoid spaces are normal for patient age. The basal cisterns are patent. The bilateral orbits are unremarkable. Mild mucosal thickening of the bilateral maxillary sinuses. The visualized paranasal sinuses and mastoid air cells are otherwise well-aerated. No acute calvarial fracture or scalp hematoma. CTA neck: Standard three-vessel aortic arch with minimal mixed calcific plaque. The bilateral vertebral artery origins are widely patent. The bilateral cervical carotid arteries are widely patent without focal narrowing by NASCET criteria. CTA head: The bilateral anterior, middle and posterior cerebral arteries are widely patent. The basilar artery is patent. No aneurysm or AVM. Major venous structures: Unremarkable. Other findings: The biapical lungs are clear. Hypodensities within the thyroid gland, which do not meet criteria for dedicated follow-up. CT/CTA Head AND Neck W/ Contrast IMPRESSION: 1. No acute intracranial finding on noncontrast examination. 2. No large vessel occlusion, AVM or aneurysm. Reading Location: [id number]
--- NOTE | 2024-10-23 20:09 | EX.ED.VIS.HA ---
HPI History of Present Illness Chief Complaint: Headache Informant: patient and spouse/S.O. Narrative Narrative: 33-year-old female presenting to the emergency room chief complaint of headache. Patient states that she is about 8 weeks . She notes that since last Friday she has been getting sudden onset of severe pain mostly right-sided occiput that wraps towards the front. Headaches are exacerbated by light and by sound. She has been seen to emergency department and by her primary care doctor. She was started on Topamax and Imitrex without any improvement. She denies any fever or rashes. She states that she had preeclamptic labs drawn at an outside emergency department that were negative. She states that the initial headache came on when she was coughing due to a resolving viral URI. She denies any arm or leg weakness or paresthesias. No vision loss. She states that she was also started on a muscle relaxer because the possibility that she was having some muscular spasm in her neck. [facility] Medical History Obesity affecting Hx of gestational diabetes in prior , currently Large for gestational age fetus Abnormal glucose affecting AMA (advanced maternal age) multigravida 35+ Proteinuria affecting Superficial varicosities Asthma PVC (premature ventricular contraction) Hyperlipidemia Pancreatitis Vaginal delivery Heart palpitations Complete Infertility Seasonal allergies Rosacea Obesity Mixed dyslipidemia Migraine with aura BALJIT (generalized anxiety disorder) Home Medications ?Medication ?Instructions ?Recorded ?Last Taken ?Type cholecalciferol (vitamin D3) 50 2,000 unit PO DAILY 06/28/23 Unknown History mcg (2,000 unit) capsule (Vitamin D3) citalopram 40 mg tablet (Celexa) 40 mg PO DAILY #90 tabs 04/05/24 Unknown Rx metformin 500 mg tablet 500 mg PO TID 90 days #270 tabs 04/05/24 Unknown Rx ketorolac 10 mg tablet 10 mg PO Q8H PRN pain #15 tabs 10/23/24 Unknown Rx prednisone 20 mg tablet 60 mg (3 x 20 mg) PO DAILY #15 10/23/24 Unknown Rx TABLETS prochlorperazine maleate 10 mg 10 mg PO TID PRN migraine #15 tabs 10/23/24 Unknown Rx tablet (Compazine) Allergy/AdvReac Type Severity Reaction Status Date / Time Sulfa (Sulfonamide Allergy Hives Verified 10/23/24 18:53 Antibiotics) Family History Mother Thyroid cancer Hypertension Father Hypertension Hyperlipidemia Grandfather Leukemia Lung cancer Grandmother Diabetes PFO (patent foramen ovale) Paternal- Repaired Atrial fibrillation History of transcatheter aortic valve replacement (TAVR) Brother Diabetes Type 1 Surgical History [place] teeth extracted Social History adopted: No household members: spouse and children number of children: 1 current occupational status: employed 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, [place] ROS ROS ED Constitutional Constitutional ED: Denies chills or weight loss Eyes Eyes: Reports other Details: Photophobia ; Denies change in vision or diplopia ENT ENT ED: Reports other Details: Phonophobia ; Denies ear pain, rhinorrhea or sore throat Cardiovascular Cardiovascular: Denies chest pain, orthopnea, palpitations or racing heartbeat Respiratory/Chest Respiratory/Chest: Denies cough, dyspnea or orthopnea Gastrointestinal Gastrointestinal: Denies abdominal pain, diarrhea, nausea or vomiting Genitourinary Genitourinary ED: Denies dysuria, hematuria or urinary frequency Musculoskeletal Musculoskeletal: Denies arthralgias or myalgias Integumentary Denies abscess or rash Neurologic Neurologic: Reports headache(s); Denies paresthesias or weakness Psychiatric Psychiatric: Denies anxiety, depression, suicidal ideation or suicidal thoughts Endocrine Endocrinology: Denies polydipsia, polyphagia or polyuria Allergic/Immunologic Allergic/Immunologic ED: Denies mouth swelling, tongue swelling or urticaria EXAM Physical Exam Narrative Exam Narrative: Patient sitting up in a darkened room. She is tearful. She moves arms and legs without difficulty. Const Vital Signs: 10/23/24 18:53 10/23/24 20:52 10/23/24 22:41 Temperature 97.7 F L Temperature Source Temporal Pulse Rate 66 69 74 Respiratory Rate 19 H Blood Pressure 152/91 H 156/90 H 153/91 H Blood Pressure Mean 111 112 111 Pulse Ox 100 100 Oxygen Delivery Method Room Air Room Air Positive well nourished and well developed General Appearance ED: well developed HEENT Reports normocephalic, head/scalp atraumatic and moist mucous membranes Eyes PERRL and EOMs intact bilaterally Neck no lymphadenopathy, supple and no JVD Resp normal respiratory effort and clear to auscultation bilaterally Cardio regular rate, regular rhythm and no murmurs GI normal to inspection, nondistended, normoactive bowel sounds and non-tender Palpation: soft Back/Spine no CVA tenderness and normal ROM Extremity normal to inspection General Extremety ED: Negative for edema General Extremity: Negative for edema Neuro oriented x3, CN's II-XII intact bilaterally and no sensory deficits noted Domenic Coma Scale: document GCS findings Spontaneous Obeys Commands Oriented 15 Sensorium / Orientation: awake and alert Motor Exam: strength 5/5 throughout Psych mental status grossly normal Mood & Affect: tearful; Negative for depressed Skin no rashes or lesions noted and no wounds MDM MDM MDM Narrative Medical decision making narrative: Differential diagnosis includes vascular headache migraine tension headache dissection aneurysm malignancy hypertension preeclampsia Basic blood work was negative. CTA of the head and neck was obtained. This does not demonstrate any aneurysm bleed dissection or AVM. Patient received Toradol Compazine Benadryl and Solu-Medrol. She is doing better. I suggest to her that she follow-up with neurology. She states she will be speaking with her doctor on Friday. That is something they have already discussed. I can write for some Toradol and Compazine at home and we can try a short course of prednisone. Patient is neurologically intact. I do not see an cause for her headache. Patient is comfortable being discharged and will return if worsening or concerns. History & Record Review Discussion w/independent historian: Patient and Significant other Additional record(s) reviewed:: Prior ED visit and Prior labs Lab Data Attestation: I reviewed the patient's lab results. Labs: Laboratory Results - last 24 hr 10/23/24 20:14 WBC 10.3 RBC 4.59 Hgb 13.3 Hct 40.4 MCV 88.0 MCH 29.0 MCHC 32.9 RDW Std Deviation 38.9 RDW Coeff of Silas 12.2 Plt Count 260 MPV 10.8 Immature Gran % (Auto) 0.700 Neut % (Auto) 69.9 Lymph % (Auto) 21.6 [place] % (Auto) 5.0 Eos % (Auto) 2.2 Baso % (Auto) 0.6 Absolute Neuts (auto) 7.2 Absolute Lymphs (auto) 2.23 Nucleated RBC % 0 Sodium 139 Potassium 4.1 Chloride 105 Carbon Dioxide 22.3 Anion Gap 12 BUN 15 Creatinine 0.79 Estim Creat Clear Calc 139.13 Est GFR (MDRD) Non-Af 100 BUN/Creatinine Ratio 19.2 Glucose 100 H Calcium 9.6 Magnesium 2.2 Total Bilirubin 0.35 AST 20 ALT 15 Alkaline Phosphatase 76 Total Protein 7.8 Albumin 4.3 Globulin 3.5 Albumin/Globulin Ratio 1.2 Radiography Diagnostic Testing: Clinical Impression(s) from Imaging Studies Head/Neck CTA 10/23/24 20:08 IMPRESSION: 1. No acute intracranial finding on noncontrast examination. 2. No large vessel occlusion, AVM or aneurysm. Reading Location: [facility] Discharge Plan Triage Chief Complaint: Headache ED Provider: Dalton Issa Dx/Rx/DC Orders Clinical Impression: Headache Instructions: ED Headache Unspecified Prescriptions: New ketorolac 10 mg tablet 10 mg PO Q8H PRN (Reason: pain) Qty: 15 0RF Rx Instructions: maximum total duration of 5 days from all oral, intranasal, or parenteral formulations prochlorperazine maleate [Compazine] 10 mg tablet 10 mg PO TID PRN (Reason: migraine) Qty: 15 0RF prednisone 20 mg tablet 60 mg PO DAILY Qty: 15 0RF No Action metformin 500 mg tablet 500 mg PO TID 90 Days Qty: 270 3RF citalopram [Celexa] 40 mg tablet 40 mg PO DAILY Qty: 90 3RF cholecalciferol (vitamin D3) [Vitamin D3] 50 mcg (2,000 unit) capsule 2,000 unit PO DAILY Primary Care Provider: Jarvis Griffiths Referrals: Timothy Sevilla MD [Non-Staff] - As soon as possible Print Language: Pakistani Disposition Disposition: Home, Self Care
[2024-10-23] MEDS: 0.9% Normal Saline (1000mL) 1,000 ML 999 ML IV (20:15)
[2024-10-23 20:25] LABS: Absolute Lymphocyte Count 2.23 X10^3/uL (0.83-4.51); Absolute Neutrophil Count 7.2 X10^3/uL (2.0-7.7); Basophil# 0.06 X10^3/uL; Basophil% 0.6 % (0-1); Eosinophil# 0.23 X10^3/uL; Eosinophils% 2.2 % (0-5); Hematocrit 40.4 % (37-47); Hemoglobin 13.3 g/dL (12.0-15.0); Lymphocyte # 2.23 X10^3/ul (0.83-4.51); Lymphocyte % 21.6 % (19-41); Mean Corp Hgb Conc 32.9 g/dL (32-36); Mean Platelet Vol. 10.8 fl (6.2-12.0); Monocyte# 0.52 X10^3/uL; NRBC Flagged by Analyzer 0 % (0-5); Neutrophil % 69.9 % (47-70); Platelet Count 260 K/mm3 (150-450); RBC Distribution Width CV 12.2 % (11.6-14.6); RBC Distribution Width SD 38.9 fl (35.1-43.9); Red Blood Count 4.59 M/mm3 (4.2-5.4); White Blood Count 10.3 K/mm3 (4.4-11.0)
--- OUTSIDE RECORDS SUMMARY | 2024-10-23 20:36 | XMS RPT_ITS | CCD ---
Author Organization [facility] Care Team Providers Care Stem Setter Name Role Phone Tourlas, Clark Unavailable Unavailabl e Tourlas, Clark Unavailable Unavailabl e Lucinda Mullinshy Noe Unavailable Unavailable Tourlas, Clark Unavailable [phone] Unavailable Unavailable Sharif Cejastantinos Unavailable Ivy Montes Unavailable Unavailable Raghavendra Reina Unavailable Unavailable Ivy Montes Unavailable Unavailable Unavailable Dr. Matheus Wilkerson Attending Provider Care Physician, No Primary Primary Care Provider Unavailable OMAR Hong NP Attending Provider [phone] Dr. Megan Leon Attending Provider [phone] Care Physician, No Primary Referring Provider Un available Care Physician, No Primary Primary Care Provider Unavailable Care Physician, No Primary Referring Provider Un available Dr. Toyin Kimbrough Attending Provider [phone] Dr. Megan Leon Attending Provider [phone] HUMBLE Freeman Attending Provider Dr. Raul Pearce Attending Provider OMAR Dickson Attending Provider MICH Buchanan Attending Provider [phone] Care Physician, No Primary Primary Care Provider Unavailable Care Physician, No Primary Referring Provider Un available Dr. Toyin Kimbrough Attending Provider MALISSA REDMAN Primary Care Provider UnavailDr. Toyin Seaman Other Provider SANGEETHA GUTIERREZ Attending Unavailable PROVIDER, UNKNOWN Referring Unavailable No, PCP Primary Care Unavailable Care Physician, No Primary Primary Care Provider Unavailable Care Physician, No Primary Referring Provider Un available Dr. Megan Leon Attending Provider [phone] [place] JANITORIAL CLEANER, JANITORIAL CLEANER-Danny Watson Attending Provider [phone] Care Physician, No Primary Primary Care Provider Unavailable Care Physician, No Primary Referring Provider Un available Dr. Megan Leon Attending Provider [phone] Dr. Toyin Kimbrough Attending Provider [phone] OMAR Dickson Attending Provider MICH Buchanan Attending Provider [phone] ЮЛИЯ, MALISSA Primary Care Provider Unavailabl e Dr. Toyin Kimbrough Other Provider [phone] [place] JANITORIAL CLEANER, OMAR Watson Attending Provider [phone] ЮЛИЯ, MALISSA Referring Provider Unavailable Care Physician, No Primary Primary Care Provider Unavailable Care Physician, No Primary Referring Provider Un available Dr. Megan Leon Attending Provider [phone] ЮЛИЯ, MALISSA Primary Care Provider MICH Buchanan Admit Provider Care Physician, No Primary Referring Provider Un available Dr. Toyin Kimbrough Attending Provider [phone] [place], Malissa L Unavailable Dr. Megan Leon Attending Provider [phone] MICH Buchanan Attending Provider ЮЛИЯ, MALISSA Primary Care Provider Unavailabl e Care Physician, No Primary Primary Care Provider Unavailable Care Physician, No Primary Referring Provider Un available Юлия, Malissa Mark Primary Care Unavailabl e [place], Doug Mark Attending Unavailabl e [place], Malissa Mark Referring Unavailabl e [place], Malissa Mark Attending Unavailabl e [place], Mrs. Leonardo Deedee Referring Unavailabl e Simon, Ms. Ivy Brenner Primary Care Unav ailable Simon, MsDoug Brenner Primary Care Unav ailable Simon, Ms. Haynes Elidia Attending Unav ailable Simon, Ms. Haynes Elidia Referring Unav ailable [place], Mrs. Malissa Mark Attending Unavailabl e [place], Mrs. Malissa Mark Referring Unavailabl e [place], Mrs. Malissa Mark Primary Care Unavailabl e [place] TICKETING CLERK-MARKETING COMPLIANCE MANAGER, Malissa Liu Primary Care Provider [phone] Dr. Bel[place]ica Torres Referring Provider Dr. Toyin Kimbrough Attending Provider MICH Buchanan Attending Provider Dr. Yrn Padilla Attending Provider Dr. [place] Torres Primary Care Provider [phone] Dr. Raul Pearce Attending Provider Buddy JANITORIAL CLEANER, JANITORIAL CLEANER-C Latisha Attending Provider Brian HAMILTON MPH, [place]ica Santos Primary Care Pro vider Simon TICKETING CLERK-MARKETING COMPLIANCE MANAGER, Ivy Castillo Unavailable Unavai lable BRIAN, BELGICA NAG S Primary Care Unavail able JOJO ORTIZ Attending Unavailable LATISHA TUBBS Referring Unavailable Collin Flores PA-C Primary Care Provider [place] TICKETING CLERK-MARKETING COMPLIANCE MANAGER, Savanna Castillo Primary Care Provider Mallapareddi, Belgica Primary Care Unavailable Megan Leon Attending Unavailabl e Megan Leon Referring Unavailabl e Mallapareddi, [place]gica Primary Care Unavailable Toyin Kimbrough Attending Unavailable Toyin Kimbrough Referring Unavailable Mallapareddi, Belgica Primary Care Unavailable Toyin Kimbrough Referring Unavailable Toyin Kimbrough Attending Unavailable Mallapareddi, Belgica Primary Care Unavailable Mallapareddi, Belgica Referring Unavailable Shirley Hong NP Attending Unavailable Timothy Ortiz Primary Care Unavailable Toyin Kimbrough Referring Unavailable Toyin Kimbrough Attending Unavailable Latisha Tubbs Attending Unavailable Latisha Tubbs Referring Unavailable Mallapareddi, Belgica Primary Care Unavailable Mallapareddi, Belgica Primary Care Unavailable Megan Leon Attending Unavailabl e Vande Velde, Megan Referring Unavailabl e Mallapareddi, [place]gica Primary Care Unavailable Toyin Kimbrough Referring Unavailable Toyin Kimbrough Admitting Unavailable Toyin Kimbrough Attending Unavailable Latisha Tubbs Attending Unavailable Mallapareddi, Belgica Primary Care Unavailable Latisha Tubbs Referring Unavailable Mallapareddi, Belgica Referring Unavailable Mallapareddi, Belgica Primary Care Unavailable Toyin Kimbrough Attending Unavailable Mallapareddi, Belgica Referring Unavailable Gely JANITORIAL CLEANER, Shirley Attending Unavailable Mallapareddi, Belgica Primary Care Unavailable Ortiz, Timothy O Primary Care Unavailable Artie Nagel Attending Unavailable Mallapareddi, [place]gica Primary Care Unavailable Toyin Kimbrough Referring Unavailable Toyin Kimbrough Attending Unavailable Mallapareddi, Belgica Primary Care Unavailable Toyin Kimbrough Referring Unavailable Toyin Kimbrough Attending Unavailable Mallapareddi, Belgica Primary Care Unavailable Toyin Kimbrough Referring Unavailable Toyin Kimbrough Attending Unavailable Mallapareddi, Belgica Primary Care Unavailable [place] JANITORIAL CLEANER, Shirley Referring Unavailable [place] JANITORIAL CLEANER, Shirley Attending Unavailable Ortiz, Timothy O Primary Care Unavailable Assessment, Health Risk Attending Unavaila ble Harasimowicz, Dunia Referring Unavaila ble Mallapareddi, Belgica Primary Care Unavailable Toyin Kimbrough Attending Unavailable Mallapareddi, Belgica Referring Unavailable Ortiz, Timothy O Primary Care Unavailable Vande Megan Vasques Attending Unavailabl e Mallapareddi, Belgica Primary Care Unavailable Mallapareddi, Belgica Referring Unavailable Vande VeldeMegan Attending Unavailabl e Mallapareddi, Belgica Primary Care Unavailable Mallapareddi, Belgica Referring Unavailable Toyin Kimbrough Attending Unavailable Mallapareddi, Belgica Primary Care Unavailable Toyin Kimbrough Admitting Unavailable Toyin Kimbrough Referring Unavailable Toyin Kimbrough Attending Unavailable Latisha Tubbs Attending Unavailable Mallapareddi, Belgica Primary Care Unavailable Mallapareddi, Belgica Referring Unavailable Mallapareddi, Belgica Primary Care Unavailable Toyin Kimbrough Referring Unavailable Toyin Kimbrough Attending Unavailable Mallapareddi, Belgica Primary Care Unavailable Mallapareddi, Belgica Referring Unavailable Vande Megan Vasques Attending Unavailabl e Mallapareddi, Belgica Primary Care Unavailable Mallapareddi, Belgica Referring Unavailable Toyin Kimbrough Attending Unavailable Mallapareddi, Belgica Referring Unavailable OrtizTimothy perla O Primary Care Unavailable MarcanthonyToyin Attending Unavailable Mallapareddi, Belgica Primary Care Unavailable Shaniqueony, Toyin Referring Unavailable Toyin Kimbrough Consulting Unavailable Toyin Kimbrough Admitting Unavailable Latisha Tubbs Attending Unavailable Gely DRAKE, Shirley Attending Unavailable Vande Velde, Megan Attending Unavailabl e Mallapareddi, Belgica Primary Care Unavailable Mallapareddi, Belgica Referring Unavailable Vande Velde, Megan Attending Unavailabl e Mallapareddi, Belgica Primary Care Unavailable Mallapareddi, Belgica Referring Unavailable Toyin Kimbrough Attending Unavailable Latisha Tubbs Attending Unavailable Mallapareddi, Belgica Referring Unavailable Mallapareddi, Belgica Primary Care Unavailable Latisha Tubbs Attending Unavailable Timothy Ortiz Referring Unavailable Timothy Ortiz Primary Care Unavailable SAVANNA CLEMENTS Primary Care Unavailable MINNIE VARELA Attending Unavailable COLLIN FLORES Primary Care Unavailable RAGHAVENDRA REINA Attending Unavailable SAVANNA CLEMENTS Attending Unavailable SAVANNA CLEMENTS Primary Care Unavailable SAVANNA CLEMENTS Attending Unavailable SAVANNA CLEMENTS Primary Care Unavailable SAVANNA CLEMENTS Primary Care Unavailable ASHLEIGH DUMONT Attending Unavailable Allergies Allergy Classification Reported Allergen(s) Allergy Type Date of Onset Reaction(s) Facility (8 sources) Sulfonamides (Antibiotic); Translations: [Sulfa Drugs] drug allergy Hives/Urticaria [facility] Work Phone: (20 sources) Sulfonamides (Antibiotic); Translations: [Sulfa (Sulfonamide Antibiotics)] Allergy to substance 5 Unknown [facility] Medications Current Medications Medication Drug Class(es) Dates Sig (Normalized) Sig (Original) [id number] 200 actuat albuterol 0.09 mg/actuat metered dose inhaler (3 sources) beta2-Adrenergic Agonist Start: 02-02-2024 End: 02-01-2025 take 2 puff(s) by inhalation every six hours for wheezing albuterol 90 mcg/actuation inhaler Indications: Acute non-recurrent maxillary sinusitis Inhale 2 puffs every 6 hours if needed for wheezing. 18 g 02/02/2024 02/01/2025 Active alpha-tocopherol acetate 30 unt / ascorbic acid [...] Ordered: 27-Mar-2021 Cari Scott Generic Substitution Allowed amoxicillin 875 mg oral tablet (2 sources) Penicillin-class Antibacterial Start: 02-02-2024 End: 02-09-2024 take 1 tablet by mouth twice daily amoxicillin (Amoxil) 875 mg tablet Indications: Acute non-recurrent maxillary sinusitis Take 1 tablet (875 mg) by mouth 2 times a day for 7 days. 14 tablet 02/02/2024 02/09/2024 Active Start: 09-24-2023 End: 10-01-2023 take 1 tablet by mouth twice daily amoxicillin (Amoxil) 875 mg tablet Indications: Non-recurrent acute serous otitis media of left ear Take 1 tablet (875 mg) by mouth 2 times a day for 7 days. 14 tablet 09/24/2023 10/01/2023 Active azithromycin 250 mg oral tablet (1 source) [...] this medication unless otherwise directed by prescriber. Comment on above: Do not take dairy pr oducts, antacids, or iron preparations within one hour of this medication.Finish all this medication unless otherwise directed by prescriber. cetirizine hydrochloride 10 mg oral capsule (12 sources) Histamine-1 Receptor Antagonist Start: 11-08-2020 take 1 capsule by mouth once daily Cetirizine (Zyrtec) 10 mg capsule Active 10 MG PO DAILY November 07, 2020 11:00pm Zyrtec TABS Santo tity: 0 Refills: 0 Ordered: 12-Jun-2020 DO Active cholecalciferol 0.05 mg oral capsule (20 sources) Vitamin D Start: 06-28-2023 take 1 capsule by mouth once daily Cholecalciferol (Vitamin D3) (Vitamin D3) 50 mcg (2,000 unit) capsule Active 2000 UNIT PO DAILY June 28, 2023 1:00am Start: 08-29-2021 End: 12-31-2021 take 1 tablet by mouth once daily Cholecalciferol (Vitamin D3) (Vitamin D3) 25 mcg (1,000 unit) tablet Discontinued 25 MCG PO DAILY August 29, 2021 12:00am December 31, 2021 2:35pm citalopram 40 mg oral tablet (20 sources) Serotonin Reuptake Inhibitor Start: 05-27-2022 Citalopram Hydrobrom liza 40 MG Oral Tablet Quantity: 90 Refills: 0 Ordered: 27-May-2022 DO Start : 27-May-2022 Active Start: 05-27-2022 End: 09-10-2025 take 1 tablet by mouth once daily citalopram (CeleXA) 40 mg tablet Indications: Anxiety Take 1 tablet (40 mg) by mouth once daily. 90 tablet 3 09/10/2024 09/10/2025 Active Start: 06-22-2021 End: 05-31-2022 take 1 tablet by mouth once daily Citalopram (Celexa) 20 mg tablet Discontinued 20 MG PO DAILY April 15, 2022 8:32pm May 27, 2022 4:13pm Start: 06-22-2021 take 1 tablet by stuart th once daily Citalopram Hydrobromide 10 MG Oral Tablet TAKE 1 TABLET DAILY. Quantity: 90 Refills: 1 Ordered: 29-Jun-2021 Ivy Chacon Start : 22-Jun-2021 Active doxylamine succinate 25 mg oral tablet (6 sources) Start: 07-29-2023 Doxylamine Suc cinate (Unisom (Doxylamine)) 25 mg tablet Active 12.5 MG PO AT BEDTIME July 29, 2023 12:00am Start: 02-19-2022 Doxylamine Suc cinate (Unisom (Doxylamine)) 25 mg Tablet Active 12.5 MG PO AT BEDTIME February 18, 2022 11:00pm ferrous sulfate 325 mg oral tablet (18 sources) Start: 07-29-2023 take 325 mg by mouth once daily Ferrous Sulfate Active 325 MG PO DAILY July 29, 2023 12:00am Start: 12-31-2021 End: 06-28-2023 take 325 mg by mouth once daily Ferrous Sulfate Discontinued 325 MG PO DAILY December 31, 2021 12:00am June 28, 2023 8:54pm magnesium oxide 200 mg oral tablet (1 source) magnesium oxide (Mag-Ox) 200 mg magnesium tablet Take by mouth. 0 Active ondansetron 4 mg disintegrating oral tablet (20 sources) Serotonin-3 Receptor Antagonist Start: take 4 mg by mouth every six hours Ondansetron Active 4 MG PO EVERY 6 HOURS August 20, 2023 12:00am Start: 03-13-2019 End: 02-01-2020 take 4 mg by mouth every eight hours as needed Ondansetron Discontinued 4 MG PO EVERY 8 HOURS NEEDED March 13, 2019 12:00am February 01, 2020 9:43am Pnv No.[id number]-Epa-Fi sh (4 sources) Start: 08-20-2023 take 1 tablet by mouth once daily Pnv No.[id number]-Cxq-Xkl-Bczb Active 1 TABLET PO DAILY August 20, 2023 10:26am Start: 07-29-2023 End: 08-20-2023 take 1 tablet by mouth once daily Pnv No.438-Ck-Zj3-Wnn-Omu-Gcef Discontin ued TABLET PO DAILY July 29, 2023 12:00am August 20, 2023 10:27am Start: 07-29-2023 take 1 tablet by stuart th once daily Pnv No.889-Yo-Qb6-Ztx-Ytf-Coqa Active TABLET PO DAILY July 29, 2023 12:00am Prenat.Vits,Jose,Vyc-Wvbu-Xcu ic (17 sources) Start: 08-29-2021 take 1 tablet by mouth once daily Prenat.Vits,Jose,Wci-Yivh-Japsb Active 1 TABLET PO DAILY August 29, 2021 11:36am Start: 08-29-2021 End: 06-28-2023 take 1 tablet by mouth once daily Prenat.Vits,Jose,Jht-Htwx-Qlfbu Discontin ued 1 TABLET PO DAILY August 29, 2021 12:00am June 28, 2023 8:54pm Start: 08-29-2021 End: 06-28-2023 take 1 tablet by mouth once daily Prenat.Vits,Jose,Oye-Uxwo-Eakpj Discontin ued 1 TABLET PO DAILY August 28, 2021 11:00pm June 28, 2023 7:54pm Start: 08-29-2021 take 1 tablet by stuart th once daily Prenat.Vits,Jose,Nom-Vwxb-Rguyk Active 1 TABLET PO DAILY August 28, 2021 11:00pm Start: 08-29-2021 take 1 tablet by stuart th once daily Prenat.Vits,Jose,Mpc-Xabf-Yrwnt Active 1 TABLET PO DAILY August 29, 2021 12:00am pyridoxine hydrochloride 25 mg oral tablet (3 sources) Start: 07-29-2023 take 12.5 mg by mouth once daily Pyridoxine (Vitamin B6) Active 12.5 MG PO DAILY July 29, 2023 12:00am Completed/Discontinued Medications Medication Drug Class(es) Dates Sig (Normalized) Sig (Original) Blood-Glucose Meter (True Metrix Air Glucose Meter) misc (15 sources) Start: 01-16-2022 End: 07-29-2023 Blood-Glucose Meter (True Metrix Air Glucose Meter) misc Discontinued 0 .ROUTE .MEDSUPPLY January 16, 2022 12:00am July 29, 2023 9:03am As directed Start: 01-16-2022 Blood-Glucose Meter (True Metrix Air Glucose Meter) misc Active 0 .ROUTE .MEDSUPPLY January 15, 2022 11:00pm As directed Start: 01-16-2022 Blood-Glucose Meter (True Metrix Air Glucose Meter) misc Active 0 .ROUTE .MEDSUPPLY January 16, 2022 12:00am As directed 0.5 ml HYDROmorphone hydrochloride 1 mg/ml prefilled syringe (1 source) Opioid Agonist Start: 10-19-2024 End: 10-19-2024 0.5 mg, intravenous, Once, On Fri10/19/24 at 0255, For 1 dose hydrOXYzine pamoate 25 mg oral capsule (20 sources) Antihistamine Start: 02-01-2020 End: 12-31-2021 take 1 capsule by mouth at bedtime Hydroxyzine Pamoate (Vistaril) 25 mg capsule Discontinued 25 MG PO AT BEDTIME February 01, 2020 12:00am December 31, 2021 2:35pm hydrOXYzine HCL (Atarax) 25 mg tablet Take by mouth 4 times a day. 0 Active Vistaril Quantit y: 0 Refills: 0 Ordered: 27-Mar-2021 Cari Scott Generic Substitution Allowed Insulin Degludec (Tresiba Flextouch U-200) 200 unit/mL (3 mL) insulin pen (20 sources) Start: 03-18-2022 End: 05-27-2022 Insulin Degludec (Tresiba Flextouch U-200) 200 unit/mL (3 mL) insulin pen Discontinued 28 UNIT SC DAILY March 18, 2022 11:28am May 27, 2022 4:11pm Start: 03-18-2022 End: 05-27-2022 Insulin Degludec (Tresiba Fl extouch U-200) 200 unit/mL (3 mL) insulin pen Discontinued 28 UNIT SC DAILY March 18, 2022 10:28am May 27, 2022 3:11pm Start: 03-18-2022 Insulin Deglud ec (Tresiba Flextouch U-200) 200 unit/mL (3 mL) insulin pen Active 28 UNIT SC DAILY March 18, 2022 10:28am Start: 03-18-2022 Insulin Deglud ec (Tresiba Flextouch U-200) 200 unit/mL (3 mL) insulin pen Active 30 UNIT SC DAILY March 18, 2022 10:28am Start: 03-14-2022 End: 03-18-2022 Insulin Degludec (Tresiba Fl extouch U-200) 200 unit/mL (3 mL) insulin pen Discontinued 22 UNIT SC DAILY March 14, 2022 11:50am March 18, 2022 11:28am Start: 03-14-2022 End: 03-18-2022 Insulin Degludec (Tresiba Fl extouch U-200) 200 unit/mL (3 mL) insulin pen Discontinued 22 UNIT SC DAILY March 14, 2022 10:50am March 18, 2022 10:28am Start: 02-13-2022 End: 03-14-2022 Insulin Degludec (Tresiba Fl extouch U-200) 200 unit/mL (3 mL) insulin pen Discontinued 16 UNIT SC DAILY February 13, 2022 11:20am March 14, 2022 11:51am Start: 02-13-2022 End: 03-14-2022 Insulin Degludec (Tresiba Fl extouch U-200) 200 unit/mL (3 mL) insulin pen Discontinued 16 UNIT SC DAILY February 13, 2022 10:20am March 14, 2022 10:51am Start: 02-13-2022 Insulin Deglud ec (Tresiba Flextouch U-200) 200 unit/mL (3 mL) insulin pen Active 16 UNIT SC DAILY February 13, 2022 11:20am Start: 02-08-2022 End: 02-13-2022 Insulin Degludec (Tresiba Fl extouch U-200) 200 unit/mL (3 mL) insulin pen Discontinued 40 UNIT SC DAILY February 07, 2022 11:00pm February 13, 2022 10:20am Start: 02-08-2022 End: 02-13-2022 Insulin Degludec (Tresiba Fl extouch U-200) 200 unit/mL (3 mL) insulin pen Discontinued 40 UNIT SC DAILY February 08, 2022 12:00am February 13, 2022 11:20am 1 ml ketorolac tromethamine 30 mg/ml injection (1 source) Nonsteroidal Anti-inflammatory Drug, Cyclooxygenase Inhibitor Start: 10-19-2024 End: 10-19-2024 30 mg, intravenous, Once, On Fri10/19/24 at 0135, For 1 dose levocetirizine dihydrochloride 5 mg oral tablet (20 sources) Histamine-1 Receptor Antagonist Start: 02-01-2020 End: 11-08-2020 take 1 tablet by mouth once daily Levocetirizine (Xyzal) 5 mg tablet Discontinued 5 MG PO DAILY February 01, 2020 12:00am November 08, 2020 11:58am take 1 tablet by mouth at bedtim e Levocetirizine Dihydrochloride 5 MG Oral Tablet TAKE 1 TABLET Bedtime Quantity: 90 Refills: 3 Clark Ceja Active Mag-Oxide TABS (5 sources) Mag-Oxide TABS Quantity: 0 Refills: 0 Ordered: 22-Jun-2021 DO Active 2 ml metoclopramide 5 mg/ml injection (1 source) Dopamine-2 Receptor Antagonist Start: 10-20-19 End: 10-20-19 25 5 mg, intravenous, Once, On Fri10/19/24 at 0135, For 1 dose metroNIDAZOLE 0.01 mg/mg topical gel (1 source) Nitroimidazole Antimicrobial Metrogel 1 % External Gel APPLY GM PRN rosacea Refills: 0 Active 55 GM Pump Btl niacin 500 mg extended release oral tablet (4 sources) Nicotinic Acid Start: 06-22-19 End: 05-31-19 take 1 tablet by mouth once daily Niacin ER 500 MG Oral Tablet Extended Release Take 1 tablet daily Quantity: 30 Refills: 0 Ordered: 22-Jun-2021 Ivy Diaz Start : 22-Jun-2021 End : 31-May-2022 Complete omeprazole 20 mg delayed release oral capsule (20 sources) Proton Pump Inhibitor Start: 03-13-20 End: 02-01-20 take 20 mg by mouth once daily Omeprazole Discontinued 20 MG PO DAILY March 13, 2019 12:00am February 01, 2020 9:43am phentermine hydrochloride 37.5 mg oral tablet (1 source) Sympathomimetic Amine Anorectic Start: 03-24-20 take 1 tablet by mouth once daily Phentermine HCl - 37.5 MG Oral Tablet TAKE 1 TABLET DAILY. Quantity: 30 Refills: 0 Fred Cejaantinos Start : 24-Mar-2019 Active TABS (5 sources) End: 05-31-19 23 TABS Quantity: 0 Refills: 0 Ordered: 31-May-2022 DO End : 31-May-2022 Complete TABS Qu antity: 0 Refills: 0 Ordered: 23-Jan-2021 DO Active Probiotic CAPS (5 sources) End: 05-31-2022 Probiotic CAPS Quantity: 0 R efills: 0 Ordered: 31-May-2022 DO End : 31-May-2022 Complete Probiotic CAPS Q uantity: 0 Refills: 0 Ordered: 23-Jan-2021 DO Active promethazine (Phenergan) 25 mg in sodium chloride 0.9% 50 mL IV (1 source) Start: 10-19-2024 End: 10-19-2024 25 mg, intravenous, Administer over 15 Minutes, Once, On Fri10/19/24 at 0210, For 1 dose 1000 ml sodium chloride 9 mg/ml injection (1 source) Start: 10-19-2024 End: 10-19-2024 1,000 mL, intravenous, at 999 mL/hr, Administer over 1 Hours, Once, On Fri10/19/24 at 0140, For 1 dose vitamin b12 0.5 mg oral tablet (20 sources) Vitamin B12 Start: 08-29-2021 End: 12-31-2021 take 1 tablet by mouth once daily Cyanocobalamin (Vitamin B-12) (B-12 Dots) 500 mcg tablet Discontinued 500 MCG PO DAILY August 29, 2021 12:00am December 31, 2021 2:33pm Start: 06-22-2021 End: 05-31-2022 take 1 tablet under the tongue once daily Vitamin B-12 1000 MCG Sublingual Tablet Sublingual Apply 1 tab beneath tongue once daily Quantity: 90 Refills: 3 Ordered: 22-Jun-2021 Ivy Diaz Start : 22-Jun-2021 End : 31-May-2022 Complete vitamin B10-rtzpm acid (11 sources) Start: 04-15-2022 End: 06-28-2023 take 1 tablet by mouth once daily vitamin T29-hobyl acid Discontinued 1 TABLET PO.IVFORM DAILY April 15, 2022 1:00am June 28, 2023 8:54pm Start: 04-15-2022 End: 06-28-2023 take 1 tablet by mouth once daily vitamin T05-stcao acid Discontinued 1 TABLET PO.IVFORM DAILY April 15, 2022 12:00am June 28, 2023 7:54pm Start: 04-15-2022 take 1 tablet by stuart th once daily vitamin W49-njimh acid Active 1 TABLET PO.IVFORM DAILY April 15, 2022 1:00am Start: 04-15-2022 take 1 tablet by stuart th once daily vitamin L71-ywqpy acid Active 1 TABLET PO.IVFORM DAILY April 15, 2022 12:00am Vitamin D CAPS (5 sources) Vitamin D CAPS Q uantity: 0 Refills: 0 Ordered: 22-Jun-2021 DO Active Vitamin D3 (11 sources) Start: 04-15-2022 End: 06-28-2023 take 1 tablet by mouth once daily Vitamin D3 Discontinued 1 TABLET PO.IVFORM DAILY April 15, 2022 1:00am June 28, 2023 8:57pm Start: 04-15-2022 End: 06-28-2023 take 1 tablet by mouth once daily Vitamin D3 Discontinued 1 TABLET PO.IVFORM DAILY April 15, 2022 12:00am June 28, 2023 7:57pm Start: 04-15-2022 take 1 tablet by stuart th once daily Vitamin D3 Active 1 TABLET PO.IVFORM DAILY April 15, 2022 1:00am Start: 04-15-2022 take 1 tablet by stuart th once daily Vitamin D3 Active 1 TABLET PO.IVFORM DAILY April 15, 2022 12:00am Problems Active Problems Problem Classification Problem Date Documented Date Episodic/Chronic Anxiety disorders (20 sources) Generalized anxiety disorder; Translations: [Generalized anxiety disorder] Onset: 02-19-2022 Chronic Cardiac dysrhythmias (9 sources) Multiple premature ventricular complexes; Translations: [Ventricular premature depolarization] Onset: 03-16-2024 08-04-2023 Chronic Cardiac dysrhythmias (20 sources) Palpitations; Translations: [Palpitations] Onset: 01-15-2023 06-29-2021 Episodic Coagulation and hemorrhagic disorders (2 sources) Thrombocytopenia, unspecified; Translations: [Thrombocytopenia, unspecified] Onset: 03-05-2024 Chronic Disorders of lipid metabolism (20 sources) Hypertriglyceridemia ; Translations: [Pure hyperglyceridemia] Onset: 01-15-2023 Chronic Headache; including migraine (13 sources) Ophthalmic migraine; Translations: [Migraine with aura, not intractable, without status migrainosus] Onset: 10-16-2024 06-28-2023 Chronic Hemorrhage during ; abruptio placenta; placenta previa (19 sources) Threatened miscarriage; Translations: [Threatened ] 12-15-2020 Episodic Mood disorders (2 sources) Mood disorders; Translations: [Depression, unspecified] Onset: 02-19-2022 Nutritional deficiencies (10 sources) Vitamin D deficiency; Translations: [Unspecified vitamin D deficiency] Onset: 01-15-2023 01-15-2023 Chronic Other circulatory disease (10 sources) Orthostatic hypotension; Translations: [Orthostatic hypotension] 05-16-2022 Episodic Other complications of (17 sources) Maternal obesity complicating , childbirth and the puerperium, antepartum; Translations: [Obesity complicating , unspecified trimester] 04-17-2022 Chronic Other complications of (20 sources) Obesity complicating , unspecified trimester; Translations: [Obesity complicating , childbirth, or the puerperium, unspecified as to episode of care or not applicable] Chronic Other complications of (4 sources) Obesity complicating , third trimester; Translations: [Obesity complicating , third trimester] Onset: 02-19-2022 Chronic Other complications of (20 sources) H/O: miscarriage; Translations: [Supervision of with other poor reproductive or obstetric history, unspecified trimester] 10-12-2021 Episodic Other complications of (20 sources) High risk ; Translations: [Supervision of high risk , unspecified, unspecified trimester] 04-17-2022 Episodic Other complications of (20 sources) Supervision of high risk , unspecified, unspecified trimester; Translations: [Supervision of unspecified high-risk ] Episodic Other complications of (2 sources) Other specified [...] trimester] Onset: 02-19-2022 Episodic Other complications of (11 sources) Variable heart decelerations; Translations: [Maternal care for abnormalities of the heart rate or rhythm, unspecified trimester, not applicable or unspecified] 04-17-2022 Episodic Other complications of (6 sources) Maternal care for abnormalities of the heart rate or rhythm, unspecified trimester, not applicable or unspecified; Translations: [Abnormality in heart rate or rhythm, antepartum condition or complication] Episodic Other complications of (3 sources) History of gestational diabetes mellitus; Translations: [Supervision of with other poor reproductive or obstetric history, unspecified trimester] 08-04-2023 Episodic Other complications of (3 sources) Multigravida of advanced maternal age; Translations: [Supervision of elderly multigravida, unspecified trimester] 08-04-2023 Episodic Other complications of (4 sources) Supervision of elderly multigravida, unspecified trimester; Translations: [Elderly multigravida, unspecified as to episode of care or not applicable] 08-04-2023 Episodic Other inflammatory condition of skin (19 sources) Rosacea; Translations: [Rosacea, unspecified] 12-15-2020 Chronic Other liver diseases (12 sources) Steatosis of liver; Translations: [Other chronic nonalcoholic liver disease] Onset: 01-15-2023 01-15-2023 Chronic Other nutritional; endocrine; and metabolic disorders (7 sources) Body mass index 40+ - severely obese; Translations: [Body Mass Index 40.0-44.9, adult] Chronic Other nutritional; endocrine; and metabolic disorders (12 sources) Morbid obesity; Translations: [Morbid obesity] Onset: 01-15-2023 01-15-2023 Chronic Other nutritional; endocrine; and metabolic disorders (2 sources) Obesity, unspecified; Translations: [Obesity, unspecified] Onset: 02-19-2022 Chronic Other nutritional; endocrine; and metabolic disorders (1 source) Obese class III; Translations: [Class 3 obesity] 09-10-2024 Chronic Other screening for suspected conditions (not mental disorders or infectious disease) (3 sources) Patient encounter status; Translations: [Encounter for screening for lipoid disorders] Onset: 09-10-2024 09-10-2024 Episodic Other upper respiratory disease (12 sources) Allergic rhinitis; Translations: [Allergic rhinitis, cause unspecified] Onset: 01-15-2023 01-15-2023 Chronic Other upper respiratory disease (19 sources) Seasonal allergy; Translations: [Other seasonal allergic rhinitis] 12-15-2020 Chronic Otitis media and related conditions (1 source) Acute non-suppurative otitis media - serous; Translations: [Acute serous otitis media, left ear] 09-24-2023 Episodic Pancreatic disorders (not diabetes) (20 sources) Idiopathic acute pancreatitis; Translations: [Idiopathic acute pancreatitis without necrosis or infection] Onset: 02-19-2022 Episodic Spontaneous (20 sources) with abortive outcome; Translations: [Complete or unspecified spontaneous without complication] 12-15-2020 Episodic Sprains and strains (20 sources) Strain of muscle and/or tendon of lower leg; Translations: [Strain of unspecified muscle and tendon at ankle and foot level, right foot, initial encounter] Episodic Unclassified (1 source) Obesity, class 3; Translations: [Obesity, class 3] Onset: 09-10-2024 Past or Other Problems Problem Classification Problem Date Documented Date Episodic/Chronic Abdominal pain (20 sources) Acute abdominal pain; Translations: [Abdominal pain, right upper quadrant] Onset: 01-15-2023 03-14-2019 Episodic Allergic reactions (1 source) Urticaria, unspecified; Translations: [Urticaria, unspecified] Onset: 03-16-2024 Episodic Complications of surgical procedures or medical care (1 source) Postprocedural seroma of skin and subcutaneous tissue following other procedure; Translations: [Postprocedural seroma of skin and subcutaneous tissue following other procedure] Onset: 04-01-2024 Episodic Deficiency and other anemia (2 sources) Iron deficiency anemia, unspecified; Translations: [Iron deficiency anemia, unspecified] Onset: 03-05-2024 Episodic Diabetes or abnormal glucose tolerance complicating ; childbirth; or the puerperium (20 sources) Gestational diabetes mellitus; Translations: [Gestational diabetes mellitus in , unspecified control] Onset: 02-19-2022 Episodic Hypertension complicating ; childbirth and the puerperium (2 sources) Severe pre-eclampsia, unspecified trimester; Translations: [Severe pre-eclampsia, unspecified trimester] Onset: 03-16-2024 Episodic Immunizations and screening for infectious disease (1 source) Encounter for immunization; Translations: [Encounter for immunization] Onset: 01-21-2024 Episodic Other complications of ; puerperium affecting management of mother (2 sources) Encounter for delivery without indication; Translations: [Encounter for delivery without indication] Onset: 03-05-2024 Episodic Other complications of (8 sources) Supervision of with other poor reproductive or obstetric history, unspecified trimester; Translations: [Supervision of high-risk with history of ] Onset: 02-18-2024 Episodic Other complications of (2 sources) Supervision of high risk , unspecified, second trimester; Translations: [Supervision of high risk , unspecified, second trimester] Onset: 03-16-2024 Episodic Other complications of (1 source) Supervision of elderly multigravida, third trimester; Translations: [Supervision of elderly multigravida, third trimester] Onset: 03-19-2024 Episodic Other complications of (2 sources) Gestational proteinuria, third trimester; Translations: [Gestational proteinuria, third trimester] Onset: 03-04-2024 Episodic Other complications of (2 sources) Supervision of elderly multigravida, second trimester; Translations: [Supervision of elderly multigravida, second trimester] Onset: 02-18-2024 Episodic Other complications of (1 source) Gestational proteinuria, unspecified trimester; Translations: [Gestational proteinuria, unspecified trimester] Onset: 03-13-2024 Episodic Other non-traumatic joint disorders (11 sources) Shoulder pain; Translations: [Pain in joint, shoulder region] Onset: 01-15-2023 01-15-2023 Episodic Other and delivery including normal (20 sources) Normal ; Translations: [Encounter for supervision of normal first , unspecified trimester] Onset: 03-19-2024 Episodic Other skin disorders (1 source) Rash and other nonspecific skin eruption; Translations: [Rash and other nonspecific skin eruption] Onset: 03-30-2024 Episodic Other upper respiratory infections (5 sources) Upper respiratory infection; Translations: [Acute maxillary sinusitis] Onset: 02-02-2024 03-27-2021 Episodic Comment on above: URI Residual codes; unclassified (3 sources) 31 weeks gestation of ; Translations: [31 weeks gestation of ] Onset: 02-19-2022 Episodic Residual codes; unclassified (2 sources) H/O: ; Translations: [Personal history of other genital system and obstetric disorders] Resolved: 05-31-2022 Episodic Residual codes; unclassified (2 sources) 35 weeks gestation of ; Translations: [35 weeks gestation of ] Onset: 02-18-2024 Episodic Residual codes; unclassified (1 source) 33 weeks gestation of ; Translations: [33 weeks gestation of ] Onset: 02-04-2024 Episodic Residual codes; unclassified (1 source) 30 weeks gestation of ; Translations: [30 weeks gestation of ] Onset: 01-08-2024 Episodic Residual codes; unclassified (1 source) 28 weeks gestation of ; Translations: [28 weeks gestation of ] Onset: 12-25-2023 Episodic Residual codes; unclassified (1 source) 20 weeks gestation of ; Translations: [20 weeks gestation of ] Onset: 11-07-2023 Episodic Unclassified (20 sources) Infertile; Translations: [Infertility] Unclassified (4 sources) Onset: 07-16-2023 Resolved: 09-10-2024 07-16-2023 Unclassified (1 source) Obesity, class 3; Translations: [Obesity, class 3] Onset: 09-10-2024 NEGATED: Highlighted row has not occurred!Residual codes; unclassified (3 sources) Disease Episodic Results Test Name Value Interpretation Reference Range Facility CBC W Auto Differential pane l (Bld)on 10-19-2024 Basophils (Bld) [#/Vol] 0.05 10*3/uL [facility] Basophils/100 WBC (Bld) 0.6 % 0.0 - 2.0 % [facility] Eosinophils (Bld) [#/Vol] 0.13 10*3/uL [facility] Eosinophils/100 WBC (Bld) 1.5 % 0.0 - 6.0 % [facility] Erythrocyte distribution width (RBC) [Ratio] 12.4 % 11.5 - 14.5 % [facility] Hematocrit (Bld) [Volume fraction] 41.8 % 36.0 - 46.0 % [facility] Hemoglobin (Bld) [Mass/Vol] 13 g/dL 12.0 - 16.0 g/dL [facility] Immature granulocytes (Bld) [#/Vol] 0.07 10*3/uL [facility] Immature granulocytes/100 WBC (Bld) 0.8 % 0.0 - 0.9 % [facility] Comment on above: Immature Granulocyte Count (IG) includes promyelocytes, myelocytes and metamyelocytes but does not include bands. Percent differential counts (%) should be interpreted in the context of the absolute cell counts (cells/UL). Interpretation and review of laboratory results Abnormal [facility] Lymphocytes (Bld) [#/Vol] 2.07 10*3/uL [facility] Lymphocytes/100 WBC (Bld) 23.2 % 13.0 - 44.0 % [facility] MCH (RBC) [Entitic mass] 28.3 pg 26.0 - 34.0 pg [facility] MCHC (RBC) [Mass/Vol] 31.1 g/dL Low 32.0 - 36.0 g/dL [facility] MCV (RBC) [Entitic vol] 91 fL 80 - 100 fL [facility] Monocytes (Bld) [#/Vol] 0.37 10*3/uL [facility] Monocytes/100 WBC (Bld) 4.1 % 2.0 - 10.0 % [facility] Neutrophils (Bld) [#/Vol] 6.23 10*3/uL [facility] Comment on above: Percent differential counts (%) should be interpreted in the context of the absolute cell counts (cells/uL). Neutrophils/100 WBC (Bld) 69.8 % 40.0 - 80.0 % [facility] Nucleated RBC/100 WBC (Bld) [Ratio] 0 % [facility] Platelets (Bld) [#/Vol] 226 10*3/uL [facility] RBC (Bld) [#/Vol] 4.59 10*6/uL [facility] WBC (Bld) [#/Vol] 8.9 10*3/uL [facility] Basophils (Bld) [#/Vol] 0.05 x10*3/uL Normal 0.00-0.10 [facility] Comment on above: Performed By: #### 5 7021-8 #### MARCE GUERRERO ([id number]) [facility] ([facility]) [address] [place] [address] 76246 Basophils/100 WBC (Bld) 0.6 % Normal 0.0-2.0 [facility] Comment on above: Performed By: #### 7021-8 #### MARCE GUERRERO ([id number]) [facility] ([facility]) [address] [place] [address] 80908 Eosinophils (Bld) [#/Vol] 0.13 x10*3/uL Normal 0.00-0.70 [facility] Comment on above: Performed By: #### 70-8 #### MARCE GUERRERO ([id number]) [facility] ([facility]) [address] [place] [address] 15918 Eosinophils/100 WBC (Bld) 1.5 % Normal 0.0-6.0 [facility] Comment on above: Performed By: #### 70-8 #### MARCE GUERRERO ([id number]) [facility] ([facility]) [address] [place] [address] 31695 Erythrocyte distribution width (RBC) [Ratio] 12.4 % Normal 11.5-14.5 [facility] Comment on above: Performed By: #### 7021-8 #### MARCE GUERRERO ([id number]) [facility] ([facility]) [address] [place] [address] 01754 Hematocrit (Bld) [Volume fraction] 41.8 % Normal 36.0-46.0 [facility] Comment on above: Performed By: #### 7021-8 #### MARCE GUERRERO ([id number]) [facility] ([facility]) [address] [place] [address] 12686 Hemoglobin (Bld) [Mass/Vol] 13.0 g/dL Normal 12.0-16.0 [facility] Comment on above: Performed By: #### 7021-8 #### MARCE GUERRERO ([id number]) [facility] ([facility]) [address] [place] [address] 70643 Immature granulocytes (Bld) [#/Vol] 0.07 x10*3/uL Normal 0.00-0.70 [facility] Comment on above: Performed By: #### 5 7021-8 #### MARCE GUERRERO ([id number]) [facility] ([facility]) [address] [place] [address] 84637 Immature granulocytes/100 WBC (Bld) 0.8 % Normal 0.0-0.9 [facility] Comment on above: Result Comment: Tressa ture Granulocyte Count (IG) includes promyelocytes, myelocytes and metamyelocytes but does not include bands. Percent differential counts (%) should be interpreted in the context of the absolute cell counts (cells/UL). Performed By: #### 5 7021-8 #### MARCE GUERRERO ([id number]) [facility] ([facility]) [address] [place] [address] 13253 Lymphocytes (Bld) [#/Vol] 2.07 x10*3/uL Normal 1.20-4.80 [facility] Comment on above: Performed By: #### 5 7021-8 #### MARCE GUERRERO ([id number]) [facility] ([facility]) [address] [place] [address] 27464 Lymphocytes/100 WBC (Bld) 23.2 % Normal 13.0-44.0 [facility] Comment on above: Performed By: #### 5 7021-8 #### MARCE GUERRERO ([id number]) [facility] ([facility]) [address] [place] [address] 68853 MCH (RBC) [Entitic mass] 28.3 pg Normal 26.0-34.0 [facility] Comment on above: Performed By: #### 5 7021-8 #### MARCE GUERRERO ([id number]) [facility] ([facility]) [address] [place] [address] 24279 MCHC (RBC) [Mass/Vol] 31.1 g/dL Low 32.0-36.0 [facility] Comment on above: Performed By: #### 5 7021-8 #### MARCE GUERRERO ([id number]) [facility] ([facility]) [address] [place] [address] 43953 MCV (RBC) [Entitic vol] 91 fL Normal 80-100 [facility] Comment on above: Performed By: #### 5 7021-8 #### MARCE GUERRERO ([id number]) [facility] ([facility]) [address] [place] [address] 41129 Monocytes (Bld) [#/Vol] 0.37 x10*3/uL Normal 0.10-1.00 [facility] Comment on above: Performed By: #### 5 7021-8 #### MARCE GUERRERO ([id number]) [facility] ([facility]) [address] [place] [address] 57900 Monocytes/100 WBC (Bld) 4.1 % Normal 2.0-10.0 [facility] Comment on above: Performed By: #### 5 7021-8 #### MARCE GUERRERO ([id number]) [facility] ([facility]) [address] [place] [address] 53277 Neutrophils (Bld) [#/Vol] 6.23 x10*3/uL Normal 1.20-7.70 [facility] Comment on above: Result Comment: Perc ent differential counts (%) should be interpreted in the context of the absolute cell counts (cells/uL). Performed By: #### 5 7021-8 #### MARCE GUERRERO ([id number]) [facility] ([facility]) [address] [place] [address] 59875 Neutrophils/100 WBC (Bld) 69.8 % Normal 40.0-80.0 [facility] Comment on above: Performed By: #### 5 7021-8 #### MARCE GUERRERO ([id number]) [facility] ([facility]) [address] [place] [address] 35798 Nucleated RBC/100 WBC (Bld) [Ratio] 0.0 /100 WBCs Normal 0.0-0.0 [facility] Comment on above: Performed By: #### 5 7021-8 #### MARCE GUERRERO ([id number]) [facility] ([facility]) [facility] [place] [address] Platelets (Bld) [#/Vol] 226 x10*3/uL Normal 150-450 [facility] Comment on above: Performed By: #### 5 7021-8 #### MARCE GUERRERO ([id number]) [facility] ([facility]) [address] [place] [address] 47278 RBC (Bld) [#/Vol] 4.59 x10*6/uL Normal 4.00-5.20 [facility] Comment on above: Performed By: #### 5 7021-8 #### MARCE GUERRERO ([id number]) [facility] ([facility]) [address] [place] [address] 16149 WBC (Bld) [#/Vol] 8.9 x10*3/uL Normal 4.4-11.3 [facility] Comment on above: Performed By: #### 5 7021-8 #### MARCE GUERRERO ([id number]) [facility] ([facility]) [address] [place] [address] 95118 Comprehensive metabolic 2000 panelon 10-19-2024 Albumin BCP dye [Mass/Vol] 4.2 g/dL 3.4 - 5.0 g/dL [facility] ALP [Catalytic activity/Vol] 63 U/L 33 - 110 U/L [facility] ALT With P-5'-P [Catalytic activity/Vol] 12 U/L 7 - 45 U/L [facility] Comment on above: Patients treated wit h Sulfasalazine may generate falsely decreased results for ALT. Anion gap [Moles/Vol] 12 mmol/L 10 - 2 0 mmol/L [facility] AST With P-5'-P [Catalytic activity/Vol] 15 U/L 9 - 39 U/L [facility] Bilirubin [Mass/Vol] 0.3 mg/dL 0.0 - 1 .2 mg/dL [facility] Calcium [Mass/Vol] 8.7 mg/dL 8.6 - 10. 3 mg/dL [facility] Chloride [Moles/Vol] 106 mmol/L 98 - 10 7 mmol/L [facility] CO2 [Moles/Vol] 25 mmol/L 21 - 32 mmol/L [facility] Creatinine [Mass/Vol] 0.66 mg/dL 0.50 - 1.05 mg/dL [facility] eGFR - PINF [facility] Comment on above: Calculations of corie mated GFR are performed using the 2020 CKD-EPI Study Refit equation without the race variable for the IDMS-Traceable creatinine methods. https://jasn.asnjournals.org/content/early//ASN.22957 91851 Glucose [Mass/Vol] 152 mg/dL High 74 - 99 mg/dL [facility] Interpretation and review of laboratory results Abnormal [facility] Potassium [Moles/Vol] 3.6 mmol/L 3.5 - 5.3 mmol/L [facility] Protein [Mass/Vol] 7 g/dL 6.4 - 8.2 g/dL [facility] Sodium [Moles/Vol] 139 mmol/L 136 - 145 mmol/L [facility] Urea nitrogen [Mass/Vol] 14 mg/dL 6 - 23 mg/dL [facility] Albumin BCP dye [Mass/Vol] 4.2 g/dL Normal 3.4-5.0 [facility] Comment on above: Performed By: #### 2 4323-8 #### MARCE GUERRERO ([id number]) [facility] ([facility]) [address] [place] [address] ALP [Catalytic activity/Vol] 63 U/L Normal 33-110 [facility] Comment on above: Performed By: #### 2 4323-8 #### MARCE GUERRERO ([id number]) [facility] ([facility]) [address] [place] [address] 09438 ALT With P-5'-P [Catalytic activity/Vol] 12 U/L Normal 7-45 [facility] Comment on above: Result Comment: Madeline ents treated with Sulfasalazine may generate falsely decreased results for ALT. Performed By: #### 2 4323-8 #### MARCE GUERRERO ([id number]) [facility] ([facility]) [address] [place] [address] Anion gap [Moles/Vol] 12 mmol/L Normal 10-20 [facility] Comment on above: Performed By: #### 2 4323-8 #### MARCE GUERRERO ([id number]) [facility] ([facility]) [address] [place] [address] AST With P-5'-P [Catalytic activity/Vol] 15 U/L Normal 9-39 [facility] Comment on above: Performed By: #### 2 4322-8 #### MARCE GUERRERO ([id number]) [facility] ([facility]) [address] [place] [address] 56375 Bilirubin [Mass/Vol] 0.3 mg/dL Normal 0.0-1.2 [facility] Comment on above: Performed By: #### 2 432-8 #### MARCE GUERRERO ([id number]) [facility] ([facility]) [address] [place] [address] Calcium [Mass/Vol] 8.7 mg/dL Normal 8.6-10.3 [facility] Comment on above: Performed By: #### 2 4323-8 #### MARCE GUERRERO ([id number]) [facility] ([facility]) [address] [place] [address] Chloride [Moles/Vol] 106 mmol/L Normal 98-107 [facility] Comment on above: Performed By: #### 2 4323-8 #### MARCE GUERRERO ([id number]) [facility] ([facility]) [address] [place] [address] CO2 [Moles/Vol] 25 mmol/L Normal 21-32 [facility] Comment on above: Performed By: #### 2 4323-8 #### MARCE GUERRERO ([id number]) [facility] ([facility]) [address] [place] [address] Creatinine [Mass/Vol] 0.66 mg/dL Normal 0.50-1.05 [facility] Comment on above: Performed By: #### 2 4323-8 #### MARCE GUERRERO ([id number]) [facility] ([facility]) [address] [place] [address] 73999 GFR/1.73 sq M.predicted MDRD (S/P/Bld) [Vol rate/Area] mL/min/{1.73_m2} Normal >60 [facility] Comment on above: Result Comment: Calc ulations of estimated GFR are performed using the 2020 CKD-EPI Study Refit equation without the race variable for the IDMS-Traceable creatinine methods. https://jasn.asnjournals.org/content//ASN.69476 06891 Performed By: #### 2 4323-8 #### MARCE GUERRERO ([id number]) [facility] ([facility]) [address] [place] [address] 45313 Glucose [Mass/Vol] 152 mg/dL High 74-99 [facility] Comment on above: Performed By: #### 2 4323-8 #### MARCE GUERRERO ([id number]) [facility] ([facility]) [address] [place] [address] 20954 Potassium [Moles/Vol] 3.6 mmol/L Normal 3.5-5.3 [facility] Comment on above: Performed By: #### 2 4323-8 #### MARCE GUERRERO ([id number]) [facility] ([facility]) [address] [place] [address] 98139 Protein [Mass/Vol] 7.0 g/dL Normal 6.4-8.2 [facility] Comment on above: Performed By: #### 2 4323-8 #### MARCE GUERRERO ([id number]) [facility] ([facility]) [address] [place] [address] 73225 Sodium [Moles/Vol] 139 mmol/L Normal 136-145 [facility] Comment on above: Performed By: #### 2 4323-8 #### MARCE GUERRERO ([id number]) [facility] ([facility]) [address] [place] [address] 71968 Urea nitrogen [Mass/Vol] 14 mg/dL Normal 6-23 [facility] Comment on above: Performed By: #### 2 4323-8 #### MARCE GUERRERO ([id number]) [facility] ([facility]) [address] [place] [address] 03625 LDH, Lactate dehydrogenaseon 10-19-2024 LDH Lactate to pyruvate reaction [Catalytic activity/Vol] 173 U/L 84 - 246 U/L [facility] Lactate dehydrogenaseon 10-10 0-2024 LDH Lactate to pyruvate reaction [Catalytic activity/Vol] 173 U/L Normal 84-246 [facility] Comment on above: Performed By: #### 1 4804-9 #### MARCE GUERRERO ([id number]) [facility] ([facility]) [address] [place] [address] 33554 Natriuretic peptide B [Mass/ Vol]on 10-19-2024 Interpretation and review of laboratory results Normal [facility] Natriuretic peptide B (Bld) [Mass/Vol] 26 pg/mL 0 - 99 pg/mL [facility] <100 pg/mL - Heart failure unlikely 100-299 pg/mL - Intermediate probability of acute heart failure exacerbation. Correlate with clinical context and patient history. >=300 pg/mL - Heart Failure likely. Correlate with clinical context and patient history. BNP testing is performed using different testing methodology at [facility] than at other [facility]. Direct result comparisons should only be made within the same method. [facility] Natriuretic peptide B (Bld) [Mass/Vol] 26 pg/mL Normal 0-99 [facility] Comment on above: Order Comment: <100 pg/mL - Heart failure unlikely 100-299 pg/mL - Intermediate probability of acute heart failure exacerbation. Correlate with clinical context and patient history. >=300 pg/mL - Heart Failure likely. Correlate with clinical context and patient history. BNP testing is performed using different testing methodology at [facility] than at other [facility]. Direct result comparisons should only be made within the same method. Performed By: #### 3 0934-4 #### MARCE GUERRERO ([id number]) [facility] ([facility]) [address] [place], [place] [id number] No Panel Informationon 10-19 Interpretation and review of laboratory results Normal [facility] Urateon 10-19-2024 Urate [Mass/Vol] 6.3 mg/dL Normal 2.3-6.7 [facility] Comment on above: Result Comment: N-ac sxgi-o-fzhmjhwihfnr imine (metabolite of Acetaminophen)will generate erroneously low results in samples for patients that have taken toxic doses of acetaminophen. Venipuncture immediately after or during the administration of Metamizole may lead to falsely low results. Testing should be performed immediately prior to Metamizole dosing. Performed By: #### 3 084-1 #### ZHENG CESAR ([id number]) [facility] ([facility]) [address] [place] [address] Uric acidon 10-19-2024 Urate [Mass/Vol] 6.3 mg/dL 2.3 - 6.7 mg/dL [facility] Comment on above: L-wznxgj-t-benzoquin one imine (metabolite of Acetaminophen)will generate erroneously low results in samples for patients that have taken toxic doses of acetaminophen. Venipuncture immediately after or during the administration of Metamizole may lead to falsely low results. Testing should be performed immediately prior to Metamizole dosing. Urinalysis complete W Reflex Culture panel (U)on 10-19-2024 Appearance (U) Clear Clear [facility] Bilirubin (U) [Mass/Vol] Negative NEGATIVE mg/dL [facility] Color (U) Colorless Abnormal Light-Yellow , Yellow, Dark-Yellow [facility] Glucose Auto test strip (U) [Mass/Vol] Normal Normal mg/dL [facility] Interpretation and review of laboratory results Abnormal [facility] Ketones (U) [Mass/Vol] Negative NEGAT BARBARA mg/dL [facility] Leukocyte esterase Auto test strip Ql (U) Negative NEGATIVE [facility] Nitrite Auto test strip Ql (U) Negative NEGATIVE [facility] pH (U) 6.5 [pH] 5.0, 5.5, 6.0, 6.5, 7.0, 7.5, 8.0 [facility] Protein (U) [Mass/Vol] Negative NEGAT BARBARA, 10 (TRACE), 20 (TRACE) mg/dL [facility] RBC (U) [#/Vol] Negative NEGATIVE mg/dL [facility] Specific gravity (U) [Rel density] 1.005 1.005 - 1.035 [facility] Urobilinogen (U) [Mass/Vol] Normal Normal mg/dL [facility] Appearance (U) Clear Normal Clear [facility] Comment on above: Performed By: #### 5 8077-9 #### MARCE GUERRERO ([id number]) [facility] ([facility]) [address] [place] [address] Bilirubin (U) [Mass/Vol] Negative Normal NEGATIVE [facility] Comment on above: Performed By: #### 5 8077-9 #### MARCE GUERRERO ([id number]) [facility] ([facility]) [address] [place] [address] Color (U) Colorless Normal Light-Yellow , Yellow, Dark-Yellow [facility] Comment on above: Performed By: #### 5 8077-9 #### MARCE GUERRERO ([id number]) [facility] ([facility]) [address] [place] [address] Glucose Auto test strip (U) [Mass/Vol] Normal Normal Normal [facility] Comment on above: Performed By: #### 5 8077-9 #### MARCE GUERRERO ([id number]) [facility] ([facility]) [address] [place], [place] [id number] Ketones (U) [Mass/Vol] Negative Normal NEGATIVE [facility] on above: Performed By: #### 5 8077-9 #### MARCE GUERRERO ([id number]) [facility] ([facility]) [address] [place] [address] Leukocyte esterase Auto test strip Ql (U) Negative Normal NEGATIVE [facility] Comment on above: Performed By: #### 5 8077-9 #### MARCE GUERRERO ([id number]) [facility] ([facility]) [address] [place] [address] Nitrite Auto test strip Ql (U) Negative Normal NEGATIVE [facility] Comment on above: Performed By: #### 5 8077-9 #### MARCE GUERRERO ([id number]) [facility] ([facility]) [address] [place] [address] pH (U) 6.5 [pH] Normal 5.0, 5.5, 6.0, 6.5, 7.0, 7.5, 8.0 [facility] Comment on above: Performed By: #### 5 8077-9 #### MARCE GUERRERO ([id number]) [facility] ([facility]) [address] [place] [address] Protein (U) [Mass/Vol] Negative Normal NEGAT BARBARA, 10 (TRACE), 20 (TRACE) [facility] Comment on above: Performed By: #### 5 8077-9 #### MARCE GUERRERO ([id number]) [facility] ([facility]) [address] [place] [address] RBC (U) [#/Vol] Negative Normal NEGATIVE [facility] Comment on above: Performed By: #### 5 8077-9 #### MARCE GUERRERO ([id number]) [facility] ([facility]) [address] [place] [address] Specific gravity (U) [Rel density] 1.005 Normal 1.005-1.035 [facility] Comment on above: Performed By: #### 5 8077-9 #### MARCE GUERRERO ([id number]) [facility] ([facility]) [address] [place] [address] Urobilinogen (U) [Mass/Vol] Normal Normal Normal [facility] Comment on above: Performed By: #### 5 8077-9 #### MARCE GUERRERO ([id number]) [facility] ([facility]) [address] [place] [address] XR CHEST 1 VIEWon 10-19-2024 XR CHEST 1 VIEW Interpreted By: Manjit Cooley, STUDY: XR CHEST 1 VIEW; 10/19/2024 2:57 am INDICATION: Signs/Symptoms: headache. COMPARISON: None. ACCESSION NUMBER(S): [id number] ORDERING CLINICIAN: MINNIE VARELA FINDINGS: The cardiac silhouette is normal in size. No focal airspace consolidation or pleural effusion. No pneumothorax. IMPRESSION: No airspace consolidation or pleural effusion. MACRO: None Signed by: Manjit Middleton 10/19/2024 3:01 AM Dictation workstation: [id number] [facility] XR Chest Single viewon 10-19 No airspace consolid ation or pleural effusion. MACRO: None Signed by: Manjit Middleton 10/19/2024 3:01 AM Dictation workstation: [id number] Interpreted By: Manjit Cooley, STUDY: XR CHEST 1 VIEW; 10/19/2024 2:57 am INDICATION: Signs/Symptoms: headache. COMPARISON: None. ACCESSION NUMBER(S): [id number] ORDERING CLINICIAN: MINNIE VARELA FINDINGS: The cardiac silhouette is normal in size. No focal airspace consolidation or pleural effusion. No pneumothorax. MMODAL Manjit Middleton MD - 10/19/2024 Interpreted By: Manjit Middleton, STUDY: XR CHEST 1 VIEW; 10/19/2024 2:57 am INDICATION: Signs/Symptoms: headache. COMPARISON: None. ACCESSION NUMBER(S): [id number] ORDERING CLINICIAN: MINNIE VARELA FINDINGS: The cardiac silhouette is normal in size. No focal airspace consolidation or pleural effusion. No pneumothorax. IMPRESSION: No airspace consolidation or pleural effusion. MACRO: None Signed by: Manjit Middleton 10/19/2024 3:01 AM Dictation workstation: [id number] [facility] Work Phone: Radiology Study observation (narrative) [facility] Work Phone: XR Chest Single viewOrdered By: Manjit Middleton on 10-19-2024 [facility] Work Phone: BASIC METABOLIC PANELon 06-0 Anion gap [Moles/Vol] 17 mmol/L Normal 10-20 [facility] Comment on above: Order Comment: [facility] has implemented the eGFR calculation approach that does not have a coefficient for race that conforms to the NKF-ASN Task Force Recommendations. Performed By: #### 4 6124 #### LAB [address] [place], [place] [address] Josh Arrieta M.D. [id number] Calcium [Mass/Vol] 8.7 mg/dL Normal 8.4-10.2 [facility] Comment on above: Order Comment: [facility] has implemented the eGFR calculation approach that does not have a coefficient for race that conforms to the NKF-ASN Task Force Recommendations. Performed By: #### 4 6124 #### LAB [address] [place] [id number] Josh Arrieta M.D. [id number] Chloride [Moles/Vol] 102 mmol/L Normal 98-108 [facility] Comment on above: Order Comment: [facility] has implemented the eGFR calculation approach that does not have a coefficient for race that conforms to the NKF-ASN Task Force Recommendations. Performed By: #### 4 6124 #### LAB [address] [place] [address] Josh Arrieta M.D. [id number] Creatinine [Mass/Vol] 0.81 mg/dL Normal 0.40-1.10 [facility] Comment on above: Order Comment: [facility] has implemented the eGFR calculation approach that does not have a coefficient for race that conforms to the NKF-ASN Task Force Recommendations. Performed By: #### 4 6124 #### LAB [address] [place] [address] Josh Arrieta M.D. [id number] EGFR 97 mL/min/1.73 m2 Normal >=60 [facility] Comment on above: Order Comment: [facility] has implemented the eGFR calculation approach that does not have a coefficient for race that conforms to the NKF-ASN Task Force Recommendations. Result Comment: Corie mated GFR was calculated using the 2020 CKD-EPI creatinine equation. Performed By: #### 4 6131 #### LAB [address] [place] [address] Josh Arrieta M.D. [id number] Glucose [Mass/Vol] 112 mg/dL High 65-99 [facility] Comment on above: Order Comment: [facility] has implemented the eGFR calculation approach that does not have a coefficient for race that conforms to the NKF-ASN Task Force Recommendations. Performed By: #### 4 6124 #### LAB [address] [place] [address] Josh Arrieta M.D. [id number] HCO3 (Bld) [Moles/Vol] 23 mmol/L Normal 21-32 [facility] Comment on above: Order Comment: [facility] has implemented the eGFR calculation approach that does not have a coefficient for race that conforms to the NKF-ASN Task Force Recommendations. Performed By: #### 4 6124 #### LAB [address] [place] [address] Josh Arrieta M.D. [id number] Potassium [Moles/Vol] 3.4 mmol/L Low 3.5-5.1 [facility] Comment on above: Order Comment: [facility] has implemented the eGFR calculation approach that does not have a coefficient for race that conforms to the NKF-ASN Task Force Recommendations. Performed By: #### 4 6124 #### LAB [address] [place] [address] Josh Arrieta M.D. [id number] Sodium [Moles/Vol] 139 mmol/L Normal 135-145 [facility] Comment on above: Order Comment: [facility] has implemented the eGFR calculation approach that does not have a coefficient for race that conforms to the NKF-ASN Task Force Recommendations. Performed By: #### 4 6124 #### [facility] LAB [address] [place] [address] Josh Arrieta M.D. [id number] Urea nitrogen [Mass/Vol] 14 mg/dL Normal 8-25 [facility] Comment on above: Order Comment: [facility] has implemented the eGFR calculation approach that does not have a coefficient for race that conforms to the NKF-ASN Task Force Recommendations. Performed By: #### 4 6124 #### LAB [address] [place] [address] Josh Arrieta M.D. [id number] Urea nitrogen/Creatinine [Mass ratio] 17.3 mg/mg Normal 10.0-20.0 [facility] Comment on above: Order Comment: [facility] has implemented the eGFR calculation approach that does not have a coefficient for race that conforms to the NKF-ASN Task Force Recommendations. Performed By: #### 4 6124 #### LAB [address] [place] [address] Josh Arrieta M.D. [id number] CBC WITH AUTO DIFFERENTIALon 10-16-2024 AUTO NRBC 0.0 % [facility] Comment on above: Performed By: #### L [id number] #### LAB [address] [place] [address] Josh Arrieta M.D. [id number] AUTO NRBC ABS COUNT 0.00 K/mcL Normal 0.00-0.00 [facility] Comment on above: Performed By: #### L [id number] #### LAB [address] [place] [address] Josh Arrieta M.D. [id number] BASOPHILS ABSOLUTE COUNT 0.03 K/mcL Normal 0.00-0.30 [facility] Comment on above: Performed By: #### L [id number] #### LAB [address] [place] [address] Josh Arrieta M.D. [id number] Basophils/100 WBC (Bld) 0.5 % [facility] Comment on above: Performed By: #### L [id number] #### LAB [address] [place] [address] Josh Arrieta M.D. [id number] Eosinophils (Bld) [#/Vol] 0.22 10*3/uL Normal 0.00-0.50 [facility] Comment on above: Performed By: #### L [id number] #### LAB [address] [place] [address] Josh Arrieta M.D. [id number] Eosinophils/100 WBC (Bld) 3.6 % Normal [facility] Comment on above: Performed By: #### L [id number] #### LAB [address] [place] [address] Josh Arrieta M.D. [id number] Erythrocyte distribution width (RBC) [Ratio] 12.2 % Normal 11.6-14.8 [facility] Comment on above: Performed By: #### L [id number] #### LAB [address] [place] [address] Josh Arrieta M.D. [id number] Hematocrit (Bld) [Volume fraction] 39.5 % Normal 36.0-46.0 [facility] Comment on above: Performed By: #### L [id number] #### LAB [address] [place] [address] Josh Arrieta M.D. [id number] Hemoglobin (Bld) [Mass/Vol] 12.9 g/dL Normal 12.0-16.0 [facility] Comment on above: Performed By: #### L [id number] #### LAB [address] [place] [address] Josh Arrieta M.D. [id number] IG ABSOLUTE 0.04 K/mcL Normal 0.00-0.30 [facility] Comment on above: Performed By: #### L [id number] #### LAB [address] [place] [address] Josh Arrieta M.D. [id number] IG PERCENT 0.70 % Normal [facility] Comment on above: Result Comment: The IG parameter is the percentage of metamyelocytes, myelocytes and promyelocytes. An immature granulocyte count (IG) of 1% or more suggests the possibility of infection, an IG count of 3% is very likely related to an infection. Performed By: #### L [id number] #### LAB [address] [place] [address] Josh Arrieta M.D. [id number] Lymphocytes (Bld) [#/Vol] 2.16 10*3/uL Normal 0.90-4.00 [facility] Comment on above: Performed By: #### L [id number] #### LAB [address] [place] [address] Josh Arrieta M.D. [id number] Lymphocytes/100 WBC (Bld) 35.4 % Normal [facility] Comment on above: Performed By: #### L [id number] #### LAB [address] [place] [address] Josh Arrieta M.D. [id number] MCH (RBC) [Entitic mass] 28.4 pg Normal 26.0-34.0 [facility] Comment on above: Performed By: #### L TX7228 #### LAB [address] [place] [address] Josh Arrieta M.D. [id number] MCV (RBC) [Entitic vol] 87.0 fL Normal 80.0-100.0 [facility] Comment on above: Performed By: #### L TO6038 #### LAB [address] [place] [address] Josh Arrieta M.D. [id number] MEAN CORPUSCULAR HEMOGLOBIN CONC 32.7 g/dL Normal 31.0-37.0 [facility] Comment on above: Performed By: #### L [id number] #### LAB [address] [place] [address] Josh Arrieta M.D. [id number] Monocytes (Bld) [#/Vol] 0.33 10*3/uL Normal 0.30-0.90 [facility] Comment on above: Performed By: #### L [id number] #### LAB [address] [place] [address] Josh Arrieta M.D. [id number] Monocytes/100 WBC (Bld) 5.4 % Normal [facility] Comment on above: Performed By: #### L [id number] #### LAB [address] [place] [address] Josh Arrieat M.D. [id number] NEUTROPHILS ABSOLUTE COUNT 3.33 K/mcL Normal 1.70-7.00 [facility] Comment on above: Performed By: #### L TP7685 #### LAB [address] [place] [address] Josh Arrieta M.D. [id number] Neutrophils/100 WBC (Bld) 54.4 % Normal [facility] Comment on above: Performed By: #### L [id number] #### LAB [address] [place] [address] Josh Arrieta M.D. [id number] Platelet mean volume (Bld) [Entitic vol] 10.9 fL Normal 9.4-12.4 [facility] Comment on above: Performed By: #### L ED0904 #### LAB [address] [place] [address] Josh Arrieta M.D. [id number] Platelets (Bld) [#/Vol] 200 10*3/uL Normal 150-400 [facility] Comment on above: Performed By: #### L [id number] #### LAB [address] [place] [address] Josh Arrieta M.D. [id number] RBC (Bld) [#/Vol] 4.54 10*6/uL Normal 4.00-5.20 [facility] Comment on above: Performed By: #### L [id number] #### LAB [address] [place] [address] Josh Arrieta M.D. [id number] WBC (Bld) [#/Vol] 6.11 10*3/uL Normal 4.50-11.00 [facility] Comment on above: Performed By: #### L [id number] #### LAB [address] [place] [address] [address] [id number] CT HEAD OR BRAIN WITHOUT CON TRASTon 10-16-2024 CT HEAD OR BRAIN WITHOUT CONTRAST EXAMINATION: CT HEAD OR BRAIN WITHOUT CONTRAST HISTORY: ORDERING SYSTEM PROVIDED HISTORY: Headache, sudden, severe, TECHNOLOGIST PROVIDED HISTORY: Illness/Other Reason for exam: Headache, sudden, severe Encounter Type: Initial Additional signs and symptoms: n ORDERING SYSTEM PROVIDED DIAGNOSIS CODES: COMPARISON: None TECHNIQUE: CT examination of the head without IV contrast. Dose reduction techniques were achieved by using automated exposure control and/or adjustment of mA and/or kV according to patient size and/or use of iterative reconstruction technique. FINDINGS: The ventricles and sulci are normal in size and morphology. No acute intracranial hemorrhage is seen. No extra-axial mass or fluid collection is seen. No mass effect or midline shift is seen. The visualized paranasal sinuses appear well aerated. Bilateral mastoid air cells are clear. The calvarium appears intact. IMPRESSION: No evidence for acute intracranial hemorrhage or mass effect Workstation ID: [id number] Dictated by: SRIDHAR COOL on [facility] Oct 16, 2024 9:15:40 PM EDT Transcribed by: SRIDHAR COOL on [facility] Oct 16, 2024 9:15:40 PM EDT Finalized by: SRIDHAR COOL on [facility] Oct 16, 2024 9:15:40 PM EDT Normal [facility] Comment on above: Order Comment: Injur y/Trauma or Illness?:Illness/Other How long have you had these symptoms (acute/chronic)?:Acute Reason for exam?:Headache, sudden, severe Type of Exam?:Initial Additional signs and symptoms?:n ED Prov Noteon 10-16-2024 ED Prov Note [facility] KRISTY NOTE: NAME: Willow Liu See CSN: [id number] 33 y.o. PCP: Savanna Clements CNP History: Chief Complaint: Headache HPI: The history was obtained from the patient. Willow is a 33 y.o. female who presents with a chief complaint of Headache. Patient arrives per EMS due to headache sudden severe that occurred around 6:15 PM. She has not had anything for pain prior to arrival. She does describe it as a band like feeling around the head. Current pain is 9 out of 10. Pain is described as constant. She does have some light sensitivity as well as some nausea that followed the pain. The pain occurred after a coughing fit. She advises she has been sick with a URI all week. She does not currently have a fever. She did take some ibuprofen earlier in the day. She is and still breast-feeding. She does have a history of preeclampsia with . PMHx: No past medical history on file. PMSx: No past surgical history on file. FAM. Hx: No family history on file. SOC. Hx: Social History [1] MEDs: No current outpatient medications on file prior to encounter. ALL: Allergies[2] ROS: Review of Systems All other systems reviewed and are negative. Positives and pertinent negatives as per HPI. All other systems were reviewed and are negative. Physical Exam: Patient Vitals for the past 24 hrs: BP Temp Temp src Pulse Resp SpO2 Height Weight 10/16/24 2130 100/60 -- -- 82 14 100 % -- -- 10/16/24 2100 130/63 -- -- 79 15 99 % -- -- 10/16/24 1856 (!) 141/77 97.5 degrees F (36.4 degrees C) Oral 72 16 99 % 5' 8 127 kg (280 lb) Physical Exam Vitals and nursing note reviewed. Constitutional: General: She is awake. She is not in acute distress. Appearance: She is not ill-appearing, toxic-appearing or diaphoretic. HENT: Head: Normocephalic and atraumatic. Right Ear: External ear normal. Left Ear: External ear normal. Nose: Nose normal. Mouth/Throat: Mouth: Mucous membranes are moist. Pharynx: Oropharynx is clear. Eyes: General: Lids are normal. No scleral icterus. Extraocular Movements: Extraocular movements intact. Conjunctiva/sclera: Conjunctivae normal. Pupils: Pupils are equal, round, and reactive to light. Cardiovascular: Rate and Rhythm: Normal rate and regular rhythm. Heart sounds: Normal heart sounds. No murmur heard. Pulmonary: Effort: Pulmonary effort is normal. No tachypnea or respiratory distress. Breath sounds: No wheezing. Abdominal: General: Abdomen is flat. Bowel sounds are normal. Palpations: Abdomen is soft. Skin: General: Skin is warm and dry. Capillary Refill: Capillary refill takes less than 2 seconds. Neurological: General: No focal deficit present. Mental Status: She is alert and oriented to person, place, and time. GCS: GCS eye subscore is 4. GCS verbal subscore is 5. GCS motor subscore is 6. Cranial Nerves: Cranial nerves 2-12 are intact. Sensory: Sensation is intact. Motor: Motor function is intact. Coordination: Coordination is intact. Psychiatric: Mood and Affect: Mood normal. Behavior: Behavior normal. NIH Scale: LOC: 0 - alert LOC Questions: 0 - answers both correctly LOC Commands: 0 - performs both correctly Best gaze: 0 - normal Vision: 0 - no visual loss Facial Palsy: 0 - normal Left arm: 0 - no drift Right arm; 0 - no drift Left le - no drift Right le - no drift Limb ataxia: 0 - absent Sensation: 0 - normal Best language: 0 - no aphasia Dysarthria: 0 - normal articulation Extinction and inattention: 0 - no neglect Stroke Scale: 0 Laboratory & Radiological Imaging (if done): Labs Reviewed BASIC METABOLIC PANEL - Abnormal; Notable for the following components: Result Value Potassium 3.4 (*) Glucose 112 (*) All other components within normal limits Narrative: [facility] has implemented the eGFR calculation approach that does not have a coefficient for race that conforms to the NKF-ASN Task Force Recommendations. CBC AND DIFFERENTIAL Narrative: The following orders were created for panel order CBC w/ Diff. Procedure Abnormality Status --------- ------ CBC Auto Differential[[id number]] Final result Please view results for these tests on the individual orders. CBC WITH AUTO DIFFERENTIAL CT Head Or Brain Without Contrast Final Result No evidence for acute intracranial hemorrhage or mass effect Workstation ID: [id number] Procedures: Procedures ED Course / Medical Decision Making: I did personally review Willow's past medical history, surgical history, social history, as well as family history (when relevant). In this case, I also oversaw the her drug management by reviewing her medication list, allergy list, as well as the medications that I prescribed during the ED course and/or recommended as an out-patient (including possible OTC medications such as acetaminophen, NSAID (more content not included)... Normal [facility] CBC, Employeeon 09-09-2024 Absolute Lymph 2.17 X10 3/uL Normal 0.83-4.51 [facility] Comment on above: Performed By: #### L 100.0200, L500.2900, L400.0100 ####[facility] [address] [place], [address] Absolute Neut 5.0 X10 3/uL Normal 2.0-7.7 [facility] Comment on above: Performed By: #### L 100.0200, L500.2900, L400.0100 ####[facility] [address] [place], [address] Basophils/100 WBC (Bld) 0.4 % Normal 0-1 [facility] Comment on above: Performed By: #### L 100.0200, L500.2900, L400.0100 ####[facility] [address] [place], [address] Eosinophils/100 WBC (Bld) 1.9 % Normal 0-5 [facility] Comment on above: Performed By: #### L 100.0200, L500.2900, L400.0100 ####[facility] [address] [place], [address] Erythrocyte distribution width (RBC) [Ratio] 11.9 % Normal 11.6-14.6 [facility] Comment on above: Performed By: #### L 100.0200, L500.2900, L400.0100 ####[facility] [address] [place], [address] Hematocrit (Bld) [Volume fraction] 38.3 % Normal 37-47 [facility] Comment on above: Performed By: #### L 100.0200, L500.2900, L400.0100 ####[facility] [address] [place], [address] Hemoglobin (Bld) [Mass/Vol] 12.8 g/dL Normal 12.0-15.0 [facility] Comment on above: Performed By: #### L 100.0200, L500.2900, L400.0100 ####[facility] [address] [place], [address] Lymphocytes/100 WBC (Bld) 28.0 % Normal 19-41 [facility] Comment on above: Performed By: #### L 100.0200, L500.2900, L400.0100 ####[facility] [address] [place], [address] MCH (RBC) [Entitic mass] 29.0 pg Normal 27.0-32.0 [facility] Comment on above: Performed By: #### L 100.0200, L500.2900, L400.0100 ####[facility] [address] [place], [address] MCHC (RBC) [Mass/Vol] 33.4 g/dL Normal 32-36 [facility] Comment on above: Performed By: #### L 100.0200, L500.2900, L400.0100 ####[facility] [address] [place], [address] MCV (RBC) [Entitic vol] 86.7 fL Normal 81-99 [facility] Comment on above: Performed By: #### L 100.0200, L500.2900, L400.0100 ####[facility] [address] [place], [address] Monocytes/100 WBC (Bld) 4.7 % Normal 0-10 [facility] Comment on above: Performed By: #### L 100.0200, L500.2900, L400.0100 ####[facility] [address] [place], [address] Neutrophils/100 WBC (Bld) 64.5 % Normal 47-70 [facility] Comment on above: Performed By: #### L 100.0200, L500.2900, L400.0100 ####[facility] [address] [place], [address] NRBC # 0.00 10 3/uL Normal 0-5 [facility] Comment on above: Performed By: #### L 100.0200, L500.2900, L400.0100 ####[facility] [address] [place], [address] Nucleated RBC (Bld) [#/Vol] 0 10*3/uL Normal 0-5 [facility] Comment on above: Performed By: #### L 100.0200, L500.2900, L400.0100 ####[facility] [address] [place], [address] Platelet mean volume (Bld) [Entitic vol] 11.4 fL Normal 6.2-12.0 [facility] Comment on above: Performed By: #### L 100.0200, L500.2900, L400.0100 ####[facility] [address] [place], [address] Platelets (Bld) [#/Vol] 248 10*3/uL Normal 150-450 [facility] Comment on above: Performed By: #### L 100.0200, L500.2900, L400.0100 ####[facility] [address] [place], [address] RBC (Bld) [#/Vol] 4.42 10*6/uL Normal 4.2-5.4 [facility] Comment on above: Performed By: #### L 100.0200, L500.2900, L400.0100 ####[facility] [address] [place], [address] RDW SD 37.8 fl Normal 35.1-43.9 [facility] Comment on above: Performed By: #### L 100.0200, L500.2900, L400.0100 ####[facility] [address] [place], [address] WBC (Bld) [#/Vol] 7.7 10*3/uL Normal 4.4-11.0 [facility] Comment on above: Performed By: #### L 100.0200, L500.2900, L400.0100 ####[facility] [address] [place], [address] Employee Profileon Cholesterol in LDL [Mass/Vol] 165 mg/dL High 0-130 [facility] Comment on above: Performed By: #### L 100.0200, L500.2900, L400.0100 ####[facility] [address] [place], [address] Urinalysis, Employeeon 09-09 BILIRUBIN URINE Negative Normal Negative [facility] Comment on above: Order Comment: Urine , Random Performed By: #### L 100.0200, L500.2900, L400.0100 ####[facility] [address] [place], [address] Clarity (U) Clear Normal Clear [facility] Comment on above: Order Comment: Urine , Random Performed By: #### L 100.0200, L500.2900, L400.0100 ####[facility] [address] [place], [address] Color (U) Yellow Normal Yellow [facility] Comment on above: Order Comment: Urine , Random Performed By: #### L 100.0200, L500.2900, L400.0100 ####[facility] [address] [place], [address] GLUCOSE, UR Normal Normal Normal [facility] Comment on above: Order Comment: Urine , Random Performed By: #### L 100.0200, L500.2900, L400.0100 ####[facility] [address] [place], [address] KETONE UR Negative Normal Negative [facility] Comment on above: Order Comment: Urine , Random Performed By: #### L 100.0200, L500.2900, L400.0100 ####[facility] [address] [place], [address] LEUK ESTERASE 25 /ul Abnormal Negative [facility] Comment on above: Order Comment: Urine , Random Performed By: #### L 100.0200, L500.2900, L400.0100 ####[facility] [address] [place], [address] Nitrite Ql (U) Negative Normal Negative [facility] Comment on above: Order Comment: Urine , Random Performed By: #### L 100.0200, L500.2900, L400.0100 ####[facility] [address] [place], [address] OCCULT BLOOD-UR 25 /ul Abnormal Negative [facility] Comment on above: Order Comment: Urine , Random Performed By: #### L 100.0200, L500.2900, L400.0100 ####[facility] [address] [place], [address] pH UR 6.0 Normal 5.0 - 8.0 [facility] Comment on above: Order Comment: Urine , Random Performed By: #### L 100.0200, L500.2900, L400.0100 ####[facility] [address] [place], [address] PROT DIPSTX 30 mg/dl Abnormal Negative [facility] Comment on above: Order Comment: Urine , Random Performed By: #### L 100.0200, L500.2900, L400.0100 ####[facility] [address] [place], [address] SP.GR. DIPSTX 1.020 Normal 1.002-1.030 [facility] Comment on above: Order Comment: Urine , Random Performed By: #### L 100.0200, L500.2900, L400.0100 ####[facility] [address] [place], [address] UROBILI Normal Normal Normal [facility] Comment on above: Order Comment: Urine , Random Performed By: #### L 100.0200, L500.2900, L400.0100 ####[facility] [address] [place], [address] [employer] Office Visit Reporton 04-05-2024 [employer] Office Visit Report Normal [facility] [employer] Office Visit Reporton 03-16-2024 [employer] Office Visit Report Normal [facility] Body Fluid Culton 03-12-2024 BFC Normal [facility] Comment on above: Performed By: #### M 100.4001, M100.2000, M100.2900 ####[facility] [address] [place], [address] Culture, Anaerobic Any Sourc molina 03-12-2024 CUAN none none R abd No growth in 5 days. Normal [facility] Comment on above: Performed By: #### M 100.4001, M100.2000, M100.2900 ####[facility] [address] [place], [address] CBC W/Diff, Automatedon 10-3 Absolute Lymph 1.35 X10 3/uL Normal 0.83-4.51 [facility] Comment on above: Performed By: #### L 100.0100, L500.4050 ####[facility] [address] [place], [address] Absolute Neut 4.6 X10 3/uL Normal 2.0-7.7 [facility] Comment on above: Performed By: #### L 100.0100, L500.4050 ####[facility] [address] [place], [address] Basophils/100 WBC (Bld) 0.5 % Normal 0-1 [facility] Comment on above: Performed By: #### L 100.0100, L500.4050 ####[facility] [address] [place], [address] Eosinophils/100 WBC (Bld) 1.1 % Normal 0-5 [facility] Comment on above: Performed By: #### L 100.0100, L500.4050 ####[facility] [address] [place], [address] Erythrocyte distribution width (RBC) [Ratio] 11.9 % Normal 11.6-14.6 [facility] Comment on above: Performed By: #### L 100.0100, L500.4050 ####[facility] [address] [place], [address] Hematocrit (Bld) [Volume fraction] 40.9 % Normal 37-47 [facility] Comment on above: Performed By: #### L 100.0100, L500.4050 ####[facility] [address] [place], [address] Hemoglobin (Bld) [Mass/Vol] 12.7 g/dL Normal 12.0-15.0 [facility] Comment on above: Performed By: #### L 100.0100, L500.4050 ####[facility] [address] [place], [address] IG% 0.500 Normal 0.0-0.9 [facility] Comment on above: Result Comment: IG% - Immature Granulocytes (promyelocytes, myelocytes andmetamyelocytes) > 1% indicates that a LEFT SHIFT is Present. Performed By: #### L 100.0100, L500.4050 ####[facility] [address] [place], [address] Lymphocytes/100 WBC (Bld) 21.5 % Normal 19-41 [facility] Comment on above: Performed By: #### L 100.0100, L500.4050 ####[facility] [address] [place], [address] MCH (RBC) [Entitic mass] 28.6 pg Normal 27.0-32.0 [facility] Comment on above: Performed By: #### L 100.0100, L500.4050 ####[facility] [address] [place], [address] MCHC (RBC) [Mass/Vol] 31.1 g/dL Low 32-36 [facility] Comment on above: Performed By: #### L 100.0100, L500.4050 ####[facility] [address] [place], [address] MCV (RBC) [Entitic vol] 92.1 fL Normal 81-99 [facility] Comment on above: Performed By: #### L 100.0100, L500.4050 ####[facility] [address] [place], [address] Monocytes/100 WBC (Bld) 4.0 % Normal 0-10 [facility] Comment on above: Performed By: #### L 100.0100, L500.4050 ####[facility] [address] [place], [address] Neutrophils/100 WBC (Bld) 72.4 % High 47-70 [facility] Comment on above: Performed By: #### L 100.0100, L500.4050 ####[facility] [address] [place], [address] Nucleated RBC (Bld) [#/Vol] 0 10*3/uL Normal 0-5 [facility] Comment on above: Performed By: #### L 100.0100, L500.4050 ####[facility] [address] [place], [address] Platelet mean volume (Bld) [Entitic vol] 11.1 fL Normal 6.2-12.0 [facility] Comment on above: Performed By: #### L 100.0100, L500.4050 ####[facility] [address] [place], [address] Platelets (Bld) [#/Vol] 352 10*3/uL Normal 150-450 [facility] Comment on above: Performed By: #### L 100.0100, L500.4050 ####[facility] [address] [place], [address] RBC (Bld) [#/Vol] 4.44 10*6/uL Normal 4.2-5.4 [facility] Comment on above: Performed By: #### L 100.0100, L500.4050 ####[facility] [address] [place], [address] RDW SD 40.1 fl Normal 35.1-43.9 [facility] Comment on above: Performed By: #### L 100.0100, L500.4050 ####[facility] [address] [place], [address] WBC (Bld) [#/Vol] 6.3 10*3/uL Normal 4.4-11.0 [facility] Comment on above: Performed By: #### L 100.0100, L500.4050 ####[facility] [address] [place], [address] Comprehensive Metabolic Prof [facility] 03-11-2024 Albumin [Mass/Vol] 3.5 g/dL Normal 3.2-5.0 [facility] Comment on above: Performed By: #### L 100.0100, L500.4050 ####[facility] [address] [place], [address] Albumin/Globulin [Mass ratio] 0.9 {ratio} Normal 0.9-2.4 [facility] Comment on above: Performed By: #### L 100.0100, L500.4050 ####[facility] [address] [place], [address] ALK P 79 U/L Normal 45-117 [facility] Comment on above: Performed By: #### L 100.0100, L500.4050 ####[facility] [address] [place], [address] ALT [Catalytic activity/Vol] 20 U/L Normal 13-56 [facility] Comment on above: Performed By: #### L 100.0100, L500.4050 ####[facility] [address] [place], [address] AST [Catalytic activity/Vol] 12 U/L Low 15-37 [facility] Comment on above: Performed By: #### L 100.0100, L500.4050 ####[facility] [address] [place], [address] Bilirubin [Mass/Vol] 0.40 mg/dL Normal 0.20-1.00 [facility] Comment on above: Result Comment: For patients on eltrombopag therapy, use of Dimension [place] TBIL is not recommended. Performed By: #### L 100.0100, L500.4050 ####[facility] [address] [place], [address] BUN/CRE 21.6 RATIO High 10-20 [facility] Comment on above: Performed By: #### L 100.0100, L500.4050 ####[facility] [address] [place], [address] CA,Total 9.0 mg/dL Normal 8.5-10.1 [facility] Comment on above: Performed By: #### L 100.0100, L500.4050 ####[facility] [address] [place], [address] Chloride [Moles/Vol] 108 mmol/L High 98-107 [facility] Comment on above: Performed By: #### L 100.0100, L500.4050 ####[facility] [address] [place], [address] CO2 [Moles/Vol] 24.0 mmol/L Normal 21.0-32.0 [facility] Comment on above: Performed By: #### L 100.0100, L500.4050 ####[facility] [address] [place], [address] Creatinine [Mass/Vol] 0.69 mg/dL Normal 0.55-1.02 [facility] Comment on above: Result Comment: The validity of the calculated GFR GFRAA in patients over70 years has not been determined. Clinical correlation isessential. Performed By: #### L 100.0100, L500.4050 ####[facility] [address] [place], [address] EST GFR - AA 123 mL/min Normal >60 [facility] Comment on above: Result Comment: Afri can [place] GFR Calc Performed By: #### L 100.0100, L500.4050 ####[facility] [address] [place], [address] GAP 6 Normal 5-15 [facility] Comment on above: Performed By: #### L 100.0100, L500.4050 ####[facility] [address] [place], [address] GFR/1.73 sq M.predicted among non-blacks MDRD (S/P/Bld) [Vol rate/Area] 102 mL/min/{1.73_m2} Normal >60 [facility] Comment on above: Result Comment: Non- GFR Calc Performed By: #### L 100.0100, L500.4050 ####[facility] [address] [place], [address] Globulin (S) [Mass/Vol] 4.0 g/dL Normal 2.2-4.2 [facility] Comment on above: Performed By: #### L 100.0100, L500.4050 ####[facility] [address] [place], [address] Glucose [Mass/Vol] 98 mg/dL Normal 74-106 [facility] Comment on above: Performed By: #### L 100.0100, L500.4050 ####[facility] [address] [place], [address] Potassium [Moles/Vol] 4.2 mmol/L Normal 3.5-5.1 [facility] Comment on above: Performed By: #### L 100.0100, L500.4050 ####[facility] [address] [place], [address] Sodium [Moles/Vol] 138 mmol/L Normal 136-145 [facility] Comment on above: Performed By: #### L 100.0100, L500.4050 ####[facility] [address] [place], [address] T PROT 7.5 g/dL Normal 6.4-8.2 [facility] Comment on above: Performed By: #### L 100.0100, L500.4050 ####[facility] [address] [place], [address] Urea nitrogen [Mass/Vol] 15 mg/dL Normal 7-18 [facility] Comment on above: Performed By: #### L 100.0100, L500.4050 ####[facility] [address] [place], [address] [employer] Office Visit Reporton 03-11-2024 [employer] Office Visit Report Normal [facility] Gram Stainon 03-09-2024 GS none none R abd Gram Stain No organisms seen 2+ Red Blood Cells 1+ White Blood Cells Normal [facility] Comment on above: Performed By: #### M 100.4001, M100.2000, M100.2900 ####[facility] [address] [place], [address] Abdomen/Pelvis W IV Cont ONL Yon 03-08-2024 Abdomen/Pelvis W IV Cont ONLY Normal [facility] CBC W/Diff, Automatedon 02-10 Absolute Lymph 1.63 X10 3/uL Normal 0.83-4.51 [facility] Comment on above: Performed By: #### L 100.0100, L500.4050 ####[facility] [address] [place], [address] Absolute Neut 5.4 X10 3/uL Normal 2.0-7.7 [facility] Comment on above: Performed By: #### L 100.0100, L500.4050 ####[facility] [address] [place], [address] Basophils/100 WBC (Bld) 0.6 % Normal 0-1 [facility] Comment on above: Performed By: #### L 100.0100, L500.4050 ####[facility] [address] [place], [address] Eosinophils/100 WBC (Bld) 6.2 % High 0-5 [facility] Comment on above: Performed By: #### L 100.0100, L500.4050 ####[facility] [address] [place], [address] Erythrocyte distribution width (RBC) [Ratio] 12.1 % Normal 11.6-14.6 [facility] Comment on above: Performed By: #### L 100.0100, L500.4050 ####[facility] [address] [place], [address] Hematocrit (Bld) [Volume fraction] 39.9 % Normal 37-47 [facility] Comment on above: Performed By: #### L 100.0100, L500.4050 ####[facility] [address] [place], [address] Hemoglobin (Bld) [Mass/Vol] 12.9 g/dL Normal 12.0-15.0 [facility] Comment on above: Performed By: #### L 100.0100, L500.4050 ####[facility] [address] [place], [address] IG% 0.600 Normal 0.0-0.9 [facility] Comment on above: Result Comment: IG% - Immature Granulocytes (promyelocytes, myelocytes andmetamyelocytes) > 1% indicates that a LEFT SHIFT is Present. Performed By: #### L 100.0100, L500.4050 ####[facility] [address] [place], [address] Lymphocytes/100 WBC (Bld) 20.5 % Normal 19-41 [facility] Comment on above: Performed By: #### L 100.0100, L500.4050 ####[facility] [address] [place], [address] MCH (RBC) [Entitic mass] 29.4 pg Normal 27.0-32.0 [facility] Comment on above: Performed By: #### L 100.0100, L500.4050 ####[facility] [address] [place], [address] MCHC (RBC) [Mass/Vol] 32.3 g/dL Normal 32-36 [facility] Comment on above: Performed By: #### L 100.0100, L500.4050 ####[facility] [address] [place], [address] MCV (RBC) [Entitic vol] 90.9 fL Normal 81-99 [facility] Comment on above: Performed By: #### L 100.0100, L500.4050 ####[facility] [address] [place], [address] Monocytes/100 WBC (Bld) 4.3 % Normal 0-10 [facility] Comment on above: Performed By: #### L 100.0100, L500.4050 ####[facility] [address] [place], [address] Neutrophils/100 WBC (Bld) 67.8 % Normal 47-70 [facility] Comment on above: Performed By: #### L 100.0100, L500.4050 ####[facility] [address] [place], [address] Nucleated RBC (Bld) [#/Vol] 0 10*3/uL Normal 0-5 [facility] Comment on above: Performed By: #### L 100.0100, L500.4050 ####[facility] [address] [place], [address] Platelet mean volume (Bld) [Entitic vol] 10.4 fL Normal 6.2-12.0 [facility] Comment on above: Performed By: #### L 100.0100, L500.4050 ####[facility] [address] [place], [address] Platelets (Bld) [#/Vol] 351 10*3/uL Normal 150-450 [facility] Comment on above: Performed By: #### L 100.0100, L500.4050 ####[facility] [address] [place], [address] RBC (Bld) [#/Vol] 4.39 10*6/uL Normal 4.2-5.4 [facility] Comment on above: Performed By: #### L 100.0100, L500.4050 ####[facility] [address] [place], [address] RDW SD 40.3 fl Normal 35.1-43.9 [facility] Comment on above: Performed By: #### L 100.0100, L500.4050 ####[facility] [address] [place], [address] WBC (Bld) [#/Vol] 7.9 10*3/uL Normal 4.4-11.0 [facility] Comment on above: Performed By: #### L 100.0100, L500.4050 ####[facility] [address] [place], [address] Comprehensive Metabolic Prof ilon 03-08-2024 Albumin [Mass/Vol] 3.1 g/dL Low 3.2-5.0 [facility] Comment on above: Performed By: #### L 100.0100, L500.4050 ####[facility] [address] [place], [address] Albumin/Globulin [Mass ratio] 0.7 {ratio} Low 0.9-2.4 [facility] Comment on above: Performed By: #### L 100.0100, L500.4050 ####[facility] [address] [place], [address] ALK P 84 U/L Normal 45-117 [facility] Comment on above: Performed By: #### L 100.0100, L500.4050 ####[facility] [address] [place], [address] ALT [Catalytic activity/Vol] 24 U/L Normal 13-56 [facility] Comment on above: Performed By: #### L 100.0100, L500.4050 ####[facility] [address] [place], [address] AST [Catalytic activity/Vol] 26 U/L Normal 15-37 [facility] Comment on above: Performed By: #### L 100.0100, L500.4050 ####[facility] [address] [place], [address] Bilirubin [Mass/Vol] 0.30 mg/dL Normal 0.20-1.00 [facility] Comment on above: Result Comment: For patients on eltrombopag therapy, use of Dimension [place] TBIL is not recommended. Performed By: #### L 100.0100, L500.4050 ####[facility] [address] [place], [address] BUN/CRE 19.6 RATIO Normal 10-20 [facility] Comment on above: Performed By: #### L 100.0100, L500.4050 ####[facility] [address] [place], [address] CA,Total 9.1 mg/dL Normal 8.5-10.1 [facility] Comment on above: Performed By: #### L 100.0100, L500.4050 ####[facility] [address] [place], [address] Chloride [Moles/Vol] 108 mmol/L High 98-107 [facility] Comment on above: Performed By: #### L 100.0100, L500.4050 ####[facility] [address] [place], [address] CO2 [Moles/Vol] 27.0 mmol/L Normal 21.0-32.0 [facility] Comment on above: Performed By: #### L 100.0100, L500.4050 ####[facility] [address] [place], [address] Creatinine [Mass/Vol] 0.72 mg/dL Normal 0.55-1.02 [facility] Comment on above: Result Comment: The validity of the calculated GFR GFRAA in patients over70 years has not been determined. Clinical correlation isessential. Performed By: #### L 100.0100, L500.4050 ####[facility] [address] [place], [address] ECRCL 151.91 ml/min Normal [facility] Comment on above: Performed By: #### L 100.0100, L500.4050 ####[facility] [address] [place], [address] EST GFR - AA 119 mL/min Normal >60 [facility] Comment on above: Result Comment: Afri can [place] GFR Calc Performed By: #### L 100.0100, L500.4050 ####[facility] [address] [place], [address] GAP 4 Low 5-15 [facility] Comment on above: Performed By: #### L 100.0100, L500.4050 ####[facility] [address] [place], [address] GFR/1.73 sq M.predicted among non-blacks MDRD (S/P/Bld) [Vol rate/Area] 99 mL/min/{1.73_m2} Normal >60 [facility] Comment on above: Result Comment: Non- GFR Calc Performed By: #### L 100.0100, L500.4050 ####[facility] [address] [place], [address] Globulin (S) [Mass/Vol] 4.6 g/dL High 2.2-4.2 [facility] Comment on above: Performed By: #### L 100.0100, L500.4050 ####[facility] [address] [place], [address] Glucose [Mass/Vol] 85 mg/dL Normal 74-106 [facility] Comment on above: Performed By: #### L 100.0100, L500.4050 ####[facility] [address] [place], [address] Potassium [Moles/Vol] 4.0 mmol/L Normal 3.5-5.1 [facility] Comment on above: Performed By: #### L 100.0100, L500.4050 ####[facility] [address] [place], [address] Sodium [Moles/Vol] 138 mmol/L Normal 136-145 [facility] Comment on above: Performed By: #### L 100.0100, L500.4050 ####[facility] [address] [place], [address] T PROT 7.7 g/dL Normal 6.4-8.2 [facility] Comment on above: Performed By: #### L 100.0100, L500.4050 ####[facility] [address] [place], [address] Urea nitrogen [Mass/Vol] 14 mg/dL Normal 7-18 [facility] Comment on above: Performed By: #### L 100.0100, L500.4050 ####[facility] [address] [place], [address] Emergency Department Summary on 03-08-2024 Emergency Department Summary Normal [facility] [employer] Office Visit Reporton 03-08-2024 [employer] Operator Office Visit Report Normal [facility] L5000.0011on 03-02-2024 Syphilis Abs Normal [facility] Comment on above: Result Comment: TEST RESULTS LIMITSTreponema pallidum Antibodies Non Reactive Non Reactive __ TESTING PERFORMED AT [facility]. ORIGINAL REPORT ON FILE IN LAB CONTAINS ADDITIONAL TEST SITE INFORMATION. Performed By: #### L 5000.0011 ####[facility] [address] [place], [address] Bedside Glucoseon 02-25-2024 FINGERSTICK GLU 124 mg/dL High 74-106 [facility] Comment on above: Result Comment: JUMA SANCHEZ OF PATIENT CARE PER NURSING PROTOCOL Performed By: #### L 501.080 ####[facility] [address] [place], [address] CBC W/Diff, Automatedon 02-09 Absolute Lymph 1.09 X10 3/uL Normal 0.83-4.51 [facility] Comment on above: Performed By: #### L 100.0100 ####[facility] [address] [place], [address] Absolute Neut 9.2 X10 3/uL High 2.0-7.7 [facility] Comment on above: Performed By: #### L 100.0100 ####[facility] [address] [place], [address] Basophils/100 WBC (Bld) 0.2 % Normal 0-1 [facility] Comment on above: Performed By: #### L 100.0100 ####[facility] [address] [place], [address] Eosinophils/100 WBC (Bld) 0.5 % Normal 0-5 [facility] Comment on above: Performed By: #### L 100.0100 ####[facility] [address] [place], [address] Erythrocyte distribution width (RBC) [Ratio] 13.6 % Normal 11.6-14.6 [facility] Comment on above: Performed By: #### L 100.0100 ####[facility] [address] [place], [address] Hematocrit (Bld) [Volume fraction] 28.3 % Low 37-47 [facility] Comment on above: Performed By: #### L 100.0100 ####[facility] [address] [place], [address] Hemoglobin (Bld) [Mass/Vol] 9.3 g/dL Low 12.0-15.0 [facility] Comment on above: Performed By: #### L 100.0100 ####[facility] [address] [place], [address] IG% 0.600 Normal 0.0-0.9 [facility] Comment on above: Result Comment: IG% - Immature Granulocytes (promyelocytes, myelocytes andmetamyelocytes) > 1% indicates that a LEFT SHIFT is Present. Performed By: #### L 100.0100 ####[facility] [address] [place], [address] Lymphocytes/100 WBC (Bld) 9.9 % Low 19-41 [facility] Comment on above: Performed By: #### L 100.0100 ####[facility] [address] [place], [address] MCH (RBC) [Entitic mass] 30.4 pg Normal 27.0-32.0 [facility] Comment on above: Performed By: #### L 100.0100 ####[facility] [address] [place], [address] MCHC (RBC) [Mass/Vol] 32.9 g/dL Normal 32-36 [facility] Comment on above: Performed By: #### L 100.0100 ####[facility] [address] [place], [address] MCV (RBC) [Entitic vol] 92.5 fL Normal 81-99 [facility] Comment on above: Performed By: #### L 100.0100 ####[facility] [address] [place], [address] Monocytes/100 WBC (Bld) 5.4 % Normal 0-10 [facility] Comment on above: Performed By: #### L 100.0100 ####[facility] [address] [place], [address] Neutrophils/100 WBC (Bld) 83.4 % High 47-70 [facility] Comment on above: Performed By: #### L 100.0100 ####[facility] [address] [place], [address] Nucleated RBC (Bld) [#/Vol] 0 10*3/uL Normal 0-5 [facility] Comment on above: Performed By: #### L 100.0100 ####[facility] [address] [place], [address] Platelet mean volume (Bld) [Entitic vol] 12.0 fL Normal 6.2-12.0 [facility] Comment on above: Performed By: #### L 100.0100 ####[facility] [address] [place], [address] Platelets (Bld) [#/Vol] 131 10*3/uL Low 150-450 [facility] Comment on above: Performed By: #### L 100.0100 ####[facility] [address] [place], [address] RBC (Bld) [#/Vol] 3.06 10*6/uL Low 4.2-5.4 [facility] Comment on above: Performed By: #### L 100.0100 ####[facility] [address] [place], [address] RDW SD 45.7 fl High 35.1-43.9 [facility] Comment on above: Performed By: #### L 100.0100 ####[facility] [address] [place], [address] WBC (Bld) [#/Vol] 11.0 10*3/uL Normal 4.4-11.0 [facility] Comment on above: Performed By: #### L 100.0100 ####[facility] [address] [place], [address] CBC-Complete Blood Cnt No Di ffon 02-25-2024 Erythrocyte distribution width (RBC) [Ratio] 13.5 % Normal 11.6-14.6 [facility] Comment on above: Order Comment: Comme nts: Day #1Reason for Laboratory Test Performed By: #### L 100.0500 ####[facility] [address] [place], [address] Hematocrit (Bld) [Volume fraction] 28.5 % Low 37-47 [facility] Comment on above: Order Comment: Comme nts: Day #1Reason for Laboratory Test Performed By: #### L 100.0500 ####[facility] [address] [place], [address] Hemoglobin (Bld) [Mass/Vol] 9.5 g/dL Low 12.0-15.0 [facility] Comment on above: Order Comment: Comme nts: Day #1Reason for Laboratory Test Performed By: #### L 100.0500 ####[facility] [address] [place], [address] MCH (RBC) [Entitic mass] 30.7 pg Normal 27.0-32.0 [facility] Comment on above: Order Comment: Comme nts: Day #1Reason for Laboratory Test Performed By: #### L 100.0500 ####[facility] [address] [place], [address] MCHC (RBC) [Mass/Vol] 33.3 g/dL Normal 32-36 [facility] Comment on above: Order Comment: Comme nts: Day #1Reason for Laboratory Test Performed By: #### L 100.0500 ####[facility] [address] [place], [address] MCV (RBC) [Entitic vol] 92.2 fL Normal 81-99 [facility] Comment on above: Order Comment: Comme nts: Day #1Reason for Laboratory Test Performed By: #### L 100.0500 ####[facility] [address] [place], [address] Platelet mean volume (Bld) [Entitic vol] 12.3 fL High 6.2-12.0 [facility] Comment on above: Order Comment: Comme nts: Day #1Reason for Laboratory Test Performed By: #### L 100.0500 ####[facility] [address] [place], [address] Platelets (Bld) [#/Vol] 137 10*3/uL Low 150-450 [facility] Comment on above: Order Comment: Comme nts: Day #1Reason for Laboratory Test Performed By: #### L 100.0500 ####[facility] [address] [place], [address] RBC (Bld) [#/Vol] 3.09 10*6/uL Low 4.2-5.4 [facility] Comment on above: Order Comment: Comme nts: Day #1Reason for Laboratory Test Performed By: #### L 100.0500 ####[facility] [address] [place], [address] RDW SD 45.1 fl High 35.1-43.9 [facility] Comment on above: Order Comment: Comme nts: Day #1Reason for Laboratory Test Performed By: #### L 100.0500 ####[facility] [address] [place], [address] WBC (Bld) [#/Vol] 13.5 10*3/uL High 4.4-11.0 [facility] Comment on above: Order Comment: Comme nts: Day #1Reason for Laboratory Test Performed By: #### L 100.0500 ####[facility] [address] [place], [address] Comprehensive Metabolic Prof ilon 02-25-2024 Albumin [Mass/Vol] 2.1 g/dL Low 3.2-5.0 [facility] Comment on above: Performed By: #### L 500.4050 ####[facility] [address] [place], [address] Albumin/Globulin [Mass ratio] 0.6 {ratio} Low 0.9-2.4 [facility] Comment on above: Performed By: #### L 500.4050 ####[facility] [address] [place], [address] ALK P 92 U/L Normal 45-117 [facility] Comment on above: Performed By: #### L 500.4050 ####[facility] [address] [place], [address] ALT [Catalytic activity/Vol] U/L Low 13-56 [facility] Comment on above: Performed By: #### L 500.4050 ####[facility] [address] [place], [address] AST [Catalytic activity/Vol] 11 U/L Low 15-37 [facility] Comment on above: Performed By: #### L 500.4050 ####[facility] [address] [place], [address] Bilirubin [Mass/Vol] 0.40 mg/dL Normal 0.20-1.00 [facility] Comment on above: Result Comment: For patients on eltrombopag therapy, use of Dimension [place] TBIL is not recommended. Performed By: #### L 500.4050 ####[facility] [address] [place], [address] BUN/CRE 16.7 RATIO Normal 10-20 [facility] Comment on above: Performed By: #### L 500.4050 ####[facility] [address] [place], [address] CA,Total 8.5 mg/dL Normal 8.5-10.1 [facility] Comment on above: Performed By: #### L 500.4050 ####[facility] [address] [place], [address] Chloride [Moles/Vol] 104 mmol/L Normal 98-107 [facility] Comment on above: Performed By: #### L 500.4050 ####[facility] [address] [place], [address] CO2 [Moles/Vol] 25.0 mmol/L Normal 21.0-32.0 [facility] Comment on above: Performed By: #### L 500.4050 ####[facility] [address] [place], [address] Creatinine [Mass/Vol] 0.60 mg/dL Normal 0.55-1.02 [facility] Comment on above: Result Comment: The validity of the calculated GFR GFRAA in patients over70 years has not been determined. Clinical correlation isessential. Performed By: #### L 500.4050 ####[facility] [address] [place], [address] ECRCL 189.88 ml/min Normal [facility] Comment on above: Performed By: #### L 500.4050 ####[facility] [address] [place], [address] EST GFR - AA 146 mL/min Normal >60 [facility] Comment on above: Result Comment: Afri can [place] GFR Calc Performed By: #### L 500.4050 ####[facility] [address] [place], [address] GAP 3 Low 5-15 [facility] Comment on above: Performed By: #### L 500.4050 ####[facility] [address] [place], [address] GFR/1.73 sq M.predicted among non-blacks MDRD (S/P/Bld) [Vol rate/Area] 121 mL/min/{1.73_m2} Normal >60 [facility] Comment on above: Result Comment: Non- GFR Calc Performed By: #### L 500.4050 ####[facility] [address] [place], [address] Globulin (S) [Mass/Vol] 3.3 g/dL Normal 2.2-4.2 [facility] Comment on above: Performed By: #### L 500.4050 ####[facility] [address] [place], [address] Glucose [Mass/Vol] 121 mg/dL High 74-106 [facility] Comment on above: Result Comment: Fast ing Glucose result from 100 to 125 mg/dLsuggests IMPAIRED HOMEOSTASIS per A.D.A. criteria. Performed By: #### L 500.4050 ####[facility] [address] [place], [address] Potassium [Moles/Vol] 3.8 mmol/L Normal 3.5-5.1 [facility] Comment on above: Performed By: #### L 500.4050 ####[facility] [address] [place], [address] Sodium [Moles/Vol] 132 mmol/L Low 136-145 [facility] Comment on above: Performed By: #### L 500.4050 ####[facility] [address] [place], [address] T PROT 5.4 g/dL Low 6.4-8.2 [facility] Comment on above: Performed By: #### L 500.4050 ####[facility] [address] [place], [address] Urea nitrogen [Mass/Vol] 10 mg/dL Normal 7-18 [facility] Comment on above: Performed By: #### L 500.4050 ####[facility] [address] [place], [address] Bedside Glucoseon 02-24-2024 FINGERSTICK GLU 108 mg/dL High 74-106 [facility] Comment on above: Result Comment: JUMA GEMENT OF PATIENT CARE PER NURSING PROTOCOL Performed By: #### L 501.080 ####[facility] [address] [place], [address] FINGERSTICK GLU 89 mg/dL Normal 74-106 [facility] Comment on above: Result Comment: JUMA GEMENT OF PATIENT CARE PER NURSING PROTOCOL Performed By: #### L 501.080 ####[facility] [address] [place], [address] FINGERSTICK GLU 93 mg/dL Normal 74-106 [facility] Comment on above: Result Comment: JUMA GEMENT OF PATIENT CARE PER NURSING PROTOCOL Performed By: #### L 501.080 ####[facility] [address] [place], [address] FINGERSTICK GLU 90 mg/dL Normal 74-106 [facility] Comment on above: Result Comment: JUMA GEMENT OF PATIENT CARE PER NURSING PROTOCOL Performed By: #### L 501.080 ####[facility] [address] [place], [address] FINGERSTICK GLU 98 mg/dL Normal 74-106 [facility] Comment on above: Result Comment: JUMA GEMENT OF PATIENT CARE PER NURSING PROTOCOL Performed By: #### L 501.080 ####[facility] [address] [place], [address] FINGERSTICK GLU 101 mg/dL Normal 74-106 [facility] Comment on above: Result Comment: JUMA GEMENT OF PATIENT CARE PER NURSING PROTOCOL Performed By: #### L 501.080 ####[facility] [address] [place], [address] FINGERSTICK GLU 96 mg/dL Normal 74-106 [facility] Comment on above: Result Comment: JUMA GEMENT OF PATIENT CARE PER NURSING PROTOCOL Performed By: #### L 501.080 ####[facility] [address] [place], [address] FINGERSTICK GLU 105 mg/dL Normal 74-[address] [place] [address] Comment on above: Result Comment: JUMA GEMENT OF PATIENT CARE PER NURSING PROTOCOL Performed By: #### L 501.080 ####[facility] [address] [place], [address] FINGERSTICK GLU 95 mg/dL Normal -[address] [place] [address] Comment on above: Result Comment: JUMA GEMENT OF PATIENT CARE PER NURSING PROTOCOL Performed By: #### L 501.080 ####[facility] [address] [place], [address] FINGERSTICK GLU 86 mg/dL Normal [address] [place] [address] Comment on above: Result Comment: JUMA GEMENT OF PATIENT CARE PER NURSING PROTOCOL Performed By: #### L 501.080 ####[facility] [address] [place], [address] Discharge Instructionon 02-09 Discharge Instruction Normal [facility] Operative Reporton Operative Report Normal [facility] AST(SGOT)on 02-23-2024 AST [Catalytic activity/Vol] 14 U/L Low 15-37 [facility] Comment on above: Order Comment: 1 Performed By: #### L 501.1105, L100.0500, L501.1400, L501.4100, L100.0100, L501.4405, L501.0900, L504.2610 ####[facility] [address] [place], [address] Alanine Aminotransferas (SGP T)on 02-23-2024 ALT [Catalytic activity/Vol] 10 U/L Low 13-56 [facility] Comment on above: Order Comment: 1 Performed By: #### L 501.1105, L100.0500, L501.1400, L501.4100, L100.0100, L501.4405, L501.0900, L504.2610 ####[facility] [address] [place], [address] Bedside Glucoseon 02-23-2024 FINGERSTICK GLU 86 mg/dL Normal 74-106 [facility] Comment on above: Result Comment: JUMA GEMENT OF PATIENT CARE PER NURSING PROTOCOL Performed By: #### L 501.080 ####[facility] [address] [place], [address] FINGERSTICK GLU 93 mg/dL Normal 74-106 [facility] Comment on above: Result Comment: JUMA GEMENT OF PATIENT CARE PER NURSING PROTOCOL Performed By: #### L 501.080 ####[facility] [address] [place], [address] FINGERSTICK GLU 94 mg/dL Normal 74-106 [facility] Comment on above: Result Comment: JUMA GEMENT OF PATIENT CARE PER NURSING PROTOCOL Performed By: #### L 501.080 ####[facility] [address] [place], [address] FINGERSTICK GLU 89 mg/dL Normal 74-106 [facility] Comment on above: Result Comment: JUMA GEMENT OF PATIENT CARE PER NURSING PROTOCOL Performed By: #### L 501.080 ####[facility] [address] [place], [address] FINGERSTICK GLU 84 mg/dL Normal 74-106 [facility] Comment on above: Result Comment: JUMA GEMENT OF PATIENT CARE PER NURSING PROTOCOL Performed By: #### L 501.080 ####[facility] [address] [place], [address] FINGERSTICK GLU 97 mg/dL Normal 74-106 [facility] Comment on above: Result Comment: JUMA GEMENT OF PATIENT CARE PER NURSING PROTOCOL Performed By: #### L 501.080 ####[facility] [address] [place], [address] FINGERSTICK GLU 93 mg/dL Normal 74-106 [facility] Comment on above: Result Comment: JUMA GEMENT OF PATIENT CARE PER NURSING PROTOCOL Performed By: #### L 501.080 ####[facility] [address] [place], [address] CBC W/Diff, Automatedon 10-1 Absolute Lymph 1.33 X10 3/uL Normal 0.83-4.51 [facility] Comment on above: Performed By: #### L 501.1105, L100.0500, L501.1400, L501.4100, L100.0100, L501.4405, L501.0900, L504.2610 ####[facility] [address] [place], [address] Absolute Neut 6.0 X10 3/uL Normal 2.0-7.7 [facility] Comment on above: Performed By: #### L 501.1105, L100.0500, L501.1400, L501.4100, L100.0100, L501.4405, L501.0900, L504.2610 ####[facility] [address] [place], [address] Basophils/100 WBC (Bld) 0.5 % Normal 0-1 [facility] Comment on above: Performed By: #### L 501.1105, L100.0500, L501.1400, L501.4100, L100.0100, L501.4405, L501.0900, L504.2610 ####[facility] [address] [place], [address] Eosinophils/100 WBC (Bld) 1.3 % Normal 0-5 [facility] Comment on above: Performed By: #### L 501.1105, L100.0500, L501.1400, L501.4100, L100.0100, L501.4405, L501.0900, L504.2610 ####[facility] [address] [place], [address] IG% 0.800 Normal 0.0-0.9 [facility] Comment on above: Result Comment: IG% - Immature Granulocytes (promyelocytes, myelocytes andmetamyelocytes) > 1% indicates that a LEFT SHIFT is Present. Performed By: #### L 501.1105, L100.0500, L501.1400, L501.4100, L100.0100, L501.4405, L501.0900, L504.2610 ####[facility] [address] [place], [address] Lymphocytes/100 WBC (Bld) 16.7 % Low 19-41 [facility] Comment on above: Performed By: #### L 501.1105, L100.0500, L501.1400, L501.4100, L100.0100, L501.4405, L501.0900, L504.2610 ####[facility] [address] [place], [address] Monocytes/100 WBC (Bld) 5.0 % Normal 0-10 [facility] Comment on above: Performed By: #### L 501.1105, L100.0500, L501.1400, L501.4100, L100.0100, L501.4405, L501.0900, L504.2610 ####[facility] [address] [place], [address] Neutrophils/100 WBC (Bld) 75.7 % High 47-70 [facility] Comment on above: Performed By: #### L 501.1105, L100.0500, L501.1400, L501.4100, L100.0100, L501.4405, L501.0900, L504.2610 ####[facility] [address] [place], [address] Nucleated RBC (Bld) [#/Vol] 0 10*3/uL Normal 0-5 [facility] Comment on above: Performed By: #### L 501.1105, L100.0500, L501.1400, L501.4100, L100.0100, L501.4405, L501.0900, L504.2610 ####[facility] [address] [place], [address] Absolute Neut Normal 2.0-7.7 [facility] Comment on above: Result Comment: DIFF ADDED TO H91. Performed By: #### L 100.0100, BTS ####[facility] [address] [place], [address] HCT Normal 37-47 [facility] Comment on above: Result Comment: DIFF ADDED TO H91. Performed By: #### L 100.0100, BTS ####[facility] [address] [place], [address] HGB Normal 12.0-15.0 [facility] Comment on above: Result Comment: DIFF ADDED TO H91. Performed By: #### L 100.0100, BTS ####[facility] [address] [place], [address] MCH Normal 27.0-32.0 [facility] Comment on above: Result Comment: DIFF ADDED TO H91. Performed By: #### L 100.0100, BTS ####[facility] [address] [place], [address] MCHC Normal 32-36 [facility] Comment on above: Result Comment: DIFF ADDED TO H91. Performed By: #### L 100.0100, BTS ####[facility] [address] [place], [address] MCV Normal 81-99 [facility] Comment on above: Result Comment: DIFF ADDED TO H91. Performed By: #### L 100.0100, BTS ####[facility] [address] [place], [address] NEUT% Normal 47-70 [facility] Comment on above: Result Comment: DIFF ADDED TO H91. Performed By: #### L 100.0100, BTS ####[facility] [address] [place], [address] PLT Normal 150-450 [facility] Comment on above: Result Comment: DIFF ADDED TO H91. Performed By: #### L 100.0100, BTS ####[facility] [address] [place], [address] RBC Normal 4.2-5.4 [facility] Comment on above: Result Comment: DIFF ADDED TO H91. Performed By: #### L 100.0100, BTS ####[facility] [address] [place], [address] RDW CV Normal 11.6-14.6 [facility] Comment on above: Result Comment: DIFF ADDED TO H91. Performed By: #### L 100.0100, BTS ####[facility] [address] [place], [address] RDW SD Normal 35.1-43.9 [facility] Comment on above: Result Comment: DIFF ADDED TO H91. Performed By: #### L 100.0100, BTS ####[facility] [address] [place], [address] WBC Normal 4.4-11.0 [facility] Comment on above: Result Comment: DIFF ADDED TO H91. Performed By: #### L 100.0100, BTS ####[facility] [address] [place], [address] CBC-Complete Blood Cnt No Di ffon 02-23-2024 Erythrocyte distribution width (RBC) [Ratio] 13.1 % Normal 11.6-14.6 [facility] Comment on above: Performed By: #### L 501.1105, L100.0500, L501.1400, L501.4100, L100.0100, L501.4405, L501.0900, L504.2610 ####[facility] [address] [place], [address] Hematocrit (Bld) [Volume fraction] 34.7 % Low 37-47 [facility] Comment on above: Performed By: #### L 501.1105, L100.0500, L501.1400, L501.4100, L100.0100, L501.4405, L501.0900, L504.2610 ####[facility] [address] [place], [address] Hemoglobin (Bld) [Mass/Vol] 11.5 g/dL Low 12.0-15.0 [facility] Comment on above: Performed By: #### L 501.1105, L100.0500, L501.1400, L501.4100, L100.0100, L501.4405, L501.0900, L504.2610 ####[facility] [address] [place], [address] MCH (RBC) [Entitic mass] 29.9 pg Normal 27.0-32.0 [facility] Comment on above: Performed By: #### L 501.1105, L100.0500, L501.1400, L501.4100, L100.0100, L501.4405, L501.0900, L504.2610 ####[facility] [address] [place], [address] MCHC (RBC) [Mass/Vol] 33.1 g/dL Normal 32-36 [facility] Comment on above: Performed By: #### L 501.1105, L100.0500, L501.1400, L501.4100, L100.0100, L501.4405, L501.0900, L504.2610 ####[facility] [address] [place], [address] MCV (RBC) [Entitic vol] 90.4 fL Normal 81-99 [facility] Comment on above: Performed By: #### L 501.1105, L100.0500, L501.1400, L501.4100, L100.0100, L501.4405, L501.0900, L504.2610 ####[facility] [address] [place], [address] Platelet mean volume (Bld) [Entitic vol] 12.3 fL High 6.2-12.0 [facility] Comment on above: Performed By: #### L 501.1105, L100.0500, L501.1400, L501.4100, L100.0100, L501.4405, L501.0900, L504.2610 ####[facility] [address] [place], [address] Platelets (Bld) [#/Vol] 157 10*3/uL Normal 150-450 [facility] Comment on above: Performed By: #### L 501.1105, L100.0500, L501.1400, L501.4100, L100.0100, L501.4405, L501.0900, L504.2610 ####[facility] [address] [place], [address] RBC (Bld) [#/Vol] 3.84 10*6/uL Low 4.2-5.4 [facility] Comment on above: Performed By: #### L 501.1105, L100.0500, L501.1400, L501.4100, L100.0100, L501.4405, L501.0900, L504.2610 ####[facility] [address] [place], [address] RDW SD 42.5 fl Normal 35.1-43.9 [facility] Comment on above: Performed By: #### L 501.1105, L100.0500, L501.1400, L501.4100, L100.0100, L501.4405, L501.0900, L504.2610 ####[facility] [address] [place], [address] WBC (Bld) [#/Vol] 8.3 10*3/uL Normal 4.4-11.0 [facility] Comment on above: Performed By: #### L 501.1105, L100.0500, L501.1400, L501.4100, L100.0100, L501.4405, L501.0900, L504.2610 ####[facility] [address] 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, [address] Protein+Creatinine Ratio,Uri neon 02-23-2024 PROT:CRE RATIO 469 mg/g CRE High 0-200 [facility] Comment on above: Performed By: #### L 501.1105, L100.0500, L501.1400, L501.4100, L100.0100, L501.4405, L501.0900, L504.2610 ####[facility] [address] [place], [address] Protein (U) [Mass/Vol] 24.8 mg/dL High <11.9 [facility] Comment on above: Performed By: #### L 501.1105, L100.0500, L501.1400, L501.4100, L100.0100, L501.4405, L501.0900, L504.2610 ####[facility] [address] [place], [address] UR CREAT 52.90 mg/dL Normal NO RANGE EST. [facility] Comment on above: Performed By: #### L 501.1105, L100.0500, L501.1400, L501.4100, L100.0100, L501.4405, L501.0900, L504.2610 ####[facility] [address] [place], [address] Serum Creatinine AND GFRon 1 Creatinine [Mass/Vol] 0.47 mg/dL Low 0.55-1.02 [facility] Comment on above: Order Comment: 1 Result Comment: The validity of the calculated GFR GFRAA in patients over70 years has not been determined. Clinical correlation isessential. Performed By: #### L 501.1105, L100.0500, L501.1400, L501.4100, L100.0100, L501.4405, L501.0900, L504.2610 ####[facility] [address] [place], [address] ECRCL 242.40 ml/min Normal [facility] Comment on above: Order Comment: 1 Performed By: #### L 501.1105, L100.0500, L501.1400, L501.4100, L100.0100, L501.4405, L501.0900, L504.2610 ####[facility] [address] [place], [address] EST GFR - AA 193 mL/min Normal >60 [facility] Comment on above: Order Comment: 1 Result Comment: Afri can [place] GFR Calc Performed By: #### L 501.1105, L100.0500, L501.1400, L501.4100, L100.0100, L501.4405, L501.0900, L504.2610 ####[facility] [address] [place], [address] GFR/1.73 sq M.predicted among non-blacks MDRD (S/P/Bld) [Vol rate/Area] 160 mL/min/{1.73_m2} Normal >60 [facility] Comment on above: Order Comment: 1 Result Comment: Non- GFR Calc Performed By: #### L 501.1105, L100.0500, L501.1400, L501.4100, L100.0100, L501.4405, L501.0900, L504.2610 ####[facility] [address] [place], [address] Type AND Screenon 02-23-2024 ABO and Rh group Nom (Bld) Blood group A Rh(D) positive Normal [facility] Comment on above: Order Comment: Labor Performed By: #### L 100.0100, BTS ####[facility] [address] [place], [address] Uric Acidon 02-23-2024 URIC 4.8 mg/dL Normal 2.6-6.0 [facility] Comment on above: Order Comment: 1 Result Comment: The drugs N-Acetylcysteine and Metamizole may falselydepress this assay. Performed By: #### L 501.1105, L100.0500, L501.1400, L501.4100, L100.0100, L501.4405, L501.0900, L504.2610 ####[facility] [address] [place], [address] Rule out Beta Strep (Grp. B) on 02-21-2024 BRIELLE Group B Beta Streptococcus is not isolated. Normal [facility] Comment on above: Performed By: #### M 100.3400 ####[facility] [address] [place], [address] OB Limited With Biometricson 02-20-2024 OB Limited With Biometrics Normal [facility] CBC W/Diff, Automatedon -0 Absolute Lymph 1.01 X10 3/uL Normal 0.83-4.51 [facility] Comment on above: Performed By: #### L 100.0100, L500.4050 ####[facility] [address] [place], [address] Absolute Neut 6.4 X10 3/uL Normal 2.0-7.7 [facility] Comment on above: Performed By: #### L 100.0100, L500.4050 ####[facility] [address] [place], [address] Basophils/100 WBC (Bld) 0.1 % Normal 0-1 [facility] Comment on above: Performed By: #### L 100.0100, L500.4050 ####[facility] [address] [place], [address] Eosinophils/100 WBC (Bld) 0.5 % Normal 0-5 [facility] Comment on above: Performed By: #### L 100.0100, L500.4050 ####[facility] [address] [place], [address] Erythrocyte distribution width (RBC) [Ratio] 13.0 % Normal 11.6-14.6 [facility] Comment on above: Performed By: #### L 100.0100, L500.4050 ####[facility] [address] [place], [address] Hematocrit (Bld) [Volume fraction] 36.8 % Low 37-47 [facility] Comment on above: Performed By: #### L 100.0100, L500.4050 ####[facility] [address] [place], [address] Hemoglobin (Bld) [Mass/Vol] 11.9 g/dL Low 12.0-15.0 [facility] Comment on above: Performed By: #### L 100.0100, L500.4050 ####[facility] [address] [place], [address] IG% 0.800 Normal 0.0-0.9 [facility] Comment on above: Result Comment: IG% - Immature Granulocytes (promyelocytes, myelocytes andmetamyelocytes) > 1% indicates that a LEFT SHIFT is Present. Performed By: #### L 100.0100, L500.4050 ####[facility] [address] [place], [address] Lymphocytes/100 WBC (Bld) 12.9 % Low 19-41 [facility] Comment on above: Performed By: #### L 100.0100, L500.4050 ####[facility] [address] [place], [address] MCH (RBC) [Entitic mass] 29.6 pg Normal 27.0-32.0 [facility] Comment on above: Performed By: #### L 100.0100, L500.4050 ####[facility] [address] [place], [address] MCHC (RBC) [Mass/Vol] 32.3 g/dL Normal 32-36 [facility] Comment on above: Performed By: #### L 100.0100, L500.4050 ####[facility] [address] [place], [address] MCV (RBC) [Entitic vol] 91.5 fL Normal 81-99 [facility] Comment on above: Performed By: #### L 100.0100, L500.4050 ####[facility] [address] [place], [address] Monocytes/100 WBC (Bld) 3.8 % Normal 0-10 [facility] Comment on above: Performed By: #### L 100.0100, L500.4050 ####[facility] [address] [place], [address] Neutrophils/100 WBC (Bld) 81.9 % High 47-70 [facility] Comment on above: Performed By: #### L 100.0100, L500.4050 ####[facility] [address] [place], [address] Nucleated RBC (Bld) [#/Vol] 0 10*3/uL Normal 0-5 [facility] Comment on above: Performed By: #### L 100.0100, L500.4050 ####[facility] [address] [place], [address] Platelet mean volume (Bld) [Entitic vol] 12.0 fL Normal 6.2-12.0 [facility] Comment on above: Performed By: #### L 100.0100, L500.4050 ####[facility] [address] [place], [address] Platelets (Bld) [#/Vol] 147 10*3/uL Low 150-450 [facility] Comment on above: Performed By: #### L 100.0100, L500.4050 ####[facility] [address] [place], [address] RBC (Bld) [#/Vol] 4.02 10*6/uL Low 4.2-5.4 [facility] Comment on above: Performed By: #### L 100.0100, L500.4050 ####[facility] [address] [place], [address] RDW SD 42.8 fl Normal 35.1-43.9 [facility] Comment on above: Performed By: #### L 100.0100, L500.4050 ####[facility] [address] [place], [address] WBC (Bld) [#/Vol] 7.8 10*3/uL Normal 4.4-11.0 [facility] Comment on above: Performed By: #### L 100.0100, L500.4050 ####[facility] [address] [place], [address] Comprehensive Metabolic Prof neon 02-18-2024 Albumin [Mass/Vol] 2.6 g/dL Low 3.2-5.0 [facility] Comment on above: Performed By: #### L 100.0100, L500.4050 ####[facility] [address] [place], [address] Albumin/Globulin [Mass ratio] 0.6 {ratio} Low 0.9-2.4 [facility] Comment on above: Performed By: #### L 100.0100, L500.4050 ####[facility] [address] [place], [address] ALK P 105 U/L Normal 45-117 [facility] Comment on above: Performed By: #### L 100.0100, L500.4050 ####[facility] [address] [place], [address] ALT [Catalytic activity/Vol] 9 U/L Low 13-56 [facility] Comment on above: Performed By: #### L 100.0100, L500.4050 ####[facility] [address] [place], [address] AST [Catalytic activity/Vol] 14 U/L Low 15-37 [facility] Comment on above: Performed By: #### L 100.0100, L500.4050 ####[facility] [address] [place], [address] Bilirubin [Mass/Vol] 0.40 mg/dL Normal 0.20-1.00 [facility] Comment on above: Result Comment: For patients on eltrombopag therapy, use of Dimension [place] TBIL is not recommended. Performed By: #### L 100.0100, L500.4050 ####[facility] [address] [place], [address] BUN/CRE 14.7 RATIO Normal 10-20 [facility] Comment on above: Performed By: #### L 100.0100, L500.4050 ####[facility] [address] [place], [address] CA,Total 9.2 mg/dL Normal 8.5-10.1 [facility] Comment on above: Performed By: #### L 100.0100, L500.4050 ####[facility] [address] [place], [address] Chloride [Moles/Vol] 106 mmol/L Normal 98-107 [facility] Comment on above: Performed By: #### L 100.0100, L500.4050 ####[facility] [address] [place], [address] CO2 [Moles/Vol] 23.0 mmol/L Normal 21.0-32.0 [facility] Comment on above: Performed By: #### L 100.0100, L500.4050 ####[facility] [address] [place], [address] Creatinine [Mass/Vol] 0.55 mg/dL Normal 0.55-1.02 [facility] Comment on above: Result Comment: The validity of the calculated GFR GFRAA in patients over70 years has not been determined. Clinical correlation isessential. Performed By: #### L 100.0100, L500.4050 ####[facility] [address] [place], [address] EST GFR - AA 163 mL/min Normal >60 [facility] Comment on above: Result Comment: Afri can [place] GFR Calc Performed By: #### L 100.0100, L500.4050 ####[facility] [address] [place], [address] GAP 9 Normal 5-15 [facility] Comment on above: Performed By: #### L 100.0100, L500.4050 ####[facility] [address] [place], [address] GFR/1.73 sq M.predicted among non-blacks MDRD (S/P/Bld) [Vol rate/Area] 135 mL/min/{1.73_m2} Normal >60 [facility] [facility] Comment on above: Result Comment: Non- GFR Calc Performed By: #### L 100.0100, L500.4050 ####[facility] [address] [place], [address] Globulin (S) [Mass/Vol] 4.0 g/dL Normal 2.2-4.2 [facility] Comment on above: Performed By: #### L 100.0100, L500.4050 ####[facility] [address] [place], [address] Glucose [Mass/Vol] 121 mg/dL High 74-106 [facility] Comment on above: Result Comment: Fast ing Glucose result from 100 to 125 mg/dLsuggests IMPAIRED HOMEOSTASIS per A.D.A. criteria. Performed By: #### L 100.0100, L500.4050 ####[facility] [address] [place], [address] Potassium [Moles/Vol] 3.9 mmol/L Normal 3.5-5.1 [facility] Comment on above: Performed By: #### L 100.0100, L500.4050 ####[facility] [address] [place], [address] Sodium [Moles/Vol] 137 mmol/L Normal 136-145 [facility] Comment on above: Performed By: #### L 100.0100, L500.4050 ####[facility] [address] [place], [address] T PROT 6.6 g/dL Normal 6.4-8.2 [facility] Comment on above: Performed By: #### L 100.0100, L500.4050 ####[facility] [address] [place], [address] Urea nitrogen [Mass/Vol] 8 mg/dL Normal 7-18 [facility] Comment on above: Performed By: #### L 100.0100, L500.4050 ####[facility] [address] [place], [address] [employer] Office Visit Reporton 02-18-2024 [employer] Office Visit Report Normal [facility] Protein+Creatinine Ratio,Uri neon 02-18-2024 PROT:CRE RATIO 326 mg/g CRE High 0-200 [facility] Comment on above: Performed By: #### L 501.0900 ####[facility] [address] [place], [address] Protein (U) [Mass/Vol] 62.2 mg/dL High <11.9 [facility] Comment on above: Performed By: #### L 501.0900 ####[facility] [address] [place], [address] UR CREAT 191.00 mg/dL Normal NO RANGE EST. [facility] Comment on above: Performed By: #### L 501.0900 ####[facility] [address] [place], [address] CBC W/Diff, Automatedon 10-0 -2023 Absolute Lymph 1.17 X10 3/uL Normal 0.83-4.51 [facility] Comment on above: Performed By: #### L 500.4050, L100.0100 ####[facility] [address] [place], [address] Absolute Neut 6.0 X10 3/uL Normal 2.0-7.7 [facility] Comment on above: Performed By: #### L 500.4050, L100.0100 ####[facility] [address] [place], [address] Basophils/100 WBC (Bld) 0.3 % Normal 0-1 [facility] Comment on above: Performed By: #### L 500.4050, L100.0100 ####[facility] [address] [place], [address] Eosinophils/100 WBC (Bld) 0.6 % Normal 0-5 [facility] Comment on above: Performed By: #### L 500.4050, L100.0100 ####[facility] [address] [place], [address] Erythrocyte distribution width (RBC) [Ratio] 12.9 % Normal 11.6-14.6 [facility] Comment on above: Performed By: #### L 500.4050, L100.0100 ####[facility] [address] [place], [address] Hematocrit (Bld) [Volume fraction] 35.1 % Low 37-47 [facility] Comment on above: Performed By: #### L 500.4050, L100.0100 ####[facility] [address] [place], [address] Hemoglobin (Bld) [Mass/Vol] 11.7 g/dL Low 12.0-15.0 [facility] Comment on above: Performed By: #### L 500.4050, L100.0100 ####[facility] [address] [place], [address] IG% 1.000 High 0.0-0.9 [facility] Comment on above: Result Comment: IG% - Immature Granulocytes (promyelocytes, myelocytes andmetamyelocytes) > 1% indicates that a LEFT SHIFT is Present. Performed By: #### L 500.4050, L100.0100 ####[facility] [address] [place], [address] Lymphocytes/100 WBC (Bld) 15.1 % Low 19-41 [facility] Comment on above: Performed By: #### L 500.4050, L100.0100 ####[facility] [address] [place], [address] MCH (RBC) [Entitic mass] 29.8 pg Normal 27.0-32.0 [facility] Comment on above: Performed By: #### L 500.4050, L100.0100 ####[facility] [address] [place], [address] MCHC (RBC) [Mass/Vol] 33.3 g/dL Normal 32-36 [facility] Comment on above: Performed By: #### L 500.4050, L100.0100 ####[facility] [address] [place], [address] MCV (RBC) [Entitic vol] 89.3 fL Normal 81-99 [facility] Comment on above: Performed By: #### L 500.4050, L100.0100 ####[facility] [address] [place], [address] Monocytes/100 WBC (Bld) 4.9 % Normal 0-10 [facility] Comment on above: Performed By: #### L 500.4050, L100.0100 ####[facility] [address] [place], [address] Neutrophils/100 WBC (Bld) 78.1 % High 47-70 [facility] Comment on above: Performed By: #### L 500.4050, L100.0100 ####[facility] [address] [place], [address] Nucleated RBC (Bld) [#/Vol] 0 10*3/uL Normal 0-5 [facility] Comment on above: Performed By: #### L 500.4050, L100.0100 ####[facility] [address] [place], [address] Platelet mean volume (Bld) [Entitic vol] 11.9 fL Normal 6.2-12.0 [facility] Comment on above: Performed By: #### L 500.4050, L100.0100 ####[facility] [address] [place], [address] Platelets (Bld) [#/Vol] 158 10*3/uL Normal 150-450 [facility] Comment on above: Performed By: #### L 500.4050, L100.0100 ####[facility] [address] [place], [address] RBC (Bld) [#/Vol] 3.93 10*6/uL Low 4.2-5.4 [facility] Comment on above: Performed By: #### L 500.4050, L100.0100 ####[facility] [address] [place], [address] RDW SD 42.0 fl Normal 35.1-43.9 [facility] Comment on above: Performed By: #### L 500.4050, L100.0100 ####[facility] [address] [place], [address] WBC (Bld) [#/Vol] 7.7 10*3/uL Normal 4.4-11.0 [facility] Comment on above: Performed By: #### L 500.4050, L100.0100 ####[facility] [address] [place], [address] Comprehensive Metabolic Prof ilon 02-13-2024 Albumin [Mass/Vol] 2.5 g/dL Low 3.2-5.0 [facility] Comment on above: Performed By: #### L 500.4050, L100.0100 ####[facility] [address] [place], [address] Albumin/Globulin [Mass ratio] 0.6 {ratio} Low 0.9-2.4 [facility] Comment on above: Performed By: #### L 500.4050, L100.0100 ####[facility] [address] [place], [address] ALK P 102 U/L Normal 45-117 [facility] Comment on above: Performed By: #### L 500.4050, L100.0100 ####[facility] [address] [place], [address] ALT [Catalytic activity/Vol] 10 U/L Low 13-56 [facility] Comment on above: Performed By: #### L 500.4050, L100.0100 ####[facility] [address] [place], [address] AST [Catalytic activity/Vol] 14 U/L Low 15-37 [facility] Comment on above: Performed By: #### L 500.4050, L100.0100 ####[facility] [address] [place], [address] Bilirubin [Mass/Vol] 0.40 mg/dL Normal 0.20-1.00 [facility] Comment on above: Result Comment: For patients on eltrombopag therapy, use of Dimension [place] TBIL is not recommended. Performed By: #### L 500.4050, L100.0100 ####[facility] [address] [place], [address] BUN/CRE 12.3 RATIO Normal 10-20 [facility] Comment on above: Performed By: #### L 500.4050, L100.0100 ####[facility] [address] [place], [address] CA,Total 8.8 mg/dL Normal 8.5-10.1 [facility] Comment on above: Performed By: #### L 500.4050, L100.0100 ####[facility] [address] [place], [address] Chloride [Moles/Vol] 108 mmol/L High 98-107 [facility] Comment on above: Performed By: #### L 500.4050, L100.0100 ####[facility] [address] [place], [address] CO2 [Moles/Vol] 22.0 mmol/L Normal 21.0-32.0 [facility] Comment on above: Performed By: #### L 500.4050, L100.0100 ####[facility] [address] [place], [address] Creatinine [Mass/Vol] 0.57 mg/dL Normal 0.55-1.02 [facility] Comment on above: Result Comment: The validity of the calculated GFR GFRAA in patients over70 years has not been determined. Clinical correlation isessential. Performed By: #### L 500.4050, L100.0100 ####[facility] [address] [place], [address] EST GFR - AA 155 mL/min Normal >60 [facility] Comment on above: Result Comment: Afri can [place] GFR Calc Performed By: #### L 500.4050, L100.0100 ####[facility] [address] [place], [address] GAP 5 Normal 5-15 [facility] Comment on above: Performed By: #### L 500.4050, L100.0100 ####[facility] [address] [place], [address] GFR/1.73 sq M.predicted among non-blacks MDRD (S/P/Bld) [Vol rate/Area] 128 mL/min/{1.73_m2} Normal >60 [facility] Comment on above: Result Comment: Non- GFR Calc Performed By: #### L 500.4050, L100.0100 ####[facility] [address] [place], [address] Globulin (S) [Mass/Vol] 4.1 g/dL Normal 2.2-4.2 [facility] Comment on above: Performed By: #### L 500.4050, L100.0100 ####[facility] [address] [place], [address] Glucose [Mass/Vol] 122 mg/dL High 74-106 [facility] Comment on above: Result Comment: Fast ing Glucose result from 100 to 125 mg/dLsuggests IMPAIRED HOMEOSTASIS per A.D.A. criteria. Performed By: #### L 500.4050, L100.0100 ####[facility] [address] [place], [address] Potassium [Moles/Vol] 3.7 mmol/L Normal 3.5-5.1 [facility] Comment on above: Performed By: #### L 500.4050, L100.0100 ####[facility] [address] [place], [address] Sodium [Moles/Vol] 136 mmol/L Normal 136-145 [facility] Comment on above: Performed By: #### L 500.4050, L100.0100 ####[facility] [address] [place], [address] T PROT 6.6 g/dL Normal 6.4-8.2 [facility] Comment on above: Performed By: #### L 500.4050, L100.0100 ####[facility] [address] [place], [address] Urea nitrogen [Mass/Vol] 7 mg/dL Normal 7-18 [facility] Comment on above: Performed By: #### L 500.4050, L100.0100 ####[facility] [address] [place], [address] [employer] Office Visit Reporton 02-11-2024 [employer] Office Visit Report Normal [facility] Protein+Creatinine Ratio,Uri neon 02-11-2024 PROT:CRE RATIO 366 mg/g CRE High 0-200 [facility] Comment on above: Performed By: #### L 501.0900 ####[facility] [address] [place], [address] Protein (U) [Mass/Vol] 55.3 mg/dL High <11.9 [facility] Comment on above: Performed By: #### L 501.0900 ####[facility] [address] [place], [address] UR CREAT 151.00 mg/dL Normal NO RANGE EST. [facility] Comment on above: Performed By: #### L 501.0900 ####[facility] [address] [place], [address] CBC W/Diff, Automatedon 09-2 -2023 Absolute Lymph 1.19 X10 3/uL Normal 0.83-4.51 [facility] Comment on above: Performed By: #### L 500.4050, L100.0100 ####[facility] [address] [place], [address] Absolute Neut 6.0 X10 3/uL Normal 2.0-7.7 [facility] Comment on above: Performed By: #### L 500.4050, L100.0100 ####[facility] [address] [place], [address] Basophils/100 WBC (Bld) 0.1 % Normal 0-1 [facility] Comment on above: Performed By: #### L 500.4050, L100.0100 ####[facility] [address] [place], [address] Eosinophils/100 WBC (Bld) 0.8 % Normal 0-5 [facility] Comment on above: Performed By: #### L 500.4050, L100.0100 ####[facility] [address] [place], [address] Erythrocyte distribution width (RBC) [Ratio] 12.7 % Normal 11.6-14.6 [facility] Comment on above: Performed By: #### L 500.4050, L100.0100 ####[facility] [address] [place], [address] Hematocrit (Bld) [Volume fraction] 35.0 % Low 37-47 [facility] Comment on above: Performed By: #### L 500.4050, L100.0100 ####[facility] [address] [place], [address] Hemoglobin (Bld) [Mass/Vol] 11.5 g/dL Low 12.0-15.0 [facility] Comment on above: Performed By: #### L 500.4050, L100.0100 ####[facility] [address] [place], [address] IG% 0.600 Normal 0.0-0.9 [facility] Comment on above: Result Comment: IG% - Immature Granulocytes (promyelocytes, myelocytes andmetamyelocytes) > 1% indicates that a LEFT SHIFT is Present. Performed By: #### L 500.4050, L100.0100 ####[facility] [address] [place], [address] Lymphocytes/100 WBC (Bld) 15.5 % Low 19-41 [facility] Comment on above: Performed By: #### L 500.4050, L100.0100 ####[facility] [address] [place], [address] MCH (RBC) [Entitic mass] 29.3 pg Normal 27.0-32.0 [facility] Comment on above: Performed By: #### L 500.4050, L100.0100 ####[facility] [address] [place], [address] MCHC (RBC) [Mass/Vol] 32.9 g/dL Normal 32-36 [facility] Comment on above: Performed By: #### L 500.4050, L100.0100 ####[facility] [address] [place], [address] MCV (RBC) [Entitic vol] 89.3 fL Normal 81-99 [facility] Comment on above: Performed By: #### L 500.4050, L100.0100 ####[facility] [address] [place], [address] Monocytes/100 WBC (Bld) 5.3 % Normal 0-10 [facility] Comment on above: Performed By: #### L 500.4050, L100.0100 ####[facility] [address] [place], [address] Neutrophils/100 WBC (Bld) 77.7 % High 47-70 [facility] Comment on above: Performed By: #### L 500.4050, L100.0100 ####[facility] [address] [place], [address] Nucleated RBC (Bld) [#/Vol] 0 10*3/uL Normal 0-5 [facility] Comment on above: Performed By: #### L 500.4050, L100.0100 ####[facility] [address] [place], [address] Platelet mean volume (Bld) [Entitic vol] 12.0 fL Normal 6.2-12.0 [facility] Comment on above: Performed By: #### L 500.4050, L100.0100 ####[facility] [address] [place], [address] Platelets (Bld) [#/Vol] 165 10*3/uL Normal 150-450 [facility] Comment on above: Performed By: #### L 500.4050, L100.0100 ####[facility] [address] [place], [address] RBC (Bld) [#/Vol] 3.92 10*6/uL Low 4.2-5.4 [facility] Comment on above: Performed By: #### L 500.4050, L100.0100 ####[facility] [address] [place], [address] RDW SD 41.5 fl Normal 35.1-43.9 [facility] Comment on above: Performed By: #### L 500.4050, L100.0100 ####[facility] [address] [place], [address] WBC (Bld) [#/Vol] 7.7 10*3/uL Normal 4.4-11.0 [facility] Comment on above: Performed By: #### L 500.4050, L100.0100 ####[facility] [address] [place], [address] Comprehensive Metabolic Prof ilon 02-04-2024 Albumin [Mass/Vol] 2.6 g/dL Low 3.2-5.0 [facility] Comment on above: Performed By: #### L 500.4050, L100.0100 ####[facility] [address] [place], [address] Albumin/Globulin [Mass ratio] 0.6 {ratio} Low 0.9-2.4 [facility] Comment on above: Performed By: #### L 500.4050, L100.0100 ####[facility] [address] [place], [address] ALK P 100 U/L Normal 45-117 [facility] Comment on above: Performed By: #### L 500.4050, L100.0100 ####[facility] [address] [place], [address] ALT [Catalytic activity/Vol] 9 U/L Low 13-56 [facility] Comment on above: Performed By: #### L 500.4050, L100.0100 ####[facility] [address] [place], [address] AST [Catalytic activity/Vol] 11 U/L Low 15-37 [facility] Comment on above: Performed By: #### L 500.4050, L100.0100 ####[facility] [address] [place], [address] Bilirubin [Mass/Vol] 0.30 mg/dL Normal 0.20-1.00 [facility] Comment on above: Result Comment: For patients on eltrombopag therapy, use of Dimension [place] TBIL is not recommended. Performed By: #### L 500.4050, L100.0100 ####[facility] [address] [place], [address] BUN/CRE 11.9 RATIO Normal 10-20 [facility] Comment on above: Performed By: #### L 500.4050, L100.0100 ####[facility] [address] [place], [address] CA,Total 8.9 mg/dL Normal 8.5-10.1 [facility] Comment on above: Performed By: #### L 500.4050, L100.0100 ####[facility] [address] [place], [address] Chloride [Moles/Vol] 109 mmol/L High 98-107 [facility] Comment on above: Performed By: #### L 500.4050, L100.0100 ####[facility] [address] [place], [address] CO2 [Moles/Vol] 21.0 mmol/L Normal 21.0-32.0 [facility] Comment on above: Performed By: #### L 500.4050, L100.0100 ####[facility] [address] [place], [address] Creatinine [Mass/Vol] 0.50 mg/dL Low 0.55-1.02 [facility] Comment on above: Result Comment: The validity of the calculated GFR GFRAA in patients over70 years has not been determined. Clinical correlation isessential. Performed By: #### L 500.4050, L100.0100 ####[facility] [address] [place], [address] EST GFR - AA 178 mL/min Normal >60 [facility] Comment on above: Result Comment: Afri can [place] GFR Calc Performed By: #### L 500.4050, L100.0100 ####[facility] [address] [place], [address] GAP 7 Normal 5-15 [facility] Comment on above: Performed By: #### L 500.4050, L100.0100 ####[facility] [address] [place], [address] GFR/1.73 sq M.predicted among non-blacks MDRD (S/P/Bld) [Vol rate/Area] 147 mL/min/{1.73_m2} Normal >60 [facility] Comment on above: Result Comment: Non- GFR Calc Performed By: #### L 500.4050, L100.0100 ####[facility] [address] [place], [address] Globulin (S) [Mass/Vol] 4.2 g/dL Normal 2.2-4.2 [facility] Comment on above: Performed By: #### L 500.4050, L100.0100 ####[facility] [address] [place], [address] Glucose [Mass/Vol] 92 mg/dL Normal 74-106 [facility] Comment on above: Performed By: #### L 500.4050, L100.0100 ####[facility] [address] [place], [address] Potassium [Moles/Vol] 4.0 mmol/L Normal 3.5-5.1 [facility] Comment on above: Performed By: #### L 500.4050, L100.0100 ####[facility] [address] [place], [address] Sodium [Moles/Vol] 136 mmol/L Normal 136-145 [facility] Comment on above: Performed By: #### L 500.4050, L100.0100 ####[facility] [address] [place], [address] T PROT 6.8 g/dL Normal 6.4-8.2 [facility] Comment on above: Performed By: #### L 500.4050, L100.0100 ####[facility] [address] [place], [address] Urea nitrogen [Mass/Vol] 6 mg/dL Low 7-18 [facility] Comment on above: Performed By: #### L 500.4050, L100.0100 ####[facility] [address] 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, [address] Protein (U) [Mass/Vol] 10.9 mg/dL Normal <11.9 [facility] Comment on above: Performed By: #### L 501.0900 ####[facility] [address] [place], [address] UR CREAT 29.20 mg/dL Normal NO RANGE EST. [facility] Comment on above: Performed By: #### L 501.0900 ####[facility] [address] [place], [address] PROT:CRE RATIO Normal 0-200 [facility] Comment on above: Result Comment: DONE IN OFFICE Performed By: #### L 501.0900 ####[facility] [address] [place], [address] PROTEIN,UR.RAN. Normal <11.9 [facility] Comment on above: Result Comment: DONE IN OFFICE Performed By: #### L 501.0900 ####[facility] [address] [place], [address] UR CREAT Normal NO RANGE EST. [facility] Comment on above: Result Comment: DONE IN OFFICE Performed By: #### L 501.0900 ####[facility] [address] [place], [address] Glucose Challenge Gest 1H 50 salvador 01-31-2024 GLU GEST 50g 1H 142 mg/dL High 70-140 [facility] Comment on above: Performed By: #### L 501.0250 ####[facility] [address] [place], [address] OB Limited With Biometricson 01-21-2024 OB Limited With Biometrics Normal [facility] [employer] Office Visit Reporton 01-21-2024 [employer] Office Visit Report Normal [facility] [employer] Office Visit Reporton 01-08-2024 [employer] Office Visit Report Normal [facility] CBC W/Diff, Automatedon 12-10 Absolute Lymph 1.19 X10 3/uL Normal 0.83-4.51 [facility] Comment on above: Performed By: #### L 500.4050, L100.0100 ####[facility] [address] [place], [address] Absolute Neut 7.1 X10 3/uL Normal 2.0-7.7 [facility] Comment on above: Performed By: #### L 500.4050, L100.0100 ####[facility] [address] [place], [address] Basophils/100 WBC (Bld) 0.2 % Normal 0-1 [facility] Comment on above: Performed By: #### L 500.4050, L100.0100 ####[facility] [address] [place], [address] Eosinophils/100 WBC (Bld) 1.0 % Normal 0-5 [facility] Comment on above: Performed By: #### L 500.4050, L100.0100 ####[facility] [address] [place], [address] Erythrocyte distribution width (RBC) [Ratio] 12.7 % Normal 11.6-14.6 [facility] Comment on above: Performed By: #### L 500.4050, L100.0100 ####[facility] [address] [place], [address] Hematocrit (Bld) [Volume fraction] 35.5 % Low 37-47 [facility] Comment on above: Performed By: #### L 500.4050, L100.0100 ####[facility] [address] [place], [address] Hemoglobin (Bld) [Mass/Vol] 11.6 g/dL Low 12.0-15.0 [facility] Comment on above: Performed By: #### L 500.4050, L100.0100 ####[facility] [address] [place], [address] IG% 1.000 High 0.0-0.9 [facility] Comment on above: Result Comment: IG% - Immature Granulocytes (promyelocytes, myelocytes andmetamyelocytes) > 1% indicates that a LEFT SHIFT is Present. Performed By: #### L 500.4050, L100.0100 ####[facility] [address] [place], [address] Lymphocytes/100 WBC (Bld) 13.3 % Low 19-41 [facility] Comment on above: Performed By: #### L 500.4050, L100.0100 ####[facility] [address] [place], [address] MCH (RBC) [Entitic mass] 30.0 pg Normal 27.0-32.0 [facility] Comment on above: Performed By: #### L 500.4050, L100.0100 ####[facility] [address] [place], [address] MCHC (RBC) [Mass/Vol] 32.7 g/dL Normal 32-36 [facility] Comment on above: Performed By: #### L 500.4050, L100.0100 ####[facility] [address] [place], [address] MCV (RBC) [Entitic vol] 91.7 fL Normal 81-99 [facility] Comment on above: Performed By: #### L 500.4050, L100.0100 ####[facility] [address] [place], [address] Monocytes/100 WBC (Bld) 4.7 % Normal 0-10 [facility] Comment on above: Performed By: #### L 500.4050, L100.0100 ####[facility] [address] [place], [address] Neutrophils/100 WBC (Bld) 79.8 % High 47-70 [facility] Comment on above: Performed By: #### L 500.4050, L100.0100 ####[facility] [address] [place], [address] Nucleated RBC (Bld) [#/Vol] 0 10*3/uL Normal 0-5 [facility] Comment on above: Performed By: #### L 500.4050, L100.0100 ####[facility] [address] [place], [address] Platelet mean volume (Bld) [Entitic vol] 11.7 fL Normal 6.2-12.0 [facility] Comment on above: Performed By: #### L 500.4050, L100.0100 ####[facility] [address] [place], [address] Platelets (Bld) [#/Vol] 196 10*3/uL Normal 150-450 [facility] Comment on above: Performed By: #### L 500.4050, L100.0100 ####[facility] [address] [place], [address] RBC (Bld) [#/Vol] 3.87 10*6/uL Low 4.2-5.4 [facility] Comment on above: Performed By: #### L 500.4050, L100.0100 ####[facility] [address] [place], [address] RDW SD 42.0 fl Normal 35.1-43.9 [facility] Comment on above: Performed By: #### L 500.4050, L100.0100 ####[facility] [address] [place], [address] WBC (Bld) [#/Vol] 8.9 10*3/uL Normal 4.4-11.0 [facility] Comment on above: Performed By: #### L 500.4050, L100.0100 ####[facility] [address] [place], [address] Comprehensive Metabolic [facility] 12-29-2023 Albumin [Mass/Vol] 2.7 g/dL Low 3.2-5.0 [facility] Comment on above: Performed By: #### L 500.4050, L100.0100 ####[facility] [address] [place], [address] Albumin/Globulin [Mass ratio] 0.6 {ratio} Low 0.9-2.4 [facility] Comment on above: Performed By: #### L 500.4050, L100.0100 ####[facility] [address] [place], [address] ALK P 76 U/L Normal 45-117 [facility] Comment on above: Performed By: #### L 500.4050, L100.0100 ####[facility] [address] [place], [address] ALT [Catalytic activity/Vol] 11 U/L Low 13-56 [facility] Comment on above: Performed By: #### L 500.4050, L100.0100 ####[facility] [address] [place], [address] AST [Catalytic activity/Vol] 10 U/L Low 15-37 [facility] Comment on above: Performed By: #### L 500.4050, L100.0100 ####[facility] [address] [place], [address] Bilirubin [Mass/Vol] 0.20 mg/dL Normal 0.20-1.00 [facility] Comment on above: Result Comment: For patients on eltrombopag therapy, use of Dimension [place] TBIL is not recommended. Performed By: #### L 500.4050, L100.0100 ####[facility] [address] [place], [address] BUN/CRE 14.4 RATIO Normal 10-20 [facility] Comment on above: Performed By: #### L 500.4050, L100.0100 ####[facility] [address] [place], [address] CA,Total 9.0 mg/dL Normal 8.5-10.1 [facility] Comment on above: Performed By: #### L 500.4050, L100.0100 ####[facility] [address] [place], [address] Chloride [Moles/Vol] 106 mmol/L Normal 98-107 [facility] Comment on above: Performed By: #### L 500.4050, L100.0100 ####[facility] [address] [place], [address] CO2 [Moles/Vol] 26.0 mmol/L Normal 21.0-32.0 [facility] Comment on above: Performed By: #### L 500.4050, L100.0100 ####[facility] [address] [place], [address] Creatinine [Mass/Vol] 0.56 mg/dL Normal 0.55-1.02 [facility] Comment on above: Result Comment: The validity of the calculated GFR GFRAA in patients over70 years has not been determined. Clinical correlation isessential. Performed By: #### L 500.4050, L100.0100 ####[facility] [address] [place], [address] EST GFR - AA 159 mL/min Normal >60 [facility] Comment on above: Result Comment: Afri can [place] GFR Calc Performed By: #### L 500.4050, L100.0100 ####[facility] [address] [place], [address] GAP 5 Normal 5-15 [facility] Comment on above: Performed By: #### L 500.4050, L100.0100 ####[facility] [address] [place], [address] GFR/1.73 sq M.predicted among non-blacks MDRD (S/P/Bld) [Vol rate/Area] 132 mL/min/{1.73_m2} Normal >60 [facility] Comment on above: Result Comment: Non- GFR Calc Performed By: #### L 500.4050, L100.0100 ####[facility] [address] [place], [address] Globulin (S) [Mass/Vol] 4.3 g/dL High 2.2-4.2 [facility] Comment on above: Performed By: #### L 500.4050, L100.0100 ####[facility] [address] [place], [address] Glucose [Mass/Vol] 77 mg/dL Normal 74-106 [facility] Comment on above: Performed By: #### L 500.4050, L100.0100 ####[facility] [address] [place], [address] Potassium [Moles/Vol] 3.8 mmol/L Normal 3.5-5.1 [facility] Comment on above: Performed By: #### L 500.4050, L100.0100 ####[facility] [address] [place], [address] Sodium [Moles/Vol] 137 mmol/L Normal 136-145 [facility] Comment on above: Performed By: #### L 500.4050, L100.0100 ####[facility] [address] [place], [address] T PROT 7.0 g/dL Normal 6.4-8.2 [facility] Comment on above: Performed By: #### L 500.4050, L100.0100 ####[facility] [address] [place], [address] Urea nitrogen [Mass/Vol] 8 mg/dL Normal 7-18 [facility] Comment on above: Performed By: #### L 500.4050, L100.0100 ####[facility] [address] 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, [address] Protein (U) [Mass/Vol] 83.5 mg/dL High <11.9 [facility] Comment on above: Performed By: #### L 501.0900 ####[facility] [address] [place], [address] UR CREAT 226.00 mg/dL Normal NO RANGE EST. [facility] Comment on above: Performed By: #### L 501.0900 ####[facility] [address] [place], [address] CBC W/Diff, Automatedon 08 Absolute Lymph 1.56 X10 3/uL Normal 0.83-4.51 [facility] Comment on above: Performed By: #### L 100.0100, L3890.6005, L509.8000, L500.4710 ####[facility] [address] [place], [address] Absolute Neut 6.6 X10 3/uL Normal 2.0-7.7 [facility] Comment on above: Performed By: #### L 100.0100, L3890.6005, L509.8000, L500.4710 ####[facility] [address] [place], [address] Basophils/100 WBC (Bld) 0.2 % Normal 0-1 [facility] Comment on above: Performed By: #### L 100.0100, L3890.6005, L509.8000, L500.4710 ####[facility] [address] [place], [address] Eosinophils/100 WBC (Bld) 1.6 % Normal 0-5 [facility] Comment on above: Performed By: #### L 100.0100, L3890.6005, L509.8000, L500.4710 ####[facility] [address] [place], [address] Erythrocyte distribution width (RBC) [Ratio] 12.9 % Normal 11.6-14.6 [facility] Comment on above: Performed By: #### L 100.0100, L3890.6005, L509.8000, L500.4710 ####[facility] [address] [place], [address] Hematocrit (Bld) [Volume fraction] 34.4 % Low 37-47 [facility] Comment on above: Performed By: #### L 100.0100, L3890.6005, L509.8000, L500.4710 ####[facility] [address] [place], [address] Hemoglobin (Bld) [Mass/Vol] 11.3 g/dL Low 12.0-15.0 [facility] Comment on above: Performed By: #### L 100.0100, L3890.6005, L509.8000, L500.4710 ####[facility] [address] [place], [address] IG% 1.000 High 0.0-0.9 [facility] Comment on above: Result Comment: IG% - Immature Granulocytes (promyelocytes, myelocytes andmetamyelocytes) > 1% indicates that a LEFT SHIFT is Present. Performed By: #### L 100.0100, L3890.6005, L509.8000, L500.4710 ####[facility] [address] [place], [address] Lymphocytes/100 WBC (Bld) 17.8 % Low 19-41 [facility] Comment on above: Performed By: #### L 100.0100, L3890.6005, L509.8000, L500.4710 ####[facility] [address] [place], [address] MCH (RBC) [Entitic mass] 29.9 pg Normal 27.0-32.0 [facility] Comment on above: Performed By: #### L 100.0100, L3890.6005, L509.8000, L500.4710 ####[facility] [address] [place], [address] MCHC (RBC) [Mass/Vol] 32.8 g/dL Normal 32-36 [facility] Comment on above: Performed By: #### L 100.0100, L3890.6005, L509.8000, L500.4710 ####[facility] [address] [place], [address] MCV (RBC) [Entitic vol] 91.0 fL Normal 81-99 [facility] Comment on above: Performed By: #### L 100.0100, L3890.6005, L509.8000, L500.4710 ####[facility] [address] [place], [address] Monocytes/100 WBC (Bld) 4.0 % Normal 0-10 [facility] Comment on above: Performed By: #### L 100.0100, L3890.6005, L509.8000, L500.4710 ####[facility] [address] [place], [address] Neutrophils/100 WBC (Bld) 75.4 % High 47-70 [facility] Comment on above: Performed By: #### L 100.0100, L3890.6005, L509.8000, L500.4710 ####[facility] [address] [place], [address] Nucleated RBC (Bld) [#/Vol] 0 10*3/uL Normal 0-5 [facility] Comment on above: Performed By: #### L 100.0100, L3890.6005, L509.8000, L500.4710 ####[facility] [address] [place], [address] Platelet mean volume (Bld) [Entitic vol] 11.6 fL Normal 6.2-12.0 [facility] Comment on above: Performed By: #### L 100.0100, L3890.6005, L509.8000, L500.4710 ####[facility] [address] [place], [address] Platelets (Bld) [#/Vol] 177 10*3/uL Normal 150-450 [facility] Comment on above: Performed By: #### L 100.0100, L3890.6005, L509.8000, L500.4710 ####[facility] [address] [place], [address] RBC (Bld) [#/Vol] 3.78 10*6/uL Low 4.2-5.4 [facility] Comment on above: Performed By: #### L 100.0100, L3890.6005, L509.8000, L500.4710 ####[facility] [address] [place], [address] RDW SD 42.2 fl Normal 35.1-43.9 [facility] Comment on above: Performed By: #### L 100.0100, L3890.6005, L509.8000, L500.4710 ####[facility] [address] [place], [address] WBC (Bld) [#/Vol] 8.8 10*3/uL Normal 4.4-11.0 [facility] Comment on above: Performed By: #### L 100.0100, L3890.6005, L509.8000, L500.4710 ####[facility] [address] [place], [place], [address] Gestational GTT 3HR 100gon 0 12-16-2023 3HR GTT- GEST. Normal [facility] Comment on above: Order Comment: Y Result Comment: FAST ING 98 Col: 12/16/23 0658GLUCOSE TOLERANCE TEST FOR Reference Interval GESTATIONAL DIABETES Fasting <105 mg/dL 1 hour <190 mg/dl 2 hour <165 mg/dl 3 hour <145 mg/dl 1 HR GLU 175 Col: 12/16/23 0801 2 HR GLU 133 Col: 12/16/23 0901 3 HR GLU 107 Col: 12/16/23 0856 Performed By: #### L 100.0100, L3890.6005, L509.8000, L500.4710 ####[facility] [address] [place], [address] HIV - WCHon 12-16-2023 HIV Non-Reactive Normal Nonreactive [facility] Comment on above: Performed By: #### L 100.0100, L3890.6005, L509.8000, L500.4710 ####[facility] [address] [place], [address] L509.8000on 12-16-2023 Syphilis Abs Non-Reactive Normal [facility] Comment on above: Performed By: #### L 100.0100, L3890.6005, L509.8000, L500.4710 ####[facility] [address] [place], [address] [employer] Office Visit Reporton 12-05-2023 [employer] Office Visit Report Normal [facility] OB Limited With Biometricson 11-27-2023 OB Limited With Biometrics Normal [facility] [employer] Office Visit Reporton 11-07-2023 [employer] Office Visit Report Normal [facility] [employer] Office Visit Reporton 10-08-2023 [employer] Office Visit Report Normal [facility] Absolute lymphocyte countOrd ered By: Toyin Kimbrough on 08-27-2023 Lymphocytes Auto (Unsp spec) [#/Vol] 1.47 10*3/uL 0.83-4.51 [facility] Automated lymphocyte count a s percentage of total leukocytesOrdered By: Toyin Kimbrough on 08-27-2023 Lymphocytes/100 WBC Auto (Unsp spec) 20.2 % 19-41 [facility] Basophil percentageOrdered B y: Toyin Kimbrough on 08-27-2023 Basophils/100 WBC (Bld) 0.1 % 0-1 [facility] Eosinophils/100 WBC (Bld) 1.1 % 0-5 [facility] Hemoglobin (Bld) [Mass/Vol] 12.4 g/dL 12.0-15.0 [facility] Monocytes/100 WBC (Bld) 3.9 % 0-10 [facility] Neutrophils (Bld) [#/Vol] 5.4 10*3/uL 2.0-7.7 [facility] Neutrophils/100 WBC (Bld) 74.3 % 47-70 [facility] WBC (Bld) [#/Vol] 7.3 10*3/uL 4.4-11.0 [facility] Determination of erythrocyte mean corpuscular volume (MCV)Ordered By: Toyin Kimbrough on 08-27-2023 MCV (RBC) [Entitic vol] 87.5 fL 81-99 [facility] Erythrocyte distribution wid th ratioOrdered By: Toyin Kimbrough on 08-27-2023 Erythrocyte distribution width (RBC) [Ratio] 12.3 % 11.6-14.6 [facility] Erythrocyte distribution wid th standard deviationOrdered By: Toyin Kimbrough on 08-27-2023 Erythrocyte distribution width (RBC) [Entitic vol] 39.7 fL 35.1-43.9 [facility] HIV 1 and HIV-2 antibody ass ay with HIV-1 p24 antigen detectionOrdered By: Toyin Kimbrough on 08-27-2023 HIV 1+2 Ab+HIV1 p24 Ag IA Ql Non-Reactive Nonreactive [facility] Hematocrit Auto (Bld) [Volum e fraction]Ordered By: Toyin Kimbrough on 08-27-2023 Hematocrit (Bld) [Volume fraction] 37.9 % 37-47 [facility] Immature granulocytes/100 WB C Auto (Bld)Ordered By: Toyin Kimbrough on 08-27-2023 Immature granulocytes/100 WBC (Bld) 0.400 % 0.0-0.9 [facility] Comment on above: IG% - Immature Granu locytes (promyelocytes, myelocytes and metamyelocytes) > 1% indicates that a LEFT SHIFT is Present. Laboratory - Chemistry and C hemistry - challengeOrdered By: Toyin Kimbrough on 08-27-2023 Lipase [Catalytic activity/Vol] 39 U/L 13-75 [facility] Comment on above: Please note:LIPASE r evised reference range effective 22. New Lipase methodology. Expected to produce lower values than the previous assay method. NEW Reference Range: 13 - 75 U/L Laboratory - Hematology and Cell countsOrdered By: Toyin Kimbrough on 08-27-2023 MCH (RBC) [Entitic mass] 28.6 pg 27.0-32.0 [facility] MCHC (RBC) [Mass/Vol] 32.7 g/dL 32-36 [facility] Nucleated RBC/100 WBC (Bld) [Ratio] 0 % 0-5 [facility] Platelet mean volume (Bld) [Entitic vol] 11.7 fL 6.2-12.0 [facility] Platelets (Bld) [#/Vol] 228 10*3/uL 150-450 [facility] No Panel InformationOrdered By: Toyin Kimbrough on 08-27-2023 Hepatitis B Surface Antigen Non-Reactive Nonreactive [facility] Hepatitis C Antibody Non-Reactive Nonreactive [facility] Comment on above: Non Reactive: < 0.8 Equivocal: >/= 0.8 to < 1.0 Reactive: >/= 1.0The CDC requires that a reactive/equivocal HCV antibody result be sent out for confirmation. HCV Quant by PCR testing. Miscellaneous Test Comment SEE SCANNED REPORT [facility] Rubella IgG Antibody Reactive Nonreactive [facility] Comment on above: Antibody Results Int erpretation of Immune Status Non Reactive Presumed Non-Immune Equivocal Equivocal Reactive Presumed Immune RBC Auto (Bld) [#/Vol]Ordere d By: Toyin Kimbrough on 08-27-2023 RBC (Bld) [#/Vol] 4.33 10*6/uL 4.2-5.4 [facility] Serum Treponema species anti body detectionOrdered By: Toyin Kimbrough on 08-27-2023 Treponema sp Ab Ql (S) Non-Reactive [facility] Serum or plasma thyroid stim ulating hormone (TSH) measurement (units/volume)Ordered By: Toyin Kimbrough on 08-27-2023 TSH Qn 0.79 uIU/mL 0.358-3.74 [facility] Whole blood hemoglobin A1c/t otal hemoglobin ratio (mass fraction)Ordered By: Toyin Kimbrough on 08-27-2023 HbA1c (Bld) [Mass fraction] 5.5 % 3.8-5.6 [facility] Comment on above: Normal < 5.7 % Predi abetic 5.7 - 6.4 % Diabetic >or= 6.5 % Please note range changes. Laboratory - Chemistry and C hemistry - challengeon 08-20-2023 Glucose Ql (U) Negative [facility] Laboratory - Urinalysison Protein Ql (U) Negative [facility] Chlamydia trachomatis rRNA d etection by probe and target amplification methodOrdered By: Toyin Kimbrough on 08-04-2023 C. trachomatis rRNA ALBA+probe Ql (Unsp spec) Negative Negative [facility] Culture, urineOrdered By: Florentin Kimbrough on 08-04-2023 Bacteria identified Cx Nom (U) Positive [facility] Laboratory - Microbiology an d Antimicrobial susceptibilityOrdered By: Toyin Kimbrough on 08-04-2023 N. gonorrhoeae DNA ALBA+probe Ql (Unsp spec) Negative Negative [facility] Comment on above: Performed at: =[address] [id number] Director: Makayla Robertson MD, Phone: [phone] Absolute lymphocyte countOrd ered By: HEALTH ASSESSMENT on 07-31-2023 Lymphocytes Auto (Unsp spec) [#/Vol] 1.86 10*3/uL 0.83-4.51 [facility] Basophil percentageOrdered B y: HEALTH ASSESSMENT on 07-31-2023 Basophil percentage 2.8 mg/dL 2.5-4.9 [facility] Bilirubin [Mass/Vol] 0.50 mg/dL 0.20-1.00 [facility] Comment on above: For patients on eltr ombopag therapy, use of Dimension [place] TBIL is not recommended. Chloride [Moles/Vol] 105 mmol/L 98-107 [facility] Cholesterol [Mass/Vol] 219 mg/dL <200 [facility] Comment on above: <200 mg/dL Desirable 200-240 mg/dL Borderline >240 mg/dL High Risk Glucose [Mass/Vol] 92 mg/dL 74-106 [facility] Hemoglobin (Bld) [Mass/Vol] 12.6 g/dL 12.0-15.0 [facility] LDH [Catalytic activity/Vol] 174 U/L 84-246 [facility] Neutrophils (Bld) [#/Vol] 4.9 10*3/uL 2.0-7.7 [facility] Potassium [Moles/Vol] 4.1 mmol/L 3.5-5.1 [facility] Protein [Mass/Vol] 7.4 g/dL 6.4-8.2 [facility] Sodium [Moles/Vol] 136 mmol/L 136-145 [facility] Triglyceride [Mass/Vol] 168 mg/dL <199 [facility] Comment on above: The drugs N-Acetylcy steine and Metamizole may falsely depress this assay.Serum Triglycerides Reference Interval Normal <150 mg/dL Borderline high 150 - 199 mg/dL High 200 - 499 mg/dL Very High > or = 500 mg/dL WBC (Bld) [#/Vol] 7.2 10*3/uL 4.4-11.0 [facility] Bilirubin Test strip Ql (U)O rdered By: HEALTH ASSESSMENT on 07-31-2023 Bilirubin Ql (U) Negative Negative [facility] Blood band neutrophil count as percentage of total leukocytesOrdered By: HEALTH ASSESSMENT on 07-31-2023 Band form neutrophils/100 WBC (Bld) 67.9 % 47-70 [facility] Culture, urineOrdered By: Vicente Tubbs on 07-31-2023 Bacteria identified Cx Nom (U) Culture exhibits no growth. [facility] Determination of erythrocyte mean corpuscular volume (MCV)Ordered By: HEALTH ASSESSMENT on 07-31-2023 MCV (RBC) [Entitic vol] 88.4 fL 81-99 [facility] Direct bilirubinOrdered By: HEALTH ASSESSMENT on 07-31-2023 Bilirubin.direct [Mass/Vol] 0.10 mg/dL 0.00-0.30 [facility] Erythrocyte distribution wid th ratioOrdered By: HEALTH ASSESSMENT on 07-31-2023 Erythrocyte distribution width (RBC) [Ratio] 12.5 % 11.6-14.6 [facility] Erythrocyte distribution wid th standard deviationOrdered By: HEALTH ASSESSMENT on 07-31-2023 Erythrocyte distribution width (RBC) [Entitic vol] 40.4 fL 35.1-43.9 [facility] Hematocrit Auto (Bld) [Volum e fraction]Ordered By: HEALTH ASSESSMENT on 07-31-2023 Hematocrit (Bld) [Volume fraction] 39.0 % 37-47 [facility] Ketones Test strip Ql (U)Ord ered By: HEALTH ASSESSMENT on 07-31-2023 Ketones Ql (U) Negative Negative [facility] Laboratory - Chemistry and C hemistry - challengeOrdered By: HEALTH ASSESSMENT on 07-31-2023 Albumin/Globulin [Mass ratio] 0.8 {ratio} 0.9-2.4 [facility] ALP [Catalytic activity/Vol] 54 U/L 45-117 [facility] ALT [Catalytic activity/Vol] 15 U/L 13-56 [facility] Cholesterol in HDL [Mass/Vol] 50 mg/dL >40 [facility] Comment on above: The drugs N-Acetylcy steine and Metamizole may falsely depress this assay. Reference Range HDL <40 mg/dL Low HDL Cholesterol HDL >or= 60 mg/dL High HDL Cholesterol Cholesterol in LDL [Mass/Vol] 135 mg/dL 0-130 [facility] Cholesterol.total/Chol esterol in HDL [Mass ratio] 4.40 {ratio} [facility] CO2 [Moles/Vol] 21.0 mmol/L 21.0-32.0 [facility] Globulin (S) [Mass/Vol] 4.1 g/dL 2.2-4.2 [facility] Urea nitrogen/Creatinine [Mass ratio] 14.0 mg/mg 10-20 [facility] Laboratory - Hematology and Cell countsOrdered By: HEALTH ASSESSMENT on 07-31-2023 MCH (RBC) [Entitic mass] 28.6 pg 27.0-32.0 [facility] MCHC (RBC) [Mass/Vol] 32.3 g/dL 32-36 [facility] Nucleated RBC (Bld) [#/Vol] 0.00 10*3/uL 0-5 [facility] Nucleated RBC/100 WBC (Bld) [Ratio] 0 % 0-5 [facility] Platelet mean volume (Bld) [Entitic vol] 11.6 fL 6.2-12.0 [facility] Platelets (Bld) [#/Vol] 244 10*3/uL 150-450 [facility] Nitrite Test strip Ql (U)Ord ered By: HEALTH ASSESSMENT on 07-31-2023 Nitrite Ql (U) Negative Negative [facility] No Panel InformationOrdered By: HEALTH ASSESSMENT on 07-31-2023 Estimated GFR (MDRD) Amer 136 mL/min >60 [facility] Comment on above: GFR Calc Estimated GFR (MDRD) Non-Af Amer 112 mL/min >60 [facility] Comment on above: Non- GFR Calc VLDL Cholesterol 34 mg/dL 5-40 [facility] Protein Test strip Ql (U)Ord ered By: HEALTH ASSESSMENT on 07-31-2023 Protein Ql (U) 30 mg/dl Negative [facility] RBC Auto (Bld) [#/Vol]Ordere d By: HEALTH ASSESSMENT on 07-31-2023 RBC (Bld) [#/Vol] 4.41 10*6/uL 4.2-5.4 [facility] Serum or plasma calcium gemma urement (mass/volume)Ordered By: HEALTH ASSESSMENT on 07-31-2023 Calcium [Mass/Vol] 8.8 mg/dL 8.5-10.1 [facility] Serum or plasma creatinine m easurement (mass/volume)Ordered By: HEALTH ASSESSMENT on 07-31-2023 Creatinine [Mass/Vol] 0.64 mg/dL 0.55-1.02 [facility] Comment on above: The validity of the calculated GFR & GFRAA in patients over 70 years has not been determined. Clinical correlation is essential. Serum or plasma urea nitroge n measurement (mass/volume)Ordered By: HEALTH ASSESSMENT on 07-31-2023 Urea nitrogen [Mass/Vol] 9 mg/dL 7-18 [facility] Serum or plasma uric acid me asurement (mass/volume)Ordered By: HEALTH ASSESSMENT on 07-31-2023 Urate [Mass/Vol] 4.9 mg/dL 2.6-6.0 [facility] Comment on above: The drugs N-Acetylcy steine and Metamizole may falsely depress this assay. Thin prep Papanicolaou smear with manual screeningOrdered By: HEALTH ASSESSMENT on 07-31-2023 Thin prep Papanicolaou smear with manual screening 3.3 g/dL 3.2-5.0 [facility] Thin prep Papanicolaou smear with manual screening 14 U/L 15-37 [facility] Thin prep Papanicolaou smear with manual screening 10 5-15 [facility] Urine blood detectionOrdered By: HEALTH ASSESSMENT on 07-31-2023 RBC Ql (U) 25 /ul Negative [facility] Urine clarityOrdered By: [facility] ASSESSMENT on 07-31-2023 Clarity (U) Clear Clear [facility] Urine color determinationOrd ered By: HEALTH ASSESSMENT on 07-31-2023 Color (U) Yellow Yellow [facility] Urine glucose detectionOrder ed By: HEALTH ASSESSMENT on 07-31-2023 Glucose Ql (U) Normal mg/dl Normal [facility] Urine leukocyte esterase det ection by dipstickOrdered By: HEALTH ASSESSMENT on 07-31-2023 Leukocyte esterase Test strip Ql (U) 100 /ul Negative [facility] Urine pHOrdered By: HEALTH A SSESSMENT on 07-31-2023 pH (U) 6.5 [pH] 5.0 - 8.0 [facility] Urine specific gravity measu rementOrdered By: HEALTH ASSESSMENT on 07-31-2023 Specific gravity (U) [Rel density] 1.015 1.002-1.030 [facility] Urine urobilinogen measureme ntOrdered By: HEALTH ASSESSMENT on 07-31-2023 Urobilinogen Ql (U) Normal mg/dl Normal [facility] Whole blood hemoglobin A1c/t otal hemoglobin ratio (mass fraction)Ordered By: Toyin Kimbrough on 07-31-2023 HbA1c (Bld) [Mass fraction] 5.4 % 3.8-5.6 [facility] Comment on above: Normal < 5.7 % Predi abetic 5.7 - 6.4 % Diabetic >or= 6.5 % Please note range changes. Serum or plasma choriogonado tropin detectionOrdered By: Shirley Hong on 07-09-2023 HCG ( test) Ql 117 mIU/mL <4 [facility] Comment on above: hCG levels with Gest ational AgeGestational Age hCG mIU/mL (IU/L)0.2 - 1 week 5 - 501-2 weeks 50 - 5002-3 weeks 100 - 81118-9 weeks 500 - 623541-5 weeks 1000 - 550810-9 weeks 91949 - 100,0006-8 weeks 78636 - 200,0002-3 months 12218 - 100,000 Serum or plasma choriogonado tropin detectionOrdered By: Shirley Hong on 07-07-2023 HCG ( test) Ql 38 mIU/mL <4 [facility] Comment on above: hCG levels with Gest ational AgeGestational Age hCG mIU/mL (IU/L)0.2 - 1 week 5 - 501-2 weeks 50 - 5002-3 weeks 100 - 02088-1 weeks 500 - 432046-0 weeks 1000 - 867352-8 weeks 77295 - 100,0006-8 weeks 25705 - 200,0002-3 months 32425 - 100,000 Basophil percentageon 2022 Bilirubin [Mass/Vol] 0.40 mg/dL 0.20-1.00 [facility] Comment on above: For patients on eltr ombopag therapy, use of Dimension [place] TBIL is not recommended. Chloride [Moles/Vol] 106 mmol/L 98-107 [facility] Glucose [Mass/Vol] 98 mg/dL 74-106 [facility] Potassium [Moles/Vol] 3.8 mmol/L 3.5-5.1 [facility] Protein [Mass/Vol] 7.3 g/dL 6.4-8.2 [facility] Sodium [Moles/Vol] 139 mmol/L 136-145 [facility] WBC (Bld) [#/Vol] 6.5 10*3/uL 4.4-11.0 [facility] Blood erythrocytes count (nu mber/volume)on 02-28-2023 RBC (Bld) [#/Vol] 4.33 10*6/uL 4.2-5.4 [facility] Blood hemoglobin measurement (mass/volume)on 02-28-2023 Hemoglobin (Bld) [Mass/Vol] 12.3 g/dL 12.0-15.0 [facility] Blood platelet mean volumeon 02-28-2023 Platelet mean volume (Bld) [Entitic vol] 10.9 fL 6.2-12.0 [facility] Determination of erythrocyte mean corpuscular volume (MCV)on 02-28-2023 MCV (RBC) [Entitic vol] 91.2 fL 81-99 [facility] Hematocrit Auto (Bld) [Volum e fraction]on 02-28-2023 Hematocrit (Bld) [Volume fraction] 39.5 % 37-47 [facility] Laboratory - Chemistry and C hemistry - challengeon 02-28-2023 ALP [Catalytic activity/Vol] 66 U/L 45-117 [facility] ALT [Catalytic activity/Vol] 20 U/L 13-56 [facility] CO2 [Moles/Vol] 28.0 mmol/L 21.0-32.0 [facility] Globulin (S) [Mass/Vol] 4.0 g/dL 2.2-4.2 [facility] Urea nitrogen/Creatinine [Mass ratio] 20.8 mg/mg 02-28 [facility] Laboratory - Hematology and Cell countson 02-28-2023 Erythrocyte distribution width (RBC) [Entitic vol] 40.2 fL 35.1-43.9 [facility] Erythrocyte distribution width (RBC) [Ratio] 12.1 % 11.6-14.6 [facility] MCH (RBC) [Entitic mass] 28.4 pg 27.0-32.0 [facility] MCHC Auto (RBC) [Mass/Vol]on 02-28-2023 MCHC (RBC) [Mass/Vol] 31.1 g/dL 32-36 [facility] No Panel Informationon 02-28 Estimated GFR (MDRD) Amer 119 mL/min >60 [facility] Comment on above: GFR Calc Estimated GFR (MDRD) Non-Af Amer 98 mL/min >60 [facility] Comment on above: Non- GFR Calc Thyroid Stimulating Hormone (TSH) 2.06 uIU/mL 0.358-3.74 [facility] Platelets bldon 02-28-2023 Platelets (Bld) [#/Vol] 230 10*3/uL 150-450 [facility] Serum or plasma albumin gemma urement (mass/volume)on 02-28-2023 Albumin [Mass/Vol] 3.3 g/dL 3.2-5.0 [facility] Serum or plasma albumin/glob ulin mass ratioon 02-28-2023 Albumin/Globulin [Mass ratio] 0.8 {ratio} 0.9-2.4 [facility] Serum or plasma calcium gemma urement (mass/volume)on 02-28-2023 Calcium [Mass/Vol] 8.5 mg/dL 8.5-10.1 [facility] Serum or plasma creatinine m easurement (mass/volume)on 02-28-2023 Creatinine [Mass/Vol] 0.72 mg/dL 0.55-1.02 [facility] Comment on above: The validity of the calculated GFR & GFRAA in patients over 70 years has not been determined. Clinical correlation is essential. Serum or plasma urea nitroge n measurement (mass/volume)on 02-28-2023 Urea nitrogen [Mass/Vol] 15 mg/dL 7-18 [facility] Thin prep Papanicolaou smear with manual screeningon 02-28-2023 Thin prep Papanicolaou smear with manual screening 11 U/L 15-37 [facility] Thin prep Papanicolaou smear with manual screening 5 5-15 [facility] No Panel Informationon 07-12 Not at all - 0 [facility] Work Phone: Several days - 1 [facility] Work Phone: [facility] Work Phone: Not difficult at all [facility] Work Phone: Comment on above: How difficult have t hose problems made it for you to do your work, take care of things at home, or get along with other people? 2 1 [facility] Work Phone: Comment on above: Over the last two we eks, how often have you been bothered by the following problems? Feeling nervous, anxious, or on edge: Several days - 1Not being able to stop or control worrying: Not at all - 0Worrying too much about different things: Several days - 1Trouble relaxing: Not at all - 0Being so restless that it's hard to sit still: Not at all - 0Becoming easily annoyed or irritable: Not at all - 0Feeling afraid as if something awful might happen: Not at all - 0 Office Visit ([facility] townsend)on 07-12-2022 Follow-up visit Diagnoses/Problems Encounter for preventive health examination (V70.0) (Z00.00) Generalized anxiety disorder (300.02) (F41.1) Vitamin D deficiency (268.9) (E55.9) History of gestational diabetes mellitus (V12.21) (Z86.32) Mixed hyperlipidemia (272.2) (E78.2) Orders Generalized anxiety disorder Follow-up visit in 6 months Outpatient Follow-up Status: Hold For - Scheduling Requested for: 12Jul2022 TSH WITH REFLEX TO FREE T4 IF ABNORMAL; Status:Active; Requested for:12Jul2022; History of gestational diabetes mellitus Hemoglobin A1C; Status:Active; Requested for:12Jul2022; Vitamin D deficiency Vitamin D 25-Hydroxy; Status:Active; Requested for:12Jul2022; Patient Discussion/Summary Discussion with patient regarding hyperlipidemia and hypertriglyceridemia. She has not treated this in past with medication, she has improved diet and triglycerides are improved from previous year, however remain elevated LDL is greater than 200 and cholesterol greater than 300. She is currently and statin therapy is contraindicated, recommend she speak with her OB to see if it is safe for her to use OTC supplement such as Arion 3 or Co Q-10 while she is . Advised she will need to get on statin therapy as soon as she has stopped . Provider Impressions BALJIT: symptoms well controlled on current treatment, no change BALJIT-7 score is 2 History of gestational diabetes: will obtain A1C Mixed Hyperlipidemia: Unable to start statin therapy due to , advised to follow low fat, low cholesterol diet and exercise 30 minutes daily. Vitamin D deficiency: Will check Vitamin D hydroxy level, continue on vitamin D 3 supplement. follow up in 6 months Chief Complaint 6 week. History of Present Illness Willow is a 31 yo female, here today for follow up on anxiety. Celexa dose was increased about 6 weeks ago. She has returned to work this week, baby sleeping through the night. 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 reviewed labs done in 05/2022 collected at [facility], cholesterol, LDL, and triglycerides are elevated. she would like TSH, vitamin D and A1C ordered. she was gestational diabetic and has history of vitamin d deficiency. 'Scores and Scales' BALJIT-7 [id number] BALJIT-7 Total Score2 4 10 Feeling nervous, anxious or on edgeSeveral days - 1 Not at all - 0 Over half the days - 2 Not being able to stop or control worryingNot at all - 0 Several days - 1 Over half the days - 2 Worrying too much about different thingsSeveral days - 1 Several days - 1 Over half the days - 2 Trouble relaxingNot at all - 0 Not at all - 0 Several days - 1 Being so restless that it's hard to sit stillNot at all - 0 Not at all - 0 Several days - 1 Becoming easily annoyed or irritableNot at all - 0 Several days - 1 Not at all - 0 Feeling afraid as if something awful might happenNot at all - 0 Several days - 1 Over half the days - 2 Review of Systems Constitutional: no chills, no fever and no night sweats. Cardiovascular: no chest pain, no intermittent leg claudication, no lower extremity edema, no palpitations and no syncope. Respiratory: no cough, no shortness of breath during exertion, no shortness of breath at rest and no wheezing. Gastrointestinal: no abdominal pain, no blood in stools, no constipation, no diarrhea, no melena, no nausea, no rectal pain and no vomiting. Genitourinary: no dysuria, no change in urinary frequency, no urinary hesitancy, no feelings of urinary urgency and no vaginal discharge. Musculoskeletal: no arthralgias, no back pain and no myalgias. Integumentary: no new skin lesions and no rashes. Neurological: no difficulty walking, no headache, no limb weakness, no numbness and no tingling. Active Problems Abdominal pain, acute, right upper quadrant (789.01,338.19) (R10.11) Allergic rhinitis (477.9) (J30.9) Body mass index (BMI) of 40.0 to 44.9 in adult (V85.41) (Z68.41) Fatty liver (571.8) (K76.0) Generalized anxiety disorder (300.02) (F41.1) Heart palpitations (785.1) (R00.2) Hypertriglyceridemia (272.1) (E78.1) Morbid obesity (278.01) (E66.01) Shoulder pain (719.41) (M25.519) Vitamin D deficiency (268.9) (E55.9) Past Medical History History of (V13.29) Resolved Date: 31 May 2022 Surgical History No history of surgery Family History Family history of hypertension (V17.49) (Z82.49) Family history of malignant neoplasm (V16.9) (Z80.9) Family history of thyroid disease (V18.19) (Z83.49) Family history of hypertension (V17.49) (Z82.49) Family history of Alzheimer's disease (V17.2) (Z82.0) Family history of congenital heart disease (V19.5) (Z82.79) Family history of heart murmur (V17.49) (Z82.49) Family history of leukemia (V16.6) (Z80.6) Family history of asthma (V17.5) (Z (more content not included)... Normal [facility] Tobacco Screening.on 023 Tobacco use status [facility] b) [facility] Work Phone: Absolute lymphocyte countOrd ered By: HEALTH ASSESSMENT on 06-04-2022 Lymphocytes Auto (Unsp spec) [#/Vol] 2.49 10*3/uL 0.83-4.51 [facility] Absolute reticulocyte countO rdered By: HEALTH ASSESSMENT on 06-04-2022 Reticulocytes (Bld) [#/Vol] 0.00 10*3/uL 0-5 [facility] Basophil percentageOrdered B y: HEALTH ASSESSMENT on 06-04-2022 Basophil percentage 4.3 mg/dL 2.5-4.9 [facility] Bilirubin [Mass/Vol] 0.30 mg/dL 0.20-1.00 [facility] Comment on above: For patients on eltr ombopag therapy, use of Dimension [place] TBIL is not recommended. Chloride [Moles/Vol] 105 mmol/L 98-107 [facility] Cholesterol [Mass/Vol] 323 mg/dL <200 [facility] Comment on above: <200 mg/dL Desirable 200-240 mg/dL Borderline >240 mg/dL High Risk Glucose [Mass/Vol] 92 mg/dL 74-106 [facility] LDH [Catalytic activity/Vol] 153 U/L 84-246 [facility] Neutrophils (Bld) [#/Vol] 3.3 10*3/uL 2.0-7.7 [facility] Potassium [Moles/Vol] 4.1 mmol/L 3.5-5.1 [facility] Protein [Mass/Vol] 7.7 g/dL 6.4-8.2 [facility] Sodium [Moles/Vol] 137 mmol/L 136-145 [facility] Triglyceride [Mass/Vol] 232 mg/dL <199 [facility] Comment on above: The drugs N-Acetylcy steine and Metamizole may falsely depress this assay.Serum Triglycerides Reference Interval Normal <150 mg/dL Borderline high 150 - 199 mg/dL High 200 - 499 mg/dL Very High > or = 500 mg/dL WBC (Bld) [#/Vol] 6.2 10*3/uL 4.4-11.0 [facility] Blood erythrocytes count (nu mber/volume)Ordered By: HEALTH ASSESSMENT on 06-04-2022 RBC (Bld) [#/Vol] 4.51 10*6/uL 4.2-5.4 [facility] Blood hemoglobin measurement (mass/volume)Ordered By: HEALTH ASSESSMENT on 06-04-2022 Hemoglobin (Bld) [Mass/Vol] 13.1 g/dL 12.0-15.0 [facility] Blood platelet mean volumeOr dered By: HEALTH ASSESSMENT on 06-04-2022 Platelet mean volume (Bld) [Entitic vol] 10.9 fL 6.2-12.0 [facility] Determination of erythrocyte mean corpuscular volume (MCV)Ordered By: HEALTH ASSESSMENT on 06-04-2022 MCV (RBC) [Entitic vol] 90.5 fL 81-99 [facility] Direct bilirubinOrdered By: HEALTH ASSESSMENT on 06-04-2022 Bilirubin.direct [Mass/Vol] 0.07 mg/dL 0.00-0.30 [facility] Hematocrit Auto (Bld) [Volum e fraction]Ordered By: HEALTH ASSESSMENT on 06-04-2022 Hematocrit (Bld) [Volume fraction] 40.8 % 37-47 [facility] Laboratory - Chemistry and C hemistry - challengeOrdered By: HEALTH ASSESSMENT on 06-04-2022 ALP [Catalytic activity/Vol] 72 U/L 45-117 [facility] ALT [Catalytic activity/Vol] 18 U/L 13-56 [facility] Cholesterol.total/Chol esterol in HDL [Mass ratio] 6.60 {ratio} [facility] CO2 [Moles/Vol] 28.0 mmol/L 21.0-32.0 [facility] Globulin (S) [Mass/Vol] 4.2 g/dL 2.2-4.2 [facility] Urea nitrogen/Creatinine [Mass ratio] 22.2 mg/mg 10-20 [facility] Laboratory - Hematology and Cell countsOrdered By: HEALTH ASSESSMENT on 06-04-2022 Erythrocyte distribution width (RBC) [Entitic vol] 38.2 fL 35.1-43.9 [facility] Erythrocyte distribution width (RBC) [Ratio] 11.4 % 11.6-14.6 [facility] MCH (RBC) [Entitic mass] 29.0 pg 27.0-32.0 [facility] Nucleated RBC/100 WBC (Bld) [Ratio] 0 % 0-5 [facility] MCHC Auto (RBC) [Mass/Vol]Or dered By: HEALTH ASSESSMENT on 06-04-2022 MCHC (RBC) [Mass/Vol] 32.1 g/dL 32-36 [facility] No Panel InformationOrdered By: Shirley Hong on 06-04-2022 Glucose 2 Hour 75 gm Load See comment [facility] Comment on above: GLUC PPG 80 Col: [id number] No Panel InformationOrdered By: HEALTH ASSESSMENT on 06-04-2022 Estimated GFR (MDRD) Amer 98 mL/min >60 [facility] Comment on above: GFR Calc Estimated GFR (MDRD) Non-Af Amer 81 mL/min >60 [facility] Comment on above: Non- GFR Calc Platelets bldOrdered By: HEA LT ASSESSMENT on 06-04-2022 Platelets (Bld) [#/Vol] 248 10*3/uL 150-450 [facility] Segmented neutrophils/100 WB C Auto (Bld)Ordered By: HEALTH ASSESSMENT on 06-04-2022 Segmented neutrophils/100 WBC (Bld) 52.2 % 47-70 [facility] Serum or plasma albumin gemma urement (mass/volume)Ordered By: HEALTH ASSESSMENT on 06-04-2022 Albumin [Mass/Vol] 3.5 g/dL 3.2-5.0 [facility] Serum or plasma albumin/glob ulin mass ratioOrdered By: HEALTH ASSESSMENT on 06-04-2022 Albumin/Globulin [Mass ratio] 0.8 {ratio} 0.9-2.4 [facility] Serum or plasma calcium gemma urement (mass/volume)Ordered By: HEALTH ASSESSMENT on 06-04-2022 Calcium [Mass/Vol] 9.2 mg/dL 8.5-10.1 [facility] Serum or plasma cholesterol in HDL measurement (mass/volume)Ordered By: HEALTH ASSESSMENT on 06-04-2022 Cholesterol in HDL [Mass/Vol] 49 mg/dL >40 [facility] Comment on above: The drugs N-Acetylcy steine and Metamizole may falsely depress this assay. Reference Range HDL <40 mg/dL Low HDL Cholesterol HDL >or= 60 mg/dL High HDL Cholesterol Serum or plasma cholesterol in VLDL measurement (mass/volume)Ordered By: HEALTH ASSESSMENT on 06-04-2022 Cholesterol in VLDL [Mass/Vol] 46 mg/dL 5-40 [facility] Serum or plasma creatinine m easurement (mass/volume)Ordered By: HEALTH ASSESSMENT on 06-04-2022 Creatinine [Mass/Vol] 0.86 mg/dL 0.55-1.02 [facility] Comment on above: The validity of the calculated GFR & GFRAA in patients over 70 years has not been determined. Clinical correlation is essential. Serum or plasma low density lipoprotein (LDL) cholesterol measurement (mass/volume)Ordered By: HEALTH ASSESSMENT on 06-04-2022 Cholesterol in LDL [Mass/Vol] 228 mg/dL 0-130 [facility] Serum or plasma urea nitroge n measurement (mass/volume)Ordered By: HEALTH ASSESSMENT on 06-04-2022 Urea nitrogen [Mass/Vol] 19 mg/dL 7-18 [facility] Serum or plasma uric acid me asurement (mass/volume)Ordered By: HEALTH ASSESSMENT on 06-04-2022 Urate [Mass/Vol] 6.0 mg/dL 2.6-6.0 [facility] Comment on above: The drugs N-Acetylcy steine and Metamizole may falsely depress this assay. Thin prep Papanicolaou smear with manual screeningOrdered By: HEALTH ASSESSMENT on 06-04-2022 Thin prep Papanicolaou smear with manual screening 14 U/L 15-37 [facility] Thin prep Papanicolaou smear with manual screening 4 5-15 [facility] Office Visit (Family Medicin e)on 05-31-2022 Follow-up visit Diagnoses/Problems Generalized anxiety disorder (300.02) (F41.1) Heart palpitations (785.1) (R00.2) No advance directives (V49.89) (Z78.9) Orders Generalized anxiety disorder Follow-up visit in 6 weeks Outpatient Follow-up Status: Complete Done: 31May2022 Unlinked Stop: Zyrtec TABS Provider Impressions BALJIT: Celexa increased to 40 mg this week by [employer]DER, agree with plan, will continue on hydroxyzine as needed for breakthrough anxiety. Heart Palpitations: Will continue to monitor as anxiety medication was increased, if continued palpitations after anxiety better controlled will plan for Holter monitor follow up in 6 weeks Chief Complaint 9 month. History of Present Illness Willow is a 31 yo female, here today to follow up on anxiety. She is about 6 weeks . had child on 04/17/2022 full term during she had pancreatitis and gestational diabetes she was hospitalized for pancreatitis at [facility] for 3 days currently [employer] increased Celexa on Friday due to increased anxiety, she is also taking hydroxyzine for breakthrough anxiety denies SI/HI has bonded well with daughter. follows up with [employer] in 4 weeks she is having anxiety more in last few weeks, sleeping pattern is disrupted, she reports palpitations, she states they happen with increased anxiety. hydroxyzine has been helpful last three days. 'Scores and Scales' BALJIT-7 [id number] BALJIT-7 Total Score4 10 Feeling nervous, anxious or on edgeNot at all - 0 Over half the days - 2 Not being able to stop or control worryingSeveral days - 1 Over half the days - 2 Worrying too much about different thingsSeveral days - 1 Over half the days - 2 Trouble relaxingNot at all - 0 Several days - 1 Being so restless that it's hard to sit stillNot at all - 0 Several days - 1 Becoming easily annoyed or irritableSeveral days - 1 Not at all - 0 Feeling afraid as if something awful might happenSeveral days - 1 Over half the days - 2 Review of Systems Constitutional: no chills, no fever and no night sweats. Cardiovascular: palpitations, but no chest pain, no intermittent leg claudication, no lower extremity edema and no syncope. Respiratory: no cough, no shortness of breath during exertion, no shortness of breath at rest and no wheezing. Gastrointestinal: no abdominal pain, no blood in stools, no constipation, no diarrhea, no melena, no nausea, no rectal pain and no vomiting. Genitourinary: no dysuria, no change in urinary frequency, no urinary hesitancy, no feelings of urinary urgency and no vaginal discharge. Musculoskeletal: no arthralgias, no back pain and no myalgias. Psychiatric: anxiety, but no homicidal thoughts and no suicidal ideations. Active Problems Abdominal pain, acute, right upper quadrant (789.01,338.19) (R10.11) Allergic rhinitis (477.9) (J30.9) Body mass index (BMI) of 40.0 to 44.9 in adult (V85.41) (Z68.41) Fatty liver (571.8) (K76.0) Generalized anxiety disorder (300.02) (F41.1) Heart palpitations (785.1) (R00.2) Hypertriglyceridemia (272.1) (E78.1) Morbid obesity (278.01) (E66.01) Shoulder pain (719.41) (M25.519) Vitamin D deficiency (268.9) (E55.9) Past Medical History History of (V13.29) Resolved Date: 31 May 2022 Surgical History No history of surgery Family History Family history of hypertension (V17.49) (Z82.49) Family history of malignant neoplasm (V16.9) (Z80.9) Family history of thyroid disease (V18.19) (Z83.49) Family history of hypertension (V17.49) (Z82.49) Family history of Alzheimer's disease (V17.2) (Z82.0) Family history of congenital heart disease (V19.5) (Z82.79) Family history of heart murmur (V17.49) (Z82.49) Family history of leukemia (V16.6) (Z80.6) Family history of asthma (V17.5) (Z82.5) Family history of cardiac disorder (V17.49) (Z82.49) Family history of diabetes mellitus (V18.0) (Z83.3) Social History Never a smoker No advance directives (V49.89) (Z78.9) No recent foreign travel Allergies Sulfa Drugs Recorded By: Edda Wade; 03/16/2019 11:22:22 AM Additional reactions - eye irritation Current Meds Medication NameInstructionReason hydrOXYzine HCl - 25 MG Oral TabletTAKE 1 TABLET 4 times daily PRN anxietyGeneralized anxiety disorder Citalopram Hydrobromide 40 MG Oral Tablet Mag-Oxide TABS Vitamin D CAPS Zyrtec TABS Vitals Vital Signs Recorded: 31May2022 10:22AM Heart Rate73 [id number] Kmqkoknje21 Height5 ft 8 in Ervuky475 lb 4 oz BMI Pnmsnashfj13.96 kg/m2 BSA Calculated2.27 Tobacco Useb) No Physical Exam Constitutional: Alert and in no acute distress. Well developed, well nourished. Cardiovascular: Heart rate and rhythm were normal, normal S1 and S2, no gallops, no murmurs and no pericardial rub. Pedal pulses: Normal. No peripheral edema. Pulmonary: No respiratory distress. Clear bilateral breath sounds. Abdomen: Soft nontender; no abdominal mass palpated. No organomegaly. (more content not included)... Normal [employer] Tobacco Screening.on 023 Tobacco use status CPHS b) No -[facility] Work Phone: Absolute lymphocyte countOrd ered By: Dr. Orozco on 05-08-2022 Lymphocytes Auto (Unsp spec) [#/Vol] 1.26 10*3/uL 0.83-4.51 [facility] Basophil percentageOrdered B y: Dr. Orozco on 05-08-2022 Basophils/100 WBC (Bld) 0.4 % 0-1 [facility] Chloride [Moles/Vol] 108 mmol/L 98-107 [facility] Eosinophils/100 WBC (Bld) 0.3 % 0-5 [facility] Glucose [Mass/Vol] 106 mg/dL 74-106 [facility] Comment on above: Fasting Glucose resu lt from 100 to 125 mg/dL suggests IMPAIRED HOMEOSTASIS per A.D.A. criteria. Neutrophils (Bld) [#/Vol] 5.7 10*3/uL 2.0-7.7 [facility] Neutrophils/100 WBC (Bld) 79.0 % 47-70 [facility] Potassium [Moles/Vol] 3.8 mmol/L 3.5-5.1 [facility] Sodium [Moles/Vol] 141 mmol/L 136-145 [facility] WBC (Bld) [#/Vol] 7.2 10*3/uL 4.4-11.0 [facility] Blood erythrocytes count (nu mber/volume)Ordered By: Dr. Orozco on 05-08-2022 RBC (Bld) [#/Vol] 4.64 10*6/uL 4.2-5.4 [facility] Blood hemoglobin measurement (mass/volume)Ordered By: Dr. Orozco on 05-08-2022 Hemoglobin (Bld) [Mass/Vol] 14.0 g/dL 12.0-15.0 [facility] Blood lymphocytes/100 leukoc ytesOrdered By: Dr. Orozco on 05-08-2022 Lymphocytes/100 WBC (Bld) 17.6 % 19-41 [facility] Blood monocytes/100 leukocyt esOrdered By: Dr. Orozco on 05-08-2022 Monocytes/100 WBC (Bld) 2.4 % 0-10 [facility] Blood platelet mean volumeOr dered By: Dr. Orozco on 05-08-2022 Platelet mean volume (Bld) [Entitic vol] 11.1 fL 6.2-12.0 [facility] Determination of erythrocyte mean corpuscular volume (MCV)Ordered By: Dr. Orozco on 05-08-2022 MCV (RBC) [Entitic vol] 90.9 fL 81-99 [facility] Hematocrit Auto (Bld) [Volum e fraction]Ordered By: Dr. Orozco on 05-08-2022 Hematocrit (Bld) [Volume fraction] 42.2 % 37-47 [facility] INR in Blood by Coagulation assayOrdered By: Dr. Orozco on 05-08-2022 INR Coag (Bld) [Relative time] 1.0 {INR} [facility] Laboratory - Chemistry and C hemistry - challengeOrdered By: Dr. Orozco on 05-08-2022 CO2 [Moles/Vol] 27.0 mmol/L 21.0-32.0 [facility] Urea nitrogen/Creatinine [Mass ratio] 16.0 mg/mg 10-20 [facility] Laboratory - CoagulationOrde red By: Dr. Orozco on 05-08-2022 aPTT Coag (Bld) [Time] 27.4 s 24.1-36.2 [facility] PT Coag (PPP) [Time] 12.9 s 11.7-14.9 [facility] Laboratory - Hematology and Cell countsOrdered By: Dr. Orozco on 05-08-2022 Erythrocyte distribution width (RBC) [Entitic vol] 37.9 fL 35.1-43.9 [facility] Erythrocyte distribution width (RBC) [Ratio] 11.4 % 11.6-14.6 [facility] Immature granulocytes/100 WBC (Bld) 0.300 % 0.0-0.9 [facility] Comment on above: IG% - Immature Granu locytes (promyelocytes, myelocytes and metamyelocytes) > 1% indicates that a LEFT SHIFT is Present. MCH (RBC) [Entitic mass] 30.2 pg 27.0-32.0 [facility] Nucleated RBC/100 WBC (Bld) [Ratio] 0 % 0-5 [facility] [Mass/Vol]Or dered By: Dr. Orozco on 05-08-2022 MCHC (RBC) [Mass/Vol] 33.2 g/dL 32-36 [facility] No Panel InformationOrdered By: Dr. Orozco on 05-08-2022 Estimated Creatinine Clearance Calc 98.44 ml/min [facility] Estimated GFR (MDRD) Amer 104 mL/min >60 [facility] Comment on above: GFR Calc Estimated GFR (MDRD) Non-Af Amer 86 mL/min >60 [facility] Comment on above: Non- GFR Calc Troponin I High Sensitivity 9 pg/mL 3.0-54.0 [facility] Comment on above: Please Note: New Colleen t Units and Gender Specific Reference Ranges. For more information see Policy Stat Procedure [place] High Sensitivity Troponin (TNIH) and attachments. Platelets bldOrdered By: Dr. Orozco on 05-08-2022 Platelets (Bld) [#/Vol] 274 10*3/uL 150-450 [facility] Serum or plasma calcium gemma urement (mass/volume)Ordered By: Dr. Orozco on 05-08-2022 Calcium [Mass/Vol] 9.0 mg/dL 8.5-10.1 [facility] Serum or plasma creatinine m easurement (mass/volume)Ordered By: Dr. Orozco on 05-08-2022 Creatinine [Mass/Vol] 0.82 mg/dL 0.55-1.02 [facility] Comment on above: The validity of the calculated GFR & GFRAA in patients over 70 years has not been determined. Clinical correlation is essential. Serum or plasma urea nitroge n measurement (mass/volume)Ordered By: Dr. Orozco on 05-08-2022 Urea nitrogen [Mass/Vol] 13 mg/dL 7-18 [facility] Thin prep Papanicolaou smear with manual screeningOrdered By: Dr. Orozco on 05-08-2022 Thin prep Papanicolaou smear with manual screening 6 5-15 [facility] Glucose Glucometer (BldC) [M ass/Vol]Ordered By: Dr. Kimbrough on 04-18-2022 Glucose [Mass/Vol] 90 mg/dL 74-106 [facility] Comment on above: MANAGEMENT OF PATIEN T CARE PER NURSING PROTOCOL Absolute lymphocyte countOrd ered By: Dr. Kimbrough on 04-15-2022 Lymphocytes Auto (Unsp spec) [#/Vol] 1.57 10*3/uL 0.83-4.51 [facility] Basophil percentageOrdered B y: Dr. Kimbrough on 04-15-2022 Basophils/100 WBC (Bld) 0.1 % 0-1 [facility] Eosinophils/100 WBC (Bld) 0.4 % 0-5 [facility] Neutrophils (Bld) [#/Vol] 7.5 10*3/uL 2.0-7.7 [facility] Neutrophils/100 WBC (Bld) 78.7 % 47-70 [facility] WBC (Bld) [#/Vol] 9.5 10*3/uL 4.4-11.0 [facility] Blood erythrocytes count (nu mber/volume)Ordered By: Dr. Kimbrough on 04-15-2022 RBC (Bld) [#/Vol] 4.04 10*6/uL 4.2-5.4 [facility] Blood hemoglobin measurement (mass/volume)Ordered By: Dr. Kimbrough on 04-15-2022 Hemoglobin (Bld) [Mass/Vol] 12.3 g/dL 12.0-15.0 [facility] Blood lymphocytes/100 leukoc ytesOrdered By: Dr. Kimbrough on 04-15-2022 Lymphocytes/100 WBC (Bld) 16.5 % 19-41 [facility] Blood monocytes/100 leukocyt esOrdered By: Dr. Kimbrough on 04-15-2022 Monocytes/100 WBC (Bld) 3.7 % 0-10 [facility] Blood platelet mean volumeOr dered By: Dr. Kimbrough on 04-15-2022 Platelet mean volume (Bld) [Entitic vol] 12.9 fL 6.2-12.0 [facility] Determination of erythrocyte mean corpuscular volume (MCV)Ordered By: Dr. Kimbrough on 04-15-2022 MCV (RBC) [Entitic vol] 90.1 fL 81-99 [facility] Hematocrit Auto (Bld) [Volum e fraction]Ordered By: Dr. Kimbrough on 04-15-2022 Hematocrit (Bld) [Volume fraction] 36.4 % 37-47 [facility] Laboratory - Hematology and Cell countsOrdered By: Dr. Kimbrough on 04-15-2022 Erythrocyte distribution width (RBC) [Entitic vol] 41.5 fL 35.1-43.9 [facility] Erythrocyte distribution width (RBC) [Ratio] 12.5 % 11.6-14.6 [facility] Immature granulocytes/100 WBC (Bld) 0.600 % 0.0-0.9 [facility] Comment on above: IG% - Immature Granu locytes (promyelocytes, myelocytes and metamyelocytes) > 1% indicates that a LEFT SHIFT is Present. MCH (RBC) [Entitic mass] 30.4 pg 27.0-32.0 [facility] Nucleated RBC/100 WBC (Bld) [Ratio] 0 % 0-5 [facility] MCHC Auto (RBC) [Mass/Vol]Or dered By: Dr. Kimbrough on 04-15-2022 MCHC (RBC) [Mass/Vol] 33.8 g/dL 32-36 [facility] Platelets bldOrdered By: Dr. Kimbrough on 04-15-2022 Platelets (Bld) [#/Vol] 162 10*3/uL 150-450 [facility] Laboratory - Chemistry and C hemistry - challengeon 04-11-2022 Glucose Ql (U) Negative [facility] Laboratory - Urinalysison Protein Ql (U) Negative [facility] Laboratory - Chemistry and C hemistry - challengeon 04-08-2022 Glucose Ql (U) Negative [facility] Laboratory - Urinalysison Protein Ql (U) Negative [facility] Laboratory - Chemistry and C hemistry - challengeon 04-01-2022 Glucose Ql (U) Negative [facility] Laboratory - Urinalysison Protein Ql (U) Negative [facility] No Panel InformationOrdered By: Dr. Vasques on 03-31-2022 Group B Streptococcus Culture Group B Beta Streptococcus is not isolated. [facility] Laboratory - Chemistry and C hemistry - challengeon 03-28-2022 Glucose Ql (U) Negative [facility] Laboratory - Urinalysison Protein Ql (U) Negative [facility] Laboratory - Chemistry and C hemistry - challengeon 03-25-2022 Glucose Ql (U) Negative [facility] Laboratory - Urinalysison Protein Ql (U) Trace [facility] Laboratory - Chemistry and C hemistry - challengeon 03-21-2022 Glucose Ql (U) Negative [facility] Laboratory - Urinalysison Protein Ql (U) Negative [facility] Laboratory - Chemistry and C hemistry - challengeon 03-18-2022 Glucose Ql (U) Negative [facility] Laboratory - Urinalysison Protein Ql (U) Negative [facility] Laboratory - Chemistry and C hemistry - challengeon 03-14-2022 Glucose Ql (U) Negative [facility] Laboratory - Urinalysison Protein Ql (U) Negative [facility] Laboratory - Chemistry and C hemistry - challengeon 03-11-2022 Glucose Ql (U) Negative [facility] Laboratory - Urinalysison Protein Ql (U) Negative [facility] Laboratory - Chemistry and C hemistry - challengeon 03-07-2022 Glucose Ql (U) Negative [facility] Laboratory - Urinalysison Protein Ql (U) Negative [facility] Laboratory - Chemistry and C hemistry - challengeon 03-04-2022 Glucose Ql (U) Negative [facility] Laboratory - Urinalysison Protein Ql (U) Negative [facility] Laboratory - Chemistry and C hemistry - challengeon 02-25-2022 Glucose Ql (U) Negative [facility] Laboratory - Urinalysison Protein Ql (U) Trace [facility] Glucose,Bedsideon 02-21-2022 Glucose [Mass/Vol] 92 mg/dL Normal 70-100 [facility] Comment on above: Result Comment: Test performed by glucose meter. Results may be 10%-15% lower than serum/plasma values. (CLIA ID [id number]) Performed By: #### L IPA4, HA1C2, BHB, B12, AMY3, HEMDF, TSH5, CMP3 #### [address] #### [id number] #### [facility] [employer] [facility] [address] [place] [address] Glucose [Mass/Vol] 93 mg/dL Normal 70-100 [facility] Comment on above: Result Comment: Test performed by glucose meter. Results may be 10%-15% lower than serum/plasma values. (CLIA ID [id number]) Performed By: #### L IPA4, HA1C2, BHB, B12, AMY3, HEMDF, TSH5, CMP3 #### [address] #### [id number] #### [facility] [address] [place] [address] Glucose [Mass/Vol] 85 mg/dL Normal 70-100 [facility] Comment on above: Result Comment: Test performed by glucose meter. Results may be 10%-15% lower than serum/plasma values. (CLIA ID [id number]) Performed By: #### L IPA4, HA1C2, BHB, B12, AMY3, HEMDF, TSH5, CMP3 #### [facility] [employer] [address] #### [id number] #### [facility] [address] [place] [address] Glucose,Bedsideon 02-20-2022 Glucose [Mass/Vol] 73 mg/dL Normal 70-100 [facility] Comment on above: Result Comment: Test performed by glucose meter. Results may be 10%-15% lower than serum/plasma values. (CLIA ID [id number]) Performed By: #### L IPA4, HA1C2, BHB, B12, AMY3, HEMDF, TSH5, CMP3 #### [facility] [employer] [address] #### [id number] #### [facility] [address] [place] [address] Glucose [Mass/Vol] 89 mg/dL Normal 70-100 [facility] Comment on above: Result Comment: Test performed by glucose meter. Results may be 10%-15% lower than serum/plasma values. (CLIA ID [id number]) Performed By: #### L IPA4, HA1C2, BHB, B12, AMY3, HEMDF, TSH5, CMP3 #### [facility] [address] [place] [address] #### [id number] #### [facility] [address] [place] [address] Glucose [Mass/Vol] 103 mg/dL High 70-100 [facility] Comment on above: Result Comment: Test performed by glucose meter. Results may be 10%-15% lower than serum/plasma values. (CLIA ID [id number]) Performed By: #### L IPA4, HA1C2, BHB, B12, AMY3, HEMDF, TSH5, CMP3 #### [facility] [address] [place] [address] #### [id number] #### [facility] [address] [place] [address] Glucose [Mass/Vol] 94 mg/dL Normal 70-100 [facility] Comment on above: Result Comment: Test performed by glucose meter. Results may be 10%-15% lower than serum/plasma values. (CLIA ID [id number]) Performed By: #### L IPA4, HA1C2, BHB, B12, AMY3, HEMDF, TSH5, CMP3 #### [facility] [address] [place] [address] #### [id number] #### [facility] [address] [place] [address] Glucose [Mass/Vol] 76 mg/dL Normal 70-100 [facility] Comment on above: Result Comment: Test performed by glucose meter. Results may be 10%-15% lower than serum/plasma values. (CLIA ID [id number]) Performed By: #### L IPA4, HA1C2, BHB, B12, AMY3, HEMDF, TSH5, CMP3 #### [address] #### [id number] #### [facility] [address] [place] [place] [address] Glucose [Mass/Vol] 91 mg/dL Normal 70-100 [facility] Comment on above: Result Comment: Test performed by glucose meter. Results may be 10%-15% lower than serum/plasma values. (CLIA ID [id number]) Performed By: #### L IPA4, HA1C2, BHB, B12, AMY3, HEMDF, TSH5, CMP3 #### [address] #### VD25H #### [place] [address] [place] [address] Glucose [Mass/Vol] 77 mg/dL Normal 70-100 [facility] Comment on above: Result Comment: Test performed by glucose meter. Results may be 10%-15% lower than serum/plasma values. (CLIA ID [id number]) Performed By: #### L IPA4, HA1C2, BHB, B12, AMY3, HEMDF, TSH5, CMP3 #### [address] #### VD25H #### [facility] [address] [place] [address] Absolute lymphocyte countOrd ered By: Dr. Kimbrough on 02-19-2022 Lymphocytes Auto (Unsp spec) [#/Vol] 1.41 10*3/uL 0.83-4.51 [facility] Amylaseon 02-19-2022 Amylase [Catalytic activity/Vol] 278 U/L High 30-130 [facility] Comment on above: Performed By: #### L IPA4, HA1C2, BHB, B12, AMY3, HEMDF, TSH5, CMP3 #### [address] #### VD25H #### [facility] [address] [place] [address] Basophil percentageOrdered B y: Dr. Kimbrough on 02-19-2022 Basophils/100 WBC (Bld) 0.1 % 0-1 [facility] Bilirubin [Mass/Vol] 0.20 mg/dL 0.20-1.00 [facility] Comment on above: For patients on eltr ombopag therapy, use of Dimension [place] TBIL is not recommended. Chloride [Moles/Vol] 112 mmol/L 98-107 [facility] Eosinophils/100 WBC (Bld) 0.6 % 0-5 [facility] Glucose [Mass/Vol] 94 mg/dL 74-106 [facility] Neutrophils (Bld) [#/Vol] 6.4 10*3/uL 2.0-7.7 [facility] Neutrophils/100 WBC (Bld) 77.1 % 47-70 [facility] Potassium [Moles/Vol] 4.0 mmol/L 3.5-5.1 [facility] Protein [Mass/Vol] 6.8 g/dL 6.4-8.2 [facility] Sodium [Moles/Vol] 141 mmol/L 136-145 [facility] WBC (Bld) [#/Vol] 8.3 10*3/uL 4.4-11.0 [facility] Beta Hydroxybutyrateon 02-19 Beta Hydroxybutyrate 2.22 mg/dL Normal 0.20-2.81 [facility] Comment on above: Performed By: #### L IPA4, HA1C2, BHB, B12, AMY3, HEMDF, TSH5, CMP3 #### [facility] [address] [place] [address] #### VD25H #### [facility] [address] [place] [address] Bilirubin Test strip Ql (U)O rdered By: Dr. Kimbrough on 02-19-2022 Bilirubin Ql (U) Negative Negative [facility] Blood erythrocytes count (nu mber/volume)Ordered By: Dr. Kimbrough on 02-19-2022 RBC (Bld) [#/Vol] 3.78 10*6/uL 4.2-5.4 [facility] Blood hemoglobin measurement (mass/volume)Ordered By: Dr. Kimbrough on 02-19-2022 Hemoglobin (Bld) [Mass/Vol] 11.7 g/dL 12.0-15.0 [facility] Blood lymphocytes/100 leukoc ytesOrdered By: Dr. Kimbrough on 02-19-2022 Lymphocytes/100 WBC (Bld) 17.0 % 19-41 [facility] Blood monocytes/100 leukocyt esOrdered By: Dr. Kimbrough on 02-19-2022 Monocytes/100 WBC (Bld) 4.5 % 0-10 [facility] Blood platelet mean volumeOr dered By: Dr. Kimbrough on 02-19-2022 Platelet mean volume (Bld) [Entitic vol] 11.8 fL 6.2-12.0 [facility] Comp Metabolic Panelon 02-19 ALP [Catalytic activity/Vol] 77 U/L Normal 38-126 [facility] Comment on above: Performed By: #### L IPA4, HA1C2, BHB, B12, AMY3, HEMDF, TSH5, CMP3 #### [address] [address] #### [id number] #### [facility] [address] [place] [address] ALT [Catalytic activity/Vol] 10 U/L Normal 0-34 [facility] Comment on above: Result Comment: The ALT test is performed by an updated assay method. Please note that the reference intervals have been changed and are now sex specific. Performed By: #### L IPA4, HA1C2, BHB, B12, AMY3, HEMDF, TSH5, CMP3 #### [address] [address] #### VD25H #### [facility] [address] [place] [address] Anion gap [Moles/Vol] 9 mmol/L Normal 3-13 [facility] Comment on above: Performed By: #### L IPA4, HA1C2, BHB, B12, AMY3, HEMDF, TSH5, CMP3 #### [address] #### VD25H #### [facility] [address] [place] [address] AST [Catalytic activity/Vol] 30 U/L Normal 15-46 [facility] Comment on above: Performed By: #### L IPA4, HA1C2, BHB, B12, AMY3, HEMDF, TSH5, CMP3 #### [address] #### VD25H #### [facility] [address] [place] [address] Bilirubin [Mass/Vol] 0.3 mg/dL Normal 0.2-1.3 [facility] Comment on above: Performed By: #### L IPA4, HA1C2, BHB, B12, AMY3, HEMDF, TSH5, CMP3 #### [address] #### VD25H #### [facility] [address] [place] [address] Calcium [Mass/Vol] 9.3 mg/dL Normal 8.4-10.4 [facility] Comment on above: Performed By: #### L IPA4, HA1C2, BHB, B12, AMY3, HEMDF, TSH5, CMP3 #### [address] #### VD25H #### [facility] [address] [place] [address] CO2 [Moles/Vol] 19 mmol/L Low 22-30 [facility] Comment on above: Performed By: #### L IPA4, HA1C2, BHB, B12, AMY3, HEMDF, TSH5, CMP3 #### [address] #### VD25H #### [facility] [address] [place] [address] Glucose [Mass/Vol] 96 mg/dL Normal 70-100 [facility] Comment on above: Performed By: #### L IPA4, HA1C2, BHB, B12, AMY3, HEMDF, TSH5, CMP3 #### [address] #### VD25H #### [facility] [address] [place] [address] Protein [Mass/Vol] 7.5 g/dL Normal 6.3-8.2 [facility] Comment on above: Performed By: #### L IPA4, HA1C2, BHB, B12, AMY3, HEMDF, TSH5, CMP3 #### [address] #### VD25H #### [facility] [address] [place] [address] Urea nitrogen [Mass/Vol] 9 mg/dL Normal 9-20 [facility] Comment on above: Performed By: #### L IPA4, HA1C2, BHB, B12, AMY3, HEMDF, TSH5, CMP3 #### [address] #### VD25H #### [facility] [address] [place] [address] Creatinine [Mass/Vol] 0.47 mg/dL Low 0.52-1.25 [facility] Comment on above: Performed By: #### L IPA4, HA1C2, BHB, B12, AMY3, HEMDF, TSH5, CMP3 #### [address] #### VD25H #### [facility] [address] [place] [address] eGFR OTHER > 90.0 Normal >60 [facility] Comment on above: Result Comment: KDIG O guidelines provide the following GFR categories: Stage GFR(ml/min/1.73 m2) Terms G1 >=90 Normal or high G2 60-89 Mildly decreased* G3a 45-59 Mildly to moderately decreased G3b 30-44 Moderately to severely decreased G4 15-29 Severely decreased G5 <15 Kidney failure *Relative to young adult level. In the absence of evidence of kidney damage, neither GFR category G1 nor G2 fulfill the criteria for CKD. The CKD-EPI equation is validated in individuals 18 years of age and older. Currently the best equation for estimating glomerular filtration rate (GFR) from serum creatinine in children is the Bedside Stewart equation. It is less accurate in patients with extremes of muscle mass, restriction of dietary protein, ingestion of creatine, extra-renal metabolism of creatinine, or treatment with medications that affect renal tubular creatinine secretion. Performed By: #### L IPA4, HA1C2, BHB, B12, AMY3, HEMDF, TSH5, CMP3 #### [address] #### VD25H #### [facility] [address] [place] [address] GFR/1.73 sq M.predicted among blacks MDRD (S/P/Bld) [Vol rate/Area] mL/min/{1.73_m2} Normal >60 [facility] Comment on above: Performed By: #### L IPA4, HA1C2, BHB, B12, AMY3, HEMDF, TSH5, CMP3 #### [address] #### VD25H #### [facility] [address] [place] [address] Albumin [Mass/Vol] 3.8 g/dL Normal 3.5-5.0 [facility] Comment on above: Performed By: #### L IPA4, HA1C2, BHB, B12, AMY3, HEMDF, TSH5, CMP3 #### [address] #### VD25H #### [facility] [address] [place] [address] Chloride [Moles/Vol] 110 mmol/L High 98-107 [facility] Comment on above: Performed By: #### L IPA4, HA1C2, BHB, B12, AMY3, HEMDF, TSH5, CMP3 #### [address] #### VD25H #### [facility] [address] [place] [address] Potassium [Moles/Vol] 4.0 mmol/L Normal 3.5-5.1 [facility] Comment on above: Performed By: #### L IPA4, HA1C2, BHB, B12, AMY3, HEMDF, TSH5, CMP3 #### [facility] [address], [place] #### VD25H #### [facility] [address] [place] [address] Sodium [Moles/Vol] 138 mmol/L Normal 135-145 [facility] Comment on above: Performed By: #### L IPA4, HA1C2, BHB, B12, AMY3, HEMDF, TSH5, CMP3 #### [address] #### VD25H #### [facility] [address] [place] [address] Complete Urinalysison 2021 Appearance (U) Clear Normal Clear [facility] Comment on above: Result Comment: . Performed By: #### L IPA4, HA1C2, BHB, B12, AMY3, HEMDF, TSH5, CMP3 #### [address] #### VD25H #### [facility] [address] [place] [address] Bilirubin,Urine Negative Normal Negative [facility] Comment on above: Result Comment: . Performed By: #### L IPA4, HA1C2, BHB, B12, AMY3, HEMDF, TSH5, CMP3 #### [address] #### VD25H #### [facility] [address] [place] [address] Color (U) Light-Yellow Normal Lt. Yellow [facility] Comment on above: Result Comment: . Performed By: #### L IPA4, HA1C2, BHB, B12, AMY3, HEMDF, TSH5, CMP3 #### [address] #### VD25H #### [facility] [address] [place] [address] Glucose Ql (U) Normal Normal Normal (<70) [facility] Comment on above: Result Comment: . Performed By: #### L IPA4, HA1C2, BHB, B12, AMY3, HEMDF, TSH5, CMP3 #### [place] [address] [place], [place] #### VD25H #### [facility] [address] [place] [address] Ketone,Urine Negative Normal Negative [facility] Comment on above: Result Comment: . Performed By: #### L IPA4, HA1C2, BHB, B12, AMY3, HEMDF, TSH5, CMP3 #### [address] [place], [place] #### VD25H #### [facility] [address] [place] [address] Leukocytes,Urine Negative Normal Negative [facility] Comment on above: Result Comment: . Performed By: #### L IPA4, HA1C2, BHB, B12, AMY3, HEMDF, TSH5, CMP3 #### [place] [address] [place], [place] #### VD25H #### [facility] [address] [place] [address] Nitrites,Urine Negative Normal Negative [facility] Comment on above: Result Comment: . Performed By: #### L IPA4, HA1C2, BHB, B12, AMY3, HEMDF, TSH5, CMP3 #### [address] [place], [place] #### VD25H #### [facility] [address] [place] [address] Occult Blood,Urine Negative Normal Negative [facility] Comment on above: Result Comment: . Performed By: #### L IPA4, HA1C2, BHB, B12, AMY3, HEMDF, TSH5, CMP3 #### [place] [address] [place], [place] #### VD25H #### [facility] [address] [place] [address] pH,Urine 5.5 Normal 5.0-8.0 [facility] Comment on above: Result Comment: . Performed By: #### L IPA4, HA1C2, BHB, B12, AMY3, HEMDF, TSH5, CMP3 #### [place] [address] [place], [place] #### VD25H #### [facility] [address] [place] [address] Specific [place],Urine 1.014 Normal 1.005 - 1.030 [facility] Comment on above: Result Comment: . Performed By: #### L IPA4, HA1C2, BHB, B12, AMY3, HEMDF, TSH5, CMP3 #### [address] #### VD25H #### [place] [address] [place] [address] Total Protein,Urine Negative Normal Negative [facility] Comment on above: Result Comment: . Performed By: #### L IPA4, HA1C2, BHB, B12, AMY3, HEMDF, TSH5, CMP3 #### [address] #### VD25H #### [facility] [address] [place] [address] Urobilinogen,Urine Normal Normal Normal (0-1) [facility] Comment on above: Result Comment: . Performed By: #### L IPA4, HA1C2, BHB, B12, AMY3, HEMDF, TSH5, CMP3 #### [address] #### VD25H #### [facility] [address] [place] [address] Determination of erythrocyte mean corpuscular volume (MCV)Ordered By: Dr. Kimbrough on 02-19-2022 MCV (RBC) [Entitic vol] 91.5 fL 81-99 [facility] Glucose,Bedsideon 02-19-2022 Glucose [Mass/Vol] 79 mg/dL Normal 70-100 [facility] Comment on above: Result Comment: Test performed by glucose meter. Results may be 10%-15% lower than serum/plasma values. (CLIA ID [id number]) Performed By: #### L IPA4, HA1C2, BHB, B12, AMY3, HEMDF, TSH5, CMP3 #### [facility] [address] #### VD25H #### [facility] [address] [place] [facility] [place] [address] Glucose [Mass/Vol] 75 mg/dL Normal 70-100 [facility] Comment on above: Result Comment: Test performed by glucose meter. Results may be 10%-15% lower than serum/plasma values. (CLIA ID [id number]) Performed By: #### L IPA4, HA1C2, BHB, B12, AMY3, HEMDF, TSH5, CMP3 #### [facility] [address] #### VD25H #### [employer] [facility] [address] [place] [address] Glucose [Mass/Vol] 71 mg/dL Normal 70-100 [facility] Comment on above: Result Comment: Test performed by glucose meter. Results may be 10%-15% lower than serum/plasma values. (CLIA ID [id number]) Performed By: #### L IPA4, HA1C2, BHB, B12, AMY3, HEMDF, TSH5, CMP3 #### [facility] [address] #### VD25H #### [facility] [employer] [facility] [address] [place] [address] Glucose [Mass/Vol] 91 mg/dL Normal 70-100 [facility] Comment on above: Result Comment: Test performed by glucose meter. Results may be 10%-15% lower than serum/plasma values. (CLIA ID [id number]) Performed By: #### L IPA4, HA1C2, BHB, B12, AMY3, HEMDF, TSH5, CMP3 #### [facility] [address], [place] #### VD25H #### [facility] [address] [place] [address] Hematocrit Auto (Bld) [Volum e fraction]Ordered By: Dr. Kimbrough on 02-19-2022 Hematocrit (Bld) [Volume fraction] 34.6 % 37-47 [facility] Hemoglobin A1Con 02-19-2022 Glucose [Mass/Vol] 100 mg/dL Normal [facility] Comment on above: Performed By: #### L IPA4, HA1C2, BHB, B12, AMY3, HEMDF, TSH5, CMP3 #### [address] #### VD25H #### [facility] [address] [place] [address] HbA1c (Bld) [Mass fraction] 5.1 % Normal [facility] Comment on above: Result Comment: Norm al less than 5.7% Prediabetes 5.7% to 6.4% Diabetes 6.5% or higher --HgbA1C levels may not be accurate in patients who have renal disease, received recent blood transfusions, are anemic, or who have dyshemoglobinemia. Performed By: #### L IPA4, HA1C2, BHB, B12, AMY3, HEMDF, TSH5, CMP3 #### [place] [address] [place], [place] #### VD25H #### [facility] [address] [place] [address] Hemogram w/ Autodiffon 02-19 Abs Baso Cnt 0.1 10*3/uL Normal 0.0-0.2 [facility] Comment on above: Performed By: #### L IPA4, HA1C2, BHB, B12, AMY3, HEMDF, TSH5, CMP3 #### [address] #### VD25H #### [facility] [address] [place] Abs Neutrophile Cnt 8.7 10*3/uL High 1.8-7.0 [facility] Comment on above: Performed By: #### L IPA4, HA1C2, BHB, B12, AMY3, HEMDF, TSH5, CMP3 #### [address] #### VD25H #### [facility] [address] [place] [address] Basophils/100 WBC (Bld) 0.6 % Normal 0.0-2.0 [facility] Comment on above: Performed By: #### L IPA4, HA1C2, BHB, B12, AMY3, HEMDF, TSH5, CMP3 #### [address] #### VD25H #### [facility] [address] [place] [address] Eosinophils (Bld) [#/Vol] 0.0 10*3/uL Normal 0.0-0.5 [facility] Comment on above: Performed By: #### L IPA4, HA1C2, BHB, B12, AMY3, HEMDF, TSH5, CMP3 #### [address] #### VD25H #### [facility] [address] [place] [address] Eosinophils/100 WBC (Bld) 0.3 % Low 1.0-6.0 [facility] Comment on above: Performed By: #### L IPA4, HA1C2, BHB, B12, AMY3, HEMDF, TSH5, CMP3 #### [address] #### VD25H #### [facility] [address] [place] [address] Erythrocyte distribution width (RBC) [Ratio] 12.9 % Normal 11.5-14.5 [facility] Comment on above: Performed By: #### L IPA4, HA1C2, BHB, B12, AMY3, HEMDF, TSH5, CMP3 #### [address] #### VD25H #### [facility] [address] [place] [address] Granulocytes/100 WBC (Bld) 84.4 % High 40.0-80.0 [facility] Comment on above: Performed By: #### L IPA4, HA1C2, BHB, B12, AMY3, HEMDF, TSH5, CMP3 #### [address] #### VD25H #### [facility] [address] [place] [address] Hematocrit (Bld) [Volume fraction] 36.4 % Normal 35.0-47.0 [facility] Comment on above: Performed By: #### L IPA4, HA1C2, BHB, B12, AMY3, HEMDF, TSH5, CMP3 #### [address] #### VD25H #### [place] [address] [place] [address] Hemoglobin (Bld) [Mass/Vol] 12.1 g/dL Normal 11.7-16.0 [facility] Comment on above: Performed By: #### L IPA4, HA1C2, BHB, B12, AMY3, HEMDF, TSH5, CMP3 #### [address] #### VD25H #### [place] [address] [place] [address] Lymphocytes (Bld) [#/Vol] 1.2 10*3/uL Normal 1.0-4.3 [facility] Comment on above: Performed By: #### L IPA4, HA1C2, BHB, B12, AMY3, HEMDF, TSH5, CMP3 #### [address] #### VD25H #### [place] [address] [place] [address] Lymphocytes/100 WBC (Bld) 11.6 % Low 20.0-40.0 [facility] Comment on above: Performed By: #### L IPA4, HA1C2, BHB, B12, AMY3, HEMDF, TSH5, CMP3 #### [facility] [address], [place] #### VD25H #### [facility] [address] [place] [address] MCH (RBC) [Entitic mass] 29.9 pg Normal 26.0-34.0 [facility] Comment on above: Performed By: #### L IPA4, HA1C2, BHB, B12, AMY3, HEMDF, TSH5, CMP3 #### [address] #### VD25H #### [facility] [address] [facility] [place] [address] MCHC 33.3 % Normal 32.0-36.0 [facility] Comment on above: Performed By: #### L IPA4, HA1C2, BHB, B12, AMY3, HEMDF, TSH5, CMP3 #### [address] #### VD25H #### [facility] [address] [place] [address] MCV (RBC) [Entitic vol] 90.0 fL Normal 79.0-98.0 [facility] Comment on above: Performed By: #### L IPA4, HA1C2, BHB, B12, AMY3, HEMDF, TSH5, CMP3 #### [address] #### VD25H #### [facility] [address] [place] [address] Monocytes (Bld) [#/Vol] 0.3 10*3/uL Normal 0.0-0.8 [facility] Comment on above: Performed By: #### L IPA4, HA1C2, BHB, B12, AMY3, HEMDF, TSH5, CMP3 #### [address] #### VD25H #### [facility] [address] [place] [address] Monocytes/100 WBC (Bld) 3.1 % Normal 2.0-10.0 [facility] Comment on above: Performed By: #### L IPA4, HA1C2, BHB, B12, AMY3, HEMDF, TSH5, CMP3 #### [address] #### VD25H #### [facility] [address] [place] [address] Platelet mean volume (Bld) [Entitic vol] 10.4 fL Normal 7.4-12.4 [facility] Comment on above: Result Comment: MPV is a calculated measurement using platelet volume ratio. Performed By: #### L IPA4, HA1C2, BHB, B12, AMY3, HEMDF, TSH5, CMP3 #### [address] #### VD25H #### [facility] [address] [place] [address] Platelets (Bld) [#/Vol] 174 10*3/uL Normal 140-440 [facility] Comment on above: Performed By: #### L IPA4, HA1C2, BHB, B12, AMY3, HEMDF, TSH5, CMP3 #### [address] #### VD25H #### [facility] [address] [place] [address] RBC (Bld) [#/Vol] 4.05 10*6/uL Normal 3.80-5.20 [facility] Comment on above: Performed By: #### L IPA4, HA1C2, BHB, B12, AMY3, HEMDF, TSH5, CMP3 #### [address] #### VD25H #### [facility] [address] [place] [address] WBC (Bld) [#/Vol] 10.4 10*3/uL Normal 3.6-10.7 [facility] Comment on above: Performed By: #### L IPA4, HA1C2, BHB, B12, AMY3, HEMDF, TSH5, CMP3 #### [facility] [address] [place] [address] #### VD25H #### [facility] [address] [place] [address] Ketones Test strip Ql (U)Ord ered By: Dr. Kimbrough on 02-19-2022 Ketones Ql (U) Negative Negative [facility] Laboratory - Chemistry and C hemistry - challengeOrdered By: Dr. Kimbrough on 02-19-2022 ALP [Catalytic activity/Vol] 71 U/L 45-117 [facility] ALT [Catalytic activity/Vol] 13 U/L 13-56 [facility] CO2 [Moles/Vol] 22.0 mmol/L 21.0-32.0 [facility] Globulin (S) [Mass/Vol] 4.2 g/dL 2.2-4.2 [facility] Lipase [Catalytic activity/Vol] 1808 U/L 73-393 [facility] Urea nitrogen/Creatinine [Mass ratio] 22.0 mg/mg 10-20 [facility] Laboratory - Hematology and Cell countsOrdered By: Dr. Kimbrough on 02-19-2022 Erythrocyte distribution width (RBC) [Entitic vol] 41.8 fL 35.1-43.9 [facility] Erythrocyte distribution width (RBC) [Ratio] 12.6 % 11.6-14.6 [facility] Immature granulocytes/100 WBC (Bld) 0.700 % 0.0-0.9 [facility] Comment on above: IG% - Immature Granu locytes (promyelocytes, myelocytes and metamyelocytes) > 1% indicates that a LEFT SHIFT is Present. MCH (RBC) [Entitic mass] 31.0 pg 27.0-32.0 [facility] Nucleated RBC/100 WBC (Bld) [Ratio] 0 % 0-5 [facility] Lipaseon 02-19-2022 Lipase [Catalytic activity/Vol] 1333 U/L High 23-300 [facility] Comment on above: Performed By: #### L IPA4, HA1C2, BHB, B12, AMY3, HEMDF, TSH5, CMP3 #### [email or web address] [address] [place] [address] #### VD25H #### [email or web address] [address] [place] [address] MCHC Auto (RBC) [Mass/Vol]Or dered By: Dr. Kimbrough on 02-19-2022 MCHC (RBC) [Mass/Vol] 33.8 g/dL 32-36 [facility] US Follow Upon 02-19-2022 [facility] US Follow Up Patient Name: WILLOW BARKSDALE Maternal Medicine ACCESSION EXAM DATE/TIME PROCEDURE ORDERING PROVIDER [id number] 02/19/2022 09:59 EDT [facility] US Follow MD GAMALIEL, MJ Najera Reason For Exam ([facility] US Follow Up) pancreatitis Report OBSTETRICS REPORT (Signed Final 02/19/2022 11:57 am) PATIENT INFO: ID #: [id number] : [birth year] (31 yrs) Name: WILLOW BARKSDALE Visit Date: 02/19/2022 09:57 am PERFORMED BY: Attending: Sangeetha Gutierrez MD Performed By: Raghavendra Oh Location: Inpatient - Triage Visit Type: Inpatient - Hospital SERVICE(S) PROVIDED: ANA MARIA w/out NST [id number] [place] [id number] INDICATIONS: Pancreatitis Transfer from [facility] VITAL SIGNS: Weight (lb): 271 Height: 5'8 BMI: 41.2 EVALUATION: Num Of Fetuses: 1 Heart Rate(bpm): 143 Cardiac Activity: Regular rhythm Lie: Longitudinal Presentation: Cephalic Placenta: Posterior Amniotic Fluid CELESTE FV: Within normal limits CELESTE Sum(cm) %Tile Largest Pocket(cm) 12.02 31 3.91 [facility] Report RUQ(cm) RLQ(cm) LUQ(cm) LLQ(cm) 2.73 3.91 3.05 2.33 BIOPHYSICAL EVALUATION: Amniotic F.V: Within normal limits F. Tone: Observed F. Movement: Observed Score: 12/17 F. Breathing: Observed BIOMETRY: BPD: 82.2 mm G.Age: 33w 0d 89 % OFD: 103 mm HC: 295.7 mm G.Age: 32w 5d 56 % AC: 267.7 mm G.Age: 30w 6d 39 % FL: 63 mm G.Age: 32w 4d 76 % LV: 4.31 mm CI: 79.8 % 70 - 86 FL/HC: 21.3 % 19.3 - 21.3 HC/AC: 1.10 0.96 - 1.17 FL/BPD: 76.6 % 71 - 87 FL/AC: 23.5 % 20 - 24 Est. FW: 1834 gm 4 lb 1 oz 56 % GESTATIONAL AGE: Clinical AMANDA: 31w 1d AMANDA: 04/22/22 U/S Today: 32w 2d AMANDA: 04/14/22 Best: 31w 1d Det. By: Clinical AMANDA AMANDA: 04/22/22 ANATOMY: Cranium: Normal appearance Cavum: Normal appearance Ventricles: Normal appearance Choroid Plexus: Normal appearance Cerebellum: Normal appearance Posterior Fossa: Normal appearance Face: Normal appearance Thoracic: Normal appearance Heart: Normal appearance RVOT: Normal appearance LVOT: Normal appearance Diaphragm: Normal appearance Stomach: Normal appearance Abdomen: Normal appearance Abdominal Wall: Normal appearance Cord Vessels: 3-Vessel Cord Kidneys: Normal appearance Bladder: Normal appearance Upper Extremities: Present Lower Extremities: Present IMPRESSION: Renner live intrauterine at 31w 1d. Normal growth; EFW 1834 grams, which is at the 56% for this gestational age. The amniotic fluid index is 12.02cm, which is within normal limits. [facility] 12/17 Maternal Medicine Report Continued inpatient management Ultrasound is not diagnostic of chromosomal aneuploidy and does not detect all subtle defects. Normal ultrasound findings do not guarantee normal outcomes. Sangeetha Gutierrez MD Electronically Signed Final Report 02/19/2022 11:57 am Final Dictated: 02/19/2022 9:57 am Dictating Physician: SANGEETHA RAMEY Signed Date and Time: 02/19/2022 11:58 am Signed by: SANGEETHA RAMEY Ultrasound ACCESSION EXAM DATE/TIME PROCEDURE ORDERING PROVIDER [id number] 02/19/2022 09:59 EDT [facility] US Follow MD ALSTON BRIAN Up Reason For Exam ([facility] US Follow Up) pancreatitis Report OBSTETRICS REPORT (Signed Final 02/19/2022 11:57 am) PATIENT INFO: ID #: [id number] : [birth year] (31 yrs) Name: WILLOW SEE Visit Date: 02/19/2022 09:57 am PERFORMED BY: Attending: Sangeetha Gutierrez MD Performed By: Raghavendra Oh Location: Inpatient - Triage Visit Type: Inpatient - Hospital SERVICE(S) PROVIDED: BPP w/out NST 80770 US Foll (more content not included)... Normal [facility] Nitrite Test strip Ql (U)Ord ered By: Dr. Kimbrough on 02-19-2022 Nitrite Ql (U) Negative Negative [facility] No Panel InformationOrdered By: Dr. Kimbrough on 02-19-2022 Estimated Creatinine Clearance Calc 161.44 ml/min [facility] Estimated GFR (MDRD) Amer 182 mL/min >60 [facility] Comment on above: GFR Calc Estimated GFR (MDRD) Non-Af Amer 150 mL/min >60 [facility] Comment on above: Non- GFR Calc Platelets bldOrdered By: Dr. Kimbrough on 02-19-2022 Platelets (Bld) [#/Vol] 168 10*3/uL 150-450 [facility] Protein Test strip Ql (U)Ord ered By: Dr. Kimbrough on 02-19-2022 Protein Ql (U) Negative Negative [facility] Serum or plasma albumin gemma urement (mass/volume)Ordered By: Dr. Kimbrough on 02-19-2022 Albumin [Mass/Vol] 2.6 g/dL 3.2-5.0 [facility] Serum or plasma albumin/glob ulin mass ratioOrdered By: Dr. Kimbrough on 02-19-2022 Albumin/Globulin [Mass ratio] 0.6 {ratio} 0.9-2.4 [facility] Serum or plasma calcium gemma urement (mass/volume)Ordered By: Dr. Kimbrough on 02-19-2022 Calcium [Mass/Vol] 8.9 mg/dL 8.5-10.1 [facility] Serum or plasma creatinine m easurement (mass/volume)Ordered By: Dr. Kimbrough on 02-19-2022 Creatinine [Mass/Vol] 0.50 mg/dL 0.55-1.02 [facility] Comment on above: The validity of the calculated GFR & GFRAA in patients over 70 years has not been determined. Clinical correlation is essential. Serum or plasma urea nitroge n measurement (mass/volume)Ordered By: Dr. Kimbrough on 02-19-2022 Urea nitrogen [Mass/Vol] 11 mg/dL 7-18 [facility] TS GELon 02-19-2022 TS GEL ABO Group: A Rh, Gel: POS Antibody Screen Gel: NEG Normal [facility] Comment on above: Performed By: #### L IPA4, HA1C2, BHB, B12, AMY3, HEMDF, TSH5, CMP3 #### [facility] [address] [place] [address] #### VD25H #### [facility] [employer] [address] [place] [address] Thin prep Papanicolaou smear with manual screeningOrdered By: Dr. Kimbrough on 02-19-2022 Thin prep Papanicolaou smear with manual screening 12 U/L 15-37 [facility] Thin prep Papanicolaou smear with manual screening 7 5-15 [facility] Thyroid Stim. Hormoneon 02-09 Thyroid Stim. Hormone 1.826 u[IU]/mL Normal 0.465-4.68 0 [facility] Comment on above: Performed By: #### L IPA4, HA1C2, BHB, B12, AMY3, HEMDF, TSH5, CMP3 #### [facility] [address] [place] [address] #### VD25H #### [facility] [address] [place] [address] Triglycerideon 02-19-2022 Triglyceride [Mass/Vol] 216 mg/dL Abnormal <150 [facility] Comment on above: Performed By: #### T RIG3 #### [facility] [address] [place] [address] US Abdomen Limitedon 022 US Abdomen Limited Patient Name: WILLOW BARKSDALE Ultrasound ACCESSION EXAM DATE/TIME PROCEDURE ORDERING PROVIDER [id number] 02/19/2022 10:07 EDT US Abdomen Limited MD ALSTON BRIAN CPT code 30506 Reason For Exam (US Abdomen Limited) pancreatitis Hx biliary sludge Report Examination: Ultrasound right upper quadrant Clinical Indication: Pancreatitis, abdominal pain, biliary sludge Comparison: None Findings: Multiplanar robertson scale sonographic images were obtained through the right upper quadrant. Static sonographic images were then presented for radiologic interpretation. The liver is increased and slightly coarsened in echotexture suggesting diffuse fatty infiltration of the liver. Gallbladder is normally distended and demonstrates no evidence of cholelithiasis, gallbladder wall thickening, or pericholecystic inflammation. There is no evidence of intra or extrahepatic biliary dilatation and the common bile duct measures 4 mm which is within normal limits. Technologist denotes negative sonographic Rankin sign. Bowel gas artifact and patient habitus obscures evaluation of the pancreas. Right kidney measures 12.8 x 4.8 x 5.6 cm. Right kidney is normal in echogenicity and demonstrates mild hydronephrosis. No renal calculus is seen. There is no evidence of abdominal ascites. Impression: 1. Diffuse fatty infiltration of the liver. 2. Mild right-sided renal hydronephrosis. 3. Nonvisualized pancreas. Ultrasound Report Report Dictated on Final Dictated: 02/19/2022 12:01 pm Dictating Physician: MD CALDERON ANTHONY J Signed Date and Time: 02/19/2022 12:03 pm Signed by: MD CALDERON ANTHONY J Transcribed Date and Time: 02/19/2022 12:01 Normal [facility] Urine blood detectionOrdered By: Dr. Kimbrough on 02-19-2022 RBC Ql (U) Negative Negative [facility] Urine clarityOrdered By: Dr. Kimbrough on 02-19-2022 Clarity (U) Clear Clear [facility] Urine color determinationOrd ered By: Dr. Kimbrough on 02-19-2022 Color (U) Yellow Yellow [facility] Urine glucose detectionOrder ed By: Dr. Kimbrough on 02-19-2022 Glucose Ql (U) Normal mg/dl Normal [facility] Urine leukocyte esterase det ection by dipstickOrdered By: Dr. Kimbrough on 02-19-2022 Leukocyte esterase Test strip Ql (U) Negative Negative [facility] Urine pHOrdered By: Dr. Godwin cuadra on 02-19-2022 pH (U) 6.5 [pH] 5.0 - 8.0 [facility] Urine specific gravity measu rementOrdered By: Dr. Kimbrough on 02-19-2022 Specific gravity (U) [Rel density] 1.005 1.002-1.030 [facility] Urobilinogen Auto test strip Ql (U)Ordered By: Dr. Kimbrough on 02-19-2022 Urobilinogen Ql (U) Normal mg/dl Normal [facility] Vit D 25-OH, Totalon 022 Vit D 25-OH, Total 23 ng/mL Low 30-100 [facility] Comment on above: Result Comment: Ther apy is based on measurement of Total 25- OHD with the following classification levels: Less than 20 ng/mL: Indicative of Vit D deficiency 20-30 ng/mL: Suggests Vit D insufficiency Optimal: Greater than or equal to 30 ng/mL Test performed by [employer] Competitive Immunoassay, measuring Total Vitamin D, not individual fractions. Performed By: #### L IPA4, HA1C2, BHB, B12, AMY3, HEMDF, TSH5, CMP3 #### [facility] [employer] [address] [place] [address] #### VD25H #### [facility] [address] [place] [address] Vitamin B12on 02-19-2022 Cobalamin (Vitamin B12) [Mass/Vol] 187 pg/mL Low 239-931 [facility] Comment on above: Performed By: #### L IPA4, HA1C2, BHB, B12, AMY3, HEMDF, TSH5, CMP3 #### [facility] [address] [place] [address] #### VD25H #### [facility] [address] [place] [address] Laboratory - Chemistry and C hemistry - challengeon 02-13-2022 Glucose Ql (U) Negative [facility] Work Phone: Laboratory - Urinalysison Protein Ql (U) Negative [facility] Work Phone: Absolute lymphocyte counton 01-30-2022 Lymphocytes Auto (Unsp spec) [#/Vol] 1.69 10*3/uL 0.83-4.51 [facility] Work Phone: Basophil percentageon 2021 Basophils/100 WBC (Bld) 0.1 % 0-1 [facility] Work Phone: Eosinophils/100 WBC (Bld) 0.7 % 0-5 [facility] Work Phone: Neutrophils (Bld) [#/Vol] 6.7 10*3/uL 2.0-7.7 [facility] Work Phone: Neutrophils/100 WBC (Bld) 75.7 % 47-70 [facility] Work Phone: WBC (Bld) [#/Vol] 8.9 10*3/uL 4.4-11.0 [facility] Work Phone: Blood erythrocytes count (nu mber/volume)on 01-30-2022 RBC (Bld) [#/Vol] 3.77 10*6/uL 4.2-5.4 [facility] Work Phone: Blood hemoglobin measurement (mass/volume)on 01-30-2022 Hemoglobin (Bld) [Mass/Vol] 11.3 g/dL 12.0-15.0 [facility] Work Phone: Blood lymphocytes/100 leukoc yteson 01-30-2022 Lymphocytes/100 WBC (Bld) 19.1 % 19-41 [facility] Work Phone: Blood monocytes/100 leukocyt eson 01-30-2022 Monocytes/100 WBC (Bld) 3.8 % 0-10 [facility] Work Phone: Blood platelet mean volumeon 01-30-2022 Platelet mean volume (Bld) [Entitic vol] 11.9 fL 6.2-12.0 [facility] Work Phone: Determination of erythrocyte mean corpuscular volume (MCV)on 01-30-2022 MCV (RBC) [Entitic vol] 91.0 fL 81-99 [facility] Work Phone: Hematocrit Auto (Bld) [Volum e fraction]on 01-30-2022 Hematocrit (Bld) [Volume fraction] 34.3 % 37-47 [facility] Work Phone: Laboratory - Chemistry and C hemistry - challengeon 01-30-2022 Glucose Ql (U) Negative [facility] Work Phone: Laboratory - Hematology and Cell countson 01-30-2022 Erythrocyte distribution width (RBC) [Entitic vol] 41.1 fL 35.1-43.9 [facility] Work Phone: Erythrocyte distribution width (RBC) [Ratio] 12.4 % 11.6-14.6 [facility] Work Phone: Immature granulocytes/100 WBC (Bld) 0.600 % 0.0-0.9 [facility] Work Phone: Comment on above: IG% - Immature Granu locytes (promyelocytes, myelocytes and metamyelocytes) > 1% indicates that a LEFT SHIFT is Present. MCH (RBC) [Entitic mass] 30.0 pg 27.0-32.0 [facility] Work Phone: Nucleated RBC/100 WBC (Bld) [Ratio] 0 % 0-5 [facility] Work Phone: HbA1c (Bld) [Mass fraction] 4.8 % 4.2-6.3 [facility] Work Phone: Laboratory - Urinalysison Protein Ql (U) 1+ [facility] Work Phone: MCHC Auto (RBC) [Mass/Vol]on 01-30-2022 MCHC (RBC) [Mass/Vol] 32.9 g/dL 32-36 [facility] Work Phone: Platelets bldon 01-30-2022 Platelets (Bld) [#/Vol] 219 10*3/uL 150-450 [facility] Work Phone: Quantitative serum or plasma 3 hour gestational glucose tolerance panelon 01-16-2022 Glucose tolerance 3 hours gestational panel See comment [facility] Work Phone: Comment on above: FASTING 104 Col: 11/30 0645GLUCOSE TOLERANCE TEST FOR Reference Interval GESTATIONAL DIABETES Fasting <105 mg/dL 1 hour <190 mg/dl 2 hour <165 mg/dl 3 hour <145 mg/dl 1 HR GLU 198 H Col: 01/16/22 0749 2 HR GLU 150 Col: 01/16/22 0849 3 HR GLU 95 Col: 01/16/22 0950 Laboratory - Chemistry and C hemistry - challengeon 12-05-2021 Glucose Ql (U) Negative [facility] Work Phone: Laboratory - Urinalysison Protein Ql (U) Negative [facility] Work Phone: Laboratory - Chemistry and C hemistry - challengeon 11-07-2021 Glucose Ql (U) Negative [facility] Work Phone: Laboratory - Urinalysison Protein Ql (U) Negative [facility] Work Phone: Laboratory - Chemistry and C hemistry - challengeon 10-12-2021 Glucose Ql (U) Negative [facility] Work Phone: Laboratory - Urinalysison Protein Ql (U) Negative [facility] Work Phone: Quantitative serum or plasma 3 hour gestational glucose tolerance panelon 09-24-2021 Glucose tolerance 3 hours gestational panel See comment [facility] Work Phone: Comment on above: FASTING 103 Col: 0708GLUCOSE TOLERANCE TEST FOR Reference Interval GESTATIONAL DIABETES Fasting <105 mg/dL 1 hour <190 mg/dl 2 hour <165 mg/dl 3 hour <145 mg/dl 1 HR GLU 159 Col: 09/24/21 0813 2 HR GLU 114 Col: 09/24/21 0911 3 HR GLU 92 Col: 09/24/21 1014 Absolute lymphocyte counton 09-21-2021 Lymphocytes Auto (Unsp spec) [#/Vol] 1.48 10*3/uL 0.83-4.51 [facility] Work Phone: Basophil percentageon 2021 Basophils/100 WBC (Bld) 0.1 % 0-1 [facility] Work Phone: Eosinophils/100 WBC (Bld) 0.7 % 0-5 [facility] Work Phone: Neutrophils (Bld) [#/Vol] 5.1 10*3/uL 2.0-7.7 [facility] Work Phone: Neutrophils/100 WBC (Bld) 74.3 % 47-70 [facility] Work Phone: WBC (Bld) [#/Vol] 6.9 10*3/uL 4.4-11.0 [facility] Work Phone: Blood erythrocytes count (nu mber/volume)on 09-21-2021 RBC (Bld) [#/Vol] 4.46 10*6/uL 4.2-5.4 [facility] Work Phone: Blood hemoglobin measurement (mass/volume)on 09-21-2021 Hemoglobin (Bld) [Mass/Vol] 12.9 g/dL 12.0-15.0 [facility] Work Phone: Blood lymphocytes/100 leukoc yteson 09-21-2021 Lymphocytes/100 WBC (Bld) 21.4 % 19-41 [facility] Work Phone: Blood monocytes/100 leukocyt eson 09-21-2021 Monocytes/100 WBC (Bld) 3.2 % 0-10 [facility] Work Phone: Blood platelet mean volumeon 09-21-2021 Platelet mean volume (Bld) [Entitic vol] 11.6 fL 6.2-12.0 [facility] Work Phone: Determination of erythrocyte mean corpuscular volume (MCV)on 09-21-2021 MCV (RBC) [Entitic vol] 89.2 fL 81-99 [facility] Work Phone: Gestational diabetes screen 1-hour screen with 50g oral glucose loadon 09-21-2021 Glucose 1 Hr post 50 g glucose PO [Mass/Vol] 137 mg/dL 70-140 [facility] Work Phone: HIV 1 and HIV-2 antibody ass ay with HIV-1 p24 antigen detectionon 09-21-2021 HIV 1+2 Ab+HIV1 p24 Ag IA Ql Non-Reactive Nonreactive [facility] Work Phone: Hematocrit Auto (Bld) [Volum e fraction]on 09-21-2021 Hematocrit (Bld) [Volume fraction] 39.8 % 37-47 [facility] Work Phone: Laboratory - Hematology and Cell countson 09-21-2021 Erythrocyte distribution width (RBC) [Entitic vol] 37.7 fL 35.1-43.9 [facility] Work Phone: Erythrocyte distribution width (RBC) [Ratio] 11.7 % 11.6-14.6 [facility] Work Phone: Immature granulocytes/100 WBC (Bld) 0.300 % 0.0-0.9 [facility] Work Phone: Comment on above: IG% - Immature Granu locytes (promyelocytes, myelocytes and metamyelocytes) > 1% indicates that a LEFT SHIFT is Present. MCH (RBC) [Entitic mass] 28.9 pg 27.0-32.0 [facility] Work Phone: Nucleated RBC/100 WBC (Bld) [Ratio] 0 % 0-5 [facility] Work Phone: MCHC Auto (RBC) [Mass/Vol]on 09-21-2021 MCHC (RBC) [Mass/Vol] 32.4 g/dL 32-36 [facility] Work Phone: No Panel Informationon 09-21 Hepatitis B Surface Antigen Non-Reactive Nonreactive [facility] Work Phone: Hepatitis C Antibody Non-Reactive Nonreactive [facility] Work Phone: Comment on above: Non Reactive: < 0.8 Equivocal: >/= 0.8 to < 1.0 Reactive: >/= 1.0The CDC recommends that a reactive/equivocal HCV antibody result be followed up by the HCV Nucleic Acid Amplificationtest (285993) Rubella IgG Antibody Reactive Nonreactive [facility] Work Phone: Comment on above: Antibody Results Int erpretation of Immune Status Non Reactive Presumed Non-Immune Equivocal Equivocal Reactive Presumed Immune Platelets bldon 09-21-2021 Platelets (Bld) [#/Vol] 238 10*3/uL 150-450 [facility] Work Phone: Serum Treponema species anti body detectionon 09-21-2021 Treponema sp Ab Ql (S) Non-Reactive [facility] Work Phone: Cervical or vagninal specime n microscopic examination by cytology stain (reported ason 09-13-2021 Cytology report Cyto stain Doc (Cvx/Vag) Comment [facility] Work Phone: Comment on above: The Pap smear is a s creening test designed to aid in thedetection of premalignant and malignant conditions of theuterine cervix. It is not a diagnostic procedure andshould not be used as the sole means of detecting cervicalcancer. Both false-positive and false-negative reports dooccur. Chlamydia trachomatis rRNA d etection by probe and target amplification methodon 09-13-2021 C. trachomatis rRNA ALBA+probe Ql (Unsp spec) Negative Negative [facility] Work Phone: Culture, urineon 09-13-2021 Bacteria identified Cx Nom (U) Positive [facility] Work Phone: Detection in cervical specim en of any of human papilloma virus (HPV) 16, 18, 31, 33,on 09-13-2021 HPV 16+18+31+33+35+39+45+5 1+52+56+58+59+66+68 DNA Probe+sig amp Ql (Cvx) Negative Negative [facility] Work Phone: Comment on above: This nucleic acid am plification test detects fourteen high- risk HPV types (16,18,31,33,35,39,45,51,52,56,58,59,66,68)without differentiation.Performed at: [facility] [id number] [place], [place] [id number] Director: Mj Toscano MD, Phone: [phone] at: [address] [id number] Director: Makayla Robertson MD, Phone: [phone] at: =[address] [id number] Director: Makayla Robertson MD, Phone: [phone] Laboratory - Cytologyon Agriculture Consultant Cyto stain Nom (Cvx/Vag) [ID] Comment [facility] Work Phone: Comment on above: Kendy Rubio chnologist (ASCP) Laboratory - Drug toxicology on 09-13-2021 Amphetamines Ql (U) Negative [facility] Work Phone: Benzodiazepines Ql (U) Negative [facility] Work Phone: Cannabinoids Screen Ql (U) Negative [facility] Work Phone: Cocaine Ql (U) Negative [facility] Work Phone: Opiates Ql (U) Negative [facility] Work Phone: Laboratory - Microbiology an d Antimicrobial susceptibilityon 09-13-2021 N. gonorrhoeae DNA ALBA+probe Ql (Unsp spec) Negative Negative [facility] Work Phone: Comment on above: Performed at: =[address] [id number] Director: Makayla Robertson MD, Phone: [phone] Laboratory - Miscellaneous t estson 09-13-2021 Service comment (Unsp spec) [Interp] Comment [facility] Work Phone: Comment on above: This liquid based Th inPrep(R) pap test was screened withthe use of an image guided system. Service comment (Unsp spec) [Interp] . [facility] Work Phone: No Panel Informationon 09-13 Pathology report final diagnosis Narrative Comment [facility] Work Phone: Comment on above: NEGATIVE FOR INTRAEP ITHELIAL LESION OR MALIGNANCY. MDMA (Ecstasy) Screen Negative [facility] Work Phone: Urine Barbiturates Screen Negative [facility] Work Phone: Urine Drug Screen Comment [facility] Work Phone: Comment on above: CONFIRMATORY TESTING FOR ALL POSITIVE URINE DRUG SCREENRESULTS WILL ONLY BE SENT OUT UPON PHYSICIAN ORDER. VISTA Urine Drug Screen methods provide only preliminaryanalytical test results. A more specific alternate chemicalmethod must be used in order to obtain a confirmedanalytical result. Gas chromatography/mass spectrometery(GC/MS) is the preferred confirmatory method. Clinicalconsideration and professional judgement should be appliedto any drug of abuse test result, particularly whenpreliminary positive results are used. URINE TCA TESTING MUST BE ORDERED SEPARATELY. USE TESTMNEMONIC: [facility] Urine Methadone Screen Negative [facility] Work Phone: Urine phencyclidine (PCP) de tectionon 09-13-2021 Phencyclidine Ql (U) Negative [facility] Work Phone: Office Visit (Family Medicin e)on 08-31-2021 Follow-up visit Diagnoses/Problems Generalized anxiety disorder (300.02) (F41.1) (V22.2) (Z34.90) Orders Generalized anxiety disorder Follow-up visit in 9 Months Outpatient Follow-up Status: Complete Done: 31Aug2021 Provider Impressions Anxiety: BALJIT score improved at 4. Anxiety well controlled continue on Citalopram 20 mg daily and hydroxyzine as needed. Will follow up in 9 months and as needed. Chief Complaint 6 week follow-up - anxiety - found out 08/10 she is . History of Present Illness Willow is a 30 yo female, here today to follow up on anxiety. Patient reports she is feeling great with minimal anxiety. She recently found out she is 1st OB appointment is scheduled fro 09/16/21. BALJIT score is improved at 4. Patient reports she had a miscarriage recently and this is her second . She is feeling well, complains of some nausea, no cramping or vomiting. She has spoke to [employer] [facility] and was instructed to continue on her current medications. 'Scores and Scales' BALJIT-7 [id number] BALJIT-7 Total Score4 10 Feeling nervous, anxious or on edgeNot at all - 0 Over half the days - 2 Not being able to stop or control worryingSeveral days - 1 Over half the days - 2 Worrying too much about different thingsSeveral days - 1 Over half the days - 2 Trouble relaxingNot at all - 0 Several days - 1 Being so restless that it's hard to sit stillNot at all - 0 Several days - 1 Becoming easily annoyed or irritableSeveral days - 1 Not at all - 0 Feeling afraid as if something awful might happenSeveral days - 1 Over half the days - 2 Review of Systems Constitutional: no chills, no fever and no night sweats. Cardiovascular: no chest pain, no intermittent leg claudication, no lower extremity edema, no palpitations and no syncope. Respiratory: no cough, no shortness of breath during exertion, no shortness of breath at rest and no wheezing. Gastrointestinal: no abdominal pain, no blood in stools, no constipation, no diarrhea, no melena, no nausea, no rectal pain and no vomiting. Genitourinary: no dysuria, no change in urinary frequency, no urinary hesitancy, no feelings of urinary urgency and no vaginal discharge . 07/16/21. Neurological: no dizziness and no headache. Psychiatric: no anxiety, no depression and no sleep disturbances. Active Problems Abdominal pain, acute, right upper quadrant (789.01,338.19) (R10.11) Allergic rhinitis (477.9) (J30.9) Body mass index (BMI) of 40.0 to 44.9 in adult (V85.41) (Z68.41) Fatty liver (571.8) (K76.0) Generalized anxiety disorder (300.02) (F41.1) Heart palpitations (785.1) (R00.2) Hypertriglyceridemia (272.1) (E78.1) Morbid obesity (278.01) (E66.01) Shoulder pain (719.41) (M25.519) Vitamin D deficiency (268.9) (E55.9) Surgical History No history of surgery Family History Family history of hypertension (V17.49) (Z82.49) Family history of malignant neoplasm (V16.9) (Z80.9) Family history of thyroid disease (V18.19) (Z83.49) Family history of hypertension (V17.49) (Z82.49) Family history of Alzheimer's disease (V17.2) (Z82.0) Family history of congenital heart disease (V19.5) (Z82.79) Family history of heart murmur (V17.49) (Z82.49) Family history of leukemia (V16.6) (Z80.6) Family history of asthma (V17.5) (Z82.5) Family history of cardiac disorder (V17.49) (Z82.49) Family history of diabetes mellitus (V18.0) (Z83.3) Social History Never a smoker No advance directives (V49.89) (Z78.9) No recent foreign travel Allergies Sulfa Drugs Recorded By: Edda Wade; 03/16/2019 11:22:22 AM Additional reactions - eye irritation Current Meds Medication NameInstructionReason Citalopram Hydrobromide 20 MG Oral TabletTAKE 1 TABLET BY MOUTH EVERY DAYGeneralized anxiety disorder hydrOXYzine HCl - 25 MG Oral TabletTAKE 1 TABLET 4 times daily PRN anxietyGeneralized anxiety disorder Vitamin B-12 1000 MCG Sublingual Tablet SublingualApply 1 tab beneath tongue once dailyGeneralized anxiety disorder Niacin ER 500 MG Oral Tablet Extended ReleaseTake 1 tablet dailyHypertriglyceridemia Mag-Oxide TABS TABS Probiotic CAPS Vitamin D CAPS Zyrtec TABS Vitals Vital Signs Recorded: 31Aug2021 08:50AM Heart Rate76 Gjnuwkto700 Kwhsbintj06 Height5 ft 8 in Nvafnx878 lb 3 oz BMI Rgarirvyfi13.45 kg/m2 BSA Calculated2.36 Tobacco Useb) No Physical Exam Constitutional: Alert and in no acute distress. Well developed, well nourished. Cardiovascular: Heart rate and rhythm were normal, normal S1 and S2, no gallops, no murmurs and no pericardial rub. Pedal pulses: Normal. No peripheral edema. Pulmonary: No respiratory distress. Clear bilateral breath sounds. Abdomen: Normal bowel sounds. Musculoskeletal: Gait and station: Normal. Muscle strength/tone: Normal. Psychiatric: Alert and oriented x 3. Results/Data GAD7 - Generalized Anxiety [id number] 09:00AMMalissa Redman Test NameResultFlagReference GAD7 - Anxiety S (more content not included)... Normal Resoomay Serum or plasma choriogonado tropin detectionon 08-16-2021 HCG ( test) Ql 624 mIU/mL <4 [facility] Work Phone: Comment on above: hCG levels with Gest ational AgeGestational Age hCG mIU/mL (IU/L)0.2 - 1 week 5 - 501-2 weeks 50 - 5002-3 weeks 100 - 99463-9 weeks 500 - 118204-3 weeks 1000 - 562898-1 weeks 29223 - 100,0006-8 weeks 62079 - 200,0002-3 months 97457 - 100,000 Serum or plasma choriogonado tropin detectionon 08-14-2021 HCG ( test) Ql 257 mIU/mL <4 [facility] Work Phone: [phone] Comment on above: hCG levels with Gest ational AgeGestational Age hCG mIU/mL (IU/L)0.2 - 1 week 5 - 501-2 weeks 50 - 5002-3 weeks 100 - 22568-8 weeks 500 - 785243-1 weeks 1000 - 499195-9 weeks 43350 - 100,0006-8 weeks 88953 - 200,0002-3 months 00068 - 100,000 No Panel Informationon 07-20 Over half the days - 2 [facility] Work Phone: Not at all - 0 [facility] Work Phone: Several days - 1 [facility] Work Phone: Moderate Anxiety [facility] Work Phone: Somewhat difficult [facility] Work Phone: Comment on above: How difficult have t hose problems made it for you to do your work, take care of things at home, or get along with other people? 10 1 [facility] Work Phone: Comment on above: Over the last two we eks, how often have you been bothered by the following problems? Feeling nervous, anxious, or on edge: Over half the days - 2Not being able to stop or control worrying: Over half the days - 2Worrying too much about different things: Over half the days - 2Trouble relaxing: Several days - 1Being so restless that it's hard to sit still: Several days - 1Becoming easily annoyed or irritable: Not at all - 0Feeling afraid as if something awful might happen: Over half the days - 2 Office Visit ([facility]on 07-20-2021 Follow-up visit Diagnoses/Problems Generalized anxiety disorder (300.02) (F41.1) improved- BALJIT-7 10 today, was 20 in 06/2021. Will increase citalopram to 20mg once daily. Continue hydroxyzine as needed. May add buspirone if panic attacks do not improve with increased dose of citalopram. Orders Generalized anxiety disorder Renew: Citalopram Hydrobromide 20 MG Oral Tablet (CeleXA); TAKE 1 TABLET BY MOUTH EVERY DAY Follow-up visit in 6 weeks Outpatient Follow-up Status: Hold For - Scheduling Requested for: 20Jul2021 Patient Discussion/Summary do not discontinue citalopram abruptly, will need to discuss weaning schedule with provider if you would like to discontinue medication. Provider Impressions seek emergent care for any SI or HI. Follow up 6 weeks or sooner any new or worsening symptoms. She verbalized understanding and agreement with the above mentioned plan. Chief Complaint 4 week follow-up. History of Present Illness The patient is being seen for follow-up of anxiety. The patient reports doing well. She has no comorbid illnesses. She was evaluated in this clinic. The evaluation was 1 month(s) ago. She presented with anxiety, difficulty concentrating, panic attacks and sleep disturbance. The evaluation included thyroid function testing. Treatment included selective serotonin reuptake inhibitors and relaxation exercises. Interval symptoms: improved difficulty concentrating, improved restlessness, improved panic attacks, improved sleep disruption and improved depression improved anxiety. Associated symptoms: no grandiosity, no racing thoughts, no periods of euphoria, no hallucinations and no suicidal ideation. Medication(s): selective serotonin reuptake inhibitors. Medications: the patient is adherent to her medication regimen and the patient complains of medication side effects Medication side effects: vivid dreams. She describes the side effects as mild. Here for a 1 month follow up for [...] the week when she experiences anxiety triggers. 'Scores and Scales' BALJIT-7 20Jul2021 BALJIT-7 Total Score10 Feeling nervous, anxious or on edgeOver half the days - 2 Not being able to stop or control worryingOver half the days - 2 Worrying too much about different thingsOver half the days - 2 Trouble relaxingSeveral days - 1 Being so restless that it's hard to sit stillSeveral days - 1 Becoming easily annoyed or irritableNot at all - 0 Feeling afraid as if something awful might happenOver half the days - 2 Review of Systems all systems reviewed and negative except noted in the HPI. Active Problems Abdominal pain, acute, right upper quadrant (789.01,338.19) (R10.11) Allergic rhinitis (477.9) (J30.9) Body mass index (BMI) of 40.0 to 44.9 in adult (V85.41) (Z68.41) Fatty liver (571.8) (K76.0) Generalized anxiety disorder (300.02) (F41.1) Heart palpitations (785.1) (R00.2) Hypertriglyceridemia (272.1) (E78.1) Morbid obesity (278.01) (E66.01) Shoulder pain (719.41) (M25.519) Vitamin D deficiency (268.9) (E55.9) Surgical History No history of surgery Family History Family history of hypertension (V17.49) (Z82.49) Family history of malignant neoplasm (V16.9) (Z80.9) Family history of thyroid disease (V18.19) (Z83.49) Family history of hypertension (V17.49) (Z82.49) Family history of Alzheimer's disease (V17.2) (Z82.0) Family history of congenital heart disease (V19.5) (Z82.79) Family history of heart murmur (V17.49) (Z82.49) Family history of leukemia (V16.6) (Z80.6) Family history of asthma (V17.5) (Z82.5) Family history of cardiac disorder (V17.49) (Z82.49) Family history of diabetes mellitus (V18.0) (Z83.3) Social History Never a smoker No advance directives (V49.89) (Z78.9) No recent foreign travel Allergies Sulfa Drugs Recorded By: Edda Wade; 03/16/2019 11:22:22 AM Additional reactions - eye irritation Current Meds Medication NameInstructionReason Citalopram Hydrobromide 10 MG Oral TabletTAKE 1 TABLET DAILY.Generalized anxiety disorder hydrOXYzine HCl - 25 MG Oral TabletTAKE 1 TABLET 4 times daily PRN anxietyGeneralized anxiety disorder Vitamin B-12 1000 MCG Sublingual Tablet SublingualApply 1 tab beneath tongue once dailyGeneralized anxiety disorder Niacin ER 500 MG Oral Tablet Extended ReleaseTake 1 tablet dailyHypertriglyceridemia Mag-Oxide TABS TABS Probiotic CAPS Vitamin D CAPS Zyrtec TABS Vitals Vital Signs Recorded: 20Jul2021 08:28AM Heart Rate72 Tkpkmsth343 Abqdvvmgw48 Height5 ft 8 in Wirdoc670 lb 9 oz BMI Xpamlnyjoy47.66 kg/m2 BSA Calculated2.36 Tobacco Useb) No Physical Exam Consti (more content not included)... Normal Resoomay Tobacco Screening.on Tobacco use status [facility] b) [facility]: Tobacco Screening.on Tobacco use status [facility] b) No [facility] Work Phone: Absolute lymphocyte counton 06-21-2021 Lymphocytes Auto (Unsp spec) [#/Vol] 2.12 10*3/uL 0.83-4.51 [facility] Work Phone: Basophil percentageon 2021 Basophils/100 WBC (Bld) 0.3 % 0-1 [facility] Work Phone: Chloride [Moles/Vol] 106 mmol/L 98-107 [facility] Work Phone: Eosinophils/100 WBC (Bld) 1.0 % 0-5 [facility] Work Phone: Glucose [Mass/Vol] 107 mg/dL 74-106 [facility] Work Phone: Comment on above: Fasting Glucose resu lt from 100 to 125 mg/dL suggests IMPAIRED HOMEOSTASIS per A.D.A. criteria. Neutrophils (Bld) [#/Vol] 7.4 10*3/uL 2.0-7.7 [facility] Work Phone: Neutrophils/100 WBC (Bld) 72.7 % 47-70 [facility] Work Phone: Potassium [Moles/Vol] 3.5 mmol/L 3.5-5.1 Mark ster [facility] Work Phone: Sodium [Moles/Vol] 138 mmol/L 136-145 [facility] Work Phone: [phone] WBC (Bld) [#/Vol] 10.1 10*3/uL 4.4-11.0 [facility] Work [facility]: Blood erythrocytes count (nu mber/volume)on 06-21-2021 RBC (Bld) [#/Vol] 4.52 10*6/uL 4.2-5.4 [facility] Work Phone: Blood hemoglobin measurement (mass/volume)on 06-21-2021 Hemoglobin (Bld) [Mass/Vol] 13.4 g/dL 12.0-15.0 [facility] Work Phone: Blood lymphocytes/100 leukoc yteson 06-21-2021 Lymphocytes/100 WBC (Bld) 20.9 % 19-41 [facility] Work Phone: Blood monocytes/100 leukocyt eson 06-21-2021 Monocytes/100 WBC (Bld) 4.6 % 0-10 [facility] Work Phone: Blood platelet mean volumeon 06-21-2021 Platelet mean volume (Bld) [Entitic vol] 11.5 fL 6.2-12.0 [facility] Work Phone: Determination of erythrocyte mean corpuscular volume (MCV)on 06-21-2021 MCV (RBC) [Entitic vol] 88.7 fL 81-99 [facility] Work Phone: Hematocrit Auto (Bld) [Volum e fraction]on 06-21-2021 Hematocrit (Bld) [Volume fraction] 40.1 % 37-47 [facility] Work Phone: Laboratory - Chemistry and C hemistry - challengeon 06-21-2021 CO2 [Moles/Vol] 28.0 mmol/L 21.0-32.0 [facility] Work Phone: Urea nitrogen/Creatinine [Mass ratio] 10.7 mg/mg 10-20 [facility] Work Phone: Laboratory - Hematology and Cell countson 06-21-2021 Erythrocyte distribution width (RBC) [Entitic vol] 38.1 fL 35.1-43.9 [facility] Work Phone: Erythrocyte distribution width (RBC) [Ratio] 11.9 % 11.6-14.6 [facility] Work Phone: Immature granulocytes/100 WBC (Bld) 0.500 % 0.0-0.9 [facility] Work Phone: Comment on above: IG% - Immature Granu locytes (promyelocytes, myelocytes and metamyelocytes) > 1% indicates that a LEFT SHIFT is Present. MCH (RBC) [Entitic mass] 29.6 pg 27.0-32.0 [facility] Work Phone: Nucleated RBC/100 WBC (Bld) [Ratio] 0 % 0-5 [facility] Work Phone: MCHC Auto (RBC) [Mass/Vol]on 06-21-2021 MCHC (RBC) [Mass/Vol] 33.4 g/dL 32-36 [facility] Work Phone: No Panel Informationon 06-21 Estimated Creatinine Clearance Calc 87.60 ml/min [facility] Work Phone: Estimated GFR (MDRD) Amer 89 mL/min >60 [facility] Work Phone: Comment on above: GFR Calc Estimated GFR (MDRD) Non-Af Amer 74 mL/min >60 [facility] Work Phone: Comment on above: Non- GFR Calc Thyroid Stimulating Hormone (TSH) 2.13 uIU/mL 0.358-3.74 [facility] Work Phone: Troponin I High Sensitivity 3 pg/mL 3.0-54.0 [facility] Work Phone: Comment on above: Please Note: New Colleen t Units and Gender Specific Reference Ranges. For more information see Policy Stat Procedure [place] High Sensitivity Troponin (TNIH) and attachments. Platelets bldon 06-21-2021 Platelets (Bld) [#/Vol] 314 10*3/uL 150-450 [facility] Work Phone: Serum or plasma calcium gemma urement (mass/volume)on 06-21-2021 Calcium [Mass/Vol] 9.2 mg/dL 8.5-10.1 oste r [facility] Work Phone: Serum or plasma creatinine m easurement (mass/volume)on 06-21-2021 Creatinine [Mass/Vol] 0.93 mg/dL 0.55-1.02 Mark ster [facility] Work Phone: Comment on above: The validity of the calculated GFR & GFRAA in patients over 70 years has not been determined. Clinical correlation is essential. Serum or plasma urea nitroge n measurement (mass/volume)on 06-21-2021 Urea nitrogen [Mass/Vol] 10 mg/dL 7-18 [facility] Work Phone: Thin prep Papanicolaou smear with manual screeningon 06-21-2021 Thin prep Papanicolaou smear with manual screening 4 5-15 [facility] Work Phone: Laboratory - Microbiology an d Antimicrobial susceptibilityon 05-23-2021 SARS-CoV-2 (COVID-19) RNA ALBA+probe Ql (Unsp spec) Detected [facility] Work Phone: Provider Note - ED v3on 03-12 Provider Note - ED v3 Provider Note: Chart Review ED NOTES ED NOTES: Patient was seen and examined. She complains of left maxillary pain with congestion and expectoration of green sputum. She complains of sore throat. She has had no fever. Her symptoms have been for almost 10 days. HISTORY OF PRESENTING ILLNESS WILLOW is a 30 year old Female and was seen by me at 27-Mar-2021 10:29. Triage Information: Most recent Vital Sign Value Date PAST MEDICAL HISTORY CURRENT OR FORMER SUBSTANCE USE: Tobacco/Nicotine Use: never smoker ALLERGIES/INTOLERANCES: Allergy Allergen: sulfa drugs Type: Drug Category Reaction: Hives/Urticaria HEALTH HISTORY: No documented data. OUTPATIENT MEDICATIONS: Home Medications Review Status for Reconciliation: Complete Med Status: Patient Currently Takes Medications Drug Name: Prenatabs Rx oral tablet Instructions: 1 tab(s) orally once a day Drug Name: Vistaril Instructions: null Drug Name: azithromycin 250 mg oral tablet Instructions: 2 tab(s) orally once today then 1 tab oral daily x 4 days SIGNIFICANT EVENTS: No documented data. WAREHOUSE ORDER PICKER: Is : no MDM MDM/ED COURSE: Presented with complaints of congestion expectoration of green sputum and pain to her left cheek. She was treated for acute left maxillary sinusitis. She was prescribed a Z-David. She was instructed to return with worsening symptoms, fever, shortness of breath or congestion. Discussed Findings with: patient DISPOSITION Diagnosis/Annotation: ED Dx Name:Left maxillary sinusitis Code:J32.0 Disposition: discharged Type: home CONSULT CRITICAL CARE TIME Is this a critically ill patient: no Electronic Signatures for Addendum Section: Brynn Wade (TICKETING CLERK-CONSTRUCTION ANALYST) (Signed Addendum 27-Mar-2021 12:00) 30-year-old female who presented to the emergency department with complaints of left maxillary pain, congestion expectoration of green sputum. Physical exam Constitutional alert and oriented no acute distress Respiratory: Lung sounds clear throughout HEENT: Tender to left maxillary Neuro: Alert and oriented x3 no focal deficit CV: S1-S2 regular rate and rhythm Electronic Signatures: Brynn Wade (TICKETING CLERK-CONSTRUCTION ANALYST) (Signed 27-Mar-2021 11:51) Authored: ED Notes, HPI, PMH, MDM/ED Course, Clinical Impression, Attestation, Chart Review, Scores Last Updated: 27-Mar-2021 12:00 by Brynn Wade (TICKETING CLERK-CONSTRUCTION ANALYST) Normal [facility] Provider Note - ED v3 This report has be en cancelled. Normal [facility] Vision Screeningon 2020 Visual acuity best corrected Left eye by Snellen eye chart 20/15 [facility] Work Phone: Visual acuity best corrected Right eye by Snellen eye chart 20/15 [facility] Work Phone: Tobacco Screening.on 021 Tobacco use status CP b) No -[facility] Work Phone: Auto Diffon 01-14-2019 Basophils (Bld) [#/Vol] 0.0 E3/mcL Normal 0.0-0.2 [facility] Comment on above: Order Comment: Order Added by Discern Expert. Performed By: #### 2 [id number] #### LEE [facility] [address] [place] [address] Basophils/100 WBC (Bld) 0.5 % Normal 0.0-2.0 [facility] Comment on above: Order Comment: Order Added by Discern Expert. Performed By: #### 2 [id number] #### LEE [facility] [address] [place] [address] Eos Absolute 0.1 E3/mcL Normal 0.0-0.7 [facility] Comment on above: Order Comment: Order Added by Discern Expert. Performed By: #### 2 [id number] #### LEE [facility] [address] [place] [address] Eosinophils/100 WBC (Bld) 1.8 % Normal 0.0-11.0 [facility] Comment on above: Order Comment: Order Added by Abbey Expert. Performed By: #### 2 [id number] #### LEE [facility] [address] [place] [address] Lymphocytes (Bld) [#/Vol] 1.9 E3/mcL Normal 1.2-3.4 [facility] Comment on above: Order Comment: Order Added by Discern Expert. Performed By: #### 2 [id number] #### LEE [facility] [address] [place] [address] Lymphocytes/100 WBC (Bld) 30.5 % Normal 20.0-55.0 [facility] Comment on above: Order Comment: Order Added by Discern Expert. Performed By: #### 2 [id number] #### LEE [facility] [address] [place] [address] [place] Absolute 0.2 E3/mcL Normal 0.0-0.7 [facility] Comment on above: Order Comment: Order Added by Discern Expert. Performed By: #### 2 [id number] #### LEE [facility] [address] [place] [address] Monocytes/100 WBC (Bld) 3.5 % Normal 0.0-10.0 [facility] Comment on above: Order Comment: Order Added by Discern Expert. Performed By: #### 2 [id number] #### LEE [facility] [address] [place] [address] Neutro Absolute 4.0 E3/mcL Normal 1.4-6.5 [facility] Comment on above: Order Comment: Order Added by Discern Expert. Performed By: #### 2 [id number] #### LEE [facility] [address] [place] [address] Neutro Auto 63.7 % Normal 37.0-75.0 [facility] Comment on above: Order Comment: Order Added by Discern Expert. Performed By: #### 2 [id number] #### LEE [facility] [address] [place] [address] CBC w/ Auto Diffon 9 Erythrocyte distribution width (RBC) [Ratio] 12.5 % Normal 11.5-14.5 [facility] Comment on above: Performed By: #### 2 [id number] #### LEE [facility] [address] [place] [address] Hematocrit (Bld) [Volume fraction] 40.6 % Normal 36.0-48.0 [facility] Comment on above: Performed By: #### 2 [id number] #### LEE [facility] [address] [place] [address] Hemoglobin (Bld) [Mass/Vol] 13.6 g/dL Normal 12.0-16.0 [facility] Comment on above: Performed By: #### 2 [id number] #### LEE [facility] [address] [place] [address] MCH (RBC) [Entitic mass] 29.3 pg Normal 27.0-31.0 [facility] Comment on above: Performed By: #### 2 [id number] #### LEE [facility] [address] [place] [address] MCHC (RBC) [Mass/Vol] 33.4 g/dL Normal 33.0-37.0 [facility] Comment on above: Performed By: #### 2 [id number] #### LEE Rem[facility]emo [address] [place] [address] MCV (RBC) [Entitic vol] 87.5 fL Normal 78.0-100.0 [facility] Comment on above: Performed By: #### 2 [id number] #### LEE Rem[facility]emo [address] [place] [address] Platelet mean volume (Bld) [Entitic vol] 10.4 fL Normal 7.4-11.0 [facility] Comment on above: Performed By: #### 2 [id number] #### LEE Rem[facility] [address] [place] [address] Platelets (Bld) [#/Vol] 290 E3/mcL Normal 130-400 [facility] Comment on above: Performed By: #### 2 [id number] #### LEE Rem[facility] [address] [place] [address] RBC (Bld) [#/Vol] 4.64 E6/mcL Normal 3.90-5.40 [facility] Comment on above: Performed By: #### 2 [id number] #### LEE RemHemo [address] [place] [address] WBC (Bld) [#/Vol] 6.2 E3/mcL Normal 3.6-11.0 [facility] Comment on above: Performed By: #### 2 580603 #### LEE Rem[facility]emo [address] [place] [address] CMPon 01-14-2019 Albumin [Mass/Vol] 4.1 g/dL Normal 3.4-5.0 [facility] Comment on above: Performed By: #### 2 [id number] #### [facility]EE [facility] [address] [place] [address] Albumin/Globulin [Mass ratio] 1.2 {ratio} Normal 1.1-1.9 [facility] Comment on above: Performed By: #### 2 [id number] #### [facility] [address] [place] [address] Alk Phos 60 Int._Unit/L Normal 33-110 [facility] Comment on above: Performed By: #### 2 [id number] #### [facility]EE [facility] [address] [place] [address] ALT [Catalytic activity/Vol] 11 Int._Unit/L Normal 7-45 [facility] Comment on above: Performed By: #### 2 [id number] #### [facility]EE [facility] [address] [place] [address] Anion gap [Moles/Vol] 10 mmol/L Normal 10-20 [facility] Comment on above: Performed By: #### 2 [id number] #### [facility] [employer] [address] [place] [address] AST [Catalytic activity/Vol] 16 Int._Unit/L Normal 9-39 [facility] Comment on above: Performed By: #### 2 [id number] #### [facility] [address] [place] [address] Bili Total 0.53 mg/dL Normal 0.00-1.20 [facility] Comment on above: Performed By: #### 2 660492 #### [facility] [employer] [address] [place] [address] Calcium [Mass/Vol] 9.0 mg/dL Normal 8.6-10.3 [facility] Comment on above: Performed By: #### 2 [id number] #### [facility] [employer] [address] [place] [address] Chloride [Moles/Vol] 103 mmol/L Normal 98-[address] [facility] Comment on above: Performed By: #### 2 [id number] #### LEE [employer] [address] [place] [address] CO2 [Moles/Vol] 27.0 mmol/L Normal 21.0-32.[address] [facility] Comment on above: Performed By: #### 2 [id number] #### [facility] [employer] [address] [place] [address] Creatinine [Mass/Vol] 0.7 mg/dL Normal 0.5-1.1 [facility] Comment on above: Performed By: #### 2 [id number] #### [facility] [address] [place] [address] Globulin (S) [Mass/Vol] 4.0 g/dL Normal 2.0-4.0 [facility] Comment on above: Performed By: #### 2 [id number] #### [facility] [address] [place] [address] Glucose [Mass/Vol] 93 mg/dL Normal 70-99 [facility] Comment on above: Performed By: #### [id number] #### [facility] [employer] [address] [place] [address] Potassium [Moles/Vol] 3.8 mmol/L Normal 3.5-5.3 [facility] Comment on above: Performed By: #### 2 [id number] #### [facility] [employer] [address] [place] [address] Protein [Mass/Vol] 7.6 g/dL Normal 6.4-8.2 [facility] Comment on above: Performed By: #### [id number] #### [facility] [employer] [address] [place] [address] Sodium [Moles/Vol] 137 mmol/L Normal 136-145 [facility] Comment on above: Performed By: #### [id number] #### [facility] [employer] [address] [place] [address] Urea nitrogen [Mass/Vol] 8 mg/dL Normal 6-23 [facility] Comment on above: Performed By: #### 2 [id number] #### [facility] [employer] [address] [place] [address] Urea nitrogen/Creatinine [Mass ratio] 11.4 ratio Normal 5.4-30.0 [facility] Comment on above: Performed By: #### 2 [id number] #### [facility] [employer] [address] [place] [address] TSHon 01-14-2019 TSH Qn 1.94 mcIU/mL Normal 0.30-5.60 [facility] Comment on above: Performed By: #### 2 [id number] #### [employer] [employer] [address] [place] [address] eGFRon 01-14-2019 GFR/1.73 sq M predicted among non-blacks MDRD (S/P/Bld) [Vol rate/Area] mL/min/{1.73_m2} Normal [facility] Comment on above: Order Comment: Order added by Discern Expert. Performed By: #### 1 [id number] #### [facility] [employer] [address] [place] [id number] IGP W/hpv Rfx [id number] 04-13 Diagnosis: See Ref Lab Report Normal [facility] Comment on above: Order Comment: LMP: 03/13/18 Performed By: #### 1 [id number] #### LEE Send Outs Subsection [facility] [place] [address] Pathology ([facility])on 04-07-2018 Pathology ([facility]) FINAL GYNECOLOGIC CYTOLOGY [id number] ADEQUACYSatisfactory for Evaluation. Endocervical cells/transformation zone componentpresent.GENERAL CATEGORIZATIONNegative for Intraepithelial Lesion or MalignancyCLINICAL HISTORYLMP: 03/13/2018SPECIMEN(A) SCREENING CERVICAL/ENDOCERVICAL THIN PREP VIALPerformed at [facility], [address] [place], [place] [address]Screened by: Signed Out by: SHAWN HALL Vocational Rehabilitation Consultant Reported: 04/10/2018 Normal [facility] Comment on above: Performed By: #### G YN ####[facility] [place] [address] No Panel Information Group B Streptococcus Culture Group B Beta Streptococcus is not isolated. [facility] Work Phone: Vital Signs Date Time Vital Sign Value Performing Clinician Marc hunt 10-19-2024 04:06-0400 Diastolic blood pressure 87 mm[Hg] Minnie Varela MD Work Phone: [facility] 10-19-2024 04:06-0400 Heart rate 68 /min Minnie Varela MD Work Phone: [facility] 10-19-2024 04:06-0400 Respiratory rate 16 /min Minnie Varela MD Work Phone: [facility] 10-19-2024 04:06-0400 SaO2% (BldA) [Mass fraction] 94 % Minnie Varela MD Work Phone: [facility] 10-19-2024 04:06-0400 Systolic blood pressure 138 mm[Hg] Minnie Varela MD Work Phone: [facility] 10-19-2024 [id number] Body height 172.7 cm Minnie Varela MD Work Phone: [facility] 10-19-2024 01:28-0400 Body mass index (BMI) [Ratio] 42.57 kg/m2 Minnie Varela MD Work Phone: [facility] 10-19-2024 01:28-0400 Body temperature 97 [degF] Minnie Varela MD Work Phone: [facility] 10-19-2024 [id number] Body weight 127.01 kg Minnie Vareal MD Work Phone: [facility] 09-10-2024 14:45-0400 Body height 172.7 cm Savanna Clements TICKETING CLERK-CN P Work Phone: [facility] 09-10-2024 14:45-0400 Body mass index (BMI) [Ratio] 43.2 kg/m2 Savanna Clements TICKETING CLERK-MARKETING COMPLIANCE MANAGER Work Phone: [facility] 09-10-2024 14:45-0400 Body weight 128.87 kg Savanna Cleemnts TICKETING CLERK-CN P Work Phone: [facility] 09-10-2024 14:45-0400 Diastolic blood pressure 88 mm[Hg] Savanna Clements TICKETING CLERK-MARKETING COMPLIANCE MANAGER Work Phone: [facility] 09-10-2024 14:45-0400 Heart rate 79 /min Savanna Clements TICKETING CLERK-CN P Work Phone: [facility] 09-10-2024 14:45-0400 SaO2% (BldA) [Mass fraction] 98 % Savanna Clements TICKETING CLERK-MARKETING COMPLIANCE MANAGER Work Phone: [facility] 09-10-2024 14:45-0400 Systolic blood pressure 120 mm[Hg] Savanna Clements TICKETING CLERK-MARKETING COMPLIANCE MANAGER Work Phone: [facility] 02-02-2024 12:27-0400 Body height 172.7 cm Raghavendra Haikimberly TICKETING CLERK-MARKETING COMPLIANCE MANAGER Work Phone: [facility] 02-02-2024 12:27-0400 Body mass index (BMI) [Ratio] 43.03 kg/m2 Raghavendra Reina TICKETING CLERK-MARKETING COMPLIANCE MANAGER Work Phone: [facility] 02-02-2024 12:27-0400 Body temperature 96.6 [degF] Raghavendra Reina TICKETING CLERK-MARKETING COMPLIANCE MANAGER Work Phone: [facility] 02-02-2024 12:27-0400 Body weight 128.37 kg Raghavendra Haienicaterina TICKETING CLERK-MARKETING COMPLIANCE MANAGER Work Phone: [facility] 02-02-2024 12:27-0400 Diastolic blood pressure 84 mm[Hg] Raghavendra Marcelle TICKETING CLERK-MARKETING COMPLIANCE MANAGER Work Phone: [facility] 02-02-2024 12:27-0400 Heart rate 96 /min Raghavendra Carisacaterina TICKETING CLERK-MARKETING COMPLIANCE MANAGER Work Phone: [facility] 02-02-2024 12:27-0400 Respiratory rate 16 /min Raghavendra Haienicaternia TICKETING CLERK-MARKETING COMPLIANCE MANAGER Work Phone: [facility] 02-02-2024 12:27-0400 SaO2% (BldA) [Mass fraction] 98 % Raghavendra Marcelle TICKETING CLERK-MARKETING COMPLIANCE MANAGER Work Phone: [facility] 02-02-2024 12:27-0400 Systolic blood pressure 138 mm[Hg] Raghavendra Haikimberly TICKETING CLERK-MARKETING COMPLIANCE MANAGER Work Phone: [facility] 09-24-2023 10:15-0400 Body height 172.7 cm Raghavendra Reina TICKETING CLERK-MARKETING COMPLIANCE MANAGER Work Phone: [facility] 09-24-2023 10:15-0400 Body mass index (BMI) [Ratio] 42.27 kg/m2 Raghavendra Haikimberly TICKETING CLERK-MARKETING COMPLIANCE MANAGER Work Phone: [facility] 09-24-2023 10:15-0400 Body temperature 98.71 [degF] Raghavendra Reina TICKETING CLERK-MARKETING COMPLIANCE MANAGER Work Phone: [facility] 09-24-2023 10:15-0400 Body weight 126.1 kg Raghavendra Reina TICKETING CLERK-MARKETING COMPLIANCE MANAGER Work Phone: [facility] 09-24-2023 10:15-0400 Diastolic blood pressure 94 mm[Hg] Raghavendra Reina TICKETING CLERK-MARKETING COMPLIANCE MANAGER Work Phone: [facility] 09-24-2023 10:15-0400 Heart rate 102 /min Raghavendra Reina TICKETING CLERK-MARKETING COMPLIANCE MANAGER Work Phone: [phone] [address] 09-24-2023 10:15-0400 Respiratory rate 16 /min Raghavendra Reina TICKETING CLERK-MARKETING COMPLIANCE MANAGER Work Phone: [phone] [address] 09-24-2023 10:15-0400 SaO2% (BldA) [Mass fraction] 96 % Raghavendra Reina TICKETING CLERK-MARKETING COMPLIANCE MANAGER Work Phone: [phone] [place] [address] 09-24-2023 10:15-0400 Systolic blood pressure 120 mm[Hg] Raghavendra Reina TICKETING CLERK-MARKETING COMPLIANCE MANAGER Work Phone: [phone] [place] [address] 08-20-2023 10:19-0400 Body height 172.[address] Belgica Hopkins i Work Phone: [facility] 08-20-2023 10:19-0400 Body mass index (BMI) [Ratio] 43.7 kg/m2 Dr. Belgica Torres Work Phone: [facility] 08-20-2023 10:19-0400 Body weight 130.[address] Belgica Hopkins i Work Phone: [facility] 08-20-2023 10:19-0400 Diastolic blood pressure 83 mm[Hg] Dr. Belgica Torres Work Phone: [facility] 08-20-2023 10:19-0400 Heart rate 80 /min Dr. Belgica Hopkins i Work Phone: [facility] 08-20-2023 10:19-0400 Respiratory rate 16 /min Dr. Belgica Hopkins i Work Phone: [facility] 08-20-2023 10:19-0400 Systolic blood pressure 123 mm[Hg] Dr. Belgica Torres Work Phone: [facility] 08-20-2023 09:19-0400 Body mass index (BMI) [Ratio] 44 kg/m2 Dr. Belgica Torres Work Phone: [facility] 08-20-2023 09:19-0400 Body weight 131.[address] Belgica Hopkins i Work Phone: [facility] 08-20-2023 09:19-0400 Diastolic blood pressure 61 mm[Hg] Dr. Belgica Torres Work Phone: [facility] 08-20-2023 09:19-0400 Systolic blood pressure 134 mm[Hg] Dr. Belgica Torres Work Phone: [facility] 08-04-2023 08:11-0400 Body height 172.[address] Belgica Hopkins i Work Phone: [facility] 08-04-2023 08:09-0400 Body mass index (BMI) [Ratio] 44.1 kg/m2 Dr. Belgica Torres Work Phone: [facility] 08-04-2023 08:09-0400 Body weight 131.[address] Belgica Hopkins i Work Phone: [facility] 08-04-2023 08:09-0400 Diastolic blood pressure 72 mm[Hg] Dr. Belgica Torres Work Phone: [facility] 08-04-2023 08:09-0400 Systolic blood pressure 121 mm[Hg] Dr. Belgica Torres Work Phone: [facility] 06-28-2023 21:41-0500 Body temperature 98.3 [degF] [facility] 06-28-2023 21:41-0500 Diastolic blood pressure 74 mm[Hg] [facility] 06-28-2023 21:41-0500 Heart rate 74 /min [facility] 06-28-2023 21:41-0500 Respiratory rate 16 /min [facility] 06-28-2023 21:41-0500 SaO2% (BldA) [Mass fraction] 97 % [facility] 06-28-2023 21:41-0500 Systolic blood pressure 136 mm[Hg] [facility] 06-28-2023 19:40-0500 Body height 172.72 cm [facility] 06-28-2023 19:40-0500 Body mass index (BMI) [Ratio] 42.5 kg/m2 [facility] 06-28-2023 19:40-0500 Body weight 127 kg [facility] 01-15-2023 10:33-0400 Body height 172.7 cm Malissa Redman TICKETING CLERK-MARKETING COMPLIANCE MANAGER Work Phone: [facility] 01-15-2023 10:33-0400 Body mass index (BMI) [Ratio] 42.51 kg/m2 Malissa Rdeman TICKETING CLERK-MARKETING COMPLIANCE MANAGER Work Phone: [facility] 01-15-2023 10:33-0400 Body weight 126.83 kg Malissa Redman TICKETING CLERK-MARKETING COMPLIANCE MANAGER Work Phone: [facility] 01-15-2023 10:33-0400 Diastolic blood pressure 78 mm[Hg] Malissa Redman TICKETING CLERK-MARKETING COMPLIANCE MANAGER Work Phone: [facility] 01-15-2023 10:33-0400 Heart rate 80 /min Malissa Redman TICKETING CLERK-MARKETING COMPLIANCE MANAGER Work Phone: [facility] 01-15-2023 10:33-0400 Systolic blood pressure 122 mm[Hg] Malissa Redman TICKETING CLERK-MARKETING COMPLIANCE MANAGER Work Phone: [facility] 07-12-2022 10:14-0500 Body height 172.72 cm Malissa Liu [place] Work Phone: [facility] Work Phone: 07-12-2022 10:14-0500 Body mass index (BMI) [Ratio] 39.45 kg/m2 Malissa Liu [place] Work Phone: [facility] Work Phone: 07-12-2022 10:14-0500 Body surface area Derived from formula 2.28 m2 Malissa Liu [place] Work Phone: [facility] Work Phone: 07-12-2022 10:14-0500 Body weight 117.68 kg Malissa Liu [place] Work Phone: [facility] Work Phone: 07-12-2022 10:14-0500 Diastolic blood pressure 74 mm[Hg] Malissa Liu [place] Work Phone: [facility] Work Phone: 07-12-2022 10:14-0500 Heart rate 76 /min Malissa Liu [place] Work Phone: [facility] Work Phone: 07-12-2022 10:14-0500 Systolic blood pressure 126 mm[Hg] Malissa Liu [place] Work Phone: [facility] Work Phone: 05-31-2022 10:22-0500 Body height 172.72 cm Malissa Liu [place] Work Phone: [facility] Work Phone: 05-31-2022 10:22-0500 Body mass index (BMI) [Ratio] 38.96 kg/m2 Malissa L [place] Work Phone: [facility] Work Phone: 05-31-2022 10:22-0500 Body surface area Derived from formula 2.27 m2 Malissa Redman Work Phone: [facility] Work Phone: 05-31-2022 10:22-0500 Body weight 116.23 kg Malissa Redman Work Phone: [facility] Work Phone: 05-31-2022 10:22-0500 Diastolic blood pressure 74 mm[Hg] Malissa Redman Work Phone: [facility] Work Phone: 05-31-2022 10:22-0500 Heart rate 73 /min Malissa Redman Work Phone: [facility] Work Phone: 05-31-2022 10:22-0500 Systolic blood pressure 118 mm[Hg] Malissa Redman Work Phone: [facility] Work Phone: 05-27-2022 15:12-0500 Body height 172.[address] Toyin Kimbrough Work Phone: [facility] 05-27-2022 15:05-0500 Body mass index (BMI) [Ratio] 39.1 kg/m2 Dr. Toyin Kimbrough Work Phone: [facility] 05-27-2022 15:05-0500 Body weight 116.[address] Toyin Kimbrough Work Phone: [facility] 05-27-2022 15:05-0500 Diastolic blood pressure 82 mm[Hg] Dr. Toyin Kimbrough Work Phone: [facility] 05-27-2022 15:05-0500 Systolic blood pressure 124 mm[Hg] Dr. Toyin Kimbrough Work Phone: [facility] 05-08-2022 22:50-0500 Diastolic blood pressure 81 mm[Hg] No Primary Care Physician [facility] 05-08-2022 22:50-0500 Heart rate 68 /min No Primary Care Physician [facility] 05-08-2022 22:50-0500 Respiratory rate 16 /min No Primary Care Physician [facility] 05-08-2022 22:50-0500 SaO2% (BldA) [Mass fraction] 100 % No Primary Care Physician [facility] 05-08-2022 22:50-0500 Systolic blood pressure 134 mm[Hg] No Primary Care Physician [facility] 05-08-2022 17:53-0500 Body height 172.72 cm No Primary Care Physician [facility] Work Phone: 05-08-2022 17:53-0500 Body mass index (BMI) [Ratio] 38 kg/m2 No Primary Care Physician [facility] 05-08-2022 17:53-0500 Body temperature 98 [degF] No Primary Care Physician [facility] 05-08-2022 17:53-0500 Body weight 113.39 kg No Primary Care Physician [facility] 04-18-2022 07:50-0500 Body temperature 97.4 [degF] No Primary Care Physician [facility] 04-18-2022 07:50-0500 Diastolic blood pressure 57 mm[Hg] No Primary Care Physician [facility] 04-18-2022 07:50-0500 Heart rate 77 /min No Primary Care Physician [facility] 04-18-2022 07:50-0500 Respiratory rate 18 /min No Primary Care Physician [facility] 04-18-2022 07:50-0500 SaO2% (BldA) [Mass fraction] 99 % No Primary Care Physician [facility] 04-18-2022 07:50-0500 Systolic blood pressure 135 mm[Hg] No Primary Care Physician [facility] 04-15-2022 19:21-0500 Body height 172.72 cm No Primary Care Physician [facility] Work Phone: 04-15-2022 19:21-0500 Body mass index (BMI) [Ratio] 42.2 kg/m2 No Primary Care Physician [facility] 04-15-2022 19:21-0500 Body weight 126 kg No Primary Care Physician [facility] 04-11-2022 11:11-0500 Body weight 127.51 kg No Primary Care Physician [facility] 04-11-2022 11:11-0500 Diastolic blood pressure 76 mm[Hg] No Primary Care Physician [facility] 04-11-2022 11:11-0500 Systolic blood pressure 133 mm[Hg] No Primary Care Physician [facility] 04-08-2022 10:26-0500 Body mass index (BMI) [Ratio] 42.4 kg/m2 No Primary Care Physician [facility] 04-08-2022 10:26-0500 Body weight 126.6 kg No Primary Care Physician [facility] 04-08-2022 10:26-0500 Diastolic blood pressure 80 mm[Hg] No Primary Care Physician [facility] 04-08-2022 10:26-0500 Systolic blood pressure 121 mm[Hg] No Primary Care Physician [facility] 04-03-2022 10:54-0500 Body mass index (BMI) [Ratio] 42.4 kg/m2 No Primary Care Physician [facility] 04-03-2022 10:54-0500 Body weight 126.55 kg No Primary Care Physician [facility] 04-03-2022 10:54-0500 Diastolic blood pressure 66 mm[Hg] No Primary Care Physician [facility] 04-03-2022 10:54-0500 Systolic blood pressure 124 mm[Hg] No Primary Care Physician [facility] 04-01-2022 10:30-0500 Body height 172.72 cm No Primary Care Physician [facility] Work Phone: 04-01-2022 10:27-0500 Body mass index (BMI) [Ratio] 41.8 kg/m2 No Primary Care Physician [facility] 04-01-2022 10:27-0500 Body weight 124.96 kg No Primary Care Physician [facility] 04-01-2022 10:27-0500 Diastolic blood pressure 79 mm[Hg] No Primary Care Physician [facility] 04-01-2022 10:27-0500 Systolic blood pressure 133 mm[Hg] No Primary Care Physician [facility] 03-28-2022 11:25-0500 Body mass index (BMI) [Ratio] 41.8 kg/m2 No Primary Care Physician [facility] 03-28-2022 11:25-0500 Body weight 124.9 kg No Primary Care Physician [facility] 03-28-2022 11:25-0500 Diastolic blood pressure 70 mm[Hg] No Primary Care Physician [facility] 03-28-2022 11:25-0500 Systolic blood pressure 137 mm[Hg] No Primary Care Physician [facility] 03-25-2022 09:53-0500 Body mass index (BMI) [Ratio] 41.4 kg/m2 No Primary Care Physician [facility] 03-25-2022 09:53-0500 Body weight 123.6 kg No Primary Care Physician [facility] 03-25-2022 09:53-0500 Diastolic blood pressure 70 mm[Hg] No Primary Care Physician [facility] 03-25-2022 09:53-0500 Systolic blood pressure 138 mm[Hg] No Primary Care Physician [facility] 03-21-2022 10:58-0500 Body mass index (BMI) [Ratio] 42 kg/m2 No Primary Care Physician [facility] 03-21-2022 10:58-0500 Body weight 125.24 kg No Primary Care Physician [facility] 03-21-2022 10:58-0500 Diastolic blood pressure 77 mm[Hg] No Primary Care Physician [facility] 03-21-2022 10:58-0500 Systolic blood pressure 128 mm[Hg] No Primary Care Physician [facility] 03-18-2022 10:08-0500 Body mass index (BMI) [Ratio] 42.3 kg/m2 No Primary Care Physician [facility] 03-18-2022 10:08-0500 Body weight 126.09 kg No Primary Care Physician [facility] 03-18-2022 10:08-0500 Diastolic blood pressure 70 mm[Hg] No Primary Care Physician [facility] 03-18-2022 10:08-0500 Systolic blood pressure 112 mm[Hg] No Primary Care Physician [facility] 03-14-2022 11:50-0400 Body mass index (BMI) [Ratio] 41.8 kg/m2 No Primary Care Physician [facility] 03-14-2022 11:50-0400 Body weight 124.73 kg No Primary Care Physician [facility] 03-14-2022 11:50-0400 Diastolic blood pressure 82 mm[Hg] No Primary Care Physician [facility] 03-14-2022 11:50-0400 Systolic blood pressure 110 mm[Hg] No Primary Care Physician [facility] 03-11-2022 09:51-0400 Body height 172.72 cm No Primary Care Physician [facility] Work Phone: 03-11-2022 09:51-0400 Body mass index (BMI) [Ratio] 41.5 kg/m2 No Primary Care Physician [facility] 03-11-2022 09:51-0400 Body weight 123.88 kg No Primary Care Physician [facility] 03-11-2022 09:51-0400 Diastolic blood pressure 82 mm[Hg] No Primary Care Physician [facility] 03-11-2022 09:51-0400 Systolic blood pressure 126 mm[Hg] No Primary Care Physician [facility] 03-07-2022 10:06-0400 Body mass index (BMI) [Ratio] 41.4 kg/m2 No Primary Care Physician [facility] 03-07-2022 10:06-0400 Body weight 123.6 kg No Primary Care Physician [facility] 03-07-2022 10:06-0400 Diastolic blood pressure 83 mm[Hg] No Primary Care Physician [facility] 03-07-2022 10:06-0400 Systolic blood pressure 120 mm[Hg] No Primary Care Physician [facility] 03-04-2022 14:21-0400 Body mass index (BMI) [Ratio] 41.6 kg/m2 No Primary Care Physician [facility] 03-04-2022 14:21-0400 Body weight 124.28 kg No Primary Care Physician [facility] 03-04-2022 14:21-0400 Diastolic blood pressure 82 mm[Hg] No Primary Care Physician [facility] 03-04-2022 14:21-0400 Systolic blood pressure 130 mm[Hg] No Primary Care Physician [facility] 02-28-2022 15:12-0400 Body mass index (BMI) [Ratio] 41.3 kg/m2 No Primary Care Physician [facility] 02-28-2022 15:12-0400 Body weight 123.43 kg No Primary Care Physician [facility] 02-28-2022 15:12-0400 Diastolic blood pressure 86 mm[Hg] No Primary Care Physician [facility] 02-28-2022 15:12-0400 Systolic blood pressure 127 mm[Hg] No Primary Care Physician [facility] 02-19-2022 06:53-0400 Heart rate 76 /min No Primary Care Physician [facility] 02-19-2022 06:53-0400 SaO2% (BldA) [Mass fraction] 98 % No Primary Care Physician [facility] 02-19-2022 04:25-0400 Body height 172.72 cm No Primary Care Physician [facility] Work Phone: 02-19-2022 04:25-0400 Body mass index (BMI) [Ratio] 41.2 kg/m2 No Primary Care Physician [facility] 02-19-2022 04:25-0400 Body weight 123.1 kg No Primary Care Physician [facility] 02-19-2022 04:12-0400 Body temperature 97.3 [degF] No Primary Care Physician [facility] 02-19-2022 04:12-0400 Diastolic blood pressure 65 mm[Hg] No Primary Care Physician [facility] 02-19-2022 04:12-0400 Systolic blood pressure 130 mm[Hg] No Primary Care Physician [facility] 02-13-2022 10:58-0400 Body mass index (BMI) [Ratio] 41.2 kg/m2 No Primary Care Physician [facility] Work Phone: 02-13-2022 10:58-0400 Body weight 122.98 kg No Primary Care Physician [facility] Work Phone: 02-13-2022 10:58-0400 Diastolic blood pressure 75 mm[Hg] No Primary Care Physician [facility] Work Phone: 02-13-2022 10:58-0400 Systolic blood pressure 119 mm[Hg] No Primary Care Physician [facility] Work Phone: 02-13-2022 09:18-0400 Body weight 122.83 kg No Primary Care Physician [facility] Work Phone: 01-31-2022 10:26-0400 Body height 172.72 cm No Primary Care Physician [facility] Work Phone: 01-31-2022 10:26-0400 Body weight 123.09 kg No Primary Care Physician [facility] Work Phone: 01-30-2022 16:03-0400 Body mass index (BMI) [Ratio] 41.2 kg/m2 No Primary Care Physician [facility] Work Phone: 01-30-2022 16:03-0400 Body weight 123.09 kg No Primary Care Physician [facility] Work Phone: 01-30-2022 16:03-0400 Diastolic blood pressure 75 mm[Hg] No Primary Care Physician [facility] Work Phone: 01-30-2022 16:03-0400 Systolic blood pressure 128 mm[Hg] No Primary Care Physician [facility] Work Phone: 01-30-2022 14:37-0400 Body mass index (BMI) [Ratio] 41.2 kg/m2 No Primary Care Physician [facility] Work Phone: 01-30-2022 14:37-0400 Body temperature 95.9 [degF] No Primary Care Physician [facility] Work Phone: 01-30-2022 14:37-0400 Body weight 123.09 kg No Primary Care Physician [facility] Work Phone: 01-30-2022 14:37-0400 Diastolic blood pressure 75 mm[Hg] No Primary Care Physician [facility] Work Phone: 01-30-2022 14:37-0400 Heart rate 81 /min No Primary Care Physician [facility] Work Phone: 01-30-2022 14:37-0400 Respiratory rate 18 /min No Primary Care Physician [facility] Work Phone: 01-30-2022 14:37-0400 SaO2% (BldA) [Mass fraction] 96 % No Primary Care Physician [facility] Work Phone: 01-30-2022 14:37-0400 Systolic blood pressure 128 mm[Hg] No Primary Care Physician [facility] Work Phone: 12-31-2021 14:32-0400 Body mass index (BMI) [Ratio] 41.9 kg/m2 No Primary Care Physician [facility] Work Phone: 12-31-2021 14:32-0400 Body weight 125.19 kg No Primary Care Physician [facility] Work Phone: 12-31-2021 14:32-0400 Diastolic blood pressure 88 mm[Hg] No Primary Care Physician [facility] Work Phone: 12-31-2021 14:32-0400 Systolic blood pressure 134 mm[Hg] No Primary Care Physician [facility] Work Phone: 12-05-2021 10:19-0400 Body mass index (BMI) [Ratio] 41.5 kg/m2 No Primary Care Physician [facility] Work Phone: 12-05-2021 10:19-0400 Body weight 123.83 kg No Primary Care Physician [facility] Work Phone: 12-05-2021 10:19-0400 Diastolic blood pressure 66 mm[Hg] No Primary Care Physician [facility] Work Phone: 12-05-2021 10:19-0400 Systolic blood pressure 122 mm[Hg] No Primary Care Physician [facility] Work Phone: 11-30-2021 13:07-0400 Body mass index (BMI) [Ratio] 41.3 kg/m2 No Primary Care Physician [facility] Work Phone: 11-30-2021 13:07-0400 Body temperature 97.6 [degF] No Primary Care Physician [facility] Work Phone: 11-30-2021 13:07-0400 Body weight 123.37 kg No Primary Care Physician [facility] Work Phone: 11-30-2021 13:07-0400 Diastolic blood pressure 80 mm[Hg] No Primary Care Physician [facility] Work Phone: 11-30-2021 13:07-0400 Heart rate 117 /min No Primary Care Physician [facility] Work Phone: 11-30-2021 13:07-0400 Respiratory rate 16 /min No Primary Care Physician [facility] Work Phone: 11-30-2021 13:07-0400 SaO2% (BldA) [Mass fraction] 99 % No Primary Care Physician [facility] Work Phone: 11-30-2021 13:07-0400 Systolic blood pressure 134 mm[Hg] No Primary Care Physician [facility] Work Phone: 11-07-2021 10:48-0400 Body mass index (BMI) [Ratio] 41.5 kg/m2 No Primary Care Physician [facility] Work Phone: 11-07-2021 10:48-0400 Body weight 123.94 kg No Primary Care Physician [facility] Work Phone: 11-07-2021 10:48-0400 Diastolic blood pressure 86 mm[Hg] No Primary Care Physician [facility] Work Phone: 11-07-2021 10:48-0400 Systolic blood pressure 120 mm[Hg] No Primary Care Physician [facility] Work Phone: 10-12-2021 10:52-0400 Body mass index (BMI) [Ratio] 41.5 kg/m2 No Primary Care Physician [facility] Work Phone: 10-12-2021 10:52-0400 Body weight 123.83 kg No Primary Care Physician [facility] Work Phone: 10-12-2021 10:52-0400 Diastolic blood pressure 68 mm[Hg] No Primary Care Physician [facility] Work Phone: 10-12-2021 10:52-0400 Systolic blood pressure 120 mm[Hg] No Primary Care Physician [facility] Work Phone: 09-13-2021 14:58-0400 Body height 172.[address] Matheus Wilkerson Work Phone: [facility] Work Phone: 09-13-2021 14:58-0400 Body mass index (BMI) [Ratio] 42.5 kg/m2 Dr. Matheus Wilkerson Work Phone: [facility] Work Phone: 09-13-2021 14:58-0400 Body weight [address] Matheus Wilkerson Work Phone: [facility] Work Phone: 09-13-2021 14:58-0400 Diastolic blood pressure 88 mm[Hg] Dr. Matheus Wilkerson Work Phone: [facility] Work Phone: 09-13-2021 14:58-0400 Systolic blood pressure 148 mm[Hg] Dr. Matheus Wilkerson Work Phone: [facility] Work Phone: 07-20-2021 08:28-0500 Body height 172.72 cm Ivy Montes Work Phone: [facility] Work Phone: 07-20-2021 08:28-0500 Body mass index (BMI) [Ratio] 42.66 kg/m2 Ivy Montes Work Phone: [facility] Work Phone: 07-20-2021 08:28-0500 Body surface area Derived from formula 2.36 m2 Ivy Montes Work Phone: [facility] Work Phone: 07-20-2021 08:28-0500 Body weight 127.26 kg Ivy Montes Work Phone: [facility] Work Phone: 07-20-2021 08:28-0500 Diastolic blood pressure 82 mm[Hg] Ivy Montes Work Phone: [facility] Work Phone: 07-20-2021 08:28-0500 Heart rate 72 /min Ivy Montes Work Phone: [facility] Work Phone: 07-20-2021 08:28-0500 Systolic blood pressure 124 mm[Hg] Ivy Montes Work Phone: [facility] Work Phone: 06-22-2021 12:36-0500 Body height 172.72 cm Ivy Montes Work Phone: [facility] Work Phone: 06-22-2021 12:36-0500 Body mass index (BMI) [Ratio] 42.42 kg/m2 Ivy Montes Work Phone: [facility] Work Phone: 06-22-2021 12:36-0500 Body surface area Derived from formula 2.35 m2 Ivy Montes Work Phone: [facility] Work Phone: 06-22-2021 12:36-0500 Body weight 126.55 kg Ivy Montes Work Phone: [facility] Work Phone: 06-22-2021 12:36-0500 Diastolic blood pressure 80 mm[Hg] Ivy Montes Work Phone: [facility] Work Phone: 06-22-2021 12:36-0500 Heart rate 88 /min Ivy Montes Work Phone: [facility] Work Phone: 06-22-2021 12:36-0500 Systolic blood pressure 122 mm[Hg] Ivy Montes Work Phone: [facility] Work Phone: 06-21-2021 18:12-0500 Diastolic blood pressure 79 mm[Hg] Dr. Matheus Wilkerson Work Phone: [facility] Work Phone: 06-21-2021 18:12-0500 Heart rate 95 /min Dr. Matheus Wilkerson Work Phone: [facility] Work Phone: 06-21-2021 18:12-0500 Respiratory rate 18 /min Dr. Matheus Wilkerson Work Phone: [facility] Work Phone: 06-21-2021 18:12-0500 Systolic blood pressure 124 mm[Hg] Dr. Matheus Wilkerson Work Phone: [facility] Work Phone: 06-21-2021 17:27-0500 SaO2% (BldA) [Mass fraction] 99 % Dr. Matheus Wilkerson Work Phone: [facility] Work Phone: 06-21-2021 15:03-0500 Body height 172.[address] Matheus Wilkerson Work Phone: [facility] Work Phone: 06-21-2021 15:03-0500 Body mass index (BMI) [Ratio] 43.1 kg/m2 Dr. Matheus Wilkerson Work Phone: [facility] Work Phone: 06-21-2021 15:03-0500 Body temperature 96.8 [degF] Dr. Matheus Wilkerson Work Phone: [facility] Work Phone: 06-21-2021 15:03-0500 Body weight 128.[address] Matheus Wilkerson Work Phone: [facility] Work Phone: 03-27-2021 12:11-0500 Body height 171 cm Clark Ceja Other Phone: [facility] 03-27-2021 12:11-0500 Body temperature 98.06 [degF] Clark Tourlas Other Phone: [facility] 03-27-2021 12:11-0500 Diastolic blood pressure 77 mm[Hg] Clark Tourlas Other Phone: [facility] 03-27-2021 12:11-0500 Heart rate 93 /min Clark Tourlas Other Phone: [facility] 03-27-2021 12:11-0500 SaO2% (BldA) [Mass fraction] 98 % Clark Tourlas Other Phone: [facility] 03-27-2021 12:11-0500 Systolic blood pressure 113 mm[Hg] Clark Tourlas Other Phone: [facility] 01-23-2021 09:58-0400 Body height 172.72 cm Clark Tourlas Work Phone: [facility] Work Phone: 01-23-2021 09:58-0400 Body mass index (BMI) [Ratio] 43.03 kg/m2 Clark Tourlas Work Phone: [facility] Work Phone: 01-23-2021 09:58-0400 Body surface area Derived from formula 2.37 m2 Clark Tourlas Work Phone: [facility] Work Phone: 01-23-2021 09:58-0400 Body weight 128.36 kg Clark Tourlas Work Phone: [facility] Work Phone: 01-23-2021 09:58-0400 Diastolic blood pressure 78 mm[Hg] Clark Tourlas Work Phone: [facility] Work Phone: 01-23-2021 09:58-0400 Heart rate 72 /min Clark Ceja Work Phone: [facility] Work Phone: 01-23-2021 09:58-0400 Systolic blood pressure 118 mm[Hg] Clark Hooperlas Work Phone: [facility] Work Phone: 05-17-2019 10:24-0500 BMI (Body Mass Index) 42.41 kg/m2 Clark Hooperlas -[facility] Work Phone: 05-17-2019 10:24-0500 Body weight 126.51 kg Clark Rufuslas -[facility] Work Phone: 05-17-2019 10:24-0500 BP Diastolic 80 mm[Hg] Clark Rufuslas -[facility] Work Phone: 05-17-2019 10:24-0500 BP Systolic 122 mm[Hg] Clark Rufuslas -[facility] Work Phone: 05-17-2019 10:24-0500 BSA (Body Surface Area) 2.35 m2 Clark Rufuslas [facility] Work Phone: 05-17-2019 10:24-0500 Height 172.72 cm Clark Rfuuslas -[facility] Work Phone: 05-17-2019 10:24-0500 Pulse (Heart Rate) 62 /min Clark Rufuslas -[facility] Work Phone: Encounters Encounter Date Encounter Type Care Provider Facility Start: 10-19-2024 End: 10-19-2024 ambulatory [facility] Start: 10-19-2024 End: 10-19-2024 Emergency department patient visit Minnie Varela MD Work Phone: [facility] Comment on above: Intractable migraine with status migrainosus, unspecified migraine type (Primary Dx) Start: 10-16-2024 End: 10-16-2024 Emergency department patient visit SAVANNA CLEMENTS [facility] Start: 09-10-2024 End: 09-10-2024 Patient encounter status Savanna Clements TICKETING CLERK-MARKETING COMPLIANCE MANAGER Work Phone: [facility] Work Phone: Start: 09-10-2024 End: 09-10-2024 Periodic preventive med est patient 18-39 yrs Savanna Clements TICKETING CLERK-MARKETING COMPLIANCE MANAGER Work Phone: [facility] Comment on above: Palpitations (Primar y Dx); Anxiety; Encounter for screening for lipid disorder; Class 3 obesity; Routine general medical examination at a health care facility Start: 09-10-2024 End: 09-10-2024 ambulatory [facility] Ambulatory Start: 09-09-2024 ambulatory Timothy Ortiz Facility :[facility] Start: 04-05-2024 End: 04-05-2024 ambulatory Belgica Mallapareddi Facility:[facility] Start: 03-18-2024 ambulatory Belgica Mallapareddi Facil ity:[facility] Start: 03-16-2024 End: 03-16-2024 ambulatory Latisha Tubbs Facility:[facility] Start: 03-11-2024 End: 03-11-2024 ambulatory Belgica Mallapareddi Facility:[facility] Start: 03-11-2024 End: 03-11-2024 ambulatory Timothy Ortiz Facility:[facility] Start: 03-08-2024 End: 03-09-2024 Emergency department patient visit Timothy Ortiz Facility:[facility] Start: 03-08-2024 End: 03-08-2024 ambulatory Latisha Tubbs Facility:[facility] Start: 02-25-2024 ambulatory Belgica Mallapareddi Facil ity:[facility] Start: 02-25-2024 ambulatory Belgica Mallapareddi Facil ity:[facility] Start: 02-23-2024 ambulatory Belgica Mallapareddi Facil ity:[facility] Start: 02-23-2024 End: 02-26-2024 Evaluation and management of inpatient Belgica Mallapareddi Facility:[facility] Start: 02-20-2024 End: 02-20-2024 ambulatory Belgica Mallapareddi Facility:[facility] Start: 02-18-2024 End: 02-18-2024 ambulatory Belgica Mallapareddi Facility:[facility] Start: 02-18-2024 End: 02-18-2024 ambulatory Belgica Mallapareddi Facility:[facility] Start: 02-13-2024 End: 02-13-2024 ambulatory Belgica Mallapareddi Facility:[facility] Start: 02-11-2024 End: 02-11-2024 ambulatory Belgica Mallapareddi Facility:[facility] Start: 02-11-2024 End: 02-11-2024 ambulatory Belgica Mallapareddi Facility:[facility] Start: 02-04-2024 End: 02-04-2024 ambulatory Belgica Mallapareddi Facility:[facility] Start: 02-04-2024 End: 02-04-2024 ambulatory Belgica Mallapareddi Facility:[facility] Start: 02-02-2024 End: 02-02-2024 Patient encounter procedure Raghavendra Reina TICKETING CLERK-MARKETING COMPLIANCE MANAGER Work Phone: [facility] Comment on above: Acute non-recurrent maxillary sinusitis (Primary Dx) Start: 02-02-2024 End: 02-02-2024 ambulatory [facility] Start: 01-31-2024 End: 01-31-2024 ambulatory Belgica Mallapareddi Facility:[facility] Start: 01-21-2024 End: 01-21-2024 ambulatory Belgica Mallapareddi Facility:[facility] Start: 01-21-2024 End: 01-21-2024 ambulatory Belgica Mallapareddi Facility:[facility] Start: 01-08-2024 End: 01-08-2024 ambulatory Belgica Mallapareddi Facility:[facility] Start: 12-29-2023 End: 12-29-2023 ambulatory Latisha Tubbs Facility:[facility] Start: 12-25-2023 End: 12-25-2023 ambulatory Latisha Tubbs Facility:[facility] Start: 12-25-2023 End: 12-25-2023 ambulatory Belgica Mallapareddi Facility:[facility] Start: 12-16-2023 End: 12-16-2023 ambulatory Belgica Mallapareddi Facility:[facility] Start: 12-05-2023 End: 12-05-2023 ambulatory Belgica Mallapareddi Facility:[facility] Start: 11-27-2023 End: 11-27-2023 ambulatory Latisha Tubbs Facility:[facility] Start: 11-07-2023 End: 11-07-2023 ambulatory Belgica Mallapareddi Facility:[facility] Start: 10-28-2023 End: 10-28-2023 ambulatory BELGICA NELSON S MALLAPAREDDI [facility] Start: 10-08-2023 End: 10-08-2023 ambulatory Belgica Mallapareddi Facility:[facility] Start: 09-24-2023 End: 09-24-2023 Patient encounter procedure Raghavendra Reina TICKETING CLERK-MARKETING COMPLIANCE MANAGER Work Phone: [facility] Comment on above: Non-recurrent acute serous otitis media of left ear (Primary Dx) Start: 08-28-2023 Non-patient / Non-visit Dr. Catalino Torres Work Phone: [facility] Work Phone: Start: 08-27-2023 Non-patient / Non-visit Dr. Catalino Torres Work Phone: [facility] Start: 08-27-2023 End: 08-27-[address] Belgica Torres Work Phone: [facility] Work Phone: Start: 08-27-2023 End: 08-27-[address] Belgica Torres Work Phone: [facility] Work Phone: Start: 08-22-[address] Belgica Torres Work Phone: [facility] Work Phone: Start: 08-20-2023 End: 08-20-[address] Belgica Torres Work Phone: [facility] Work Phone: Start: 08-04-2023 End: 08-04-[address] Belgica Torres Work Phone: [facility] Work Phone: Start: 08-04-2023 End: 08-04-[address] [facility]ica [facility] Work Phone: Start: 08-04-2023 End: 08-04-[address] Belgica Torres Work Phone: [facility] Work Phone: Start: 07-31-[address] Belgica Torres Work Phone: [facility] Start: 07-31-2023 End: 07-31-[address] Belgica Torres Work Phone: [facility] Work Phone: Start: 07-31-2023 End: 07-31-[address] [facility]ica Torres [facility] Start: 07-09-2023 End: 07-09-2023 ambulatory [facility] Work Phone: Start: 07-09-2023 End: 07-09-2023 [facility] Start: 07-07-2023 End: 07-07-2023 ambulatory [facility] Work Phone: Start: 07-07-2023 End: 07-07-2023 [facility] Start: 06-28-2023 End: 06-28-2023 [facility] Start: 03-17-2023 End: 03-17-2023 ambulatory [facility] Work Phone: Start: 03-17-2023 End: 03-17-2023 Patient encounter procedure [facility] Work Phone: Start: 02-28-2023 End: 02-28-2023 ambulatory [facility] Work Phone: Start: 02-28-2023 End: 02-28-2023 Patient encounter procedure [facility] Work Phone: Start: 01-15-2023 End: 01-15-2023 Office outpatient visit 15 minutes Malissa Redman TICKETING CLERK-MARKETING COMPLIANCE MANAGER Work Phone: [facility] Comment on above: Hypertriglyceridemia (Primary Dx); Anxiety Start: 07-12-2022 Office outpatient vi sit 25 minutes Malissa Redman Work Phone: [facility] Work Phone: Start: 07-12-[address] Malissa Mark Юлия Fa cility:[id number] Start: 06-04-[address] Toyin Kimbrough Work Phone: [facility] Start: 06-04-2022 End: 06-04-[address] Toyin Kimbrough Work Phone: [facility] Work Phone: Start: 06-04-2022 End: 06-04-[address] Toyin Kimbrough Work Phone: [facility] Start: 05-31-2022 Office outpatient vi sit 15 minutes Malissa Redman Work Phone: [facility] Work Phone: Start: 05-31-[address] Malissa Redman Fa cility:[id number] Start: 05-27-2022 End: 05-27-[address] Toyin Kimbrough Work Phone: [facility] Start: 05-08-2022 End: 05-08-2022 Emergency department patient visit No Primary Care Physician [facility] Start: 04-18-2022 Non-patient / Non-visit No Rose Mary chavez Care Physician [facility] Start: 04-17-2022 Non-patient / Non-visit No Rose Mary chavez Care Physician [facility] Start: 04-15-2022 End: 04-18-2022 Evaluation and management of inpatient No Primary Care Physician [facility] Start: 04-11-2022 End: 04-11-2022 Patient encounter procedure No Primary Care Physician [facility] Start: 04-08-2022 End: 04-08-2022 Patient encounter procedure No Primary Care Physician [facility] Start: 04-03-2022 End: 04-03-2022 Patient encounter procedure No Primary Care Physician [facility] Start: 04-01-2022 End: 04-01-2022 Patient encounter procedure No Primary Care Physician [facility] Start: 03-28-2022 End: 03-28-2022 Patient encounter procedure No Primary Care Physician [facility] Start: 03-28-2022 End: 03-28-2022 ambulatory No Primary Care Physician [facility] Work Phone: Start: 03-28-2022 End: 03-28-2022 Patient encounter procedure No Primary Care Physician [facility] Start: 03-25-2022 End: 03-25-2022 Patient encounter procedure No Primary Care Physician [facility] Start: 03-21-2022 End: 03-21-2022 Patient encounter procedure No Primary Care Physician [facility] Start: 03-18-2022 End: 03-18-2022 Patient encounter procedure No Primary Care Physician [facility] Start: 03-14-2022 End: 03-14-2022 Patient encounter procedure No Primary Care Physician [facility] Start: 03-11-2022 End: 03-11-2022 Patient encounter procedure No Primary Care Physician [facility] Start: 03-07-2022 End: 03-07-2022 Patient encounter procedure No Primary Care Physician [facility] Start: 03-04-2022 End: 03-04-2022 Patient encounter procedure No Primary Care Physician [facility] Start: 02-28-2022 End: 02-28-2022 Patient encounter procedure No Primary Care Physician [facility] Start: 02-25-2022 End: 02-25-2022 Patient encounter procedure No Primary Care Physician [facility] Start: 02-19-2022 End: 02-21-2022 Evaluation and management of inpatient [facility] Start: 02-19-2022 Non-patient / Non-visit No [facility] Care Physician [facility] Start: 02-19-2022 End: 02-19-2022 ambulatory No Primary Care Physician [facility] Work Phone: Start: 02-19-2022 End: 02-19-2022 Patient encounter procedure No Primary Care Physician [facility] Start: 02-13-2022 End: 02-13-2022 Patient encounter procedure No Primary Care Physician [facility] Start: 02-13-2022 End: 03-11-2022 ambulatory No Primary Care Physician [facility] Work Phone: Start: 02-13-2022 End: 03-11-2022 Discharged Recurring No Primary Care Physician [facility] Start: 02-13-2022 Registered Recurring No Primar y Care Physician [facility] Start: 01-31-2022 End: 02-08-2022 Discharged Recurring No [facility] Start: 01-31-2022 Registered Recurring No Primar y [facility] Start: 01-30-2022 End: 01-30-2022 ambulatory No Primary Care Physician [facility] Work Phone: Start: 01-30-2022 End: 01-30-2022 Patient encounter procedure No Primary Care Physician [facility] Start: 01-30-2022 End: 01-30-2022 Patient encounter procedure No Primary Care Physician [facility] Start: 01-30-2022 End: 01-30-2022 Patient encounter procedure No Primary Care Physician [facility] Start: 01-16-2022 End: 01-16-2022 Patient encounter procedure No Primary Care Physician [facility] Start: 12-31-2021 End: 12-31-2021 Patient encounter procedure No Primary Care Physician [facility] Start: 12-05-2021 End: 12-05-2021 Patient encounter procedure No Primary Care Physician [facility] Start: 11-30-2021 End: 11-30-2021 Patient encounter procedure No Primary Care Physician [facility] Start: 11-07-2021 End: 11-07-2021 Patient encounter procedure No Primary Care Physician [facility] Start: 10-12-2021 End: 10-12-2021 Patient encounter procedure No Primary Care Physician [facility] Start: 09-24-2021 End: 09-24-2021 Patient encounter procedure No Primary Care Physician [facility] Start: 09-21-2021 End: 09-21-2021 Patient encounter procedure No Primary Care Physician [facility] Start: 09-13-2021 End: 09-13-[address] Matheus Wilkerson Work Phone: [facility], Specimen Start: 09-13-2021 End: 09-13-[address] Matheus Wilkerson Work Phone: [facility] Start: 08-31-2021 [id number] Start: 08-29-2021 Non-patient / Non-visit Dr. Radha Wilkerson Work Phone: [facility] Start: 08-16-2021 End: 08-16-[address] Matheus Wilkerson Work Phone: [facility] Start: 08-14-2021 End: 08-14-[address] [facility] Start: 07-20-2021 Office outpatient vi sit 15 minutes Ivy Montes [facility] Phone: [facility] Work Phone: Start: 07-20-2021 ambulatory Ms. Haynes Elmer Montes Facility:[id number] Start: 06-29-2021 AUDIT Ivy mckeon Work Phone: [facility] [facility] Work Phone: Start: 06-22-2021 Office outpatient vi sit 25 minutes Ivy Montes Work Phone: [facility] Work Phone: Start: 06-21-2021 End: 06-21-2021 Emergency department patient visit Dr. Matheus Wilkerson Work Phone: [facility] Start: 05-23-2021 End: 05-23-[address] Matheus Wilkerson Work Phone: [facility] Start: 03-27-2021 End: 03-27-2021 Emergency department patient visit Raghavendra Reina [facility] Start: 01-23-2021 Periodic preventive med est patient 18-39 yrs Clark Ceja Work Phone: [facility] Work Phone: Start: 05-17-2019 Patient encounter procedure Dustin inos Rufuslas [facility] Work Phone: Start: 03-24-2019 Patient encounter procedure Dustin inos Marcial [facility] Work Phone: Start: 03-16-2019 Patient encounter procedure Dustin inos Marcial [facility] Work Phone: Procedures Date Procedure Procedure Detail Performing Clinician Start: 10-19-2024 Urnls dip stick/tabl et rgnt auto w/o microscopy Minnie Varela MD Work Phone: Start: 10-19-2024 Comprehensive metabo lic panel Minnie Varela MD Work Phone: Start: 10-19-2024 Radiologic exam ches t single view Minnie Varela MD Work Phone: Start: 08-04-[address] Belgica Torres Work Phone: Start: 07-31-[address] Belgica Torres Work Phone: Start: 05-08-2022 Plain chest X-ray No Pr imary Care Physician Start: 03-28-2022 Ultrasound scan for growth No Primary Care Physician Start: 11-30-2021 Radiography of ankle No Primary Care Physician Start: 09-13-[address] Jhony Wilkerson Work Phone: Start: 06-21-2021 Plain chest X-ray Dr. Erik Wilkerson Work Phone: Start: 03-24-2019 OPIATE/OPIOID/BENZO[ LIMITE D] Clark Tourlas Group B Streptococcu s Culture No Primary Care Physician Group B Streptococcu s Culture Dr. Toyin Kimbrough Work Phone: History of No histor y of surgery Clark Rufuslas No history of surgery Sharifsta ntinos Marcial Work Phone: Plan of Treatment Date Care Activity Detail Author Start: 2038 Zoster Vaccines (1 of 2) Zoster Vaccines (1 of 2) [facility] Start: 01-20-2034 DTaP/Tdap/Td Vaccines (4 - Td or Tdap) DTaP/Tdap/Td Vaccines (4 - Td or Tdap) [facility] Start: 02-14-2032 DTaP/Tdap/Td Vaccines (3 - Td or Tdap) DTaP/Tdap/Td Vaccines (3 - Td or Tdap) [facility] Start: 07-30-2026 Diabetes mellitus screening Diabetes Screening [facility] Start: 09-13-2025 End: 09-13-2025 Patient encounter procedure 09/13/2025 1:00 PM EDT Office Visit [facility] [address] [place] [phone] Savanna Clements, TICKETING CLERK-MARKETING COMPLIANCE MANAGER [address] [facility][note 3], [address] [place] [address] [facility] Start: 09-11-2025 Yearly Adult Physical Yearly Adult Physical [facility] Start: 10-19-2024 End: 10-19-2024 Patient encounter procedure 10/19/2024 8:20 AM EDT Office Visit [facility] [address] [place] [phone] Savanna Clements, TICKETING CLERK-MARKETING COMPLIANCE MANAGER [address] [facility][note 3], [address] [place] [address] [facility] Start: 09-10-2024 End: 09-10-2025 25-hydroxyvitamin D3 [Mass/volume] in Serum or Plasma Vitamin D 25-Hydroxy,Total (for eval of Vitamin D levels) Lab Routine Class 3 obesity Expected: 09/10/2024 (Approximate), Expires: 09/10/2025 [facility] Work Phone: Comment on above: Expected: 09/10/2024 (Approximate), Expi res: 09/10/2025 Start: 09-10-2024 End: 09-10-2025 Basic metabolic 2000 panel - Serum or Plasma Basic Metabolic Panel Lab Routine Palpitations Expected: 09/10/2024 (Approximate), Expires: 09/10/2025 [facility] Service Area Work Phone: Comment on above: Expected: 09/10/2024 (Approximate), Expi res: 09/10/2025 Start: 09-10-2024 End: 09-10-2025 Hemoglobin A1c/Hemoglobin.total in Blood Hemoglobin A1C Lab Routine Class 3 obesity Expected: 09/10/2024 (Approximate), Expires: 09/10/2025 [facility] Work Phone: Comment on above: Expected: 09/10/2024 (Approximate), Expi res: 09/10/2025 Start: 09-10-2024 End: 09-10-2025 Lipid 1996 panel - Serum or Plasma Lipid Panel Lab Routine Encounter for screening for lipid disorder Expected: 09/10/2024 (Approximate), Expires: 09/10/2025 [facility] Work Phone: Comment on above: Expected: 09/10/2024 (Approximate), Expi res: 09/10/2025 Start: 09-10-2024 End: 09-10-2025 TSH with reflex to Free T4 if abnormal TSH with reflex to Free T4 if abnormal Lab Routine Palpitations Expected: 09/10/2024 (Approximate), Expires: 09/10/2025 [facility] Work Phone: Comment on above: Expected: 09/10/2024 (Approximate), Expi res: 09/10/2025 Start: 07-14-2024 End: 07-14-2024 Patient encounter procedure 07/14/2024 10:20 AM EST Office Visit [facility] [address] [place] [phone] Belgica Torres MD MPH [address] [facility][note 3], [address] [place] [address] [facility] Start: 01-11-2024 COVID-19 Vaccine ( season) COVID-19 Vaccine ( season) [facility] Start: 01-11-2024 COVID-19 Vaccine ( season) COVID-19 Vaccine ( season) [facility] Start: 01-11-2024 Influenza vaccination Influenza Vaccine (#1) [facility] Start: 07-16-2023 End: 07-16-2023 Patient encounter procedure 07/16/2023 9:30 AM EST Office Visit [facility] [address] [place] [phone] Malissa Redman, TICKETING CLERK-MARKETING COMPLIANCE MANAGER [address] [facility][note 3], [address] [place] [address] [facility] Start: 06-28-2023 [facility] Start: 01-15-2023 End: 01-16-2024 Lipid 1996 panel - Serum or Plasma Lipid Panel Lab Routine Hypertriglyceridemia Expected: 01/15/2023 (Approximate), Expires: 01/16/2024 [facility] Service Area Work Phone: Comment on above: Expected: 01/15/2023 (Approximate), Expi res: 01/16/2024 Start: 01-10-2023 COVID-19 Vaccine ( season) COVID-19 Vaccine ( season) [facility] Start: 01-10-2023 Influenza vaccination Influenza Vaccine (#1) [facility] Start: 07-12-2022 FUV, Provider: Malissa Redman, Status: Pen, Time: 10:15 AM FUV, Provider: Malissa Redman, Status: Pen, Time: 10:15 AM [facility] Work Phone: Start: 05-08-2022 [facility] Start: 04-18-2022 Patient discharge [facility] Start: 04-17-2022 Administration of medication [facility] Start: 04-17-2022 Application of ice collar, cap or bag [facility] Start: 04-17-2022 Catheterization of vein [facility] Start: 04-17-2022 Introduction of urinary catheter [facility] Start: 04-17-2022 Measuring intake and output [facility] Start: 04-17-2022 Notification of physician [facility] Start: 04-17-2022 Procedure discontinued [facility] Start: 04-17-2022 Provision of activity privileges [facility] Start: 04-17-2022 Vital signs measurements [facility] Start: 04-17-2022 [facility] Start: 04-17-2022 Consultation [facility] Start: 04-15-2022 Admission procedure [facility] Start: 02-19-2022 Patient discharge [facility] Start: 02-19-2022 Nonstress test [facility] Start: 02-19-2022 Obstetric monitoring [facility] Start: 02-19-2022 Vital signs measurements [facility] Start: 02-19-2022 [facility] Start: 02-19-2022 Catheterization of vein [facility] Start: 01-25-2022 Patient encounter procedure Outpatient [facility] Start: 25-Jan-2022 9:00 Ivy Montes M Intent [facility] Start: 01-25-2022 PHYSICAL, Provider: Ivy Montes, Status: Pen, Time: 9:00 AM [facility] Work Phone: Start: 08-31-2021 EPV, Provider: Malissa Redman, Status: Pen, Time: 8:30 AM EPV, Provider: Malissa Redman, Status: Pen, Time: 8:30 AM [facility] Work Phone: Start: 07-20-2021 FUV, Provider: Ivy Montes, Status: Pen, Time: 8:30 AM FUV, Provider: Ivy Montes, Status: Pen, Time: 8:30 AM [facility] Work Phone: Start: 2009 Screening for malignant neoplasm of cervix [facility] Start: 11-06-2007 Hepatitis A Vaccines (1 of 2 - Risk 2-dose series) Hepatitis A Vaccines (1 of 2 - Risk 2-dose series) [facility] Start: 2006 Hepatitis C screening Hepatitis C Screening [facility] Start: 2001 Varicella vaccination Varicella Vaccines (1 of 2 - 13+ 2-dose series) [facility] Start: 1989 MMR Vaccines (1 of 1 - Standard series) MMR Vaccines (1 of 1 - Standard series) [facility] Start: 1989 Varicella vaccination Varicella Vaccines (1 of 2 - 2-dose childhood series) [facility] Start: 05-07-1989 COVID-19 Vaccine (#1) COVID-19 Vaccine (#1) [facility] Start: 1988 Hepatitis B Vaccines (1 of 3 - 3-dose series) Hepatitis B Vaccines (1 of 3 - 3-dose series) [facility] Start: 1988 Lipid panel Lipid Panel [facility] Start: 1988 Yearly Adult Physical Yearly Adult Physical [facility] CBC W Auto Different ial panel - Blood [facility] End: 10-19-2024 Extra Tubes [facility] Work Phone: Comment on above: Once (Lab) for 1 Occurrences starting until 10/19/2024 End: 10-19-2024 Extra Urine Robertson Tube Extra Urine Robertson Tube Lab Timed Once for 1 Occurrences starting 10/19/2024 until 10/19/2024 [facility] Work Phone: Comment on above: Once for 1 Occurrences starting 10/20/19 until 10/19/2024 Hemoglobin A1c/Hemoglobin.total in Blood [facility] Hepatitis B surface antigen measurement [facility] Hepatitis C antibody measurement [facility] HIV 1+2 Ab+HIV1 p24 Ag [Presence] in Serum or Plasma by Immunoassay [facility] End: 10-19-2024 Light Blue Top [facility] Work Phone: Comment on above: Once for 1 Occurrences starting 10/20/19 until 10/19/2024 Patient Education [facility] Work Phone: Patient referral [facility] Work Phone: Procedure [facility] Rubella IgG measurement [facility] End: 10-19-2024 SST TOP [facility] Work Phone: Comment on above: Once for 1 Occurrences starting 10/20/19 until 10/19/2024 Treponema sp Ab [Presence] in Serum [facility] Triacylglycerol lipa se measurement [facility] Ultrasound scan for growth [facility] Work Phone: End: 10-19-2024 Urinalysis complete W Reflex Culture panel - Urine [facility] Service Area Work Phone: Comment on above: Once (Lab) for 1 Occurrences starting until 10/19/2024 [facility] Immunizations Immunization Date Immunization Notes Care Provider Bailee amezquita 03-27-2023 influenza, injectable, quadrivalent, preservative free [facility] 03-27-2023 influenza virus vaccine, unspecified formulation Raghavendra Reina TICKETING CLERK-MARKETING COMPLIANCE MANAGER Work Phone: [facility] Work Phone: 04-01-2022 influenza, injectable, quadrivalent, preservative free [facility] 04-01-2022 influenza, seasonal, injectable No Primary Care Physician [facility] 04-01-2022 influenza virus vaccine, unspecified formulation Malissa Redman TICKETING CLERK-MARKETING COMPLIANCE MANAGER Work Phone: [facility] Work Phone: 02-13-2022 tetanus toxoid, reduced diphtheria toxoid, and acellular pertussis vaccine, adsorbed No Primary Care Physician [facility] 02-22-2021 influenza, injectable, quadrivalent, preservative free [facility] 02-22-2021 influenza, seasonal, injectable Dr. Matheus Wilkerson Work Phone: [facility] 02-22-2021 influenza, seasonal, injectable, preservative free Ivy Montes Work Phone: [facility] Work Phone: 04-03-2020 influenza, injectable, quadrivalent, preservative free [facility] 04-03-2020 influenza, seasonal, injectable Dr. Matheus Wilkerson Work Phone: [facility] 04-03-2020 influenza, seasonal, injectable, preservative free Clark Tourlas Work Phone: [facility] Work Phone: 11-08-2019 hepatitis B vaccine, adult dosage Dr. Matheus Wilkerson Work Phone: [facility] 05-26-2019 hepatitis B vaccine, adult dosage Dr. Matheus Wilkerson Work Phone: [facility] 04-19-2019 hepatitis B vaccine, adult dosage Dr. Matheus Wilkerson Work Phone: [facility] 04-01-2019 influenza, injectable, quadrivalent, preservative free [facility] 04-01-2019 influenza, seasonal, injectable Dr. Matheus Wilkerson Work Phone: [facility] 10-29-2018 tetanus toxoid, reduced diphtheria toxoid, and acellular pertussis vaccine, adsorbed Clark Tourlas Work Phone: [facility] Work Phone: 03-14-2017 influenza virus vaccine, unspecified formulation Clark Tourlas Work Phone: [facility] Work Phone: Payers Date Payer Category Payer Self-pay [id number] 2022 Managed Care (Private) [facility] [id number] 2022 Unknown 2022 Unknown [id number] 2021 Unknown [id number] 2021 Unknown [id number] 1988 Unknown [id number] 2.16.840.1.852477.3.579.2. 668 1988 Unknown [id number] 2.16.840.1.650515.3.579.2. 356 1988 Unknown [id number] 2.16840.1.761179.3.579.2. 356 1988 Unknown [id number] 2.16840.1.014940.3.579.2. 356 1988 Unknown [id number] 2.16.840.1.006515.3.579.2. 356 1988 Unknown [id number] 2.16.840.1.352706.3.579.2. 479 1988 Unknown [id number] 2.16840.1.375132.3.579.2. 1243 1988 Unknown [id number] 2.16840.1.422718.3.579.2. 1243 1988 Unknown [id number] 2.16.840.1.902757.3.579.2. 1244 1988 Unknown [id number] 2.16840.1.713738.3.579.2. 1244 Unknown [id number] Unknown [id number] Unknown [id number] 2.16840.1.800713.3.579.2. 462 Unknown [id number] 2.16840.1.215153.3.579.2. 462 Unknown [id number] 2.16.840.1.928242.3.579.2. 462 Unknown [id number] 2.16.840.1.965606.3.579.2. 462 Unknown [id number] 2..840.1.232639.3.579.2. 462 Unknown [id number] 2.840.1.387390.3.579.2. 462 Unknown [id number] 2.840.1.458072.3.579.2. 462 Unknown [id number] 2.840.1.640056.3.579.2. 462 Unknown [id number] 2.840.1.359094.3.579.2. 462 Unknown [id number] 2.840.1.015161.3.579.2. 462 Unknown [id number] 2.840.1.706017.3.579.2. 462 Unknown [id number] 2.840.1.282778.3.579.2. 462 Unknown [id number] 2.840.1.913261.3.579.2. 462 Unknown [id number] 2.840.1.304134.3.579.2. 462 Unknown [id number] 2.840.1.214633.3.579.2. 462 Unknown [id number] 2.840.1.727111.3.579.2. 462 Unknown [id number] 2.840.1.705854.3.579.2. 462 Unknown [id number] 2.16840.1.339668.3.579.2. 462 Unknown [id number] 2.840.1.593903.3.579.2. 462 Unknown [id number] 2.16.840.1.245966.3.579.2. 462 Unknown [id number] 2.16.840.1.732259.3.579.2. 462 Unknown [id number] 2.16.840.1.802317.3.579.2. 462 Unknown [id number] 2.16.840.1.277756.3.579.2. 462 Unknown [id number] 2.16.840.1.220280.3.579.2. 462 Unknown [id number] 2.16.840.1.601555.3.579.2. 462 Unknown [id number] 2.16.840.1.094142.3.579.2. 462 Unknown [id number] 2.16.840.1.582048.3.579.2. 462 Unknown [id number] 2.16.840.1.919402.3.579.2. 462 Unknown [id number] 2.16.840.1.435208.3.579.2. 462 Unknown [id number] 2.16.840.1.010903.3.579.2. 462 Unknown [id number] 2.16.840.1.822954.3.579.2. 462 Unknown [id number] 2.16.840.1.645509.3.579.2. 462 Unknown [id number] 2.16840.1.402962.3.579.2. 462 Unknown [id number] 2.16840.1.656585.3.579.2. 462 Unknown [id number] 2.16840.1.091128.3.579.2. 462 Social History Date Type Detail Facility Start: 01-15-2023 End: 09-10-2024 Never a smoker Never a smoker [facility] Start: 06-21-2021 End: 08-20-2023 Tobacco smoking consumption unknown [facility] Start: 1990 Sex Assigned At Female [facility] Start: 01-15-2023 Tobacco smoking status NHIS Never smoked tobacco [facility] Work Phone: Start: 01-15-2023 Tobacco use and exposure Smokeless tobacco non-user [facility] Work Phone: Start: 01-15-2023 End: 10-19-2024 Alcohol intake Lifetime non-drinker (finding) [facility] Work Phone: Start: 01-15-2023 End: 09-10-2024 Tobacco use panel [facility] Start: 1990 Sex Assigned At Not on file [facility] Work Phone: Start: 09-14-2023 End: 10-19-2024 Exposure to SARS-CoV-2 (event) Not sure [facility] NEGATED: Highlighted row - - [facility] Work Phone: NEGATED: Highlighted row [facility] Medical Equipment Procedure Code Equipment Code Equipment Origin al Text Equipment Identifier Dates Blood Sugar Diagnostic (True Metrix Glucose Test Strip) strip Start: 01-16-2022 Blood Sugar Diagnostic (True Metrix Glucose Test Strip) strip Start: 01-16-2022 Pen Needle, Diab etic (Bd Ultra-Fine Katelyn Pen Needle) 32 gauge x 5/32 needle Start: 02-08-2022 Blood Sugar Diagnostic (True Metrix Glucose Test Strip) strip Start: 01-16-2022 Pen Needle, Diab etic (Bd Ultra-Fine Katelyn Pen Needle) 32 gauge x 5/32 needle Start: 02-08-2022 Blood Sugar Diagnostic (True Metrix Glucose Test Strip) strip Start: 01-16-2022 Pen Needle, Diab etic (Bd Ultra-Fine Katelyn Pen Needle) 32 gauge x 5/32 needle Start: 02-08-2022 Blood Sugar Diagnostic (True Metrix Glucose Test Strip) strip Start: 01-16-2022 Pen Needle, Diab etic (Bd Ultra-Fine Katelyn Pen Needle) 32 gauge x 5/32 needle Start: 02-08-2022 Blood Sugar Diagnostic (True Metrix Glucose Test Strip) strip Start: 01-16-2022 Pen Needle, Diab etic (Bd Ultra-Fine Katelyn Pen Needle) 32 gauge x 5/32 needle Start: 02-08-2022 Blood Sugar Diagnostic (True Metrix Glucose Test Strip) strip Start: 01-16-2022 Pen Needle, Diab etic (Bd Ultra-Fine Katelyn Pen Needle) 32 gauge x 5/32 needle Start: 02-08-2022 Blood Sugar Diagnostic (True Metrix Glucose Test Strip) strip Start: 01-16-2022 Pen Needle, Diab etic (Bd Ultra-Fine Katelyn Pen Needle) 32 gauge x 5/32 needle Start: 02-08-2022 Blood Sugar Diagnostic (True Metrix Glucose Test Strip) strip Start: 01-16-2022 Pen Needle, Diab etic (Bd Ultra-Fine Katelyn Pen Needle) 32 gauge x 5/32 needle Start: 02-08-2022 Blood Sugar Diagnostic (True Metrix Glucose Test Strip) strip Start: 01-16-2022 Pen Needle, Diab etic (Bd Ultra-Fine Katelyn Pen Needle) 32 gauge x 5/32 needle Start: 02-08-2022 Blood Sugar Diagnostic (True Metrix Glucose Test Strip) strip Start: 01-16-2022 Pen Needle, Diab etic (Bd Ultra-Fine Katelyn Pen Needle) 32 gauge x 5/32 needle Start: 02-08-2022 Blood Sugar Diagnostic (True Metrix Glucose Test Strip) strip Start: 01-16-2022 Pen Needle, Diab etic (Bd Ultra-Fine Katelyn Pen Needle) 32 gauge x 5/32 needle Start: 02-08-2022 Blood Sugar Diagnostic (True Metrix Glucose Test Strip) strip Start: 01-16-2022 End: 07-29-2023 Pen Needle, Diab etic (Bd Ultra-Fine Katelyn Pen Needle) 32 gauge x 5/32 needle Start: 02-08-2022 End: 07-29-2023 Blood Sugar Diagnostic (True Metrix Glucose Test Strip) strip Start: 01-16-2022 End: 07-29-2023 Pen Needle, Diab etic (Bd Ultra-Fine Katelyn Pen Needle) 32 gauge x 5/32 needle Start: 02-08-2022 End: 07-29-2023 Blood Sugar Diagnostic (True Metrix Glucose Test Strip) strip Start: 01-16-2022 End: 07-29-2023 Pen Needle, Diab etic (Bd Ultra-Fine Katelyn Pen Needle) 32 gauge x 5/32 needle Start: 02-08-2022 End: 07-29-2023 Goals Date Patient Goal Desired Activity /State Functional Status Date Assessment Result Facility 10-19-2024 [place] - suicide severity rating scale screener - recent [C-SSRS] [facility] Work Phone: 09-10-2024 Patient Health Questionnaire 2 item (PHQ-2) [Reported] [facility] Work Phone: NEGATED: Highlighted row Functional performance Functional status health issues are not documented Disease [facility] Work Phone: Mental Status Date Assessment Result Facility 06-28-2023 Cognitive function Level Of Cons ciousness Awake;Alert;Appropriate ;Follows Commands [facility] Work Phone: 05-08-2022 Cognitive function Level Of Cons ciousness Awake;Alert;Appropriate ;Follows Commands [facility] Work Phone: 06-21-2021 Cognitive function Level Of Cons ciousness Awake;Alert;Appropriate ;Follows Commands [facility] Work Phone: NEGATED: Highlighted row Cognitive function [Interpretation] Cognitive status health issues are not documented Disease [facility] Work Phone: Clinical Notes 06-21-2021 to 10-19-2024 Minnie Varela MD - 10/19/2024 1:38 AM Suhail Varela MD - 10/19/2024 1:38 AM CIRATLOLI Hemphill - 09/10/2024 2:40 PM EDLOLI Rodriguez - 02/02/2024 12:10 PM EDT Note Date & Type Note Facility 10-19-2024 Physician Emergency department Note 33-year-old female chief complaint of migraine headache. She woke up tonight after going to sleep with 10 out of 10 pain. All of it is on the right side associated with photophobia and loud noises. She was just seen at [facility] 3 days ago for the same thing. CT scan performed there was negative for acute findings. She denies any recent trauma. She is 8 months and had gestational diabetes. Review of Systems Physical Exam Vitals and nursing note reviewed. Constitutional: Appearance: She is not ill-appearing or toxic-appearing. HENT: Head: Normocephalic and atraumatic. Right Ear: Tympanic membrane normal. Left Ear: Tympanic membrane normal. Nose: Nose normal. Mouth/Throat: Mouth: Mucous membranes are moist. Pharynx: No oropharyngeal exudate or posterior oropharyngeal erythema. Eyes: Extraocular Movements: Extraocular movements intact. Conjunctiva/sclera: Conjunctivae normal. Pupils: Pupils are equal, round, and reactive to light. Cardiovascular: Rate and Rhythm: Normal rate and regular rhythm. Pulmonary: Effort: Pulmonary effort is normal. No respiratory distress. Breath sounds: Normal breath sounds. No wheezing, rhonchi or rales. Abdominal: General: There is no distension. Palpations: Abdomen is soft. There is no mass. Tenderness: There is no abdominal tenderness. There is no guarding. Musculoskeletal: General: No deformity. Normal range of motion. Cervical back: Neck supple. No tenderness. Skin: General: Skin is warm and dry. Neurological: General: No focal deficit present. Mental Status: She is alert and oriented to person, place, and time. Psychiatric: Mood and Affect: Mood normal. Labs Reviewed CBC WITH AUTO DIFFERENTIAL - Abnormal Result Value WBC 8.9 nRBC 0.0 RBC 4.59 Hemoglobin 13.0 Hematocrit 41.8 MCV 91 MCH 28.3 MCHC 31.1 (*) RDW 12.4 Platelets 226 Neutrophils % 69.8 Immature Granulocytes %, Automated 0.8 Lymphocytes % 23.2 Monocytes % 4.1 Eosinophils % 1.5 Basophils % 0.6 Neutrophils Absolute 6.23 Immature Granulocytes Absolute, Automated 0.07 Lymphocytes Absolute 2.07 Monocytes Absolute 0.37 Eosinophils Absolute 0.13 Basophils Absolute 0.05 COMPREHENSIVE METABOLIC PANEL - Abnormal Glucose 152 (*) Sodium 139 Potassium 3.6 Chloride 106 Bicarbonate 25 Anion Gap 12 Urea Nitrogen 14 Creatinine 0.66 eGFR >90 Calcium 8.7 Albumin 4.2 Alkaline Phosphatase 63 Total Protein 7.0 AST 15 Bilirubin, Total 0.3 ALT 12 URINALYSIS WITH REFLEX CULTURE AND MICROSCOPIC - Abnormal Color, Urine Colorless (*) Appearance, Urine Clear Specific [place], Urine 1.005 pH, Urine 6.5 Protein, Urine NEGATIVE Glucose, Urine Normal Blood, Urine NEGATIVE Ketones, Urine NEGATIVE Bilirubin, Urine NEGATIVE Urobilinogen, Urine Normal Nitrite, Urine NEGATIVE Leukocyte Esterase, Urine NEGATIVE LACTATE DEHYDROGENASE - Normal LDH 173 URIC ACID - Normal Uric Acid 6.3 B-TYPE NATRIURETIC PEPTIDE - Normal BNP 26 Narrative: <100 pg/mL - Heart failure unlikely 100-299 pg/mL - Intermediate probability of acute heart failure exacerbation. Correlate with clinical context and patient history. >=300 pg/mL - Heart Failure likely. Correlate with clinical context and patient history. BNP testing is performed using different testing methodology at [facility] than at other [facility]. Direct result comparisons should only be made within the same method. URINALYSIS WITH REFLEX CULTURE AND MICROSCOPIC Narrative: The following orders were created for panel order Urinalysis with Reflex Culture and Microscopic. Procedure Abnormality Status --------- ------ Urinalysis with Reflex C...[[id number]] Abnormal Final result Extra Urine Robertson Tube[[id number]] Please view results for these tests on the individual orders. EXTRA URINE ROBERTSON TUBE XR chest 1 view Final Result No airspace consolidation or pleural effusion. MACRO: None Signed by: Manjit Middleton 10/19/2024 3:01 AM Dictation workstation: [id number] Procedures Medical Decision Making 33-year-old female chief complaint of migraine headache. She woke up tonight after going to sleep with 10 out of 10 pain. All of it is on the right side associated with photophobia and loud noises. She was just seen at [facility] 3 days ago for the same thing. CT scan performed there was negative for acute findings. She denies any recent trauma. She is 8 months and had gestational diabetes. She was treated with a migraine cocktail consisting of Toradol milligrams IVP, Phenergan 25 mg IVP and Reglan 5 mg IVP. With her persistent symptoms she was administered an additional 0.5 mg IVP Dilaudid and labs were ordered including a CBC, CMP, uric acid, and LDH all of which were normal. Although she still has symptoms patient is feeling better and feels comfortable going home. DDx: Migraine headache, tension headache, preeclampsia cluster headache Diagnoses as of 06/10/25 0359 Intractable migraine with status migrainosus, unspecified migraine type Minnie Varela MD 10/19/24358 T [facility] Work Phone: 10-19-2024 Emergency department Note 33-year-old female chief complaint of migraine headache. She woke up tonight after going to sleep with 10 out of 10 pain. All of it is on the right side associated with photophobia and loud noises. She was just seen at [facility] 3 days ago for the same thing. CT scan performed there was negative for acute findings. She denies any recent trauma. She is 8 months and had gestational diabetes. Review of Systems Physical Exam Vitals and nursing note reviewed. Constitutional: Appearance: She is not ill-appearing or toxic-appearing. HENT: Head: Normocephalic and atraumatic. Right Ear: Tympanic membrane normal. Left Ear: Tympanic membrane normal. Nose: Nose normal. Mouth/Throat: Mouth: Mucous membranes are moist. Pharynx: No oropharyngeal exudate or posterior oropharyngeal erythema. Eyes: Extraocular Movements: Extraocular movements intact. Conjunctiva/sclera: Conjunctivae normal. Pupils: Pupils are equal, round, and reactive to light. Cardiovascular: Rate and Rhythm: Normal rate and regular rhythm. Pulmonary: Effort: Pulmonary effort is normal. No respiratory distress. Breath sounds: Normal breath sounds. No wheezing, rhonchi or rales. Abdominal: General: There is no distension. Palpations: Abdomen is soft. There is no mass. Tenderness: There is no abdominal tenderness. There is no guarding. Musculoskeletal: General: No deformity. Normal range of motion. Cervical back: Neck supple. No tenderness. Skin: General: Skin is warm and dry. Neurological: General: No focal deficit present. Mental Status: She is alert and oriented to person, place, and time. Psychiatric: Mood and Affect: Mood normal. Labs Reviewed CBC WITH AUTO DIFFERENTIAL - Abnormal Result Value WBC 8.9 nRBC 0.0 RBC 4.59 Hemoglobin 13.0 Hematocrit 41.8 MCV 91 MCH 28.3 MCHC 31.1 (*) RDW 12.4 Platelets 226 Neutrophils % 69.8 Immature Granulocytes %, Automated 0.8 Lymphocytes % 23.2 Monocytes % 4.1 Eosinophils % 1.5 Basophils % 0.6 Neutrophils Absolute 6.23 Immature Granulocytes Absolute, Automated 0.07 Lymphocytes Absolute 2.07 Monocytes Absolute 0.37 Eosinophils Absolute 0.13 Basophils Absolute 0.05 COMPREHENSIVE METABOLIC PANEL - Abnormal Glucose 152 (*) Sodium 139 Potassium 3.6 Chloride 106 Bicarbonate 25 Anion Gap 12 Urea Nitrogen 14 Creatinine 0.66 eGFR >90 Calcium 8.7 Albumin 4.2 Alkaline Phosphatase 63 Total Protein 7.0 AST 15 Bilirubin, Total 0.3 ALT 12 URINALYSIS WITH REFLEX CULTURE AND MICROSCOPIC - Abnormal Color, Urine Colorless (*) Appearance, Urine Clear Specific [place], Urine 1.005 pH, Urine 6.5 Protein, Urine NEGATIVE Glucose, Urine Normal Blood, Urine NEGATIVE Ketones, Urine NEGATIVE Bilirubin, Urine NEGATIVE Urobilinogen, Urine Normal Nitrite, Urine NEGATIVE Leukocyte Esterase, Urine NEGATIVE LACTATE DEHYDROGENASE - Normal LDH 173 URIC ACID - Normal Uric Acid 6.3 B-TYPE NATRIURETIC PEPTIDE - Normal BNP 26 Narrative: <100 pg/mL - Heart failure unlikely 100-299 pg/mL - Intermediate probability of acute heart failure exacerbation. Correlate with clinical context and patient history. >=300 pg/mL - Heart Failure likely. Correlate with clinical context and patient history. BNP testing is performed using different testing methodology at [facility] than at other [facility]. Direct result comparisons should only be made within the same method. URINALYSIS WITH REFLEX CULTURE AND MICROSCOPIC Narrative: The following orders were created for panel order Urinalysis with Reflex Culture and Microscopic. Procedure Abnormality Status --------- ------ Urinalysis with Reflex C...[[id number]] Abnormal Final result Extra Urine Robertson Tube[[id number]] Please view results for these tests on the individual orders. EXTRA URINE ROBERTSON TUBE XR chest 1 view Final Result No airspace consolidation or pleural effusion. MACRO: None Signed by: Manjit Middleton 10/19/2024 3:01 AM Dictation workstation: [id number] Procedures Medical Decision Making 33-year-old female chief complaint of migraine headache. She woke up tonight after going to sleep with 10 out of 10 pain. All of it is on the right side associated with photophobia and loud noises. She was just seen at [facility] 3 days ago for the same thing. CT scan performed there was negative for acute findings. She denies any recent trauma. She is 8 months and had gestational diabetes. She was treated with a migraine cocktail consisting of Toradol milligrams IVP, Phenergan 25 mg IVP and Reglan 5 mg IVP. With her persistent symptoms she was administered an additional 0.5 mg IVP Dilaudid and labs were ordered including a CBC, CMP, uric acid, and LDH all of which were normal. Although she still has symptoms patient is feeling better and feels comfortable going home. DDx: Migraine headache, tension headache, preeclampsia cluster headache Diagnoses as of 10/19/24358 Intractable migraine with status migrainosus, unspecified migraine type Minnie Varela MD 10/19/24358 documented in this encounter [facility] Work Phone: 09-10-2024 History of Present illness Narrative Subjective Patient ID: Wlilow Barksdale is a 33 y.o. female who presents for Establish Care (PT is here today to establish care as a new pt and for her physical.). Patient presents to establish primary care. Was previously seen by Dr. Lopez in the office. Anxiety: On Celexa at 40 mg. Control symptoms. No side effects reported. Class III obesity: Would like to talk about weight loss. Will discuss at next visit with new lab panel. She is currently breast-feeding and is not wanting to make any modifications until she is done with that. Currently 6 months . Preventative health: Had labs drawn recently through her employer ([employer]), CBC was normal, hyperlipidemia with high triglycerides. States she has had them elevated before and improved after . Will redraw in 1 year before next visit. No intervention at this time. Review of Systems Constitutional: Negative for chills, diaphoresis, fatigue and unexpected weight change. HENT: Negative for dental problem, tinnitus and trouble swallowing. Eyes: Negative for visual disturbance. Respiratory: Negative for chest tightness and shortness of breath. Cardiovascular: Negative for chest pain, palpitations and leg swelling. Gastrointestinal: Negative for abdominal pain, constipation, diarrhea, nausea and rectal pain. Endocrine: Negative for polydipsia, polyphagia and polyuria. Genitourinary: Negative for difficulty urinating, frequency and urgency. Musculoskeletal: Negative for arthralgias and myalgias. Skin: Negative for pallor and wound. Neurological: Negative for syncope, weakness, numbness and headaches. Psychiatric/Behavioral: Negative for suicidal ideas. The patient is not nervous/anxious. Objective BP 120/88 Pulse 79 Ht 1.727 m (5' 8) Wt 129 kg (284 lb 1.6 oz) SpO2 98% Yes BMI 43.20 kg/m Physical Exam Vitals and nursing note reviewed. Constitutional: General: She is not in acute distress. Appearance: Normal appearance. HENT: Head: Normocephalic. Nose: Nose normal. Mouth/Throat: Mouth: Mucous membranes are moist. Pharynx: Oropharynx is clear. Eyes: General: No scleral icterus. Pupils: Pupils are equal, round, and reactive to light. Neck: Vascular: No carotid bruit. Cardiovascular: Rate and Rhythm: Normal rate and regular rhythm. Pulses: Normal pulses. Heart sounds: Murmur heard. Pulmonary: Effort: Pulmonary effort is normal. No respiratory distress. Breath sounds: Normal breath sounds. No stridor. No wheezing, rhonchi or rales. Abdominal: General: Bowel sounds are normal. There is no distension. Palpations: Abdomen is soft. Tenderness: There is no abdominal tenderness. There is no right CVA tenderness or left CVA tenderness. Musculoskeletal: General: No swelling. Normal range of motion. Cervical back: Normal range of motion. Right lower leg: No edema. Left lower leg: No edema. Skin: General: Skin is warm and dry. Capillary Refill: Capillary refill takes less than 2 seconds. Neurological: General: No focal deficit present. Mental Status: She is alert and oriented to person, place, and time. Mental status is at baseline. Psychiatric: Mood and Affect: Mood normal. Behavior: Behavior normal. Thought Content: Thought content normal. Judgment: Judgment normal. Assessment/Plan Diagnoses and all orders for this visit: Palpitations - Basic Metabolic Panel; Future - TSH with reflex to Free T4 if abnormal; Future Anxiety - citalopram (CeleXA) 40 mg tablet; Take 1 tablet (40 mg) by mouth once daily. Encounter for screening for lipid disorder - Lipid Panel; Future Class 3 obesity - Vitamin D 25-Hydroxy,Total (for eval of Vitamin D levels); Future - Hemoglobin A1C; Future Routine general medical examination at a health care facility documented in this encounter [facility] Work Phone: 02-26-2024 Note [facility] 02-02-2024 History of Present illness Narrative 33 y.o. female patient presents for evaluation of sinus pressure. Patient reports 2 weeks of progressively worsening maxillary sinus pain, nasal congestion, and headache. There is reported mild postnasal drip, cough and ear pressure. No fever, sore throat, chest pains, SOB or other constitutional signs and symptoms. Symptoms have been refractory to hybd-oxm-dppgruc medications. Pt is 34 weeks . Vitals: 02/02/24 1227 BP: 138/84 Pulse: 96 Resp: 16 Temp: 35.9 C (96.6 F) SpO2: 98% Allergies Allergen Reactions Sulfa (Sulfonamide Antibiotics) Unknown Medication Documentation Review Audit Reviewed by Willow Clements MA (Line Welder) on 02/02/24 at 1225 Medication Order Taking? Sig Documenting Provider Last Dose Status cholecalciferol (Vitamin D3) 50 mcg (2,000 unit) capsule [id number] Yes Take by mouth. Historical Provider, Taking Active citalopram (CeleXA) 40 mg tablet [id number] Yes Take 1 tablet (40 mg) by mouth once daily. Belgica Torres MD MPH Taking Active History reviewed. No pertinent past medical history. Past Surgical History: Procedure Laterality Date OTHER SURGICAL HISTORY 03/16/2019 No history of surgery ROS See HPI Physical Exam Vitals and nursing note reviewed. Constitutional: General: She is not in acute distress. Appearance: Normal appearance. She is not ill-appearing. HENT: Head: Normocephalic and atraumatic. Right Ear: Tympanic membrane and ear canal normal. Left Ear: Tympanic membrane and ear canal normal. Nose: Congestion present. Mouth/Throat: Mouth: Mucous membranes are moist. Pharynx: Oropharynx is clear. Eyes: Extraocular Movements: Extraocular movements intact. Conjunctiva/sclera: Conjunctivae normal. Pupils: Pupils are equal, round, and reactive to light. Cardiovascular: Rate and Rhythm: Normal rate. Pulmonary: Effort: Pulmonary effort is normal. Breath sounds: Normal breath sounds. Lymphadenopathy: Cervical: No cervical adenopathy. Skin: General: Skin is warm and dry. Neurological: General: No focal deficit present. Mental Status: She is alert and oriented to person, place, and time. Psychiatric: Mood and Affect: Mood normal. Behavior: Behavior normal. Assessment/Plan/MDM Willow was seen today for uri. Diagnoses and all orders for this visit: Acute non-recurrent maxillary sinusitis (Primary) - amoxicillin (Amoxil) 875 mg tablet; Take 1 tablet (875 mg) by mouth 2 times a day for 7 days. - albuterol 90 mcg/actuation inhaler; Inhale 2 puffs every 6 hours if needed for wheezing. Encouraged pt to continue otc cold remedies PRN, push PO fluids and rest. Patient's clinical presentation is otherwise unremarkable at this time. Patient is discharged with instructions to follow-up with primary care or seek emergency medical attention for worsening symptoms or any new concerns. I did personally review Willow's past medical history, surgical history, social history, as well as family history (when relevant). In this case, I also oversaw the her drug management by reviewing her medication list, allergy list, as well as the medications that I prescribed during the UC course and/or recommended as an out-patient (including possible OTC medications such as acetaminophen, NSAIDs , etc). After reviewing the items above, I did look at previous medical documentation, such as recent hospitalizations, office visits, and/or recent consultations with PCP/specialist. SDOH: Another factor that I considered in Willow's care was her Social Determinants of Health (SDOH). During this UC encounter, she did not have social determinants of health. Those SDOH influencing Willow's care are: none Raghavendra Reina CNP [facility] [phone] documented in this encounter [facility] Work Phone: 09-24-2023 History of Present illness Narrative 32 y.o. female presents for evaluation of left ear pain that began 2 days ago. States she has had some nasal congestion as well as mild sore throat. Denies fever, cough, body aches, fatigue, headache or any other associated symptoms. No otc meds for symptoms. Pt is 15 weeks . No other complaints. Vitals: 09/24/23 1015 BP: (!) 120/94 Pulse: 102 Resp: 16 Temp: 37.1 C (98.7 F) SpO2: 96% Allergies Allergen Reactions Sulfa (Sulfonamide Antibiotics) Unknown Medication Documentation Review Audit Reviewed by Timur Quintero MA (Line Welder) on 09/24/23 at 1015 Medication Order Taking? Sig Documenting Provider Last Dose Status cholecalciferol (Vitamin D3) 50 mcg (2,000 unit) capsule [id number] Yes Take by mouth. Historical Provider, Taking Active citalopram (CeleXA) 40 mg tablet [id number] Take 1 tablet (40 mg) by mouth once daily. Belgica Torres MD MPH Active No past medical history on file. Past Surgical History: Procedure Laterality Date OTHER SURGICAL HISTORY 03/16/2019 No history of surgery ROS See HPI Physical Exam Vitals and nursing note reviewed. Constitutional: Appearance: Normal appearance. She is normal weight. HENT: Head: Normocephalic and atraumatic. Right Ear: Ear canal normal. A middle ear effusion (clear) is present. Tympanic membrane is not erythematous. Left Ear: Ear canal normal. A middle ear effusion (clear) is present. Tympanic membrane is erythematous. Nose: Nose normal. Mouth/Throat: Mouth: Mucous membranes are moist. Pharynx: Oropharynx is clear. Eyes: Extraocular Movements: Extraocular movements intact. Conjunctiva/sclera: Conjunctivae normal. Pupils: Pupils are equal, round, and reactive to light. Cardiovascular: Rate and Rhythm: Normal rate and regular rhythm. Heart sounds: Normal heart sounds. No murmur heard. No gallop. Pulmonary: Effort: Pulmonary effort is normal. Breath sounds: Normal breath sounds. Skin: General: Skin is warm and dry. Capillary Refill: Capillary refill takes less than 2 seconds. Neurological: General: No focal deficit present. Mental Status: She is alert and oriented to person, place, and time. Psychiatric: Mood and Affect: Mood normal. Behavior: Behavior normal. Assessment/Plan/MDM Willow was seen today for earache. Diagnoses and all orders for this visit: Non-recurrent acute serous otitis media of left ear (Primary) - amoxicillin (Amoxil) 875 mg tablet; Take 1 tablet (875 mg) by mouth 2 times a day for 7 days. Encouraged patient to use otc claritin and flonase to help with symptoms. Patient's clinical presentation is otherwise unremarkable at this time. Patient is discharged with instructions to follow-up with primary care or seek emergency medical attention for worsening symptoms or any new concerns. I did personally review Willow's past medical history, surgical history, social history, as well as family history (when relevant). In this case, I also oversaw the her drug management by reviewing her medication list, allergy list, as well as the medications that I prescribed during the UC course and/or recommended as an out-patient (including possible OTC medications such as acetaminophen, NSAIDs , etc). After reviewing the items above, I did not look at previous medical documentation, such as recent hospitalizations, office visits, and/or recent consultations with PCP/specialist. SDOH: Another factor that I considered in Willow's care was her Social Determinants of Health (SDOH). During this UC encounter, she did not have social determinants of health. Those SDOH influencing Willow's care are: none Raghavendra Reina CNP [facility] [phone] documented in this encounter [facility] Work Phone: 06-28-2023 Discharge summary Note Date/Time June 28, 2023 7:58pm [facility] Medical Records Department [address] [place] [address] Emergency Department Summary 06/28/23 MR#: [id number] Acct: [id number] Name: SEEWILLOW Rep #:[id number] 4 : 1990 32 From: Dom Hampton PCP: Dr. Belgica Torres MD Status: REG ER Location: ED HPI <HUMBLE Gracia - Last Filed: 06/28/23 21:15> History of Present Illness Chief Complaint: Headache Narrative Narrative: Patient presenting today due to headache and transient blurred vision in the right eye. She reports that she has a remote history of migraines, however, shedoes not currently take any prescription medications for migraines. She does normally feel an aura precipitating her migraines and did experience that today. She has also had intermittent nausea and photophobia. She has had pain to the right forehead and behind the right eye, she took Tylenol for this with minimal relief. She tried to take a nap but shortly after waking up her headache was worse and she noticed blurred vision on the right side. She reports that this lasted for 45 minutes and then went away. She denies any history of ocular migraines. She reports a PMH of gestational diabetes and hyperlipidemia. PFSH <HUMBLE Gracia - Last Filed: 06/28/23 21:15> PFSH Medical History Complete Encounter for induction of labor BALJIT (generalized anxiety disorder) Migraine with aura Mixed dyslipidemia Obesity Rosacea Seasonal allergies Vaginal delivery Home Medications blood sugar diagnostic (True Metrix Glucose Test Strip) #100 ea 01/16/22 [Rx Last Taken Unknown] blood-glucose meter (True Metrix Air Glucose Meter) #1 ea 01/16/22 [Rx Last Taken Unknown] pen needle, diabetic 32 gauge x 5/32 (BD Ultra-Fine Katelyn Pen Needle) #100 ea 02/08/22 [Rx Last Taken Unknown] citalopram 40 mg tablet (Celexa) 40 mg PO DAILY #90 tabs 05/27/22 [Rx Last Taken Unknown] cholecalciferol (vitamin D3) 50 mcg (2,000 unit) capsule (Vitamin D3) 2,000 unitPO DAILY 06/28/23 [History Last Taken Unknown] Allergy/AdvReac Type Severity Reaction Status Date / Time Sulfa (Sulfonamide Allergy Hives Verified 06/28/23 19:53 Antibiotics) Family History Mother Thyroid cancer Hypertension Father Hypertension Hyperlipidemia Grandfather Leukemia Lung cancer Grandmother Diabetes Surgical History [place] teeth extracted Social History adopted: No household members: spouse current occupational status: employed 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 [employer] pets and animals: Yes (avoid litter box) pets and animals: cat(s) and dog(s) sexually active: Yes Smoking Status: Never smoker alcohol intake: current details: not while substance use type: does not use caffeine: Yes what type of physical activity do you participate in: none seatbelt use: always do you feel safe at home: Yes additional social history: - Ric 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 [facility] ROS <HUMBLE Gracia - Last Filed: 06/28/23 21:15> ROS ED Constitutional Constitutional ED: Denies chills or fever(s) Eyes Eyes: Reports blurry vision Cardiovascular Cardiovascular: Denies chest pain Respiratory/Chest Respiratory/Chest: Denies cough or dyspnea Gastrointestinal Gastrointestinal: Denies abdominal pain, nausea or vomiting Musculoskeletal Musculoskeletal: Denies arthralgias or myalgias Integumentary Denies rash Neurologic Neurologic: Reports headache(s) EXAM <HUMBLE Gracia - Last Filed: 06/28/23 21:15> Physical Exam Const Vital Signs: 06/28/23 19:40 Temperature 97.4 F L Temperature Source Temporal Pulse Rate 91 Respiratory Rate 16 Blood Pressure 148/96 H Blood Pressure Mean 113 Pulse Ox 100 Oxygen Delivery Method Room Air Positive well nourished, well developed and no apparent distress General Appearance ED: well developed HEENT Reports normocephalic and head/scalp atraumatic Mouth ED: Yes moist mucous membranes normal Eyes PERRL and EOMs intact bilaterally Neck full ROM and supple Chest Wall inspection of chest normal Resp normal respiratory effort and clear to auscultation bilaterally Cardio regular rate and regular rhythm GI soft to palpation, non-tender, non-distended and no masses Back/Spine normal ROM and normal to inspection Extremity normal to inspection and full ROM Neuro oriented x3, CN's II-XII intact bilaterally, moves all extremities, no focal motor deficits and no sensory deficits noted Neuro Narrative: Normal visual brandon by confrontation EOMs intact Sensorium / Orientation: awake and alert Speech: speech normal Gait (Neuro): normal gait Motor Exam: strength 5/5 throughout and no pronator drift Coordination: [id number] test normal Psych mental status grossly normal and thought process normal Skin no rashes or lesions noted and no wounds <Dr. Dom Correa DO - Last Filed: 06/28/23 21:23> Physical Exam Const Vital Signs: 06/28/23 19:40 Temperature 97.4 F L Temperature Source Temporal Pulse Rate 91 Respiratory Rate 16 Blood Pressure 148/96 H Blood Pressure Mean 113 Pulse Ox 100 Oxygen Delivery Method Room Air [facility] <HUMBLE Gracia - Last Filed: 06/28/23 21:15> [facility] Narrative Medical decision making narrative: Patient presenting due to a migraine that started today. She has a history of migraines. She had blurred vision in the right eye that lasted approximately 45minutes. No painless vision loss. Neurological exam is unremarkable, she has an NIH of 0. Visual acuity is 20/20 bilaterally corrected. Symptoms do not sound consistent with SAH. Exam does seem consistent with ocular migraine. Shewas given IV fluids, Benadryl, Toradol, and Reglan. On reexamination she reports improvement of her symptoms. Repeat neuro exam is normal. I have givenher strict return instructions and she is to follow-up with her PCP. She will be discharged home in stable condition and is comfortable with plan. <Dr. Dom Correa DO - Last Filed: 06/28/23 21:23> [facility] Treatment and Re-Evaluation Narrative: ED attending note: I evaluated the patient in conjunction with the KRISTY. I agree with his/her statements and above findings. I have personally performed a face to face assessment of the patient and have reviewed the KRISTY Note. I performed a substantive portion of the visit including all aspects of the following. I personally saw the patient performed chart review, physical exam, reviewed labs,imaging (if obtained), and formulated a treatment and management plan. Brief history: 32-year-old female presents with 1 day of headache. She notes for approximate 45 minutes she had blurry vision in the right eye. This is since resolved. Denies chest pain, palpitations, focal deficits, slurred speech, facial drooping. No history of CVA. No family or personal history of brain aneurysms. Exam: Nursing triage notes reviewed, Vital signs reviewed Constitutional: please see mdm HENT: MMM Eyes: Pupils equal round and reactive to light, Extraocular muscles intact, visual brandon intact, visual acuity 20/20 bilaterally, within the limits of ED for endoscopy no obvious evidence of witt red macular or central retinal artery occlusion Neck: No stridor, no obvious JVD, intact neck ROM Extremities: No edema Neuro: Alert and oriented x3, neuro exam at baseline, cranial nerves II through XII are intact. No pain with extraocular muscle movement. There is negative test of skew. 5 of 5 strength in upper and lower extremities in flexion extension. Intact sensation to light touch in upper and lower extremity dermatomes. No truncal or extremity ataxia. Stable, non-ataxic gait. 2+ reflexes in upper and lower extremities. No meningeal signs. NIH of 0. Skin: No rash or lesions noted MDM/plan: Chief Complaint: Headache, blurry vision External records reviewed: No advanced imaging of the brain noted in the chart Factors affecting care: Migraines Social determinants of health: Denies drug use History obtained from others: The patient's Consults: None [facility] narrative: Patient was hemodynamically stable, afebrile, nontoxic-appearing. There are no focal neurologic deficits noted. I considered the following differential diagnosis: Subarachnoid hemorrhage, epidural hematoma, ICH, meningitis, carotid artery dissection, primary headache (cluster, tension, migraine) Patient's history, physical exam, are not consistent with acute intracranial process specifically low suspicion for subarachnoid hemorrhage, epidural hematoma, meningitis or carotid artery dissection based on the patient's historyand physical exam. History and physical most consistent with likely ocular migraine. On re-evaluation the following was noted: The patient looks great and is in no significant objective discomfort currently.The patient's headache is non-specific. Exam is unremarkable. The patient is in no distress and the patient?s neurological exam is non-focal, neck is supple andwithout meningismus. The headache is not consistent with meningitis or infection, nor is it consistent with intracranial bleed (SAH etc.), carotid dissection, nor mass by history and examination. Medication and outpatient follow-up was instructed. The patient was instructed to return as needed or if symptoms changed or worsened, fever developed or inability to tolerate fluids. The patient agreed with plan. Shared decision making: I will have a discussion with the patient and or visitors regarding risk/benefits of further testing or admission. They will be made aware of of the risk/benefits inherent in this decision they will be given the opportunity to voice understanding. This note was generated with [employer] dictation software. It may contain incorrectwords, spelling, and punctuation that were not noted in review of the chart prior to signing. Discharge Plan Triage Chief Complaint: Headache ED Midlevel Provider: Gi De La Paz ED Provider: Dom Correa Dx/Rx/DC Orders Clinical Impression: Ocular migraine Instructions: Migraines and Cluster Headaches Prescriptions: No Action citalopram [Celexa] 40 mg tablet 40 mg PO DAILY Qty: 90 3RF cholecalciferol (vitamin D3) [Vitamin D3] 50 mcg (2,000 unit) capsule 2,000 unit PO DAILY (DME) blood-glucose meter [True Metrix Air Glucose Meter] Misc See Rx Instructions .ROUTE .MEDSUPPLY Qty: 1 0RF Rx Instructions: As directed (DME) True Metrix Glucose Test Strip Strip See Rx Instructions .ROUTE .MEDSUPPLY Qty: 100 4RF Rx Instructions: As directed (DME) pen needle, diabetic [BD Ultra-Fine Katelyn Pen Needle] 32 gauge x 5/32 needle See Rx Instructions .ROUTE .MEDSUPPLY Qty: 100 0RF Rx Instructions: daily Primary Care Provider: Belgica Torres Referrals: Belgica Torres MD [Primary Care Provider] - 3-5 Days Activity Restrictions/Additional Instructions: Follow-up with PCP and return for any worsening of symptoms. Disposition Disposition: Home, Self Care What to do if you have Problems For any increased pain, shortness of breath, bleeding, nausea or vomiting, chestpain, or any unexpected problems, contact your Primary Care Provider. Call [facility] ([phone]) or report to the closest Emergency Room. Call 911 if necessary. 06/28/232122 <Electronically signed by Dom Correa DO> Cosigner Signature (if applicable): 06/28/232114 <Electronically signed by Gi KATE> CC: Dr. Belgica Torres MD ~ Signed [facility] Work Phone: 1(822) 277-671509-06-2023 History of Present illness Narrative* LOLI Seay - 01/15/2023 10:30 AM EDT Subjective Patient ID: Willow Barksdale is a 32 y.o. female who presents for Anxiety (6 month) and Hyperlipidemia. Anxiety Patient is here for evaluation of anxiety. She has the following anxiety symptoms: none. Symptoms have been controlled since that time. She denies current suicidal and homicidal ideation. Possible organic causes contributing are: endocrine/metabolic. Risk factors: none Previous treatment includes me dication Celexa. She complains of the following medication [...] Sitting) Pulse 80 Ht 1.727 m (5' 8) Wt 127 kg (279 lb 9.6 oz) [...] - Health Maintenance; Future documented in this [facility] Work Phone: 1(126) 746-379301-20-2023 History of Present illness Narrative* Willow is a 31 yo female, here today for follow up on anxiety. Celexa dose was increased about 6 weeks ago. * She has returned to work this week, baby sleeping through the night. * She continue to breastfeed/pump * Anxiety has improved with increase in Celexa * has used the hydroxyzine 2 times this week with the return to work otherwise has not needed the med. * reviewed labs done in 05/2022 collected at [facility], cholesterol, LDL, and triglycerides are elevated. * she would like TSH, vitamin D and A1C ordered. * she was gestational diabetic and has history of vitamin d deficiency. -[facility] Work Phone: 1(201) 597-535912-07-2022 History of Present illness Narrative* Willow is a 31 yo female, here today to follow up on anxiety. She is about 6 weeks . * had child on 04/17/2022 * full term * during she had pancreatitis and gestational diabetes * she was hospitalized for pancreatitis at [facility] for 3 days * currently * [employer]SE BU[employer]DER increased Celexa on Friday due to increased anxiety, she is also taking hydroxyzine for breakthrough anxiety * denies SI/HI * has bonded well with daughter. * follows up with HOSE BUILDER in 4 weeks * she is having anxiety more in last few weeks, sleeping pattern is disrupted, she reports palpitations, she states they happen with increased anxiety. * hydroxyzine has been helpful last three days. [facility] Work Phone: 1([phone]) 151-925210-11-2022 Note Attestation signed by Sangeetha Gutierrez MD at 02/21/2022 1:31 PM MfM See note from today Disposition is good Follow up arranged with Dr. Schmid in [facility] if increased pain, LOF, vaginal bleeding or any concerns related to her Meds, see MAR Ongoing care and testing with Dr. Schmid planned with next appointment on 02/25/22 Sangeetha Gutierrez MD Department of Obstetrics and Gynecology [facility] Discharge Summary Admission on 02/19/2022 8:16 AM Willow Barksdale is a 31 y.o. at 31w1d who was transported from [employer] due to acute pancreatitis. 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 No endocervical component is identified.[facility] A#[id number] Work Phone: Comment on above:Satisfactory for evaluation. No endocervical component is identified.07-16-2021 Chief complaint+Reason for visit Narrative* Chief Complaint COVID-19 PALPITATIONS INT LABS Amb Documentation nob lmp 07/16/21 Reason for Visit BALJIT (generalized anx iety disorder) History of miscarriage, currently Infertility Obesity affecting Supervision of high risk , antepartum Mixed dyslipidemia [facility] Work Phone: [phone]) 240-122402-10-2022 History of Present illness Narrative* here for follow up from ER. she was working at [employer] yesterday when she started experiencing elevated [...] her room, her bp and HR would climb. * She has had palpitations in the past but not as many as she had yesterday. 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 She also had a miscarriage this past fall. Her due date would have been in eleven days. * She also reports that she is stressed and obsessed with getting * reports I feel this is anxiety related * history of anxiety disorder- takes hydroxyzine daily. * significant history of heart disease in the family. * Reports that grandma had a hole in her heart and needed multiple ablations * Was on celexa, but stopped 1 year ago, due to trying to conceive. Reports that isabella worked well for her. [facility] Work Phone: chieu complaint+Reason for visit Narrative* Chief Complaint COVID-19 PALPITATIONS INT LABS [facility] Work Phone: Evaluation noteNo assessment information available [facility] Work Phone: Evaluation note* Diagnosis Onset Date Resolution Status BALJIT (generalized anxiety disorder) acute History of miscarriage, currently acute Infertility acute Obesity affecting acute acute Supervision of high risk , antepartum acute Mixed dyslipidemia chronic [facility] Work Phone: Evaluation note* Diagnosis Onset Date Resolution Status BALJIT (generalized anxiety disorder) acute Obesity affecting acute acute Supervision of high risk , antepartum acute BALJIT (generalized anxiety disorder) acute Obesity affecting acute acute Supervision of high risk , antepartum acute Strain of right ankle resolv ed BALJIT (generalized anxiety disorder) acute Obesity affecting acute acute Supervision of high risk , antepartum acute Strain of right ankle resolv ed BALJIT (generalized anxiety disorder) acute Obesity affecting acute acute Supervision of high risk , antepartum acute Gestational diabetes acute BALJIT (generalized anxiety disorder) acute Gestational diabetes acute Obesity affecting acute acute Supervision of high risk , antepartum acute [facility] Work Phone: Evaluation note* Diagnosis Onset Date Resolution Status BALJIT (generalized anxiety disorder) acute Obesity affecting acute acute Supervision of high risk , antepartum acute Strain of right ankle resolv ed BALJIT (generalized anxiety disorder) acute Obesity affecting acute acute Supervision of high risk , antepartum acute Strain of right ankle resolv ed BLAJIT (generalized anxiety disorder) acute Obesity affecting acute acute Supervision of high risk , antepartum acute Gestational diabetes acute BALJIT (generalized anxiety disorder) acute Gestational diabetes acute Obesity affecting acute acute Supervision of high risk , antepartum acute BALJIT (generalized anxiety disorder) acute Gestational diabetes acute Obesity affecting acute acute Supervision of high risk , antepartum acute BALJIT (generalized anxiety disorder) acute Gestational diabetes acute Idiopathic acute pancreatitis acute Obesity affecting acute acute Supervision of high risk , antepartum acute [facility] Work Phone: Evaluation note* Diagnosis Onset Date Resolution Status Strain of right ankle resolv ed BALJIT (generalized anxiety disorder) acute Obesity affecting acute acute Supervision of high risk , antepartum acute Strain of right ankle resolv ed BALJIT (generalized anxiety disorder) acute Obesity affecting acute acute Supervision of high risk , antepartum acute Gestational diabetes acute BALJIT (generalized anxiety disorder) acute Gestational diabetes acute Obesity affecting acute acute Supervision of high risk , antepartum acute BALJIT (generalized anxiety disorder) acute Gestational diabetes acute Obesity affecting acute acute Supervision of high risk , antepartum acute BALJIT (generalized anxiety disorder) acute Gestational diabetes acute Idiopathic acute pancreatitis acute Obesity affecting acute acute Supervision of high risk , antepartum acute BALJIT (generalized anxiety disorder) acute Gestational diabetes acute Idiopathic acute pancreatitis acute Obesity affecting acute acute Supervision of high risk , antepartum acute BALJIT (generalized anxiety disorder) acute Gestational diabetes acute Idiopathic acute pancreatitis acute Obesity affecting acute acute Supervision of high risk , antepartum acute BALJIT (generalized anxiety disorder) acute Gestational diabetes acute Idiopathic acute pancreatitis acute Obesity affecting acute acute Supervision of high risk , antepartum acute BALJIT (generalized anxiety disorder) acute Gestational diabetes acute Idiopathic acute pancreatitis acute Obesity affecting acute acute Supervision of high risk , antepartum acute [facility] Work Phone: Evaluation note* Diagnosis Onset Date Resolution Status BALJIT (generalized anxiety disorder) acute Obesity affecting acute acute Supervision of high risk , antepartum acute Strain of right ankle resolv ed BALJIT (generalized anxiety disorder) acute Obesity affecting acute acute Supervision of high risk , antepartum acute Gestational diabetes acute BALJIT (generalized anxiety disorder) acute Gestational diabetes acute Obesity affecting acute acute Supervision of high risk , antepartum acute BALJIT (generalized anxiety disorder) acute Gestational diabetes acute Obesity affecting acute acute Supervision of high risk , antepartum acute BALJIT (generalized anxiety disorder) acute Gestational diabetes acute Idiopathic acute pancreatitis acute Obesity affecting acute acute Supervision of high risk , antepartum acute BALJIT (generalized anxiety disorder) acute Gestational diabetes acute Idiopathic acute pancreatitis acute Obesity affecting acute acute Supervision of high risk , antepartum acute BALJIT (generalized anxiety disorder) acute Gestational diabetes acute Idiopathic acute pancreatitis acute Obesity affecting acute acute Supervision of high risk , antepartum acute BALJIT (generalized anxiety disorder) acute Gestational diabetes acute Idiopathic acute pancreatitis acute Obesity affecting acute acute Supervision of high risk , antepartum acute BALJIT (generalized anxiety disorder) acute Gestational diabetes acute Idiopathic acute pancreatitis acute Obesity affecting acute acute Supervision of high risk , antepartum acute BALJIT (generalized anxiety disorder) acute Gestational diabetes acute Idiopathic acute pancreatitis acute Obesity affecting acute acute Supervision of high risk , antepartum acute BALJIT (generalized anxiety disorder) acute Gestational diabetes acute Idiopathic acute pancreatitis acute Obesity affecting acute acute Supervision of high risk , antepartum acute BALJIT (generalized anxiety disorder) acute Gestational diabetes acute Idiopathic acute pancreatitis acute Obesity affecting acute acute Supervision of high risk , antepartum acute Gestational diabetes acute acute Supervision of high risk , antepartum acute BALJIT (generalized anxiety disorder) acute Gestational diabetes acute Idiopathic acute pancreatitis acute Obesity affecting acute acute Supervision of high risk , antepartum acute BALJIT (generalized anxiety disorder) acute Gestational diabetes acute Idiopathic acute pancreatitis acute Obesity affecting acute acute Supervision of high risk , antepartum acute [facility] Work Phone: Evaluation note* Diagnosis Onset Date Resolution Status BALJIT (generalized anxiety disorder) resolved Obesity affecting resolved resolved Supervision of high risk , antepartum resolved Gestational diabetes resolve d BALJIT (generalized anxiety disorder) resolved Gestational diabetes resolve d Obesity affecting resolved resolved Supervision of high risk , antepartum resolved BALJIT (generalized anxiety disorder) resolved Gestational diabetes resolve d Obesity affecting resolved resolved Supervision of high risk , antepartum resolved BALJIT (generalized anxiety disorder) resolved Gestational diabetes resolve d Idiopathic acute pancreatitis resolved Obesity affecting resolved resolved Supervision of high risk , antepartum resolved BALJIT (generalized anxiety disorder) resolved Gestational diabetes resolve d Idiopathic acute pancreatitis resolved Obesity affecting resolved resolved Supervision of high risk , antepartum resolved BALJIT (generalized anxiety disorder) resolved Gestational diabetes resolve d Idiopathic acute pancreatitis resolved Obesity affecting resolved resolved Supervision of high risk , antepartum resolved BALJIT (generalized anxiety disorder) resolved Gestational diabetes resolve d Idiopathic acute pancreatitis resolved Obesity affecting resolved resolved Supervision of high risk , antepartum resolved BALJIT (generalized anxiety disorder) resolved Gestational diabetes resolve d Idiopathic acute pancreatitis resolved Obesity affecting resolved resolved Supervision of high risk , antepartum resolved BALJIT (generalized anxiety disorder) resolved Gestational diabetes resolve d Idiopathic acute pancreatitis resolved Obesity affecting resolved resolved Supervision of high risk , antepartum resolved BALJIT (generalized anxiety disorder) resolved Gestational diabetes resolve d Idiopathic acute pancreatitis resolved Obesity affecting resolved resolved Supervision of high risk , antepartum resolved BALJIT (generalized anxiety disorder) resolved Gestational diabetes resolve d Idiopathic acute pancreatitis resolved Obesity affecting resolved resolved Supervision of high risk , antepartum resolved Gestational diabetes resolve d resolved Supervision of high risk , antepartum resolved BALJIT (generalized anxiety disorder) resolved Gestational diabetes resolve d Idiopathic acute pancreatitis resolved Obesity affecting resolved resolved Supervision of high risk , antepartum resolved BALJIT (generalized anxiety disorder) resolved Gestational diabetes resolve d Idiopathic acute pancreatitis resolved Obesity affecting resolved resolved Supervision of high risk , antepartum resolved BALJIT (generalized anxiety disorder) resolved Gestational diabetes resolve d Idiopathic acute pancreatitis resolved Obesity affecting resolved resolved Supervision of high risk , antepartum resolved BALJIT (generalized anxiety disorder) resolved Gestational diabetes resolve d Idiopathic acute pancreatitis resolved Obesity affecting resolved resolved Supervision of high risk , antepartum resolved Variable heart rate decelerations, antepartum resolved BALJIT (generalized anxiety disorder) resolved Gestational diabetes resolve d Idiopathic acute pancreatitis resolved Obesity affecting resolved resolved Supervision of high risk , antepartum resolved Variable heart rate decelerations, antepartum resolved Encounter for induction of labor resolved BALJIT (generalized anxiety disorder) resolved Gestational diabetes resolve d Obesity affecting resolved resolved Supervision of high risk , antepartum resolved Vaginal delivery resolved [facility] Work Phone: Evaluation note* Diagnosis Onset Date Resolution Status Gestational diabetes resolve d BALJIT (generalized anxiety disorder) resolved Gestational diabetes resolve d Obesity affecting resolved resolved Supervision of high risk , antepartum resolved BALJIT (generalized anxiety disorder) resolved Gestational diabetes resolve d Obesity affecting resolved resolved Supervision of high risk , antepartum resolved BALJIT (generalized anxiety disorder) resolved Gestational diabetes resolve d Idiopathic acute pancreatitis resolved Obesity affecting resolved resolved Supervision of high risk , antepartum resolved BALJIT (generalized anxiety disorder) resolved Gestational diabetes resolve d Idiopathic acute pancreatitis resolved Obesity affecting resolved resolved Supervision of high risk , antepartum resolved BALJIT (generalized anxiety disorder) resolved Gestational diabetes resolve d Idiopathic acute pancreatitis resolved Obesity affecting resolved resolved Supervision of high risk , antepartum resolved BALJIT (generalized anxiety disorder) resolved Gestational diabetes resolve d Idiopathic acute pancreatitis resolved Obesity affecting resolved resolved Supervision of high risk , antepartum resolved BALJIT (generalized anxiety disorder) resolved Gestational diabetes resolve d Idiopathic acute pancreatitis resolved Obesity affecting resolved resolved Supervision of high risk , antepartum resolved BALJIT (generalized anxiety disorder) resolved Gestational diabetes resolve d Idiopathic acute pancreatitis resolved Obesity affecting resolved resolved Supervision of high risk , antepartum resolved BALJIT (generalized anxiety disorder) resolved Gestational diabetes resolve d Idiopathic acute pancreatitis resolved Obesity affecting resolved resolved Supervision of high risk , antepartum resolved BALJIT (generalized anxiety disorder) resolved Gestational diabetes resolve d Idiopathic acute pancreatitis resolved Obesity affecting resolved resolved Supervision of high risk , antepartum resolved Gestational diabetes resolve d resolved Supervision of high risk , antepartum resolved BALJIT (generalized anxiety disorder) resolved Gestational diabetes resolve d Idiopathic acute pancreatitis resolved Obesity affecting resolved resolved Supervision of high risk , antepartum resolved BALJIT (generalized anxiety disorder) resolved Gestational diabetes resolve d Idiopathic acute pancreatitis resolved Obesity affecting resolved resolved Supervision of high risk , antepartum resolved BALJIT (generalized anxiety disorder) resolved Gestational diabetes resolve d Idiopathic acute pancreatitis resolved Obesity affecting resolved resolved Supervision of high risk , antepartum resolved BALJIT (generalized anxiety disorder) resolved Gestational diabetes resolve d Idiopathic acute pancreatitis resolved Obesity affecting resolved resolved Supervision of high risk , antepartum resolved Variable heart rate decelerations, antepartum resolved BALJIT (generalized anxiety disorder) resolved Gestational diabetes resolve d Idiopathic acute pancreatitis resolved Obesity affecting resolved resolved Supervision of high risk , antepartum resolved Variable heart rate decelerations, antepartum resolved Encounter for induction of labor resolved BALJIT (generalized anxiety disorder) resolved Gestational diabetes resolve d Obesity affecting resolved resolved Supervision of high risk , antepartum resolved Vaginal delivery resolved [facility] Work Phone: Evaluation note* Diagnosis Onset Date Resolution Status BALJIT (generalized anxiety disorder) resolved Gestational diabetes resolve d Idiopathic acute pancreatitis resolved Obesity affecting resolved resolved Supervision of high risk , antepartum resolved BALJIT (generalized anxiety disorder) resolved Gestational diabetes resolve d Idiopathic acute pancreatitis resolved Obesity affecting resolved resolved Supervision of high risk , antepartum resolved BALJIT (generalized anxiety disorder) resolved Gestational diabetes resolve d Idiopathic acute pancreatitis resolved Obesity affecting resolved resolved Supervision of high risk , antepartum resolved BALJIT (generalized anxiety disorder) resolved Gestational diabetes resolve d Idiopathic acute pancreatitis resolved Obesity affecting resolved resolved Supervision of high risk , antepartum resolved BALJIT (generalized anxiety disorder) resolved Gestational diabetes resolve d Idiopathic acute pancreatitis resolved Obesity affecting resolved resolved Supervision of high risk , antepartum resolved BALJIT (generalized anxiety disorder) resolved Gestational diabetes resolve d Idiopathic acute pancreatitis resolved Obesity affecting resolved resolved Supervision of high risk , antepartum resolved BALJIT (generalized anxiety disorder) resolved Gestational diabetes resolve d Idiopathic acute pancreatitis resolved Obesity affecting resolved resolved Supervision of high risk , antepartum resolved BALJIT (generalized anxiety disorder) resolved Gestational diabetes resolve d Idiopathic acute pancreatitis resolved Obesity affecting resolved resolved Supervision of high risk , antepartum resolved Gestational diabetes resolve d resolved Supervision of high risk , antepartum resolved BALJIT (generalized anxiety disorder) resolved Gestational diabetes resolve d Idiopathic acute pancreatitis resolved Obesity affecting resolved resolved Supervision of high risk , antepartum resolved BALJIT (generalized anxiety disorder) resolved Gestational diabetes resolve d Idiopathic acute pancreatitis resolved Obesity affecting resolved resolved Supervision of high risk , antepartum resolved BALJIT (generalized anxiety disorder) resolved Gestational diabetes resolve d Idiopathic acute pancreatitis resolved Obesity affecting resolved resolved Supervision of high risk , antepartum resolved BALJIT (generalized anxiety disorder) resolved Gestational diabetes resolve d Idiopathic acute pancreatitis resolved Obesity affecting resolved resolved Supervision of high risk , antepartum resolved Variable heart rate decelerations, antepartum resolved BALJIT (generalized anxiety disorder) resolved Gestational diabetes resolve d Idiopathic acute pancreatitis resolved Obesity affecting resolved resolved Supervision of high risk , antepartum resolved Variable heart rate decelerations, antepartum resolved Encounter for induction of labor resolved BALJIT (generalized anxiety disorder) resolved Gestational diabetes resolve d Obesity affecting resolved resolved Supervision of high risk , antepartum resolved Vaginal delivery resolved Anxiety acute Gestational diabetes resolve d Routine follow-up noneactive [facility] Work Phone: Evaluation note* Diagnosis Hypertriglyceridemia- Primary Pure hyperglyceridemia Anxiety Anxiety state, unspecified documented in this encounter [facility] Work Phone: Evaluation note* Diagnosis Onset Date Resolution Status AMA (advanced maternal age) multigravida 35+ acute Anxiety acute Heart palpitations acute Hx of gestational diabetes i n prior , currently acute Hyperlipidemia acute Obesity affecting acute acute PVC (premature ventricular contraction) acute Supervision of high-risk acute [facility] Work Phone: Evaluation note* Diagnosis Onset Date Resolution Status AMA (advanced maternal age) multigravida 35+ acute Anxiety acute Heart palpitations acute Hx of gestational diabetes i n prior , currently acute Hyperlipidemia acute Obesity affecting acute acute PVC (premature ventricular contraction) acute Supervision of high-risk acute AMA (advanced maternal age) multigravida 35+ acute Anxiety acute Heart palpitations acute Hx of gestational diabetes i n prior , currently acute Hyperlipidemia acute Obesity affecting acute acute PVC (premature ventricular contraction) acute Supervision of high-risk acute Heart palpitations acute acute [facility] Work Phone: Evaluation note* Diagnosis Non-recurrent acute serous otitis media of left ear- Primary documented in this encounter [facility] Work Phone: Evaluation note* Diagnosis Acute non-recurrent maxillary sinusitis- Primary documented in this encounter [facility] Work Phone: Evaluation note* Diagnosis Palpitations- Primary Anxiety Anxiety state, unspecified Encounter for screening for lipid disorder Class 3 obesity Routine general medical examination at a health care facility documented in this encounter [facility] Work Phone: Evaluation note* Diagnosis Intractable migraine with status migrainosus, unspecified migraine type- Primary documented in this encounter [facility] Work Phone: History of Present illness Narrative* The last health maintenance visit was 2 year(s) ago. there are no concerns today. The patient's health since the last visit is described as good. She has regular dental visits. She denies vision problems. She denies hearing loss. Immunizations status: not up to date. * Lifestyle: She does not have a healthy diet. She has weight concerns. She does not exercise regularly. She does not use tobacco. She denies alcohol use. * Reproductive health: she reports normal menses. she uses no contraception. she is sexually active. * History: 1 miscarriage(s). * Cervical cancer screening: cancer screening reviewed and current. * Metabolic screening: lipid profile performed 01/23/2021. [facility] Work Phone: History of Present illness Narrative* The patient is being seen for follow-up of anxiety. The patient reports doing well. She has no comorbid illnesses. * She was evaluated in this clinic. The evaluation was 1 month(s) ago. She presented with anxiety, difficulty concentrating, panic attacks and sleep disturbance. The evaluation included thyroid function testing. Treatment included selective serotonin reuptake inhibitors and relaxation exercises. * Interval symptoms: improved difficulty concentrating, improved restlessness, improved panic attacks, improved sleep disruption and improved depression * improved anxiety. * Associated symptoms: no grandiosity, no racing thoughts, no periods of euphoria, no hallucinations and no suicidal ideation. * Medication(s): selective serotonin reuptake inhibitors. * Medications: the patient is adherent to her medication regimen and the patient complains of medication side effects Medication side effects: vivid dreams. She describes the side effects as mild. * Here for a 1 month follow up for [...] the week when she experiences anxiety triggers. [facility] Additional Instructions Follow-up with PCP and return for any worsening of symptoms.[facility] Work Phone: Hospital Discharge instructions* Attachments The following attachments cannot be sent through Care Everywhere. * Migraines Discharge Instructions (Kinyarwanda) [facility] Reason for referral (narrative)* Consultation (Routine) - Authorized Specialty Diagnoses / Procedures Referred By Darlene george Referred To Contact Primary Care Procedures Follow Up In Primary Care - Health Maintenance Malissa Redman, LOLI [address] [facility], [place] [address] Referral ID Status Reason Start Date Expiration Date V isits Requested Visits Authorized [id number] Authorized 01/15/2023 07/14/2023 1 1 T [facility] Work Phone: Summary Purpose Family History No [...] of thyroid di sease: Mother(V18.19, Z83.49) Status:Active Relationship Condition Age at Onset Recorded Date/T abdiaziz mother Malignant neoplasm of thyroid gland Unkno wn Hypertension Unknown father Hypertension Unknown Hyperlipidemia Unknown grandfather Leukemia Unknown Malignant neoplasm of lung Unknown grandmother Diabetes mellitus Unknown Unknown Family Member Name Dates Details Family [...] of thyroid di sease: Mother(V18.19, Z83.49) Status:Active Relationship Condition Age at Onset Recorded Date/T abdiaziz mother Malignant neoplasm of thyroid gland Unkno wn Hypertension Unknown father Hypertension Unknown Hyperlipidemia Unknown grandfather Leukemia Unknown Malignant neoplasm of lung Unknown grandmother Diabetes mellitus Unknown Patent foramen ovale Unknown brother Diabetes mellitus Unknown Relationship Condition Age at Onset Recorded Date/T abdiaziz mother Malignant neoplasm of thyroid gland Unkno wn Hypertension Unknown father Hypertension Unknown Hyperlipidemia Unknown grandfather Leukemia Unknown Malignant neoplasm of lung Unknown grandmother Diabetes mellitus Unknown Patent foramen ovale Unknown Atrial fibrillation Unknown History of transcath eter aortic valve replacement (TAVR) Unknown brother Diabetes mellitus Unknown Advance Directives No Advanced Directives Records Found Advance Directive Response Recorded Date/ Time Living Will No June 21 5:09pm Power of Advertising Assistant No June 21, 2021 5:09pm Advance Directive Response Recorded Date/ Time Living Will No November 30, 2021 1:09pm Power of Advertising Assistant No November 30 1:09pm Advance Directive Response Recorded Date/ Time Living Will No November 30, 2021 12:09pm Power of Advertising Assistant No November 30 12:09pm Advance Directive Response Recorded Date/ Time Living Will No April 15 8:05pm Power of Advertising Assistant No April 15, 2022 8:05pm Advance Directive Response Recorded Date/ Time Living Will No May 08 7:33pm Power of Advertising Assistant No May 08, 2022 7:33pm Advance Directive Response Recorded Date/ Time Living Will No Rehan 28th, 2 022 8:33pm Power of Advertising Assistant No May 08, 2022 8:33pm Advance Directive Response Recorded Date/ Time Living Will No June 28, 024 7:52pm Power of Advertising Assistant No June 28, 2023 7:52pm Advance Directive Response Recorded Date/ Time Living Will No June 28, 024 8:52pm Power of Advertising Assistant No June 28, 2023 8:52pm Chief Complaint CPX with formER f/u, pt c/o heart palpations and dizziness.4 week follow-up.9 month.6 week. Chief Complaint and Reason for Visit Chief Complaint PALPITATIONS INT LABS Amb Documentation nob lmp 07/16/21 Encounter for screening for diabetes mellitus Reason for Visit BALJIT (generalized anx iety disorder) History of miscarriage, currently Infertility Obesity affecting Supervision of high risk , antepartum Mixed dyslipidemia Chief Complaint 13 WK OB 17 WK OB R ANKLE INJURY XRAY 20wk ob 24 WK OB OBESITY COMPLICATING Gestational diabetes 28 WK OB/GLUCOSE E-ORDER GESTATIONAL DIABETES Reason for Visit BALJIT (generalized anx iety disorder) Obesity affecting Supervision of high risk , antepartum BALJIT (generalized anxiety disorder) Obesity affecting Supervision of high risk , antepartum Strain of right ankle BALJIT (generalized anxiety disorder) Obesity affecting Supervision of high risk , antepartum Strain of right ankle BALJIT (generalized anxiety disorder) Obesity affecting Supervision of high risk , antepartum Gestational diabetes BALJIT (generalized anxiety disorder) Gestational diabetes Obesity affecting Supervision of high risk , antepartum Chief Complaint 17 WK OB R ANKLE INJURY XRAY 20wk ob 24 WK OB OBESITY COMPLICATING Gestational diabetes 28 WK OB/GLUCOSE E-ORDER GESTATIONAL DIABETES GESTATIONAL DIABETES 30 WK OB ABDOMINAL PAIN ABDOMINAL PAIN Reason for Visit BALJIT (generalized anx iety disorder) Obesity affecting Supervision of high risk , antepartum Strain of right ankle BALJIT (generalized anxiety disorder) Obesity affecting Supervision of high risk , antepartum Strain of right ankle BALJIT (generalized anxiety disorder) Obesity affecting Supervision of high risk , antepartum Gestational diabetes BALJIT (generalized anxiety disorder) Gestational diabetes Obesity affecting Supervision of high risk , antepartum BALJIT (generalized anxiety disorder) Gestational diabetes Obesity affecting Supervision of high risk , antepartum BALJIT (generalized anxiety disorder) Gestational diabetes Idiopathic acute pancreatitis Obesity affecting Supervision of high risk , antepartum Chief Complaint R ANKLE INJURY XRAY 20wk ob 24 WK OB OBESITY COMPLICATING Gestational diabetes 28 WK OB/GLUCOSE E-ORDER GESTATIONAL DIABETES GESTATIONAL DIABETES 30 WK OB ABDOMINAL PAIN ABDOMINAL PAIN 32 WK OB / NST 32WK NST ONLY 33WK OB / NST 33 WK NST ONLY 34WK NST ONLY Reason for Visit Strain of right ankl e BALJIT (generalized anxiety disorder) Obesity affecting Supervision of high risk , antepartum Strain of right ankle BALJIT (generalized anxiety disorder) Obesity affecting Supervision of high risk , antepartum Gestational diabetes BALJIT (generalized anxiety disorder) Gestational diabetes Obesity affecting Supervision of high risk , antepartum BALJIT (generalized anxiety disorder) Gestational diabetes Obesity affecting Supervision of high risk , antepartum BALJIT (generalized anxiety disorder) Gestational diabetes Idiopathic acute pancreatitis Obesity affecting Supervision of high risk , antepartum BALJIT (generalized anxiety disorder) Gestational diabetes Idiopathic acute pancreatitis Obesity affecting Supervision of high risk , antepartum BALJIT (generalized anxiety disorder) Gestational diabetes Idiopathic acute pancreatitis Obesity affecting Supervision of high risk , antepartum BALJIT (generalized anxiety disorder) Gestational diabetes Idiopathic acute pancreatitis Obesity affecting Supervision of high risk , antepartum BALJIT (generalized anxiety disorder) Gestational diabetes Idiopathic acute pancreatitis Obesity affecting Supervision of high risk , antepartum Chief Complaint 20wk ob 24 WK OB OBESITY COMPLICATING Gestational diabetes 28 WK OB/GLUCOSE E-ORDER GESTATIONAL DIABETES GESTATIONAL DIABETES 30 WK OB ABDOMINAL PAIN ABDOMINAL PAIN 32 WK OB / NST 32WK NST ONLY 33WK OB / NST 33 WK NST ONLY 34WK NST ONLY 34 WK OB / NST 35WK NST ONLY 35WK OB / NST 36 WK OB / NST GROWTH 36WK NST ONLY 37WK NST ONLY Reason for Visit BALJIT (generalized anx iety disorder) Obesity affecting Supervision of high risk , antepartum Strain of right ankle BALJIT (generalized anxiety disorder) Obesity affecting Supervision of high risk , antepartum Gestational diabetes BALJIT (generalized anxiety disorder) Gestational diabetes Obesity affecting Supervision of high risk , antepartum BALJIT (generalized anxiety disorder) Gestational diabetes Obesity affecting Supervision of high risk , antepartum BALJIT (generalized anxiety disorder) Gestational diabetes Idiopathic acute pancreatitis Obesity affecting Supervision of high risk , antepartum BALJIT (generalized anxiety disorder) Gestational diabetes Idiopathic acute pancreatitis Obesity affecting Supervision of high risk , antepartum BALJIT (generalized anxiety disorder) Gestational diabetes Idiopathic acute pancreatitis Obesity affecting Supervision of high risk , antepartum BALJIT (generalized anxiety disorder) Gestational diabetes Idiopathic acute pancreatitis Obesity affecting Supervision of high risk , antepartum BALJTI (generalized anxiety disorder) Gestational diabetes Idiopathic acute pancreatitis Obesity affecting Supervision of high risk , antepartum BALJIT (generalized anxiety disorder) Gestational diabetes Idiopathic acute pancreatitis Obesity affecting Supervision of high risk , antepartum BALJIT (generalized anxiety disorder) Gestational diabetes Idiopathic acute pancreatitis Obesity affecting Supervision of high risk , antepartum BALJIT (generalized anxiety disorder) Gestational diabetes Idiopathic acute pancreatitis Obesity affecting Supervision of high risk , antepartum Gestational diabetes Supervision of high risk , antepartum BALJIT (generalized anxiety disorder) Gestational diabetes Idiopathic acute pancreatitis Obesity affecting Supervision of high risk , antepartum BALJIT (generalized anxiety disorder) Gestational diabetes Idiopathic acute pancreatitis Obesity affecting Supervision of high risk , antepartum Chief Complaint 24 WK OB OBESITY COMPLICATING Gestational diabetes 28 WK OB/GLUCOSE E-ORDER GESTATIONAL DIABETES GESTATIONAL DIABETES 30 WK OB ABDOMINAL PAIN ABDOMINAL PAIN 32 WK OB / NST 32WK NST ONLY 33WK OB / NST 33 WK NST ONLY 34WK NST ONLY 34 WK OB / NST 35WK NST ONLY 35WK OB / NST 36 WK OB / NST GROWTH 36WK NST ONLY 37WK NST ONLY 37WK OB / NST 38WK OB / NST 38WK NST ONLY VAGINAL DELIVERY VAGINAL DELIVERY VAGINAL DELIVERY Reason for Visit BALJIT (generalized anx iety disorder) Obesity affecting Supervision of high risk , antepartum Gestational diabetes BALJIT (generalized anxiety disorder) Gestational diabetes Obesity affecting Supervision of high risk , antepartum BALJIT (generalized anxiety disorder) Gestational diabetes Obesity affecting Supervision of high risk , antepartum BALJIT (generalized anxiety disorder) Gestational diabetes Idiopathic acute pancreatitis Obesity affecting Supervision of high risk , antepartum BALJIT (generalized anxiety disorder) Gestational diabetes Idiopathic acute pancreatitis Obesity affecting Supervision of high risk , antepartum BALJIT (generalized anxiety disorder) Gestational diabetes Idiopathic acute pancreatitis Obesity affecting Supervision of high risk , antepartum BALJIT (generalized anxiety disorder) Gestational diabetes Idiopathic acute pancreatitis Obesity affecting Supervision of high risk , antepartum BALJIT (generalized anxiety disorder) Gestational diabetes Idiopathic acute pancreatitis Obesity affecting Supervision of high risk , antepartum BALJIT (generalized anxiety disorder) Gestational diabetes Idiopathic acute pancreatitis Obesity affecting Supervision of high risk , antepartum BALJIT (generalized anxiety disorder) Gestational diabetes Idiopathic acute pancreatitis Obesity affecting Supervision of high risk , antepartum BALJIT (generalized anxiety disorder) Gestational diabetes Idiopathic acute pancreatitis Obesity affecting Supervision of high risk , antepartum Gestational diabetes Supervision of high risk , antepartum BALJIT (generalized anxiety disorder) Gestational diabetes Idiopathic acute pancreatitis Obesity affecting Supervision of high risk , antepartum BALJIT (generalized anxiety disorder) Gestational diabetes Idiopathic acute pancreatitis Obesity affecting Supervision of high risk , antepartum BALJIT (generalized anxiety disorder) Gestational diabetes Idiopathic acute pancreatitis Obesity affecting Supervision of high risk , antepartum BALJIT (generalized anxiety disorder) Gestational diabetes Idiopathic acute pancreatitis Obesity affecting Supervision of high risk , antepartum Variable heart rate decelerations, antepartum BALJIT (generalized anxiety disorder) Gestational diabetes Idiopathic acute pancreatitis Obesity affecting Supervision of high risk , antepartum Variable heart rate decelerations, antepartum Encounter for induction of labor BALJIT (generalized anxiety disorder) Gestational diabetes Obesity affecting Supervision of high risk , antepartum Vaginal delivery Chief Complaint OBESITY COMPLICATING Gestational diabetes 28 WK OB/GLUCOSE E-ORDER GESTATIONAL DIABETES GESTATIONAL DIABETES 30 WK OB ABDOMINAL PAIN ABDOMINAL PAIN 32 WK OB / NST 32WK NST ONLY 33WK OB / NST 33 WK NST ONLY 34WK NST ONLY 34 WK OB / NST 35WK NST ONLY 35WK OB / NST 36 WK OB / NST GROWTH 36WK NST ONLY 37WK NST ONLY 37WK OB / NST 38WK OB / NST 38WK NST ONLY VAGINAL DELIVERY VAGINAL DELIVERY VAGINAL DELIVERY dizzy Reason for Visit Gestational diabetes BALJIT (generalized anxiety disorder) Gestational diabetes Obesity affecting Supervision of high risk , antepartum BALJIT (generalized anxiety disorder) Gestational diabetes Obesity affecting Supervision of high risk , antepartum BALJIT (generalized anxiety disorder) Gestational diabetes Idiopathic acute pancreatitis Obesity affecting Supervision of high risk , antepartum BALJIT (generalized anxiety disorder) Gestational diabetes Idiopathic acute pancreatitis Obesity affecting Supervision of high risk , antepartum BALJIT (generalized anxiety disorder) Gestational diabetes Idiopathic acute pancreatitis Obesity affecting Supervision of high risk , antepartum BALJIT (generalized anxiety disorder) Gestational diabetes Idiopathic acute pancreatitis Obesity affecting Supervision of high risk , antepartum BALJIT (generalized anxiety disorder) Gestational diabetes Idiopathic acute pancreatitis Obesity affecting Supervision of high risk , antepartum BALJIT (generalized anxiety disorder) Gestational diabetes Idiopathic acute pancreatitis Obesity affecting Supervision of high risk , antepartum BALJIT (generalized anxiety disorder) Gestational diabetes Idiopathic acute pancreatitis Obesity affecting Supervision of high risk , antepartum BALJIT (generalized anxiety disorder) Gestational diabetes Idiopathic acute pancreatitis Obesity affecting Supervision of high risk , antepartum Gestational diabetes Supervision of high risk , antepartum BALJIT (generalized anxiety disorder) Gestational diabetes Idiopathic acute pancreatitis Obesity affecting Supervision of high risk , antepartum BALJIT (generalized anxiety disorder) Gestational diabetes Idiopathic acute pancreatitis Obesity affecting Supervision of high risk , antepartum BALJIT (generalized anxiety disorder) Gestational diabetes Idiopathic acute pancreatitis Obesity affecting Supervision of high risk , antepartum BALJIT (generalized anxiety disorder) Gestational diabetes Idiopathic acute pancreatitis Obesity affecting Supervision of high risk , antepartum Variable heart rate decelerations, antepartum BALJIT (generalized anxiety disorder) Gestational diabetes Idiopathic acute pancreatitis Obesity affecting Supervision of high risk , antepartum Variable heart rate decelerations, antepartum Encounter for induction of labor BALJIT (generalized anxiety disorder) Gestational diabetes Obesity affecting Supervision of high risk , antepartum Vaginal delivery Chief Complaint ABDOMINAL PAIN ABDOMINAL PAIN 32 WK OB / NST 32WK NST ONLY 33WK OB / NST 33 WK NST ONLY 34WK NST ONLY 34 WK OB / NST 35WK NST ONLY 35WK OB / NST 36 WK OB / NST GROWTH 36WK NST ONLY 37WK NST ONLY 37WK OB / NST 38WK OB / NST 38WK NST ONLY VAGINAL DELIVERY VAGINAL DELIVERY VAGINAL DELIVERY dizzy 6wk pp , declined IUD Gestational diabetes mellitus (GDM) [employer] Reason for Visit BALJIT (generalized anx iety disorder) Gestational diabetes Idiopathic acute pancreatitis Obesity affecting Supervision of high risk , antepartum BALJIT (generalized anxiety disorder) Gestational diabetes Idiopathic acute pancreatitis Obesity affecting Supervision of high risk , antepartum BALJIT (generalized anxiety disorder) Gestational diabetes Idiopathic acute pancreatitis Obesity affecting Supervision of high risk , antepartum BALJIT (generalized anxiety disorder) Gestational diabetes Idiopathic acute pancreatitis Obesity affecting Supervision of high risk , antepartum BALJIT (generalized anxiety disorder) Gestational diabetes Idiopathic acute pancreatitis Obesity affecting Supervision of high risk , antepartum BALJIT (generalized anxiety disorder) Gestational diabetes Idiopathic acute pancreatitis Obesity affecting Supervision of high risk , antepartum BALJIT (generalized anxiety disorder) Gestational diabetes Idiopathic acute pancreatitis Obesity affecting Supervision of high risk , antepartum BALJIT (generalized anxiety disorder) Gestational diabetes Idiopathic acute pancreatitis Obesity affecting Supervision of high risk , antepartum Gestational diabetes Supervision of high risk , antepartum BALJIT (generalized anxiety disorder) Gestational diabetes Idiopathic acute pancreatitis Obesity affecting Supervision of high risk , antepartum BALJIT (generalized anxiety disorder) Gestational diabetes Idiopathic acute pancreatitis Obesity affecting Supervision of high risk , antepartum BALJIT (generalized anxiety disorder) Gestational diabetes Idiopathic acute pancreatitis Obesity affecting Supervision of high risk , antepartum BALJIT (generalized anxiety disorder) Gestational diabetes Idiopathic acute pancreatitis Obesity affecting Supervision of high risk , antepartum Variable heart rate decelerations, antepartum BALJIT (generalized anxiety disorder) Gestational diabetes Idiopathic acute pancreatitis Obesity affecting Supervision of high risk , antepartum Variable heart rate decelerations, antepartum Encounter for induction of labor BALJIT (generalized anxiety disorder) Gestational diabetes Obesity affecting Supervision of high risk , antepartum Vaginal delivery Anxiety Gestational diabetes Routine follow-up Chief Complaint PALPITATIONS Chief Complaint PALPITATIONS DIZZINESS Chief Complaint PALPITATIONS DIZZINESS HEADACHE Chief Complaint DIZZINESS HEADACHE E-ORDER Chief Complaint HEADACHE E-ORDER New OB, LMP 2/, AMANDA 11 Reason for Visit AMA (advanced matern al age) multigravida 35+ Anxiety Heart palpitations Hx of gestational diabetes in prior , currently Hyperlipidemia Obesity affecting PVC (premature ventricular contraction) Supervision of high-risk Chief Complaint HEADACHE E-ORDER New OB, LMP 2/, AMANDA 11 9 WK OB PALP ([place]ED[place]) R00.2 - Palpitations PALP Amb Documentation Reason for Visit AMA (advanced matern al age) multigravida 35+ Anxiety Heart palpitations Hx of gestational diabetes in prior , currently Hyperlipidemia Obesity affecting PVC (premature ventricular contraction) Supervision of high-risk AMA (advanced maternal age) multigravida 35+ Anxiety Heart palpitations Hx of gestational diabetes in prior , currently Hyperlipidemia Obesity affecting PVC (premature ventricular contraction) Supervision of high-risk Heart palpitations Additional Source Comments INFORMATION SOURCE (unrecogn ized section and content) DATE CREATED AUTHOR 04/20/2018 [facility] DATE CREATED AUTHOR AUTHOR'S ORGANIZ ATION 01/15/2019 [facility] DATE CREATED AUTHOR AUTHOR'S ORGANIZ ATION 04/01/2021 [facility] DATE CREATED AUTHOR AUTHOR'S ORGANIZ ATION 03/05/2022 [facility] DATE CREATED AUTHOR AUTHOR'S ORGANIZ ATION 07/13/2022 [facility] DATE CREATED AUTHOR AUTHOR'S ORGANIZ ATION 07/13/2022 [employer] DATE CREATED AUTHOR AUTHOR'S ORGANIZ ATION 10/29/2023 [facility] DATE CREATED AUTHOR AUTHOR'S ORGANIZ ATION 09/14/2024 [facility] DATE CREATED AUTHOR AUTHOR'S ORGANIZ ATION 10/20/2024 [facility] DATE CREATED AUTHOR AUTHOR'S ORGANIZ ATION 10/20/2024 [facility] DATE CREATED AUTHOR AUTHOR'S ORGANIZ ATION 10/21/2024 [facility] <item> Privacy Markings (unrecogniz ed section and content) Section Author: Otilia Hodge PROHIBITION ON REDISCLOSURE OF CONFIDENTIAL INFORMATION This notice accompanies a disclosure of information concerning a client made to you with the consent of such client. Goals (unrecognized section and content) Goals may be documented in a n alternate sectionGoals may be documented in an alternate sectionGoals may be documented in an alternate sectionGoals may be documented in an alternate sectionGoals may be documented in an alternate sectionGoals may be documented in an alternate sectionGoals may be documented in an alternate sectionGoals may be documented in an alternate sectionGoals may be documented in an alternate sectionGoals may be documented in an alternate sectionGoals may be documented in an alternate sectionGoals may be documented in an alternate sectionGoals may be documented in an alternate sectionGoals may be documented in an alternate sectionGoals may be documented in an alternate sectionGoals may be documented in an alternate section Care Teams (unrecognized sec tion and content) Team Status: Active Member Role Status Dates Dr. Asa Ceja MD Family Provider Active MALISSA REDMAN Primary Care Provider Active Team Status: Inactive Member Role Status Dates Dr. Toyin Kimbrough MD Attending Provider Active Team Status: Inactive Member Role Status Dates Dr. Megan Leon DO Attending Provider Activ e ЮЛИЯ LEONARDO Primary Care Provider, Referring Provider Active Team Status: Inactive Member Role Status Dates Shirley Hong JANITORIAL CLEANER, JANITORIAL CLEANER-C Attending Provider Active ЮЛИЯ LEONARDO Primary Care Provider, Referring Provider Active Team Status: Inactive Member Role Status Dates Anahy Buchanan CNM Attending Provider Active Team Status: Inactive Member Role Status Dates Dr. Toyin Kimbrough MD Active Shirley Hong JANITORIAL CLEANER, JANITORIAL CLEANER-C Attending Provider Active Team Status: Inactive Member Role Status Dates Shirley Hong JANITORIAL CLEANER, JANITORIAL CLEANER-C Attending Provider Active Team Status: Inactive Member Role Status Dates Anahy Buchanan CNM Attending Provider Active ЮЛИЯ LEONARDO Primary Care Provider, Referring Provider Active Team Status: Inactive Member Role Status Dates Dr. Toyin Kimbrough MD Attending Provider Active ЮЛИЯ LEONARDO Primary Care Provider, Referring Provider Active Team Status: Inactive Member Role Status Dates ЮЛИЯ LEONARDO Primary Care Provider, Referring Provider Active Dr. Toyin Kimbrough MD Attending Provider Active Team Status: Active Member Role Status Dates Dr. Toyin Kimbrough MD Other Provider Active Dr. Megan Leon DO Attending Provider Activ e Team Status: Active Member Role Status Dates ЮЛИЯ LEONARDO Primary Care Provider Active Anahy Buchanan CNM Admit Provider Active Dr. Toyin Kimbrough MD Attending Provider, Other Provider Active Team Status: Active Member Role Status Dates ЮЛИЯ LEONARDO Primary Care Provider Active Anahy Buchanan CNM Admit Provider Active Dr. Toyin Kimbrough MD Other Provider Active Shirley Hong JANITORIAL CLEANER, JANITORIAL CLEANER-C Attending Provider Active Team Status: Inactive Member Role Status Dates Shirley Hong JANITORIAL CLEANER, JANITORIAL CLEANER-C Attending Provider Active No Primary Care Physician Primary Care Provider, Refer ring Provider Active Team Status: Inactive Member Role Status Dates ЮЛИЯ LEONARDO Primary Care Provider Active Anahy Buchanan CNM Admit Provider Active Dr. Toyin Kimbrough MD Attending Provider Active Team Status: Inactive Member Role Status Dates Shirley Hong JANITORIAL CLEANER, JANITORIAL CLEANER-C Attending Provider Active ЮЛИЯ LEONARDO Primary Care Provider Active Team Status: Inactive Member Role Status Dates No Primary Care Physician Primary Care Provider Active Dr. Martin Orozco DO Attending Provider, Emergency P rovider Active Team Status: Inactive Member Role Status Dates Shirley Hong JANITORIAL CLEANER, JANITORIAL CLEANER-C Attending Provider, Referring Provider Active ЮЛИЯ LEONARDO Primary Care Provider Active Team Status: Active Member Role Status Dates ЮЛИЯ LEONARDO Primary Care Provider Active Health Risk Assessment Attending Provider, Referring P rovider Active Stem Setter Relationship Specialty Start Date End Date Malissa Redman L, TICKETING CLERK-MARKETING COMPLIANCE MANAGER [address] [facility], [place] [address] PCP - General 08/31/21 Team Status: Inactive Member Role Status Dates ЮЛИЯ LEONARDO Primary Care Provide r, Attending Provider, Referring Provider Active Team Status: Active Member Role Status Dates Dr. Asa Ceja MD Family Provider Active Dr. Belgica Torres MD Primary Care Provider Activ e Team Status: Inactive Member Role Status Dates Dr. Dom Correa DO Emergency Provider Active Dr. Belgica Torres MD Primary Care Provider Activ e Team Status: Inactive Member Role Status Dates Dr. Dom Correa DO Attending Provider, Emergency P rovider Active Dr. Belgica Torres MD Primary Care Provider Activ e Team Status: Inactive Member Role Status Dates Dr. Belgica Torres MD Primary Care Provider Activ e Shirley Hong JANITORIAL CLEANER, JANITORIAL CLEANER-C Attending Provider Active Team Status: Active Member Role Status Dates Dr. Belgica Torres MD Primary Care Provider Activ e Shirley Hong JANITORIAL CLEANER, JANITORIAL CLEANER-C Attending Provider, Referring Provider Active Team Status: Inactive Member Role Status Dates Dr. Belgica Torres MD Primary Care Provider Activ e Shirley Hong JANITORIAL CLEANER, JANITORIAL CLEANER-C Attending Provider, Referring Provider Active Team Status: Active Member Role Status Dates Dr. Asa Ceja MD Family Provider Active Team Status: Inactive Member Role Status Dates Dr. Belgica Torres MD Referring Provider Active Dr. Toyin Kimbrough MD Attending Provider Active Team Status: Active Member Role Status Dates Dr. Toyin Kimbrough MD Attending Provider, Referr ing Provider Active Team Status: Inactive Member Role Status Dates Dr. Belgica Torres MD Primary Care Provider Activ e Dr. Toyin Kimbrough MD Attending Provider Active Team Status: Active Member Role Status Dates Dr. Belgica Torres MD Primary Care Provider Activ e Health Risk Assessment Attending Provider Active Team Status: Inactive Member Role Status Dates Dr. Toyin Kimbrough MD Attending Provider, Referr ing Provider Active Team Status: Inactive Member Role Status Dates Dr. Beligca Torres MD Referring Provider Active Dr. Yrn Padilla MD Attending Provider Active Team Status: Active Member Role Status Dates Dr. Belgica Torres MD Primary Care Provider Activ e Dr. Raul Pearce MD Attending Provider Active Team Status: Active Member Role Status Dates Dr. Belgica Torres MD Primary Care Provider Activ e Latisha Goodwin JANITORIAL CLEANER, JANITORIAL CLEANER-C Attending Provider Active Team Status: Active Member Role Status Dates Dr. Yrn Padilla MD Attending Provider, Referring Provider Active Team Status: Inactive Member Role Status Dates Dr. Yrn Padilla MD Attending Provider, Referring Provider Active Dr. Belgica Torres MD Primary Care Provider, Othe r Provider Active Dr. Toyin Kimbrough MD Other Provider Active Stem Setter Relationship Specialty Start Date End Date Belgica Torres MD MPH [address] [facility] [place] [address] PCP - General Family Medicine 07/09/23 Ivy Montes APRN-MARKETING COMPLIANCE MANAGER Office Address Unavailable as of 08/10/2021 PCP - Arleth QUINTANA PCP 05/12/23 Stem Setter Relationship Specialty Start Date End Date Collin Flores PA-C [address] [facility] [place] [address] PCP - General Family Medicine 02/02/24 Stem Setter Relationship Specialty Start Date End Date Tunde Savanna Castillo, SILVANA-KAREN [address] [facility][note 3], [address] [place] [id number] PCP - General Family Medicine 09/10/24 Stem Setter Relationship Specialty Start Date End Date Domenic Clementsrin Jonathan, LOLI [address] [facility]note 3], [address] [place] [id number] PCP - General Family Medicine 09/10/24 Reason for Visit (unrecogniz ed section and content) Reason Comments Anxiety 6 month Hyperlipidemia Reason Comments Earache Left ear pain x 2 da ys Reason Comments URI Sinus pressure, runn y nose, cough, congestion, watery eyes x 2 weeks Reason Comments Establish Care PT is here today to establish care as a new pt and for her physical. Reason Comments Headache Pt reports she woke up with 02/18 RODRIGUEZ. Hx of migraines, no meds LYMPHEDEMA THERAPIST. Was seen at [facility] Friday for like symptoms Scheduled Active and Recently Administ ered Medications (unrecognized section and content) Medication Order 10/17/2024 10/18/2024 10/19/2024 HYDROmorphone (Dilaudid) injection 0.5 mg (COMPLETED) 0.5 mg, intravenous, Once, On Fri10/19/24 at 0255, For 1 dose 025 (Given - Provid er: Della Reina RN) ketorolac (Toradol) injection 30 mg (COMPLETED) 30 mg, intravenous, Once, On Fri10/19/24 at 0135, For 1 dose 0147 (Given - Provid er: Della Reina RN) metoclopramide (Reglan) injection 5 mg (COMPLETED) 5 mg, intravenous, Once, On Fri10/19/24 at 0135, For 1 dose 0147 (Given - Provid er: Della Reina RN) promethazine (Phenergan) 25 mg in sodium chloride 0.9% 50 mL IV (COMPLETED) 25 mg, intravenous, Administer over 15 Minutes, Once, On Fri10/19/24 at 0210, For 1 dose 0210 (New Bag - Prov ider: Della Reina RN)0230 (Stopped - Provider: Della Reina RN) sodium chloride 0.9 % bolus 1,000 mL (COMPLETED) 1,000 mL, intravenous, at 999 mL/hr, Administer over 1 Hours, Once, On Fri10/19/24 at 0140, For 1 dose 0149 (New Bag - Prov ider: Della Reina RN)0221 (Stopped - Provider: Della Reina RN) FOR RECORDS PERTAINING TO PATIENTS WHO ARE [...] BE BASED ON THE PRIMARY CLINICAL RECORDS. [facility]. provides no warranty or guarantee of the accuracy or completeness of information in this document.
[2024-10-23 20:43] LABS: ALB/GLOB Ratio 1.2 RATIO (0.9-2.4); AST(SGOT) 20 U/L (<=31); Alanine Aminotransfer ALT/SGPT 15 U/L (<=34); Albumin, Serum 4.3 g/dL (3.5-5.0); Alkaline Phosphatase 76 U/L (35-104); Anion Gap 12 (5-15); BUN 15 mg/dL (4-19); BUN/Creat Ratio 19.2 RATIO (10-20); Calcium,Total 9.6 mg/dL (7.6-11.0); Carbon Dioxide 22.3 mmol/L (21.0-32.0); Chloride 105 mmol/L (98-108); Creatinine, Serum 0.79 mg/dL (0.70-1.20); EST Glomerular Filtration Rate 100 (>60); Estimated Creatinine Clearance 139.13 ml/min (50-250); Globulin 3.5 g/dL (2.2-4.2); Glucose 100 mg/dL (70-99); Magnesium 2.2 mg/dL (1.5-2.2); Potassium 4.1 mmol/L (3.3-5.1); Protein, Total 7.8 g/dL (5.9-8.4); Sodium Level 139 mmol/L (133-145); Total Bilirubin 0.35 mg/dL (0.00-1.30)
[2024-10-23 20:52] VITALS: BP 156/90; PULSE 69; O2SAT 100
[2024-10-23] MEDS: proCHLORPERazine 10 MG/2 ML Vial IV (21:01)
[2024-10-23] MEDS: Ketorolac 30 MG/ML Syringe IV (21:02)
[2024-10-23] MEDS: DiphenhydrAMINE 50 MG/ML Syringe IV (21:04)
[2024-10-23] MEDS: MethylPREDNISolone 125 MG/2 ML Vial IV (21:07)
[2024-10-23 22:41] VITALS: BP 153/91; PULSE 74
[2024-10-23 23:00] VITALS: BP 153/91; PULSE 74; RESP 19; TEMP 36.5; O2SAT 100
== END 2024-10-23 23:01 | disposition home or self-care (01) ==
PROVIDERS: Emergency Provider Emergency Medicine; Visit Provider Emergency Medicine
DX: R51.9 Headache, unspecified (principal); E78.2 Mixed hyperlipidemia
CPT/HCPCS: 70496; 70498; 80053; 83735; 85025; 96361; 96374; 96375; 99283; Q9967; A4216

== ENCOUNTER 2024-10-26 06:56 | Emergency (ER) | payer OTHER, SELFPAY ==
[2024-10-26] VITALS (7 sets, daily range): BP systolic 138–192; BP diastolic 76–102; PULSE 59–75; RESP 14–18; TEMP 36.6–36.8; O2SAT 98–100; BMI 42.6
--- NOTE | 2024-10-26 08:38 | EDS_ITS ---
HPI History of Present Illness Chief Complaint: Headache Narrative Narrative: 33-year-old female, by 8 months, history of migraine headaches presents with migraine headache that returned. She states over the last week she has had a migraine headache. Associated with photophobia, phonophobia, and smells make it worse as well. She has tried all her home medications including Imitrex twice, muscle relaxers, Tylenol, and ibuprofen. Of note, she states is been going on for the last week and was seen in the emergency department 3 days ago. Yesterday she was pain-free for 24 hours, but yesterday evening her headache returned. Similar to her previous headaches. She does not see a neurologist. She denies any fevers or chills but states it is associated with nausea and vomiting. No paresthesias. [facility] Medical History Obesity affecting Hx of gestational diabetes in prior , currently Large for gestational age fetus Abnormal glucose affecting AMA (advanced maternal age) multigravida 35+ Proteinuria affecting Superficial varicosities Asthma PVC (premature ventricular contraction) Hyperlipidemia Pancreatitis Vaginal delivery Heart palpitations Complete Infertility Seasonal allergies Rosacea Obesity Mixed dyslipidemia Migraine with aura BALJIT (generalized anxiety disorder) Home Medications ?Medication ?Instructions ?Recorded ?Last Taken ?Type cholecalciferol (vitamin D3) 50 2,000 unit PO DAILY Unknown History mcg (2,000 unit) capsule (Vitamin D3) citalopram 40 mg tablet (Celexa) 40 mg PO DAILY #90 ta bs 04/05/24 Unknown Rx ketorolac 10 mg tablet 10 mg PO Q8H PRN pain #15 ta bs 10/23/24 Unknown Rx prednisone 20 mg tablet 60 mg (3 x 20 mg) PO DAILY # 15 10/23/24 Unknown Rx TABLETS prochlorperazine maleate 10 mg 10 mg PO TID PRN migrai ne #15 tabs 10/23/24 Unknown Rx tablet (Compazine) sumatriptan succinate 50 mg tablet 50 mg PO Q2H Unknown History tizanidine 2 mg tablet 2 mg PO Q6H PRN PRN muscle s pasm 10/26/24 Unknown History topiramate 50 mg tablet 50 mg PO DAILY 10/26/24 Unkn own History Allergy/AdvReac Type Severity Reaction Status Date / Time Sulfa (Sulfonamide Allergy Hives Verified 10/26/24 06:57 Antibiotics) Family History Mother Thyroid cancer Hypertension Father Hypertension Hyperlipidemia Grandfather Leukemia Lung cancer Grandmother Diabetes PFO (patent foramen ovale) Paternal- Repaired Atrial fibrillation History of transcatheter aortic valve replacement (TAVR) Brother Diabetes Type 1 Surgical History [place] teeth extracted Social History adopted: No household members: spouse and children number of children: 1 current occupational status: employed 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 pets and animals: Yes (avoid litter box) pets and animals: cat(s) and dog(s) history of recent travel: No sexually active: Yes Smoking Status: Never smoker alcohol intake: current details: not while substance use type: does not use well-balanced diet: daily or most days caffeine: Yes Type: coffee Number of servings: 1 eating out: 1-3 times/week during the past year weight has: remained stable what type of physical activity do you participate in: none liban/pentecostalism: None seatbelt use: always do you feel safe at home: Yes additional social history: - Ric 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 Positive nausea and vomiting. Positive photophobia and phonophobia. No paresthesias. No fevers or chills. States that she has been checked for preeclampsia multiple times as she has been experiencing headaches. EXAM Physical Exam Narrative Exam Narrative: Afebrile. Vital signs noted. Nontoxic-appearing. Cardiovascular examination reveals a regular rate and rhythm. Lungs are clear to auscultation bilaterally. Abdomen is soft and nontender with normal active bowel sounds. Neurological examination nonfocal, nonlateralizing. Awake, alert, oriented. PERRL, EOMI. No meningismus. Const Vital Signs: 10/26/24 06:58 10/26/24 07:08 10/26/24 08:58 Temperature 97.8 F Temperature Source Oral Pulse Rate 62 61 61 Respiratory Rate 18 14 14 Blood Pressure 177/91 H 160/102 H 138/91 H Blood Pressure Mean 119 121 106 Pulse Ox 100 99 99 Oxygen Delivery Method Room Air Room Air Room Air 10/26/24 09:49 10/26/24 10:08 10/26/24 10:11 Temperature Temperature Source Pulse Rate 59 L 71 Respiratory Rate 16 14 Blood Pressure 192/80 H 154/100 H 154/100 H Blood Pressure Mean 117 118 118 Pulse Ox 98 100 Oxygen Delivery Method Room Air Room Air MDM MDM MDM Narrative Medical decision making narrative: Differential diagnosis does include preeclampsia/eclampsia versus migraine headache versus stress headache. I have very low suspicion for intracranial hemorrhage based on her clinical examination. I reviewed her prior ED visit and she had a CTA performed as well as basic laboratory work. She received IV fluids and medications and showed improvement. I do not feel that she needs repeat lab work or repeat imaging as this was just performed 3 days ago. While she initially had elevated blood pressure, it has normalized/near normalized to the 130 systolic. Patient will be bolused normal saline intravenously as well as Compazine and Benadryl administered initially. Initial repeat examination showed mild improvement, but she states she got up to go to the bathroom and the headache returned or worsened. I did order her more medications mainly in the form of Toradol and 1 mg of Ativan. Her blood pressure had come down to 154/100 after spike which may have been a false read. Repeat examination at approximately 11:10 AM shows her headache improved down to a 6 from a 10 out of 10. I do feel she can be discharged to follow-up. She already has home medications that were written for her a few days ago, and she had already been referred to her neurologist. She will follow-up with her primary care provider regarding her labile blood pressure. I do not feel she requires admission at this time. Return instructions reviewed. Disposition is discharged home in stable condition. History & Record Review Discussion w/independent historian: Patient and Family () Discharge Plan Triage Chief Complaint: Headache ED Provider: Yung Haddad Dx/Rx/DC Orders Clinical Impression: Headache, Labile blood pressure Instructions: ED Headache Unspecified, ED Hypertension, To Be Confirmed Prescriptions: No Action citalopram [Celexa] 40 mg tablet 40 mg PO DAILY Qty: 90 3RF tizanidine 2 mg tablet 2 mg PO Q6H PRN PRN (Reason: muscle spasm) sumatriptan succinate 50 mg tablet 50 mg PO Q2H topiramate 50 mg tablet 50 mg PO DAILY cholecalciferol (vitamin D3) [Vitamin D3] 50 mcg (2,000 unit) capsule 2,000 unit PO DAILY ketorolac 10 mg tablet 10 mg PO Q8H PRN (Reason: pain) Qty: 15 0RF Rx Instructions: maximum total duration of 5 days from all oral, intranasal, or parenteral formulations prochlorperazine maleate [Compazine] 10 mg tablet 10 mg PO TID PRN (Reason: migraine) Qty: 15 0RF prednisone 20 mg tablet 60 mg PO DAILY Qty: 15 0RF Primary Care Provider: Jarvis Griffiths Referrals: Jarvis Griffiths, [facility] [Primary Care Provider] - As soon as possible Activity Restrictions/Additional Instructions: Continue the outpatient medications for headache as previously prescribed. Follow-up with your primary care provider, and reach out to the neurologist. Return with new or worsening symptoms. Print Language: Japanese Disposition Disposition: Home, Self Care
[2024-10-26] MEDS: proCHLORPERazine 10 MG/2 ML Vial IV (08:56)
[2024-10-26] MEDS: DiphenhydrAMINE 50 MG/ML Syringe IV (08:56)
[2024-10-26] MEDS: 0.9% Normal Saline (1000mL) 1,000 ML 999 ML IV (08:56)
[2024-10-26] MEDS: dexAMETHasone 4 MG/ML Vial 8 MG IV (10:06)
[2024-10-26] MEDS: Lorazepam 2 MG/ML WCH Syringe 1 MG IV (10:10)
== END 2024-10-26 12:07 | disposition home or self-care (01) ==
PROVIDERS: Emergency Provider Emergency Medicine; Visit Provider Emergency Medicine
DX: R51.9 Headache, unspecified (principal); M54.2 Cervicalgia; R03.0 Elevated blood-pressure reading, without diagnosis of hypertension; E78.2 Mixed hyperlipidemia; Z79.899 Other long term (current) drug therapy; F41.1 Generalized anxiety disorder
CPT/HCPCS: 96361; 96374; 96375; 99282; A4216

== ENCOUNTER → 2025-03-03 | Outpatient (CLI) | payer OTHER, SELFPAY | END | disposition home or self-care (01) | LOC: SL 12:19 | DX: G47.33 Obstructive sleep apnea (adult) (pediatric) (principal) | CPT/HCPCS: 95806 ==

== ENCOUNTER → 2025-04-28 | Outpatient (CLI) | payer OTHER, SELFPAY ==
[2025-04-28 13:17] LABS: Vitamin D,25 Hydroxy 23.1 ng/mL (30-100)
== END | disposition home or self-care (01) ==
PROVIDERS: Visit Provider Advanced Practice Midwife
DX: R53.83 Other fatigue (principal); Z12.4 Encounter for screening for malignant neoplasm of cervix; Z13.29 Encounter for screening for other suspected endocrine disorder
CPT/HCPCS: 36415; 82306; 83036; 84439; 84443; 87624; 88175; G0145